=== PATIENT | male | born 1985 | race Caucasian/White ===

== ENCOUNTER 2022-01-10 10:37 | Emergency (ER) | payer OTHER, SELFPAY ==
--- NOTE | ~2022-01-10 | XR_ITS ---
EXAMINATION: XR CHEST CLINICAL INFORMATION: Chest pain. COMPARISON: Portable chest dated 04/16/2011. TECHNIQUE: 2 views of the chest were obtained. FINDINGS: No significant abnormality is noted involving the heart, lungs, mediastinum, bony thorax or soft tissues. XR/XR chest 2V IMPRESSION: No acute cardiopulmonary process.
--- NOTE | 2022-01-10 10:39 | ECG_ITS ---
Test Reason : CP Blood Pressure : / mmHG Vent. Rate : 089 BPM Atrial Rate : 089 BPM P-R Int : 158 ms QRS Dur : 090 ms QT Int : 342 ms P-R-T Axes : 031 031 019 degrees QTc Int : 416 ms Normal sinus rhythm Minimal voltage criteria for LVH, may be normal variant ( [place] product ) Borderline ECG When compared with ECG of 16-APR-2011 18:57, No significant change was found Referred By: Generic ED Physician Electronically Signed By:LUIGI ATKINS MD
[2022-01-10 10:40] VITALS: BP 197/115; PULSE 95; RESP 18; TEMP 36.6; O2SAT 99; BMI 32.4
[2022-01-10 10:53] LABS: MANUAL DIFF FLAG NO
[2022-01-10 10:54] LABS: Basophils Absolute Auto 0.1 X10*3/uL (0.0-0.2); Basophils Percent Auto 0.7 % (0-2); Eosinophils Absolute Auto 0.2 X10*3/uL (0.0-0.4); Eosinophils Percent Auto 1.8 % (0-4); Hematocrit 43.4 % (42.0-52.0); Imm Gran Abs Auto 0.02 X10*3/uL (0.00-0.03); Imm Gran Pct Auto 0.2 % (0.0-0.4); Lymphocytes Absolute Auto 2.5 X10*3/uL (1.2-4.9); Lymphocytes Percent Auto 25.1 % (20-40); Mean Corpuscular HGB Conc 32.3 g/dl (31.0-36.0); Mean Corpuscular Hemoglobin 26.4 pg (27.0-33.0); Mean Corpuscular Volume 81.7 fL (80.0-98.0); Mean Platelet Volume 9.5 fL (9.4-12.4); Monocytes Percent Auto 9.9 % (2-11); Neutrophils Absolute Auto 6.1 x10*3/uL (2.0-8.3); Neutrophils Percent Auto 62.3 % (45-73); Platelet Count 379 X10*3/uL (160-400); Red Blood Count 5.31 X10*6/uL (4.60-5.80); Red Cell Distribution Width 15.5 % (11.0-16.0); White Blood Count 9.8 X10*3/uL (4.8-10.8)
[2022-01-10 11:09] LABS: Anion Gap 15 (12-20); Blood Urea Nitrogen 6 mg/dL (9-16); Carbon Dioxide 25 mmol/L (22-29); Chloride 104 mmol/L (96-108); Creatinine Clr Calc Pharmacy 102.2; Estimated Glomerular Filt Rate > 60; Glucose Random 92 mg/dL (60-115); Potassium 4.5 mmol/L (3.3-5.1); Sodium 139 mmol/L (135-145)
[2022-01-10 11:14] LABS: Troponin-I High Sensitivity 10.3 ng/L (<3.5-35.0)
[2022-01-10 13:45] VITALS: BP 180/107; PULSE 82; RESP 18; TEMP 36.6; O2SAT 99
[2022-01-10 14:17] LABS: Troponin-I High Sensitivity 12.8 ng/L (<3.5-35.0)
[2022-01-10] MEDS: amLODIPine Besylate 2.5 MG TABLET 7.5 MG PO (15:16)
--- NOTE | 2022-01-10 15:23 | ED.CHESTPAIN ---
HPI - Chest Pain General Chief Complaint: Chest Pain Stated Complaint: CP Time Seen by Provider: 01/10/22 14:57 Source: patient Mode of arrival: ambulatory History of Present Illness HPI narrative: 36-year-old male with known history hypertension presents with mild chest discomfort and has been off of his medications for 1 month due to lapse in medical coverage. Otherwise, he denies any dizziness, headache, shortness of breath. Related Data Previous Rx's Medication Instructions Recorded amlodipine 10 mg tablet (Norvasc) 10 mg PO DAILY #30 tabs 01/10/22 hydrochlorothiazide 25 mg tablet 25 mg PO DAILY #30 tabs 01/10/22 Allergies Allergy/AdvReac Type Severity Reaction Status Date / Time barium sulfate Allergy Unknown Verified 05/28/14 00:00 No Known Allergies Allergy Unverified 11/27/19 16:23 calomine Allergy Unknown Uncoded 05/28/14 00:00 Review of Systems Review of Systems: Pertinent positives and negatives as stated in HPI 10 point review of systems is otherwise negative. [facility] Past Medical History Source: nursing notes reviewed Social History Social History Advance Directives: No Advance Directives Information Provided: No Physical Exam Vital Signs: Vital Signs: Last Vital Signs Temp 98 F 01/10/22 13:45 Pulse 76 01/10/22 18:00 Resp 18 01/10/22 18:00 BP 197/116 H 01/10/22 18:00 Pulse Ox 98 01/10/22 18:00 O2 Del Method 01/10/22 18:00 BMI result Body Mass Index 32.4 VITAL SIGNS: Reviewed. GENERAL: Well developed, well nourished, in no acute distress. HEAD: Normocephalic/atraumatic EYES: PERRLA, EOMI EARS: Ext canals without abnormality OROPHARYNX: no oral lesions noted, posterior pharynx clear LUNGS: Normal breath sounds. No adventitious sounds or accessory muscle use. SpO2<99> CARDIOVASCULAR: Regular rate and rhythm without noted murmurs ABDOMEN: Soft, non-tender, non-distended with bowel sounds. MUSCULOSKELETAL: No tenderness, deformities, or effusions noted on gross inspection. EXTREMITIES: No cyanosis, clubbing or edema. SKIN: Inspection of the skin reveals no rashes NEUROLOGIC: Alert and oriented x 4. Strength and sensation to light touch were grossly intact x 4. Course Course Course Narrative: 36-year-old male with history and clinical presentation secondary to uncontrolled hypertension and chest pain and on review all investigations troponins although detectable are not elevated. Will give patient blood pressure medication, obtain 3rd troponin, and then discharged on a 30 day supply blood pressure medication. Patient is received a total of 7.5 mg of Norvasc and 10 mg of hydralazine. MDM - Chest Pain Lab Data Result diagrams: 01/10/22 10:49 01/10/22 10:49 Labs: Lab Results 01/10/22 01/10/22 01/10/22 Range/Units 10:49 10:49 10:49 WBC 9.8 (4.8-10.8) X10*3/uL RBC 5.31 (4.60-5.80) X10*6/uL Hgb 14.0 (14.0-18.0) g/dl Hct 43.4 (42.0-52.0) % MCV 81.7 (80.0-98.0) fL MCH 26.4 L (27.0-33.0) pg MCHC 32.3 (31.0-36.0) g/dl RDW 15.5 (11.0-16.0) % Plt Count 379 (160-400) X10*3/uL MPV 9.5 (9.4-12.4) fL Immature Gran % (Auto) 0.2 (0.0-0.4) % Neut % (Auto) 62.3 (45-73) % Lymph % (Auto) 25.1 (20-40) % [place] % (Auto) 9.9 (2-11) % Eos % (Auto) 1.8 (0-4) % Baso % (Auto) 0.7 (0-2) % Lymph # (Auto) 2.5 (1.2-4.9) X10*3/uL [place] # (Auto) 1.0 (0.1-1.2) X10*3/uL Eos # (Auto) 0.2 (0.0-0.4) X10*3/uL Baso # (Auto) 0.1 (0.0-0.2) X10*3/uL Abs Immat Gran (auto) 0.02 (0.00-0.03) X10*3/uL Absolute Neuts (auto) 6.1 (2.0-8.3) x10*3/uL Absolute Nucleated RBC 0.000 (0.0-0.012) X10*3/uL Nucleated RBC % (auto) 0.0 (0.0-0.2) /100WBC Sodium 139 (135-145) mmol/L Potassium 4.5 (3.3-5.1) mmol/L Chloride 104 (96-108) mmol/L Carbon Dioxide 25 (22-29) mmol/L Anion Gap 15 (12-20) BUN 6 L (9-16) mg/dL Creatinine 1.08 (0.5-1.4) mg/dL Estim Creat Clear Calc 102.2 Estimated GFR > 60 Random Glucose 92 (60-115) mg/dL Calcium 10.0 (8.4-10.2) mg/dL Troponin I High Sens 10.3 (<3.5-35.0) ng/L 01/10/22 01/10/22 Range/Units 13:45 15:45 WBC (4.8-10.8) X10*3/uL RBC (4.60-5.80) X10*6/uL Hgb (14.0-18.0) g/dl Hct (42.0-52.0) % MCV (80.0-98.0) fL MCH (27.0-33.0) pg MCHC (31.0-36.0) g/dl RDW (11.0-16.0) % Plt Count (160-400) X10*3/uL MPV (9.4-12.4) fL Immature Gran % (Auto) (0.0-0.4) % Neut % (Auto) (45-73) % Lymph % (Auto) (20-40) % [place] % (Auto) (2-11) % Eos % (Auto) (0-4) % Baso % (Auto) (0-2) % Lymph # (Auto) (1.2-4.9) X10*3/uL [place] # (Auto) (0.1-1.2) X10*3/uL Eos # (Auto) (0.0-0.4) X10*3/uL Baso # (Auto) (0.0-0.2) X10*3/uL Abs Immat Gran (auto) (0.00-0.03) X10*3/uL Absolute Neuts (auto) (2.0-8.3) x10*3/uL Absolute Nucleated RBC (0.0-0.012) X10*3/uL Nucleated RBC % (auto) (0.0-0.2) /100WBC Sodium (135-145) mmol/L Potassium (3.3-5.1) mmol/L Chloride (96-108) mmol/L Carbon Dioxide (22-29) mmol/L Anion Gap (12-20) BUN (9-16) mg/dL Creatinine (0.5-1.4) mg/dL Estim Creat Clear Calc Estimated GFR Random Glucose (60-115) mg/dL Calcium (8.4-10.2) mg/dL Troponin I High Sens 12.8 13.9 (<3.5-35.0) ng/L Discharge Plan Discharge Clinical Impression: Chest pain, Hypertensive urgency Patient Disposition: Home, Self-Care Instructions: Hypertensive Crisis (ED) Additional Instructions: You have been provided with 30 days of blood pressure medication and should use this time to set up care with a primary care provider in the area, you have been provided with a list of possibilities. Return to the ER for worsening symptoms. Prescriptions: New amlodipine [Norvasc] 10 mg tablet 10 mg PO DAILY Qty: 30 0RF hydrochlorothiazide 25 mg tablet 25 mg PO DAILY Qty: 30 0RF
[2022-01-10 16:26] LABS: Troponin-I High Sensitivity 13.9 ng/L (<3.5-35.0)
[2022-01-10] MEDS: hydrALAZINE HCl 10 MG TABLET PO (16:48)
[2022-01-10 17:10] VITALS: BP 184/118
[2022-01-10 17:11] VITALS: BP 117/104
[2022-01-10 18:00] VITALS: BP 197/116; PULSE 76; RESP 18; O2SAT 98
== END 2022-01-10 18:22 | disposition home or self-care (01) ==
PROVIDERS: Emergency Medicine; Emergency Provider Student in an Organized Health Care Education/Training Program
DX: R07.9 Chest pain, unspecified (principal); I16.0 Hypertensive urgency
CPT/HCPCS: 36415; 71046; 80048; 84484; 85025; 93005; 99283; 99284

== ENCOUNTER 2022-06-24 12:12 | Emergency (ER) | payer MEDICAID, SELFPAY ==
--- NOTE | ~2022-06-24 | XR_ITS ---
EXAMINATION: XR CHEST CLINICAL INFORMATION: Chest pain COMPARISON: 01/10/2022 TECHNIQUE: Frontal view of the chest was obtained. FINDINGS: No acute finding. The lung stevenson are grossly clear. No failure or infiltrate. There is no effusion. The cardiac silhouette is within normal limits The hilar regions do not appear pathologically enlarged. Mild scoliosis in the spine. XR/XR chest 1V IMPRESSION: No acute finding.
[2022-06-24 12:14] VITALS: BP 217/122; RESP 18; TEMP 36.8; O2SAT 98; BMI 32.8
--- NOTE | 2022-06-24 12:14 | ECG_ITS ---
Test Reason : cp Blood Pressure : / mmHG Vent. Rate : 092 BPM Atrial Rate : 092 BPM P-R Int : 154 ms QRS Dur : 086 ms QT Int : 360 ms P-R-T Axes : 034 034 009 degrees QTc Int : 445 ms Sinus rhythm with frequent Premature ventricular complexes Minimal voltage criteria for LVH, may be normal variant ( [place] product ) Borderline ECG When compared with ECG of 10-JAN-2022 10:38, Premature ventricular complexes are now Present Referred By: Gabe Valles Electronically Signed By:BRAYDEN ADDISON MD
--- NOTE | 2022-06-24 12:15 | ED_ITS ---
HPI - General Adult General Chief complaint: General Medical <FELISHA Iverson - Last Filed: 06/24/22 12:21> Stated complaint: chest pains/kidney pain <FELISHA Iverson - Last Filed: 06/24/22 12:21> Time Seen by Provider: 06/24/22 12:48 <FELISHA Iverson - Last Filed: 06/24/22 12:21> Related Data Home medications: Previous Rx's Medication Instructions Recorded amlodipine 10 mg tablet (Norvasc) 10 mg PO DAILY #30 tabs 01/10/22 hydrochlorothiazide 25 mg tablet 25 mg PO DAILY #30 tabs 01/10/22 amlodipine 10 mg tablet (Norvasc) 10 mg PO DAILY #30 tabs 06/24/22 hydrochlorothiazide 25 mg tablet 25 mg PO DAILY #30 tabs 06/24/22 <FELISHA Iverson - Last Filed: 06/24/22 12:21> Allergies/adverse reactions: Allergies Allergy/AdvReac Type Severity Reaction Status Date / Time barium sulfate Allergy Unknown Verified 05/28/14 00:00 No Known Allergies Allergy Unverified 11/27/19 16:23 calomine Allergy Unknown Uncoded 05/28/14 00:00 <FELISHA Iverson - Last Filed: 06/24/22 12:21> [facility] Social History Social History: Social History Advance Directives: No Advance Directives Information Provided: Yes <FELISHA Iverson - Last Filed: 06/24/22 12:21> Physical Exam ED Vital Signs: Vital Signs - 24 hr 06/24/22 12:14 06/24/22 14:23 06/24/22 15:46 Temperature 98.2 F Pulse Rate 74 Respiratory Rate 18 16 Blood Pressure 217/122 H 212/126 H 194/124 H Pulse Oximetry 98 96 Oxygen Delivery Method Room Air Room Air 06/24/22 16:26 Temperature Pulse Rate 77 Respiratory Rate 18 Blood Pressure 174/122 H Pulse Oximetry 96 Oxygen Delivery Method Room Air BMI result Body Mass Index 32.8 <FELISHA Iverson Last Filed: 06/24/22 12:21> Vital Signs - 24 hr 06/24/22 12:14 06/24/22 14:23 06/24/22 15:46 Temperature 98.2 F Pulse Rate 74 Respiratory Rate 18 16 Blood Pressure 217/122 H 212/126 H 194/124 H Pulse Oximetry 98 96 Oxygen Delivery Method Room Air Room Air 06/24/22 16:26 Temperature Pulse Rate 77 Respiratory Rate 18 Blood Pressure 174/122 H Pulse Oximetry 96 Oxygen Delivery Method Room Air BMI result Body Mass Index 32.8 <Ruben Spears MD - Last Filed: 06/24/22 16:49> Course Course Course Narrative: This is an RME: Additional HPI, ROS, PE not included below will be deferred to primary provider. 37-year-old male presents with palpitations,chest pain, right arm numbness described as cleaning saw from the IV going through his arm, stent pain to his right flank all started this morning. Tells me has a history of SC in the past. No urinary sx Physical exam benign. HTN 223/128 noted patient reports he was taking amlodipine back in December and hydrochlorothiazide however hasn't taken since December because no pcp will take me Perc negative Will obtain cardiac workup. Ordered amlodipine and hydrochlorothiazide. <FELISHA Iverson - Last Filed: 06/24/22 12:21> Reevaluation(s) Reevaluation #1: pt gladis AM undewrstand risks including <Ruben Spears MD - Last Filed: 06/24/22 16:49> Time: 16:49 <Ruben Spears MD - Last Filed: 06/24/22 16:49> Medications Administered Discontinued Medications Generic Name Dose Route Start Last Admin Trade Name Freq PRN Reason Stop Dose Admin Amlodipine Besylate 10 mg 06/24/22 12:18 06/24/22 13:51 Amlodipine Besylate 10 Mg Tablet PO 06/24/22 12:19 10 mg ONCE ONE Administration Protocol Clonidine HCl 0.2 mg 06/24/22 14:41 06/24/22 14:55 Clonidine Hcl 0.2 Mg Tablet PO 06/24/22 14:42 0.2 mg ONCE ONE Administration Protocol Hydrochlorothiazide 25 mg 06/24/22 12:18 06/24/22 13:51 Hydrochlorothiazide 25 Mg Tablet PO 06/24/22 12:19 25 mg ONCE ONE Administration Protocol Labetalol HCl 20 mg 06/24/22 15:49 06/24/22 16:05 Labetalol Hcl 100 Mg/20 Ml Vial IVPUSH 06/24/22 15:50 20 mg ONCE ONE Administration <FELISHA Iverson - Last Filed: 06/24/22 12:21> Medications Administered Discontinued Medications Generic Name Dose Route Start Last Admin Trade Name [place] PRN Reason Stop Dose Admin Amlodipine Besylate 10 mg 06/24/22 12:18 06/24/22 13:51 Amlodipine Besylate 10 Mg Tablet PO 06/24/22 12:19 10 mg ONCE ONE Administration Protocol Clonidine HCl 0.2 mg 06/24/22 14:41 06/24/22 14:55 Clonidine Hcl 0.2 Mg Tablet PO 06/24/22 14:42 0.2 mg ONCE ONE Administration Protocol Hydrochlorothiazide 25 mg 06/24/22 12:18 06/24/22 13:51 Hydrochlorothiazide 25 Mg Tablet PO 06/24/22 12:19 25 mg ONCE ONE Administration Protocol Labetalol HCl 20 mg 06/24/22 15:49 06/24/22 16:05 Labetalol Hcl 100 Mg/20 Ml Vial IVPUSH 06/24/22 15:50 20 mg ONCE ONE Administration <Ruben Spears MD - Last Filed: 06/24/22 16:49> Medical Decision Making Lab Data Result Diagrams: 06/24/22 12:28 06/24/22 12:28 <FELISHA Iverson - Last Filed: 06/24/22 12:21> Labs: Lab Results 06/24/22 06/24/22 06/24/22 Range/Units 12:28 12:28 12:28 WBC 7.4 (4.8-10.8) X10*3/uL RBC 5.03 (4.60-5.80) X10*6/uL Hgb 13.1 L (14.0-18.0) g/dl Hct 39.5 L (42.0-52.0) % MCV 78.5 L (80.0-98.0) fL MCH 26.0 L (27.0-33.0) pg MCHC 33.2 (31.0-36.0) g/dl RDW 14.9 (11.0-16.0) % Plt Count 327 (160-400) X10*3/uL MPV 9.8 (9.4-12.4) fL Immature Gran % (Auto) 0.3 (0.0-0.4) % Neut % (Auto) 51.6 (45-73) % Lymph % (Auto) 35.9 (20-40) % [place] % (Auto) 9.6 (2-11) % Eos % (Auto) 1.9 (0-4) % Baso % (Auto) 0.7 (0-2) % Lymph # (Auto) 2.7 (1.2-4.9) X10*3/uL [place] # (Auto) 0.7 (0.1-1.2) X10*3/uL Eos # (Auto) 0.1 (0.0-0.4) X10*3/uL Baso # (Auto) 0.1 (0.0-0.2) X10*3/uL Abs Immat Gran (auto) 0.02 (0.00-0.03) X10*3/uL Absolute Neuts (auto) 3.8 (2.0-8.3) x10*3/uL Absolute Nucleated RBC 0.000 (0.0-0.012) X10*3/uL Nucleated RBC % (auto) 0.0 (0.0-0.2) /100WBC Sodium 138 (135-145) mmol/L Potassium 4.2 (3.3-5.1) mmol/L Chloride 107 (96-108) mmol/L Carbon Dioxide 22 (22-29) mmol/L Anion Gap 13 (12-20) BUN 10 (9-16) mg/dL Creatinine 1.02 (0.5-1.4) mg/dL Estim Creat Clear Calc 108.0 Estimated GFR > 60 Random Glucose 111 (60-115) mg/dL Calcium 9.2 D (8.4-10.2) mg/dL Magnesium 2.2 (1.6-2.6) mg/dL Total Bilirubin 0.6 (0.0-1.0) mg/dL AST 17 (5-37) U/L ALT 26 (0-40) U/L Alkaline Phosphatase 88 (39-117) U/L Troponin I High Sens 10.6 (<3.5-35.0) ng/L Total Protein 7.0 (6.5-8.0) g/dL Albumin 4.3 (3.5-5.0) g/dL Lipase 81 H (8-78) U/L COVID-19 (BRANDYN) (Negative) COVID-19 Clin Com 06/24/22 06/24/22 Range/Units 12:28 14:28 WBC (4.8-10.8) X10*3/uL RBC (4.60-5.80) X10*6/uL Hgb (14.0-18.0) g/dl Hct (42.0-52.0) % MCV (80.0-98.0) fL MCH (27.0-33.0) pg MCHC (31.0-36.0) g/dl RDW (11.0-16.0) % Plt Count (160-400) X10*3/uL MPV (9.4-12.4) fL Immature Gran % (Auto) (0.0-0.4) % Neut % (Auto) (45-73) % Lymph % (Auto) (20-40) % [place] % (Auto) (2-11) % Eos % (Auto) (0-4) % Baso % (Auto) (0-2) % Lymph # (Auto) (1.2-4.9) X10*3/uL [place] # (Auto) (0.1-1.2) X10*3/uL Eos # (Auto) (0.0-0.4) X10*3/uL Baso # (Auto) (0.0-0.2) X10*3/uL Abs Immat Gran (auto) (0.00-0.03) X10*3/uL Absolute Neuts (auto) (2.0-8.3) x10*3/uL Absolute Nucleated RBC (0.0-0.012) X10*3/uL Nucleated RBC % (auto) (0.0-0.2) /100WBC Sodium (135-145) mmol/L Potassium (3.3-5.1) mmol/L Chloride (96-108) mmol/L Carbon Dioxide (22-29) mmol/L Anion Gap (12-20) BUN (9-16) mg/dL Creatinine (0.5-1.4) mg/dL Estim Creat Clear Calc Estimated GFR Random Glucose (60-115) mg/dL Calcium (8.4-10.2) mg/dL Magnesium (1.6-2.6) mg/dL Total Bilirubin (0.0-1.0) mg/dL AST (5-37) U/L ALT (0-40) U/L Alkaline Phosphatase (39-117) U/L Troponin I High Sens 13.3 (<3.5-35.0) ng/L Total Protein (6.5-8.0) g/dL Albumin (3.5-5.0) g/dL Lipase (8-78) U/L COVID-19 (BRANDYN) Negative (Negative) COVID-19 Clin Com See Note <FELISHA Iverson - Last Filed: 06/24/22 12:21> Lab Results 06/24/22 06/24/22 06/24/22 Range/Units 12:28 12:28 12:28 WBC 7.4 (4.8-10.8) X10*3/uL RBC 5.03 (4.60-5.80) X10*6/uL Hgb 13.1 L (14.0-18.0) g/dl Hct 39.5 L (42.0-52.0) % MCV 78.5 L (80.0-98.0) fL MCH 26.0 L (27.0-33.0) pg MCHC 33.2 (31.0-36.0) g/dl RDW 14.9 (11.0-16.0) % Plt Count 327 (160-400) X10*3/uL MPV 9.8 (9.4-12.4) fL Immature Gran % (Auto) 0.3 (0.0-0.4) % Neut % (Auto) 51.6 (45-73) % Lymph % (Auto) 35.9 (20-40) % [place] % (Auto) 9.6 (2-11) % Eos % (Auto) 1.9 (0-4) % Baso % (Auto) 0.7 (0-2) % Lymph # (Auto) 2.7 (1.2-4.9) X10*3/uL [place] # (Auto) 0.7 (0.1-1.2) X10*3/uL Eos # (Auto) 0.1 (0.0-0.4) X10*3/uL Baso # (Auto) 0.1 (0.0-0.2) X10*3/uL Abs Immat Gran (auto) 0.02 (0.00-0.03) X10*3/uL Absolute Neuts (auto) 3.8 (2.0-8.3) x10*3/uL Absolute Nucleated RBC 0.000 (0.0-0.012) X10*3/uL Nucleated RBC % (auto) 0.0 (0.0-0.2) /100WBC Sodium 138 (135-145) mmol/L Potassium 4.2 (3.3-5.1) mmol/L Chloride 107 (96-108) mmol/L Carbon Dioxide 22 (22-29) mmol/L Anion Gap 13 (12-20) BUN 10 (9-16) mg/dL Creatinine 1.02 (0.5-1.4) mg/dL Estim Creat Clear Calc 108.0 Estimated GFR > 60 Random Glucose 111 (60-115) mg/dL Calcium 9.2 D (8.4-10.2) mg/dL Magnesium 2.2 (1.6-2.6) mg/dL Total Bilirubin 0.6 (0.0-1.0) mg/dL AST 17 (5-37) U/L ALT 26 (0-40) U/L Alkaline Phosphatase 88 (39-117) U/L Troponin I High Sens 10.6 (<3.5-35.0) ng/L Total Protein 7.0 (6.5-8.0) g/dL Albumin 4.3 (3.5-5.0) g/dL Lipase 81 H (8-78) U/L COVID-19 (BRANDYN) (Negative) COVID-19 Clin Com 06/24/22 06/24/22 Range/Units 12:28 14:28 WBC (4.8-10.8) X10*3/uL RBC (4.60-5.80) X10*6/uL Hgb (14.0-18.0) g/dl Hct (42.0-52.0) % MCV (80.0-98.0) fL MCH (27.0-33.0) pg MCHC (31.0-36.0) g/dl RDW (11.0-16.0) % Plt Count (160-400) X10*3/uL MPV (9.4-12.4) fL Immature Gran % (Auto) (0.0-0.4) % Neut % (Auto) (45-73) % Lymph % (Auto) (20-40) % [place] % (Auto) (2-11) % Eos % (Auto) (0-4) % Baso % (Auto) (0-2) % Lymph # (Auto) (1.2-4.9) X10*3/uL [place] # (Auto) (0.1-1.2) X10*3/uL Eos # (Auto) (0.0-0.4) X10*3/uL Baso # (Auto) (0.0-0.2) X10*3/uL Abs Immat Gran (auto) (0.00-0.03) X10*3/uL Absolute Neuts (auto) (2.0-8.3) x10*3/uL Absolute Nucleated RBC (0.0-0.012) X10*3/uL Nucleated RBC % (auto) (0.0-0.2) /100WBC Sodium (135-145) mmol/L Potassium (3.3-5.1) mmol/L Chloride (96-108) mmol/L Carbon Dioxide (22-29) mmol/L Anion Gap (12-20) BUN (9-16) mg/dL Creatinine (0.5-1.4) mg/dL Estim Creat Clear Calc Estimated GFR Random Glucose (60-115) mg/dL Calcium (8.4-10.2) mg/dL Magnesium (1.6-2.6) mg/dL Total Bilirubin (0.0-1.0) mg/dL AST (5-37) U/L ALT (0-40) U/L Alkaline Phosphatase (39-117) U/L Troponin I High Sens 13.3 (<3.5-35.0) ng/L Total Protein (6.5-8.0) g/dL Albumin (3.5-5.0) g/dL Lipase (8-78) U/L COVID-19 (BRANDYN) Negative (Negative) COVID-19 Clin Com See Note <Ruben Spears MD - Last Filed: 06/24/22 16:49> Discharge Plan Discharge Clinical Impression: Hypertensive urgency <FELISHA Iverson - Last Filed: 06/24/22 12:21> Patient Disposition: Left Against Medical Advice <FELISHA Iverson - Last Filed: 06/24/22 12:21> Instructions: Hypertensive Crisis (ED) <FELISHA Iverson - Last Filed: 06/24/22 12:21> Additional Instructions: You signed against medical advice, you are welcome to come back any time will call for you prescription medication for blood pressure anywhere <FELISHA Iverson - Last Filed: 06/24/22 12:21> Prescriptions: New amlodipine [Norvasc] 10 mg tablet 10 mg PO DAILY Qty: 30 0RF hydrochlorothiazide 25 mg tablet 25 mg PO DAILY Qty: 30 0RF No Action amlodipine [Norvasc] 10 mg tablet 10 mg PO DAILY Qty: 30 0RF hydrochlorothiazide 25 mg tablet 25 mg PO DAILY Qty: 30 0RF <FELISHA Iverson - Last Filed: 06/24/22 12:21>
[2022-06-24 12:32] LABS: MANUAL DIFF FLAG NO
[2022-06-24 12:33] LABS: Basophils Absolute Auto 0.1 X10*3/uL (0.0-0.2); Basophils Percent Auto 0.7 % (0-2); Eosinophils Absolute Auto 0.1 X10*3/uL (0.0-0.4); Eosinophils Percent Auto 1.9 % (0-4); Hematocrit 39.5 % (42.0-52.0); Hemoglobin 13.1 g/dl (14.0-18.0); Imm Gran Abs Auto 0.02 X10*3/uL (0.00-0.03); Imm Gran Pct Auto 0.3 % (0.0-0.4); Lymphocytes Absolute Auto 2.7 X10*3/uL (1.2-4.9); Lymphocytes Percent Auto 35.9 % (20-40); Mean Corpuscular HGB Conc 33.2 g/dl (31.0-36.0); Mean Corpuscular Volume 78.5 fL (80.0-98.0); Mean Platelet Volume 9.8 fL (9.4-12.4); Monocytes Absolute Auto 0.7 X10*3/uL (0.1-1.2); Monocytes Percent Auto 9.6 % (2-11); Neutrophils Absolute Auto 3.8 x10*3/uL (2.0-8.3); Neutrophils Percent Auto 51.6 % (45-73); Platelet Count 327 X10*3/uL (160-400); Red Blood Count 5.03 X10*6/uL (4.60-5.80); Red Cell Distribution Width 14.9 % (11.0-16.0); White Blood Count 7.4 X10*3/uL (4.8-10.8)
[2022-06-24 12:45] LABS: COVID-19 Test Negative (Negative); IDNOW Serial# BCCEAD1C
[2022-06-24 12:53] LABS: Alanine Aminotransferase 26 U/L (0-40); Albumin Level 4.3 g/dL (3.5-5.0); Alkaline Phosphatase 88 U/L (39-117); Anion Gap 13 (12-20); Aspartate Amino Transferase 17 U/L (5-37); Bilirubin Total 0.6 mg/dL (0.0-1.0); Blood Urea Nitrogen 10 mg/dL (9-16); Calcium 9.2 mg/dL (8.4-10.2); Carbon Dioxide 22 mmol/L (22-29); Chloride 107 mmol/L (96-108); Estimated Glomerular Filt Rate > 60; Glucose Random 111 mg/dL (60-115); Lipase 81 U/L (8-78); Magnesium 2.2 mg/dL (1.6-2.6); Potassium 4.2 mmol/L (3.3-5.1); Sodium 138 mmol/L (135-145)
[2022-06-24 13:01] LABS: Troponin-I High Sensitivity 10.6 ng/L (<3.5-35.0)
--- NOTE | 2022-06-24 13:11 | ED.GENADULT ---
HPI - General Adult General Chief complaint: General Medical Stated complaint: chest pains/kidney pain Time Seen by Provider: 06/24/22 12:48 Source: patient Mode of arrival: ambulatory Limitations: no limitations History of Present Illness HPI narrative: This is 37 years old patient with history of since CAD was not taking any medicine right now presented to the emergency department with chief complaint of tingling in the legs right arm pain. He states that he has been off his blood pressure medication, blood pressure was noted to be elevated in triage Onset (ago): hour(s) (5) Radiation: non-radiation Severity: mild Quality: burning Related Data Previous Rx's Medication Instructions Recorded amlodipine 10 mg tablet (Norvasc) 10 mg PO DAILY #30 tabs 01/10/22 hydrochlorothiazide 25 mg tablet 25 mg PO DAILY #30 tabs 01/10/22 Allergies Allergy/AdvReac Type Severity Reaction Status Date / Time barium sulfate Allergy Unknown Verified 05/28/14 00:00 No Known Allergies Allergy Unverified 11/27/19 16:23 calomine Allergy Unknown Uncoded 05/28/14 00:00 Review of Systems Constitutional: Constitutional: Reports no additional constitutional complaints ENT: Reports system reviewed and no additional complaints, except as documented Cardiovascular: Cardiovascular: Reports no additional cardiovascular complaints Psychiatric: Psychiatric: Reports no additional psychiatric complaints PMFSH Social History Social History Advance Directives: No Advance Directives Information Provided: Yes Physical Exam ED Vital Signs: Vital Signs - 24 hr 06/24/22 12:14 06/24/22 14:23 06/24/22 15:46 Temperature 98.2 F Pulse Rate 74 Respiratory Rate 18 16 Blood Pressure 217/122 H 212/126 H 194/124 H Pulse Oximetry 98 96 Oxygen Delivery Method Room Air Room Air 06/24/22 16:26 Temperature Pulse Rate 77 Respiratory Rate 18 Blood Pressure 174/122 H Pulse Oximetry 96 Oxygen Delivery Method Room Air BMI result Body Mass Index 32.8 Const General: cooperative and healthy appearing Nutritional Appearance: average body habitus Orientation/consciousness: patient oriented x3 HENMT Head: Yes normal to inspection General nose exam: Normal external nose present Face and sinus: Yes normal facial exam Mouth: Normal oral and palatal mucosa present Neck Neck: Yes normal visual inspection Chest Chest palpation & inspection: normal inspection of the chest Resp Effort & Inspection: normal respiratory effort and able to speak in complete sentences Auscultation: clear to auscultation bilaterally Cardio Jugular venous distension: no JVD Rate: regular rate Rhythm: regular rhythm GI Palpation (GI): Soft to palpation, not firm and nontender Auscultation: normal bowel sounds Skin General skin exam: no rashes or lesions noted and elasticity normal Trauma: no lacerations or abrasions Neuro General: patient oriented x3 and gait normal Course Reevaluation(s) Reevaluation #1: Patient remained in very hypertensive despite the p.o. Norvasc/hydrochlorothiazide/clonidine 0.2 will give him IV labetalol. Will admit him to telemetry I discussed the case with the hospitalist Dr. Jo Time: 16:34 Medications Administered Discontinued Medications Generic Name Dose Route Start Last Admin Trade Name Freq PRN Reason Stop Dose Admin Amlodipine Besylate 10 mg 06/24/22 12:18 06/24/22 13:51 Amlodipine Besylate 10 Mg Tablet PO 06/24/22 12:19 10 mg ONCE ONE Administration Protocol Clonidine HCl 0.2 mg 06/24/22 14:41 06/24/22 14:55 Clonidine Hcl 0.2 Mg Tablet PO 06/24/22 14:42 0.2 mg ONCE ONE Administration Protocol Hydrochlorothiazide 25 mg 06/24/22 12:18 06/24/22 13:51 Hydrochlorothiazide 25 Mg Tablet PO 06/24/22 12:19 25 mg ONCE ONE Administration Protocol Labetalol HCl 20 mg 06/24/22 15:49 06/24/22 16:05 Labetalol Hcl 100 Mg/20 Ml Vial IVPUSH 06/24/22 15:50 20 mg ONCE ONE Administration Medical Decision Making Medical Decision Making MDM Narrative: Patient presented with the elevated high blood pressure, delta trop is flat, the patient will be admitted to telemetry. Differential Diagnosis Differential Diagnoses: The differential diagnosis associated with the presentation includes Hypertensive urgency/ACS Admission/Observation Consideration of admission/observation: Escalation of care including admission/observation considered Consult Healthcare Provider Management of the patient was discussed with: Hospitalist Lab Data MDM Lab Attestation statement: I reviewed the patient's lab results. 06/24/22 12:28 06/24/22 12:28 Labs: Lab Results 06/24/22 06/24/22 06/24/22 Range/Units 12:28 12:28 12:28 WBC 7.4 (4.8-10.8) X10*3/uL RBC 5.03 (4.60-5.80) X10*6/uL Hgb 13.1 L (14.0-18.0) g/dl Hct 39.5 L (42.0-52.0) % MCV 78.5 L (80.0-98.0) fL MCH 26.0 L (27.0-33.0) pg MCHC 33.2 (31.0-36.0) g/dl RDW 14.9 (11.0-16.0) % Plt Count 327 (160-400) X10*3/uL MPV 9.8 (9.4-12.4) fL Immature Gran % (Auto) 0.3 (0.0-0.4) % Neut % (Auto) 51.6 (45-73) % Lymph % (Auto) 35.9 (20-40) % Rawlins % (Auto) 9.6 (2-11) % Eos % (Auto) 1.9 (0-4) % Baso % (Auto) 0.7 (0-2) % Lymph # (Auto) 2.7 (1.2-4.9) X10*3/uL Rawlins # (Auto) 0.7 (0.1-1.2) X10*3/uL Eos # (Auto) 0.1 (0.0-0.4) X10*3/uL Baso # (Auto) 0.1 (0.0-0.2) X10*3/uL Abs Immat Gran (auto) 0.02 (0.00-0.03) X10*3/uL Absolute Neuts (auto) 3.8 (2.0-8.3) x10*3/uL Absolute Nucleated RBC 0.000 (0.0-0.012) X10*3/uL Nucleated RBC % (auto) 0.0 (0.0-0.2) /100WBC Sodium 138 (135-145) mmol/L Potassium 4.2 (3.3-5.1) mmol/L Chloride 107 (96-108) mmol/L Carbon Dioxide 22 (22-29) mmol/L Anion Gap 13 (12-20) BUN 10 (9-16) mg/dL Creatinine 1.02 (0.5-1.4) mg/dL Estim Creat Clear Calc 108.0 Estimated GFR > 60 Random Glucose 111 (60-115) mg/dL Calcium 9.2 D (8.4-10.2) mg/dL Magnesium 2.2 (1.6-2.6) mg/dL Total Bilirubin 0.6 (0.0-1.0) mg/dL AST 17 (5-37) U/L ALT 26 (0-40) U/L Alkaline Phosphatase 88 (39-117) U/L Troponin I High Sens 10.6 (<3.5-35.0) ng/L Total Protein 7.0 (6.5-8.0) g/dL Albumin 4.3 (3.5-5.0) g/dL Lipase 81 H (8-78) U/L COVID-19 ([facility]YN) (Negative) COVID-19 Clin Com 06/24/22 06/24/22 Range/Units 12:28 14:28 WBC (4.8-10.8) X10*3/uL RBC (4.60-5.80) X10*6/uL Hgb (14.0-18.0) g/dl Hct (42.0-52.0) % MCV (80.0-98.0) fL MCH (27.0-33.0) pg MCHC (31.0-36.0) g/dl RDW (11.0-16.0) % Plt Count (160-400) X10*3/uL MPV (9.4-12.4) fL Immature Gran % (Auto) (0.0-0.4) % Neut % (Auto) (45-73) % Lymph % (Auto) (20-40) % Rawlins % (Auto) (2-11) % Eos % (Auto) (0-4) % Baso % (Auto) (0-2) % Lymph # (Auto) (1.2-4.9) X10*3/uL Rawlins # (Auto) (0.1-1.2) X10*3/uL Eos # (Auto) (0.0-0.4) X10*3/uL Baso # (Auto) (0.0-0.2) X10*3/uL Abs Immat Gran (auto) (0.00-0.03) X10*3/uL Absolute Neuts (auto) (2.0-8.3) x10*3/uL Absolute Nucleated RBC (0.0-0.012) X10*3/uL Nucleated RBC % (auto) (0.0-0.2) /100WBC Sodium (135-145) mmol/L Potassium (3.3-5.1) mmol/L Chloride (96-108) mmol/L Carbon Dioxide (22-29) mmol/L Anion Gap (12-20) BUN (9-16) mg/dL Creatinine (0.5-1.4) mg/dL Estim Creat Clear Calc Estimated GFR Random Glucose (60-115) mg/dL Calcium (8.4-10.2) mg/dL Magnesium (1.6-2.6) mg/dL Total Bilirubin (0.0-1.0) mg/dL AST (5-37) U/L ALT (0-40) U/L Alkaline Phosphatase (39-117) U/L Troponin I High Sens 13.3 (<3.5-35.0) ng/L Total Protein (6.5-8.0) g/dL Albumin (3.5-5.0) g/dL Lipase (8-78) U/L COVID-19 (BRANDYN) Negative (Negative) COVID-19 Clin Com See Note Independent Interpretation I performed an independent interpretation of an: EKG Interpretation: Normal sinus rhythm rate 92 ,3 PVC, st-t segment isoelectric Radiology Impression Discussion of test interpretation with radiology: I have reviewed the radiologist's reading. Radiologist Impression: COMPARISON: 01/10/2022 TECHNIQUE: Frontal view of the chest was obtained. FINDINGS: No acute finding. The lung stevenson are grossly clear. No failure or infiltrate. There is no effusion. The cardiac silhouette is within normal limits The hilar regions do not appear pathologically enlarged. Mild scoliosis in the spine. XR/XR chest 1V IMPRESSION: No acute finding. ? Dictated By: Devon Nogueira MD Signed By: <Electronically signed by Dylan Strong Critical Care Time Critical Care Time Critical Care Time: Yes Total Critical Care Time: 45 Attestation: IV labetalol hypertensive urgency Discharge Plan Discharge Clinical Impression: Hypertensive urgency Patient Disposition: Admitted As Inpatient
[2022-06-24] MEDS: hydroCHLOROthiazide 25 MG TABLET PO (13:51)
[2022-06-24] MEDS: amLODIPine Besylate 10 MG TABLET PO (13:51)
[2022-06-24 14:23] VITALS: BP 212/126
[2022-06-24] MEDS: cloNIDine HCL 0.2 MG TABLET PO (14:55)
[2022-06-24 14:59] LABS: Troponin-I High Sensitivity 13.3 ng/L (<3.5-35.0)
[2022-06-24 15:46] VITALS: BP 194/124; PULSE 74; RESP 16; O2SAT 96
--- NOTE | 2022-06-24 15:48 | PC.NURSE ---
Pt's blood pressure remains high, asymptomatic at this time
[2022-06-24] MEDS: Labetalol HCL 100 MG/20 ML VIAL 20 MG IVPUSH (16:05)
[2022-06-24 16:26] VITALS: BP 174/122; PULSE 77; RESP 18; O2SAT 96
--- NOTE | 2022-06-24 16:57 | PHA.MEDREC ---
Addendum entered by Alexia Deal RPh 06/24/22 17:05: reviewed by [facility] Original Note: Pharmacy Consult ? Medication Reconciliation Pharmacy has completed the medication reconciliation. spoke with patient. per note: patient reports he was taking amlodipine back in December and hydrochlorothiazide however hasn't taken since December because no pcp will take me . Claim history shows his last fill from [facility] was in January. Other than that he only takes OTC pain relief medications for headache and migraines.
[2022-06-24 18:11] LABS: Folate 10.2 ng/mL (> or = 4.0); TSH reflex Free T4 0.93 uIU/mL (0.32-4.0); Vitamin B12 318 pg/mL (200-900)
== END 2022-06-24 17:02 | disposition left against medical advice (07) ==
PROVIDERS: Physician Assistant; Emergency Provider Emergency Medicine
DX: I16.0 Hypertensive urgency (principal); Z20.822 Contact with and (suspected) exposure to COVID-19; Z79.899 Other long term (current) drug therapy
CPT/HCPCS: 36415; 71045; 80053; 82607; 82746; 83690; 83735; 84443; 84484; 85025; 87635; 93005; 96374; 99284

== ENCOUNTER 2022-06-25 14:31 | Emergency (ER) | payer MEDICAID, SELFPAY ==
--- NOTE | ~2022-06-25 | XR_ITS ---
EXAMINATION: XR CHEST CLINICAL INFORMATION: Chest pain COMPARISON: None available. TECHNIQUE: 2 views of the chest were obtained. FINDINGS: No significant abnormality is noted involving the heart, lungs, mediastinum, bony thorax or soft tissues. XR/XR chest 2V IMPRESSION: Unremarkable chest examination.
--- NOTE | 2022-06-25 14:45 | ECG_ITS ---
Test Reason : Chest pain Blood Pressure : / mmHG Vent. Rate : 089 BPM Atrial Rate : 089 BPM P-R Int : 160 ms QRS Dur : 092 ms QT Int : 364 ms P-R-T Axes : 025 042 -01 degrees QTc Int : 442 ms Sinus rhythm with occasional Premature ventricular complexes Minimal voltage criteria for LVH, may be normal variant ( Timoteo product ) Nonspecific T wave abnormality Abnormal ECG When compared with ECG of 24-JUN-2022 12:21, No significant change was found Referred By: Wandy Parker Electronically Signed By:ZENOBIA GUO
[2022-06-25 14:56] VITALS: BP 146/96; PULSE 90; RESP 16; TEMP 37.3; O2SAT 97; BMI 32.8
--- NOTE | 2022-06-25 14:56 | ED.CHESTPAIN ---
HPI - Chest Pain General Chief Complaint: Chest Pain <FELISHA White - Last Filed: 06/25/22 15:01> Stated Complaint: chest pain/shoulder pain <FELISHA White - Last Filed: 06/25/22 15:01> Time Seen by Provider: 06/25/22 19:43 <FELISHA White - Last Filed: 06/25/22 15:01> Source: patient <Wyatt Gray MD - Last Filed: 06/26/22 01:06> Mode of arrival: ambulatory <Wyatt Gray MD - Last Filed: 06/26/22 01:06> Limitations: no limitations <Wyatt Gray MD - Last Filed: 06/26/22 01:06> History of Present Illness HPI narrative: Patient 37-year-old with history of coronary disease status post stent placement left circumflex artery 11/30, history of hypertension was seen here yesterday for accelerated hypertension started on his medications comes here for mid chest pain started early today nausea no vomiting blood pressure on arrival was 150/77 patient used to be on valsartan amlodipine and hydrochlorothiazide about a year ago and has not taken them until yesterday when ED physician started on medication patient describes the pain is in mid chest increases on swallowing no fever no chills or significant shortness of breath saturating 98% room air no radiation of the pain no diaphoresis no nausea vomiting no abdominal pain <Wyatt Gray MD - Last Filed: 06/26/22 01:06> Related Data Home Medications: Home Medications Medication Instructions Recorded Confirmed acetaminophen-caffeine 500 mg-65 2 tab PO DAILY PRN Headache 06/24/22 06/24/22 mg tablet (Excedrin Tension Headache) ibuprofen 200 mg tablet 800 mg PO DAILY PRN Migraine 06/24/22 06/24/22 Headache Previous Rx's Medication Instructions Recorded amlodipine 10 mg tablet (Norvasc) 10 mg PO DAILY #30 tabs 06/24/22 hydrochlorothiazide 25 mg tablet 25 mg PO DAILY #30 tabs 06/24/22 valsartan 160 mg tablet (Diovan) 160 mg PO DAILY #30 tabs 06/25/22 <FELISHA White Last Filed: 06/25/22 15:01> Allergies/Adverse Reactions: Allergies Allergy/AdvReac Type Severity Reaction Status Date / Time barium sulfate Allergy Unknown Unknown Verified 06/25/22 15:00 aspirin Allergy Swelling Verified 06/25/22 15:00 calomine Allergy Unknown Unknown Uncoded 06/25/22 15:00 <FELISHA White - Last Filed: 06/25/22 15:01> Review of Systems Review of Systems: Yes all other systems are reviewed and are negative <Wyatt Gray MD - Last Filed: 06/26/22 01:06> [facility] Social History Social History: Social History Advance Directives: No Advance Directives Information Provided: No <FELISHA White - Last Filed: 06/25/22 15:01> Physical Exam Vital Signs: Vital Signs: Last Vital Signs Temp 98.7 F 06/25/22 19:34 Pulse 71 06/25/22 21:43 Resp 16 06/25/22 19:34 BP 151/97 H 06/25/22 21:43 Pulse Ox 98 06/25/22 19:34 O2 Del Method Room Air 06/25/22 19:34 BMI result Body Mass Index 32.8 <FELISHA White - Last Filed: 06/25/22 15:01> Vital Signs: Last Vital Signs Temp 98.7 F 06/25/22 19:34 Pulse 71 06/25/22 21:43 Resp 16 06/25/22 19:34 BP 151/97 H 06/25/22 21:43 Pulse Ox 98 06/25/22 19:34 O2 Del Method Room Air 06/25/22 19:34 BMI result Body Mass Index 32.8 <Wyatt Gray MD - Last Filed: 06/26/22 01:06> Appearance: Alert. Oriented X3. No acute distress. Eyes: No pallor or icterus ENT: Pharynx normal. Oral Mucosa moist Neck: Normal inspection. Neck supple. CVS: Normal heart rate and rhythm. Pulses normal. Respiratory: No respiratory distress. Equal air entry bilateral, no wheezing/rales/rhonchi Abdomen: Soft and nontender. Bowel sounds are present, no mass palpable, no CVA tenderness Skin: Skin warm and dry. Normal skin color. Normal skin turgor. Extremities: No lower extremity edema. No calf tenderness Neuro: Oriented X 3. No motor deficit. <Wyatt Gray MD - Last Filed: 06/26/22 01:06> Course Course Course Narrative: RME- 15PM - 37yoM with a PMHx of an CAD with an AZ with stent placement in the circumflex at [facility] Jan 2021 he believes presenting to the ED with c/o mid sternal chest pain that has been constant since yesterday that is worse with eating, drinking or bending forward along with left shoulder pain and left foot numbness. He reports yesterday it was pressure not pain. Reports shortness of breath only when he bends forward. He reports it feels similar when he had the AZ in January 2021. Was seen here yesterday and was planned to be admitted although patient had to leave against medical advice due to he had to care for his children he was sent home with amlodipine and hydrochlorothiazide although decided to come here for further evaluation treatment. Denies any drug or alcohol usage. Denies any other symptoms related to this. Plan: Labs, EKG, chest x-ray ordered at this time patient will be seen in the ED for further evaluation and treatment. <FELISHA White - Last Filed: 06/25/22 15:01> Medications Administered Discontinued Medications Generic Name Dose Route Start Last Admin Trade Name Freq PRN Reason Stop Dose Admin Al Hydroxide/Mg Hydroxide 30 ml 06/25/22 20:06 06/25/22 20:10 Magnesium Hydrox/Alum Hydrox 30 Ml Oral.Susp PO 06/25/22 20:07 30 ml ONCE ONE Administration Valsartan 160 mg 06/25/22 20:08 06/25/22 21:23 Valsartan 160 Mg Tablet PO 06/25/22 20:09 160 mg ONCE ONE Administration Protocol <FELISHA White - Last Filed: 06/25/22 15:01> Medications Administered Discontinued Medications Generic Name Dose Route Start Last Admin Trade Name Freq PRN Reason Stop Dose Admin Al Hydroxide/Mg Hydroxide 30 ml 06/25/22 20:06 06/25/22 20:10 Magnesium Hydrox/Alum Hydrox 30 Ml Oral.Susp PO 06/25/22 20:07 30 ml ONCE ONE Administration Valsartan 160 mg 06/25/22 20:08 06/25/22 21:23 Valsartan 160 Mg Tablet PO 06/25/22 20:09 160 mg ONCE ONE Administration Protocol <Wyatt Gray MD - Last Filed: 06/26/22 01:06> Medical Decision Making Medical Decision Making [facility] Narrative: Patient history of hypertension with mid chest pain which improved after taking Maalox 2 sets of cardiac enzymes negative will discharge patient home advised to follow-up with PCP will start patient on valsartan 160 mg daily <Wyatt Gray MD - Last Filed: 06/26/22 01:06> Lab Data [facility] Lab Attestation statement: I reviewed the patient's lab results. <Wyatt Gray MD - Last Filed: 06/26/22 01:06> Result Diagrams: 06/25/22 15:23 06/25/22 15:23 <FELISHA White - Last Filed: 06/25/22 15:01> Labs: Lab Results 06/25/22 06/25/22 06/25/22 Range/Units 15:23 15:23 15:23 WBC 11.4 H (4.8-10.8) X10*3/uL RBC 5.25 (4.60-5.80) X10*6/uL Hgb 13.9 L (14.0-18.0) g/dl Hct 41.6 L (42.0-52.0) % MCV 79.2 L (80.0-98.0) fL MCH 26.5 L (27.0-33.0) pg MCHC 33.4 (31.0-36.0) g/dl RDW 15.1 (11.0-16.0) % Plt Count 368 (160-400) X10*3/uL MPV 10.2 (9.4-12.4) fL Immature Gran % (Auto) 0.3 (0.0-0.4) % Neut % (Auto) 68.2 (45-73) % Lymph % (Auto) 21.2 (20-40) % Pierce % (Auto) 7.7 (2-11) % Eos % (Auto) 1.9 (0-4) % Baso % (Auto) 0.7 (0-2) % Lymph # (Auto) 2.4 (1.2-4.9) X10*3/uL Pierce # (Auto) 0.9 (0.1-1.2) X10*3/uL Eos # (Auto) 0.2 (0.0-0.4) X10*3/uL Baso # (Auto) 0.1 (0.0-0.2) X10*3/uL Abs Immat Gran (auto) 0.04 H (0.00-0.03) X10*3/uL Absolute Neuts (auto) 7.8 (2.0-8.3) x10*3/uL Absolute Nucleated RBC 0.000 (0.0-0.012) X10*3/uL Nucleated RBC % (auto) 0.0 (0.0-0.2) /100WBC PT 11.4 (10.0-13.1) SEC INR 1.0 (0.9-1.1) Sodium 138 (135-145) mmol/L Potassium 3.5 (3.3-5.1) mmol/L Chloride 105 (96-108) mmol/L Carbon Dioxide 24 (22-29) mmol/L Anion Gap 13 (12-20) BUN 9 (9-16) mg/dL Creatinine 1.09 (0.5-1.4) mg/dL Estim Creat Clear Calc 101.0 Estimated GFR > 60 Random Glucose 106 (60-115) mg/dL Calcium 9.6 (8.4-10.2) mg/dL Magnesium 2.1 (1.6-2.6) mg/dL Total Bilirubin 0.7 (0.0-1.0) mg/dL AST 15 (5-37) U/L ALT 23 (0-40) U/L Alkaline Phosphatase 94 (39-117) U/L Total Creatine Kinase 175 H (38-174) U/L Troponin I High Sens (<3.5-35.0) ng/L B-Natriuretic Peptide (<100) pg/mL Total Protein 7.5 (6.5-8.0) g/dL Albumin 4.6 (3.5-5.0) g/dL 06/25/22 06/25/22 06/25/22 Range/Units 15:23 15:23 19:38 WBC (4.8-10.8) X10*3/uL RBC (4.60-5.80) X10*6/uL Hgb (14.0-18.0) g/dl Hct (42.0-52.0) % MCV (80.0-98.0) fL MCH (27.0-33.0) pg MCHC (31.0-36.0) g/dl RDW (11.0-16.0) % Plt Count (160-400) X10*3/uL MPV (9.4-12.4) fL Immature Gran % (Auto) (0.0-0.4) % Neut % (Auto) (45-73) % Lymph % (Auto) (20-40) % Pierce % (Auto) (2-11) % Eos % (Auto) (0-4) % Baso % (Auto) (0-2) % Lymph # (Auto) (1.2-4.9) X10*3/uL Pierce # (Auto) (0.1-1.2) X10*3/uL Eos # (Auto) (0.0-0.4) X10*3/uL Baso # (Auto) (0.0-0.2) X10*3/uL Abs Immat Gran (auto) (0.00-0.03) X10*3/uL Absolute Neuts (auto) (2.0-8.3) x10*3/uL Absolute Nucleated RBC (0.0-0.012) X10*3/uL Nucleated RBC % (auto) (0.0-0.2) /100WBC PT (10.0-13.1) SEC INR (0.9-1.1) Sodium (135-145) mmol/L Potassium (3.3-5.1) mmol/L Chloride (96-108) mmol/L Carbon Dioxide (22-29) mmol/L Anion Gap (12-20) BUN (9-16) mg/dL Creatinine (0.5-1.4) mg/dL Estim Creat Clear Calc Estimated GFR Random Glucose (60-115) mg/dL Calcium (8.4-10.2) mg/dL Magnesium (1.6-2.6) mg/dL Total Bilirubin (0.0-1.0) mg/dL AST (5-37) U/L ALT (0-40) U/L Alkaline Phosphatase (39-117) U/L Total Creatine Kinase (38-174) U/L Troponin I High Sens 10.9 9.0 (<3.5-35.0) ng/L B-Natriuretic Peptide < 10 (<100) pg/mL Total Protein (6.5-8.0) g/dL Albumin (3.5-5.0) g/dL <FELISHA White - Last Filed: 06/25/22 15:01> Lab Results 06/25/22 06/25/22 06/25/22 Range/Units 15:23 15: 15:23 WBC 11.4 H (4.8-10.8) X10*3/uL RBC 5.25 (4.60-5.80) X10*6/uL Hgb 13.9 L (14.0-18.0) g/dl Hct 41.6 L (42.0-52.0) % MCV 79.2 L (80.0-98.0) fL MCH 26.5 L (27.0-33.0) pg MCHC 33.4 (31.0-36.0) g/dl RDW 15.1 (11.0-16.0) % Plt Count 368 (160-400) X10*3/uL MPV 10.2 (9.4-12.4) fL Immature Gran % (Auto) 0.3 (0.0-0.4) % Neut % (Auto) 68.2 (45-73) % Lymph % (Auto) 21.2 (20-40) % Pierce % (Auto) 7.7 (2-11) % Eos % (Auto) 1.9 (0-4) % Baso % (Auto) 0.7 (0-2) % Lymph # (Auto) 2.4 (1.2-4.9) X10*3/uL Pierce # (Auto) 0.9 (0.1-1.2) X10*3/uL Eos # (Auto) 0.2 (0.0-0.4) X10*3/uL Baso # (Auto) 0.1 (0.0-0.2) X10*3/uL Abs Immat Gran (auto) 0.04 H (0.00-0.03) X10*3/uL Absolute Neuts (auto) 7.8 (2.0-8.3) x10*3/uL Absolute Nucleated RBC 0.000 (0.0-0.012) X10*3/uL Nucleated RBC % (auto) 0.0 (0.0-0.2) /100WBC PT 11.4 (10.0-13.1) SEC INR 1.0 (0.9-1.1) Sodium 138 (135-145) mmol/L Potassium 3.5 (3.3-5.1) mmol/L Chloride 105 (96-108) mmol/L Carbon Dioxide 24 (22-29) mmol/L Anion Gap 13 (12-20) BUN 9 (9-16) mg/dL Creatinine 1.09 (0.5-1.4) mg/dL Estim Creat Clear Calc 101.0 Estimated GFR > 60 Random Glucose 106 (60-115) mg/dL Calcium 9.6 (8.4-10.2) mg/dL Magnesium 2.1 (1.6-2.6) mg/dL Total Bilirubin 0.7 (0.0-1.0) mg/dL AST 15 (5-37) U/L ALT 23 (0-40) U/L Alkaline Phosphatase 94 (39-117) U/L Total Creatine Kinase 175 H (38-174) U/L Troponin I High Sens (<3.5-35.0) ng/L B-Natriuretic Peptide (<100) pg/mL Total Protein 7.5 (6.5-8.0) g/dL Albumin 4.6 (3.5-5.0) g/dL 06/25/22 06/25/22 06/25/22 Range/Units 15:23 15:23 19:38 WBC (4.8-10.8) X10*3/uL RBC (4.60-5.80) X10*6/uL Hgb (14.0-18.0) g/dl Hct (42.0-52.0) % MCV (80.0-98.0) fL MCH (27.0-33.0) pg MCHC (31.0-36.0) g/dl RDW (11.0-16.0) % Plt Count (160-400) X10*3/uL MPV (9.4-12.4) fL Immature Gran % (Auto) (0.0-0.4) % Neut % (Auto) (45-73) % Lymph % (Auto) (20-40) % Pierce % (Auto) (2-11) % Eos % (Auto) (0-4) % Baso % (Auto) (0-2) % Lymph # (Auto) (1.2-4.9) X10*3/uL Pierce # (Auto) (0.1-1.2) X10*3/uL Eos # (Auto) (0.0-0.4) X10*3/uL Baso # (Auto) (0.0-0.2) X10*3/uL Abs Immat Gran (auto) (0.00-0.03) X10*3/uL Absolute Neuts (auto) (2.0-8.3) x10*3/uL Absolute Nucleated RBC (0.0-0.012) X10*3/uL Nucleated RBC % (auto) (0.0-0.2) /100WBC PT (10.0-13.1) SEC INR (0.9-1.1) Sodium (135-145) mmol/L Potassium (3.3-5.1) mmol/L Chloride (96-108) mmol/L Carbon Dioxide (22-29) mmol/L Anion Gap (12-20) BUN (9-16) mg/dL Creatinine (0.5-1.4) mg/dL Estim Creat Clear Calc Estimated GFR Random Glucose (60-115) mg/dL Calcium (8.4-10.2) mg/dL Magnesium (1.6-2.6) mg/dL Total Bilirubin (0.0-1.0) mg/dL AST (5-37) U/L ALT (0-40) U/L Alkaline Phosphatase (39-117) U/L Total Creatine Kinase (38-174) U/L Troponin I High Sens 10.9 9.0 (<3.5-35.0) ng/L B-Natriuretic Peptide < 10 (<100) pg/mL Total Protein (6.5-8.0) g/dL Albumin (3.5-5.0) g/dL <Wyatt Gray MD - Last Filed: 06/26/22 01:06> Independent Interpretation I performed an independent interpretation of an: EKG <Wyatt Gray MD - Last Filed: 06/26/22 01:06> Interpretation: Of sinus rhythm heart rate 89 beats , LVH occasional unifocal PVC nonspecific ST T wave change no acute ischemic <Wyatt Gray MD - Last Filed: 06/26/22 01:06> Discharge Plan Discharge Clinical Impression: Chest pain, Hypertension <FELISHA White - Last Filed: 06/25/22 15:01> Patient Disposition: Home, Self-Care <FELISHA White - Last Filed: 06/25/22 15:01> Instructions: Chest Pain (ED), Chronic Hypertension (ED) <FELISHA White - Last Filed: 06/25/22 15:01> Additional Instructions: Decrease salt intake in taking medication on time Will add Diovan 160 mg p.o. daily for better blood pressure control Follow-up with bonus clerk/PCP <FELISHA White - Last Filed: 06/25/22 15:01> Prescriptions: New valsartan [Diovan] 160 mg tablet 160 mg PO DAILY Qty: 30 1RF No Action amlodipine [Norvasc] 10 mg tablet 10 mg PO DAILY Qty: 30 0RF hydrochlorothiazide 25 mg tablet 25 mg PO DAILY Qty: 30 0RF Excedrin Tension Headache 500-65 mg Tablet 2 tab PO DAILY PRN (Reason: Headache) ibuprofen 200 mg Tablet 800 mg PO DAILY PRN (Reason: Migraine Headache) <FELISHA White - Last Filed: 06/25/22 15:01> Stand Alone Forms: Work/School Release <FELISHA White - Last Filed: 06/25/22 15:01> Interventions: ED Discharge Assessment Last Done: 06/25/22 21:44 <FELISHA White - Last Filed: 06/25/22 15:01> Discharge Date/Time: 06/25/22 21:45 <FELISHA White - Last Filed: 06/25/22 15:01>
[2022-06-25 15:27] LABS: MANUAL DIFF FLAG NO
[2022-06-25 15:29] LABS: Basophils Absolute Auto 0.1 X10*3/uL (0.0-0.2); Basophils Percent Auto 0.7 % (0-2); Eosinophils Absolute Auto 0.2 X10*3/uL (0.0-0.4); Eosinophils Percent Auto 1.9 % (0-4); Hematocrit 41.6 % (42.0-52.0); Hemoglobin 13.9 g/dl (14.0-18.0); Imm Gran Abs Auto 0.04 X10*3/uL (0.00-0.03); Imm Gran Pct Auto 0.3 % (0.0-0.4); Lymphocytes Absolute Auto 2.4 X10*3/uL (1.2-4.9); Lymphocytes Percent Auto 21.2 % (20-40); Mean Corpuscular HGB Conc 33.4 g/dl (31.0-36.0); Mean Corpuscular Hemoglobin 26.5 pg (27.0-33.0); Mean Corpuscular Volume 79.2 fL (80.0-98.0); Mean Platelet Volume 10.2 fL (9.4-12.4); Monocytes Absolute Auto 0.9 X10*3/uL (0.1-1.2); Monocytes Percent Auto 7.7 % (2-11); Neutrophils Absolute Auto 7.8 x10*3/uL (2.0-8.3); Neutrophils Percent Auto 68.2 % (45-73); Platelet Count 368 X10*3/uL (160-400); Red Blood Count 5.25 X10*6/uL (4.60-5.80); Red Cell Distribution Width 15.1 % (11.0-16.0); White Blood Count 11.4 X10*3/uL (4.8-10.8)
[2022-06-25 15:47] LABS: Prothrombin Time 11.4 SEC (10.0-13.1)
[2022-06-25 16:00] LABS: Alanine Aminotransferase 23 U/L (0-40); Albumin Level 4.6 g/dL (3.5-5.0); Alkaline Phosphatase 94 U/L (39-117); Anion Gap 13 (12-20); Aspartate Amino Transferase 15 U/L (5-37); Bilirubin Total 0.7 mg/dL (0.0-1.0); Blood Urea Nitrogen 9 mg/dL (9-16); Calcium 9.6 mg/dL (8.4-10.2); Carbon Dioxide 24 mmol/L (22-29); Chloride 105 mmol/L (96-108); Estimated Glomerular Filt Rate > 60; Glucose Random 106 mg/dL (60-115); Magnesium 2.1 mg/dL (1.6-2.6); Potassium 3.5 mmol/L (3.3-5.1); Sodium 138 mmol/L (135-145); Total Protein 7.5 g/dL (6.5-8.0)
[2022-06-25 16:06] LABS: B Type Natriuretic Peptide < 10 pg/mL (<100)
[2022-06-25 16:07] LABS: Troponin-I High Sensitivity 10.9 ng/L (<3.5-35.0)
[2022-06-25 19:34] VITALS: BP 140/102; PULSE 75; RESP 16; TEMP 37.1; O2SAT 98
--- NOTE | 2022-06-25 19:39 | MHC.EDTECH ---
PT REPEATED TROP DRAWN AND SENT TO LAB ,VITALS SIGN TAKEN .
[2022-06-25] MEDS: Magnesium Hydrox/Alum Hydrox 30 ML ORAL.SUSP PO (20:10)
--- NOTE | 2022-06-25 20:57 | MHC.EDTECH ---
pt urine sample collected and sent to lab .
[2022-06-25] MEDS: Valsartan 160 MG TABLET PO (21:23)
[2022-06-25 21:43] VITALS: BP 151/97; PULSE 71
--- NOTE | 2022-06-25 21:44 | PC.NURSE ---
Discharge instructions reviewed with pt. Pt verbalizes understanding. Ambulatory with steady gait at discharge.
== END 2022-06-25 21:45 | disposition home or self-care (01) ==
PROVIDERS: Physician Assistant Medical; Emergency Provider Internal Medicine
DX: R07.89 Other chest pain (principal); I10 Essential (primary) hypertension; I25.10 Atherosclerotic heart disease of native coronary artery without angina pectoris; Z79.899 Other long term (current) drug therapy
CPT/HCPCS: 36415; 71046; 80053; 82550; 83735; 83880; 84484; 85025; 85610; 93005; 99284

== ENCOUNTER 2022-09-30 14:01 | Emergency (ER) | payer BC, OTHER, SELFPAY ==
[2022-09-30] VITALS (7 sets, daily range): BP systolic 157–206; BP diastolic 85–128; PULSE 71–90; RESP 17–20; TEMP 36.5–37.1; O2SAT 96–98; BMI 33.7
--- NOTE | ~2022-09-30 | XR_ITS ---
EXAMINATION: XR CHEST CLINICAL INFORMATION: Chest pain COMPARISON: None available. TECHNIQUE: 2 views of the chest were obtained. FINDINGS: No significant abnormality is noted involving the heart, lungs, mediastinum, bony thorax or soft tissues. XR/XR chest 2V IMPRESSION: Unremarkable chest examination.
--- NOTE | ~2022-09-30 | US_ITS ---
EXAMINATION: US VENOUS ULTRASOUND WITH DOPPLER LOWER EXTREMITY, RIGHT CLINICAL INFORMATION: Calf pain COMPARISON: None available. TECHNIQUE: Ultrasound of the deep veins is performed from the hip to the calf with compression sonography and color and pulse Doppler assessment. Spectral analysis with color-flow imaging is performed. FINDINGS: There is normal venous compression and respiratory variation and augmented flow. The visualized common femoral vein, superficial femoral vein, profunda femoral vein, popliteal vein, and the trifurcation region shows no evidence of deep venous thrombosis. There is no significant popliteal fossa cyst. If the patient's symptoms persist, followup ultrasound in 5 days 7 days might be of value to exclude proximal propagation from a non-visualized calf vein. US/US venous duplex LE RT IMPRESSION: No DVT demonstrated in the right lower extremity.
--- NOTE | 2022-09-30 14:06 | ECG_ITS ---
Test Reason : CP Blood Pressure : / mmHG Vent. Rate : 091 BPM Atrial Rate : 091 BPM P-R Int : 162 ms QRS Dur : 094 ms QT Int : 362 ms P-R-T Axes : 032 034 028 degrees QTc Int : 445 ms Normal sinus rhythm Minimal voltage criteria for LVH, may be normal variant ( [place] product ) Borderline ECG When compared with ECG of 25-JUN-2022 15:11, Premature ventricular complexes are no longer Present Referred By: Generic ED Physician Electronically Signed By:Hans Mckeon
--- NOTE | 2022-09-30 14:35 | ED_ITS ---
HPI - General Adult General Chief complaint: General Medical Stated complaint: Chest pain Time Seen by Provider: 09/30/22 14:44 Related Data Home Medications Medication Instructions Recorded Confirmed acetaminophen-caffeine 500 mg-65 2 tab PO DAILY PRN Headache 06/24/22 06/24/22 mg tablet (Excedrin Tension Headache) ibuprofen 200 mg tablet 800 mg PO DAILY PRN Migraine 06/24/22 06/24/22 Headache Previous Rx's Medication Instructions Recorded amlodipine 10 mg tablet (Norvasc) 10 mg PO DAILY #30 tabs 06/24/22 hydrochlorothiazide 25 mg tablet 25 mg PO DAILY #30 tabs 06/24/22 valsartan 160 mg tablet (Diovan) 160 mg PO DAILY #30 tabs 06/25/22 amlodipine 10 mg tablet 10 mg PO DAILY #30 tabs 09/30/22 hydrochlorothiazide 25 mg tablet 25 mg PO DAILY #30 tabs 09/30/22 valsartan 160 mg tablet 160 mg PO DAILY #30 tabs 09/30/22 Allergies Allergy/AdvReac Type Severity Reaction Status Date / Time barium sulfate Allergy Unknown Unknown Verified 06/25/22 15:00 aspirin Allergy Swelling Verified 06/25/22 15:00 calomine Allergy Unknown Unknown Uncoded 06/25/22 15:00 [facility] Social History Social History Alcohol intake: current Alcohol intake frequency: a few times a month Smoked in Last 30 Days: Yes Use of substances other than those prescribed or required for medical reasons: No Advance Directives: No Advance Directives Information Provided: Yes Physical Exam ED Vital Signs: Vital Signs - 24 hr 09/30/22 14:30 09/30/22 14:52 09/30/22 15:15 Temperature 97.7 F 98.8 F Pulse Rate 90 82 85 Respiratory Rate 20 20 18 Blood Pressure 183/127 H 193/120 H 206/128 H Pulse Oximetry 98 98 96 Oxygen Delivery Method Room Air Room Air Room Air 09/30/22 16:02 09/30/22 17:02 09/30/22 18:05 Temperature Pulse Rate 87 82 79 Respiratory Rate 18 19 17 Blood Pressure 179/114 H 157/85 H 180/113 H Pulse Oximetry 97 98 97 Oxygen Delivery Method Room Air Room Air Room Air 09/30/22 18:30 Temperature Pulse Rate 71 Respiratory Rate 17 Blood Pressure 166/100 H Pulse Oximetry 98 Oxygen Delivery Method Room Air BMI result Body Mass Index 33.7 Course Course Course Narrative: This is an RME: Additional HPI, ROS, PE not included below will be deferred to primary provider. Patient is a 37-year-old male presents emergency department for multiple complaints. Reporting chest pain, tingling to bilateral feet, right calf pain and subjective swelling since this morning. Also noted to have hypertension, ran out of his medication 1 week ago, pending appointment with new primary care provider in November 2022. Plan: Labs, EKG, venous duplex US Medications Administered Discontinued Medications Generic Name Dose Route Start Last Admin Trade Name Freq PRN Reason Stop Dose Admin Amlodipine Besylate 10 mg 09/30/22 14:51 09/30/22 15:00 Amlodipine Besylate 10 Mg Tablet PO 09/30/22 14:52 10 mg ONCE ONE Administration Protocol Hydrochlorothiazide 25 mg 09/30/22 14:52 09/30/22 15:00 Hydrochlorothiazide 25 Mg Tablet PO 09/30/22 14:53 25 mg ONCE ONE Administration Protocol Labetalol HCl 100 mg 09/30/22 16:04 09/30/22 16:07 Labetalol Hcl 100 Mg Tablet PO 09/30/22 16:05 100 mg ONCE ONE Administration Protocol Labetalol HCl 200 mg 09/30/22 18:08 09/30/22 18:26 Labetalol Hcl 200 Mg Tablet PO 09/30/22 18:09 200 mg ONCE ONE Administration Protocol Valsartan 160 mg 09/30/22 14:52 09/30/22 15:15 Valsartan 160 Mg Tablet PO 09/30/22 14:53 160 mg ONCE ONE Administration Protocol Medical Decision Making Lab Data 09/30/22 14:50 09/30/22 14:50 Labs: Lab Results 09/30/22 09/30/22 09/30/22 Range/Units 14:50 14:50 14:50 WBC 7.7 (4.8-10.8) X10*3/uL RBC 4.74 (4.60-5.80) X10*6/uL Hgb 12.6 L (14.0-18.0) g/dl Hct 38.8 L (42.0-52.0) % MCV 81.9 (80.0-98.0) fL MCH 26.6 L (27.0-33.0) pg MCHC 32.5 (31.0-36.0) g/dl RDW 15.1 (11.0-16.0) % Plt Count 377 (160-400) X10*3/uL MPV 9.4 (9.4-12.4) fL Immature Gran % (Auto) 0.3 (0.0-0.4) % Neut % (Auto) 55.5 (45-73) % Lymph % (Auto) 32.0 (20-40) % [place] % (Auto) 9.5 (2-11) % Eos % (Auto) 1.8 (0-4) % Baso % (Auto) 0.9 (0-2) % Lymph # (Auto) 2.5 (1.2-4.9) X10*3/uL [place] # (Auto) 0.7 (0.1-1.2) X10*3/uL Eos # (Auto) 0.1 (0.0-0.4) X10*3/uL Baso # (Auto) 0.1 (0.0-0.2) X10*3/uL Abs Immat Gran (auto) 0.02 (0.00-0.03) X10*3/uL Absolute Neuts (auto) 4.3 (2.0-8.3) x10*3/uL Absolute Nucleated RBC 0.000 (0.0-0.012) X10*3/uL Nucleated RBC % (auto) 0.0 (0.0-0.2) /100WBC Sodium 140 (135-145) mmol/L Potassium 3.9 (3.3-5.1) mmol/L Chloride 108 (96-108) mmol/L Carbon Dioxide 25 (22-29) mmol/L Anion Gap 11 L (12-20) BUN 6 L (9-16) mg/dL Creatinine 0.85 (0.5-1.4) mg/dL Estim Creat Clear Calc 131.2 Estimated GFR > 60 Random Glucose 82 (60-115) mg/dL Calcium 9.0 D (8.4-10.2) mg/dL Magnesium 2.2 (1.6-2.6) mg/dL Total Bilirubin 0.3 (0.0-1.0) mg/dL AST 15 (5-37) U/L ALT 19 (0-40) U/L Alkaline Phosphatase 87 (39-117) U/L Troponin I High Sens 9.3 (<3.5-35.0) ng/L Total Protein 7.4 (6.5-8.0) g/dL Albumin 4.3 (3.5-5.0) g/dL 09/30/22 Range/Units 17:33 WBC (4.8-10.8) X10*3/uL RBC (4.60-5.80) X10*6/uL Hgb (14.0-18.0) g/dl Hct (42.0-52.0) % MCV (80.0-98.0) fL MCH (27.0-33.0) pg MCHC (31.0-36.0) g/dl RDW (11.0-16.0) % Plt Count (160-400) X10*3/uL MPV (9.4-12.4) fL Immature Gran % (Auto) (0.0-0.4) % Neut % (Auto) (45-73) % Lymph % (Auto) (20-40) % [place] % (Auto) (2-11) % Eos % (Auto) (0-4) % Baso % (Auto) (0-2) % Lymph # (Auto) (1.2-4.9) X10*3/uL [place] # (Auto) (0.1-1.2) X10*3/uL Eos # (Auto) (0.0-0.4) X10*3/uL Baso # (Auto) (0.0-0.2) X10*3/uL Abs Immat Gran (auto) (0.00-0.03) X10*3/uL Absolute Neuts (auto) (2.0-8.3) x10*3/uL Absolute Nucleated RBC (0.0-0.012) X10*3/uL Nucleated RBC % (auto) (0.0-0.2) /100WBC Sodium (135-145) mmol/L Potassium (3.3-5.1) mmol/L Chloride (96-108) mmol/L Carbon Dioxide (22-29) mmol/L Anion Gap (12-20) BUN (9-16) mg/dL Creatinine (0.5-1.4) mg/dL Estim Creat Clear Calc Estimated GFR Random Glucose (60-115) mg/dL Calcium (8.4-10.2) mg/dL Magnesium (1.6-2.6) mg/dL Total Bilirubin (0.0-1.0) mg/dL AST (5-37) U/L ALT (0-40) U/L Alkaline Phosphatase (39-117) U/L Troponin I High Sens 8.3 (<3.5-35.0) ng/L Total Protein (6.5-8.0) g/dL Albumin (3.5-5.0) g/dL Discharge Plan Discharge Clinical Impression: Chest pain, Hypertension Patient Disposition: Home, Self-Care Instructions: Hypertension (ED) Additional Instructions: Please follow-up with your primary care physician tomorrow. If you have any worsening or new symptoms, please return to the emergency room or call 911 Prescriptions: New amlodipine 10 mg tablet 10 mg PO DAILY Qty: 30 3RF valsartan 160 mg tablet 160 mg PO DAILY Qty: 30 3RF hydrochlorothiazide 25 mg tablet 25 mg PO DAILY Qty: 30 3RF No Action amlodipine [Norvasc] 10 mg tablet 10 mg PO DAILY Qty: 30 0RF hydrochlorothiazide 25 mg tablet 25 mg PO DAILY Qty: 30 0RF Excedrin Tension Headache 500-65 mg Tablet 2 tab PO DAILY PRN (Reason: Headache) ibuprofen 200 mg Tablet 800 mg PO DAILY PRN (Reason: Migraine Headache) valsartan [Diovan] 160 mg tablet 160 mg PO DAILY Qty: 30 1RF
[2022-09-30 14:57] LABS: MANUAL DIFF FLAG NO
[2022-09-30 14:59] LABS: Basophils Absolute Auto 0.1 X10*3/uL (0.0-0.2); Basophils Percent Auto 0.9 % (0-2); Eosinophils Absolute Auto 0.1 X10*3/uL (0.0-0.4); Eosinophils Percent Auto 1.8 % (0-4); Hematocrit 38.8 % (42.0-52.0); Hemoglobin 12.6 g/dl (14.0-18.0); Imm Gran Abs Auto 0.02 X10*3/uL (0.00-0.03); Imm Gran Pct Auto 0.3 % (0.0-0.4); Lymphocytes Absolute Auto 2.5 X10*3/uL (1.2-4.9); Mean Corpuscular HGB Conc 32.5 g/dl (31.0-36.0); Mean Corpuscular Hemoglobin 26.6 pg (27.0-33.0); Mean Corpuscular Volume 81.9 fL (80.0-98.0); Mean Platelet Volume 9.4 fL (9.4-12.4); Monocytes Absolute Auto 0.7 X10*3/uL (0.1-1.2); Monocytes Percent Auto 9.5 % (2-11); Neutrophils Absolute Auto 4.3 x10*3/uL (2.0-8.3); Neutrophils Percent Auto 55.5 % (45-73); Platelet Count 377 X10*3/uL (160-400); Red Blood Count 4.74 X10*6/uL (4.60-5.80); Red Cell Distribution Width 15.1 % (11.0-16.0); White Blood Count 7.7 X10*3/uL (4.8-10.8)
[2022-09-30] MEDS: amLODIPine Besylate 10 MG TABLET PO (15:00)
[2022-09-30] MEDS: hydroCHLOROthiazide 25 MG TABLET PO (15:00)
--- NOTE | 2022-09-30 15:00 | ED_ITS ---
HPI - Chest Pain General Chief Complaint: General Medical Stated Complaint: Chest pain Time Seen by Provider: 09/30/22 14:44 Source: patient Mode of arrival: ambulatory Limitations: no limitations History of Present Illness HPI narrative: This is 37 years old male presented to the emergency department complaining of chest pain since this morning 08:00 o'clock. The pain is different from his prior [place]. he denies exertional symptoms he denies the pain is described dull without radiation . Patient ran out of his hypertensive medication. MD complaint: chest pain Pertinent past history: coronary artery disease Prior episodes: Yes Onset: during exertion Pain location: substernal Pain radiation: none Quality: aching Relieving factors: nothing Exacerbating factors: nothing Context: recent illness Risk Factors Thoracic aortic dissection risk factors: none Related Data Home Medications Medication Instructions Recorded Confirmed acetaminophen-caffeine 500 mg-65 2 tab PO DAILY PRN Headache 06/24/22 06/24/22 mg tablet (Excedrin Tension Headache) ibuprofen 200 mg tablet 800 mg PO DAILY PRN Migraine 06/24/22 06/24/22 Headache Previous Rx's Medication Instructions Recorded amlodipine 10 mg tablet (Norvasc) 10 mg PO DAILY #30 tabs 06/24/22 hydrochlorothiazide 25 mg tablet 25 mg PO DAILY #30 tabs 06/24/22 valsartan 160 mg tablet (Diovan) 160 mg PO DAILY #30 tabs 06/25/22 Allergies Allergy/AdvReac Type Severity Reaction Status Date / Time barium sulfate Allergy Unknown Unknown Verified 06/25/22 15:00 aspirin Allergy Swelling Verified 06/25/22 15:00 calomine Allergy Unknown Unknown Uncoded 06/25/22 15:00 Review of Systems Constitutional: Constitutional: Reports no additional constitutional complaints ENT: Reports system reviewed and no additional complaints, except as documented Cardiovascular: Cardiovascular: Reports chest pain [facility] Past Medical History Attestation statement: The following information was validated with the patient. [facility] Narrative: Coronary artery disease, hypertension, smoker Social History Social History Alcohol intake: current Alcohol intake frequency: a few times a month Smoked in Last 30 Days: Yes Use of substances other than those prescribed or required for medical reasons: No Advance Directives: No Advance Directives Information Provided: Yes Physical Exam Vital Signs: Vital Signs: Last Vital Signs Temp 98.8 F 09/30/22 14:52 Pulse 85 09/30/22 15:15 Resp 18 09/30/22 15:15 BP 206/128 H 09/30/22 15:15 Pulse Ox 96 09/30/22 15:15 O2 Del Method Room Air 09/30/22 15:15 BMI result Body Mass Index 33.7 Const: General: cooperative Nutritional Appearance: well nourished Orientation/consciousness: patient oriented x3 Limitations: no limitations HEENT: Head: Yes normal to inspection Ears: hearing grossly normal bila terally General nose exam: Normal external nose present Face and sinus: Yes normal facial exam Mouth: Normal oral and palatal mucosa present Teeth and gingiva: dentition normal Neck: Neck: Yes normal visual inspection Chest: Chest palpation & inspection: normal inspection of the chest Resp: Effort & Inspection: normal respiratory effort Auscultation: clear to auscultation bilaterally Cardio: Jugular venous distension: no JVD Rate: regular rate Rhythm: regular rhythm GI: Inspection: Yes normal to inspection Palpation (GI): Soft to palpation, not firm, nontender and no guarding Auscultation: normal bowel sounds Skin: General skin exam: no rashes or lesions noted and elasticity normal Lesions: no lesions Rashes: no rashes Neuro: General: patient oriented x3 Course Reevaluation(s) Reevaluation #1: First high sensitive troponin negative, my plan is to repeat another high sensitive troponin monitor is blood pressure. I will sign out the case to Dr. Us Time: 15:30 Medications Administered Discontinued Medications Generic Name Dose Route Start Last Admin Trade Name Freq PRN Reason Stop Dose Admin Amlodipine Besylate 10 mg 09/30/22 14:51 09/30/22 15:00 Amlodipine Besylate 10 Mg Tablet PO 09/30/22 14:52 10 mg ONCE ONE Administration Protocol Hydrochlorothiazide 25 mg 09/30/22 14:52 09/30/22 15:00 Hydrochlorothiazide 25 Mg Tablet PO 09/30/22 14:53 25 mg ONCE ONE Administration Protocol Valsartan 160 mg 09/30/22 14:52 09/30/22 15:15 Valsartan 160 Mg Tablet PO 09/30/22 14:53 160 mg ONCE ONE Administration Protocol Medical Decision Making Medical Decision Making [facility] Narrative: Patient presented with chest pain he does have history of CAD is reasonable to do high sensitive troponin EKG is within normal limit. Will administer also his blood pressure medication Differential Diagnosis Differential Diagnoses: The differential diagnosis associated with the presentation includes ACS/chest wall pain/pericarditis Admission/Observation Consideration of admission/observation: Escalation of care including admission/observation considered Lab Data MDM Lab Attestation statement: I reviewed the patient's lab results. 09/30/22 14:50 09/30/22 14:50 Labs: Lab Results 09/30/22 09/30/22 09/30/22 Range/Units 14:50 14:50 14:50 WBC 7.7 (4.8-10.8) X10*3/uL RBC 4.74 (4.60-5.80) X10*6/uL Hgb 12.6 L (14.0-18.0) g/dl Hct 38.8 L (42.0-52.0) % MCV 81.9 (80.0-98.0) fL MCH 26.6 L (27.0-33.0) pg MCHC 32.5 (31.0-36.0) g/dl RDW 15.1 (11.0-16.0) % Plt Count 377 (160-400) X10*3/uL MPV 9.4 (9.4-12.4) fL Immature Gran % (Auto) 0.3 (0.0-0.4) % Neut % (Auto) 55.5 (45-73) % Lymph % (Auto) 32.0 (20-40) % [place] % (Auto) 9.5 (2-11) % Eos % (Auto) 1.8 (0-4) % Baso % (Auto) 0.9 (0-2) % Lymph # (Auto) 2.5 (1.2-4.9) X10*3/uL [place] # (Auto) 0.7 (0.1-1.2) X10*3/uL Eos # (Auto) 0.1 (0.0-0.4) X10*3/uL Baso # (Auto) 0.1 (0.0-0.2) X10*3/uL Abs Immat Gran (auto) 0.02 (0.00-0.03) X10*3/uL Absolute Neuts (auto) 4.3 (2.0-8.3) x10*3/uL Absolute Nucleated RBC 0.000 (0.0-0.012) X10*3/uL Nucleated RBC % (auto) 0.0 (0.0-0.2) /100WBC Sodium 140 (135-145) mmol/L Potassium 3.9 (3.3-5.1) mmol/L Chloride 108 (96-108) mmol/L Carbon Dioxide 25 (22-29) mmol/L Anion Gap 11 L (12-20) BUN 6 L (9-16) mg/dL Creatinine 0.85 (0.5-1.4) mg/dL Estim Creat Clear Calc 131.2 Estimated GFR > 60 Random Glucose 82 (60-115) mg/dL Calcium 9.0 D (8.4-10.2) mg/dL Magnesium 2.2 (1.6-2.6) mg/dL Total Bilirubin 0.3 (0.0-1.0) mg/dL AST 15 (5-37) U/L ALT 19 (0-40) U/L Alkaline Phosphatase 87 (39-117) U/L Troponin I High Sens 9.3 (<3.5-35.0) ng/L Total Protein 7.4 (6.5-8.0) g/dL Albumin 4.3 (3.5-5.0) g/dL Independent Interpretation I performed an independent interpretation of an: EKG and Plain X-Ray Interpretation: Normal sinus rhythm a no ST-T changes Radiology Impression Discussion of test interpretation with radiology: I have reviewed the radiologist's reading. Discharge Plan Discharge Clinical Impression: Chest pain, Hypertension Patient Disposition: Still a Patient Prescriptions: No Action amlodipine [Norvasc] 10 mg tablet 10 mg PO DAILY Qty: 30 0RF hydrochlorothiazide 25 mg tablet 25 mg PO DAILY Qty: 30 0RF Excedrin Tension Headache 500-65 mg Tablet 2 tab PO DAILY PRN (Reason: Headache) ibuprofen 200 mg Tablet 800 mg PO DAILY PRN (Reason: Migraine Headache) valsartan [Diovan] 160 mg tablet 160 mg PO DAILY Qty: 30 1RF
--- NOTE | 2022-09-30 15:03 | PC.NURSE ---
called pharmacy for Valsartan not available in pyxis
[2022-09-30 15:12] LABS: Alanine Aminotransferase 19 U/L (0-40); Albumin Level 4.3 g/dL (3.5-5.0); Alkaline Phosphatase 87 U/L (39-117); Anion Gap 11 (12-20); Aspartate Amino Transferase 15 U/L (5-37); Bilirubin Total 0.3 mg/dL (0.0-1.0); Blood Urea Nitrogen 6 mg/dL (9-16); Carbon Dioxide 25 mmol/L (22-29); Chloride 108 mmol/L (96-108); Creatinine Clr Calc Pharmacy 131.2; Estimated Glomerular Filt Rate > 60; Glucose Random 82 mg/dL (60-115); Magnesium 2.2 mg/dL (1.6-2.6); Potassium 3.9 mmol/L (3.3-5.1); Sodium 140 mmol/L (135-145); Total Protein 7.4 g/dL (6.5-8.0)
[2022-09-30] MEDS: Valsartan 160 MG TABLET PO (15:15)
[2022-09-30 15:17] LABS: Troponin-I High Sensitivity 9.3 ng/L (<3.5-35.0)
[2022-09-30] MEDS: Labetalol HCL 100 MG TABLET PO (16:07)
[2022-09-30 17:56] LABS: Troponin-I High Sensitivity 8.3 ng/L (<3.5-35.0)
[2022-09-30] MEDS: Labetalol HCL 200 MG TABLET PO (18:26)
== END 2022-09-30 19:15 | disposition home or self-care (01) ==
PROVIDERS: Nurse Practitioner Family; Emergency Provider Emergency Medicine
DX: R07.9 Chest pain, unspecified (principal); I10 Essential (primary) hypertension; M79.661 Pain in right lower leg; R20.2 Paresthesia of skin
CPT/HCPCS: 36415; 71046; 80053; 83735; 84484; 85025; 93005; 93971; 99284

== ENCOUNTER → 2022-09-30 14:06 | Outpatient (BNV) | payer BC, OTHER, SELFPAY | PROVIDERS: Emergency Provider Emergency Medicine; Visit Provider Internal Medicine Cardiovascular Disease | DX: R07.9 Chest pain, unspecified (principal) | CPT/HCPCS: 93010 ==

== ENCOUNTER 2022-10-02 11:09 | Emergency (ER) | payer BC, OTHER, SELFPAY ==
--- NOTE | ~2022-10-02 | XR_ITS ---
EXAMINATION: XR CHEST CLINICAL INFORMATION: Bradycardia COMPARISON: Chest radiograph from 09/30/2022 TECHNIQUE: Frontal view of the chest was obtained. FINDINGS: No focal consolidation. No pneumothorax. Trachea is midline. Cardiac mediastinal silhouette is not enlarged. No large pleural effusion. Osseous structures are intact. Soft tissues are unremarkable. XR/XR chest 1V IMPRESSION: No acute cardiopulmonary process.
--- NOTE | 2022-10-02 11:15 | ECG_ITS ---
Test Reason : cp Blood Pressure : / mmHG Vent. Rate : 096 BPM Atrial Rate : 096 BPM P-R Int : 156 ms QRS Dur : 092 ms QT Int : 342 ms P-R-T Axes : 024 043 030 degrees QTc Int : 432 ms Sinus rhythm with frequent Premature ventricular complexes Minimal voltage criteria for LVH, may be normal variant ( [place] product ) Borderline ECG When compared with ECG of 30-SEP-2022 14:08, Premature ventricular complexes are now Present Referred By: Nikolas Richard Electronically Signed By:BRAYDEN ADDISON MD
[2022-10-02 11:41] VITALS: BP 137/93; PULSE 92; RESP 18; TEMP 36.9; O2SAT 95; BMI 33.3
[2022-10-02 11:42] LABS: MANUAL DIFF FLAG NO
[2022-10-02 11:46] LABS: Basophils Absolute Auto 0.1 X10*3/uL (0.0-0.2); Basophils Percent Auto 0.5 % (0-2); Eosinophils Absolute Auto 0.2 X10*3/uL (0.0-0.4); Eosinophils Percent Auto 2.3 % (0-4); Hematocrit 43.1 % (42.0-52.0); Hemoglobin 14.2 g/dl (14.0-18.0); Imm Gran Abs Auto 0.03 X10*3/uL (0.00-0.03); Imm Gran Pct Auto 0.3 % (0.0-0.4); Lymphocytes Absolute Auto 2.7 X10*3/uL (1.2-4.9); Lymphocytes Percent Auto 25.9 % (20-40); Mean Corpuscular HGB Conc 32.9 g/dl (31.0-36.0); Mean Corpuscular Hemoglobin 26.6 pg (27.0-33.0); Mean Corpuscular Volume 80.7 fL (80.0-98.0); Mean Platelet Volume 9.6 fL (9.4-12.4); Monocytes Absolute Auto 0.8 X10*3/uL (0.1-1.2); Monocytes Percent Auto 7.5 % (2-11); Neutrophils Absolute Auto 6.7 x10*3/uL (2.0-8.3); Neutrophils Percent Auto 63.5 % (45-73); Platelet Count 379 X10*3/uL (160-400); Red Blood Count 5.34 X10*6/uL (4.60-5.80); Red Cell Distribution Width 15.2 % (11.0-16.0); White Blood Count 10.5 X10*3/uL (4.8-10.8)
[2022-10-02 11:54] LABS: INTERNATIONAL NORM RATIO 0.9 (0.9-1.1); Prothrombin Time 10.8 SEC (10.0-13.1)
[2022-10-02 11:55] LABS: Anion Gap 13 (12-20); Blood Urea Nitrogen 10 mg/dL (9-16); Carbon Dioxide 26 mmol/L (22-29); Chloride 103 mmol/L (96-108); Creatinine Clr Calc Pharmacy 121.8; Estimated Glomerular Filt Rate > 60; Glucose Random 101 mg/dL (60-115); Potassium 3.5 mmol/L (3.3-5.1); Sodium 138 mmol/L (135-145)
[2022-10-02 12:04] LABS: Troponin-I High Sensitivity 10.9 ng/L (<3.5-35.0)
[2022-10-02 12:22] LABS: B Type Natriuretic Peptide < 10 pg/mL (<100)
--- NOTE | 2022-10-02 12:56 | ED_ITS ---
HPI - Chest Pain General Chief Complaint: Chest Pain Stated Complaint: Chest pain/Dizziness Time Seen by Provider: 10/02/22 11:49 Source: patient Mode of arrival: ambulatory Limitations: no limitations History of Present Illness HPI narrative: 37-year-old male presents with chest pain and lightheadedness. Symptoms of lightheaded started or early this morning. Lives associated with a sensation of movement. Was worse with certain positions and better with rest. At the time that it started, there is no chest pain. However, prior to arrival patient developed a sharp brief intermittent chest pain in the upper chest. Pain would come on randomly and lasts approximately 3 seconds and then go away. The pain a lso seem to be worse with arm movement. He denied any shortness of breath, palpitations, nausea, vomiting. Lightheadedness also appears to be positional. Does note that is worse with movement. He notes it is worse when leaning forward. Denies any nausea vomiting. The symptoms started earlier in the day. Patient denies history of PE or DVT. Does have a cardiac history in which he had cardiac event in his early age. He does not know the underlying etiology. 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 Related Data Home Medications Medication Instructions Recorded Confirmed acetaminophen-caffeine 500 mg-65 2 tab PO DAILY PRN Headache 06/24/22 06/24/22 mg tablet (Excedrin Tension Headache) ibuprofen 200 mg tablet 800 mg PO DAILY PRN Migraine 06/24/22 06/24/22 Headache Previous Rx's Medication Instructions Recorded amlodipine 10 mg tablet (Norvasc) 10 mg PO DAILY #30 tabs 06/24/22 hydrochlorothiazide 25 mg tablet 25 mg PO DAILY #30 tabs 06/24/22 valsartan 160 mg tablet (Diovan) 160 mg PO DAILY #30 tabs 06/25/22 amlodipine 10 mg tablet 10 mg PO DAILY #30 tabs 09/30/22 hydrochlorothiazide 25 mg tablet 25 mg PO DAILY #30 tabs 09/30/22 valsartan 160 mg tablet 160 mg PO DAILY #30 tabs 09/30/22 meclizine 25 mg tablet 25 mg PO BID PRN dizziness #10 tabs 10/02/22 ondansetron 4 mg disintegrating 4 mg PO Q8H PRN nausea and 10/02/22 tablet vomiting #10 tabs Allergies Allergy/AdvReac Type Severity Reaction Status Date / Time barium sulfate Allergy Unknown Unknown Verified 06/25/22 15:00 aspirin Allergy Swelling Verified 06/25/22 15:00 calomine Allergy Unknown Unknown Uncoded 06/25/22 15:00 Review of Systems Review of Systems: CONSTITUTIONAL: Denies weight loss, fever and chills. HEENT: Denies changes in vision and hearing. RESPIRATORY: Denies SOB and cough. CV: Denies palpitations + CP. GI: Denies abdominal pain, nausea, vomiting and diarrhea. : Denies dysuria and urinary frequency. MSK: Denies myalgia and joint pain. SKIN: Denies rash and pruritus. NEUROLOGICAL: Denies headache and syncope. PSYCHIATRIC: Denies recent changes in mood. Denies anxiety and depression. All other ROS are negative unless in HPI [facility] Social History Social History Alcohol intake: current Alcohol intake frequency: a few times a month Advance Directives: No Advance Directives Information Provided: Yes Physical Exam Vital Signs: Vital Signs: Last Vital Signs Temp 98.5 F 10/02/22 11:41 Pulse 84 10/02/22 14:12 Resp 15 10/02/22 14:12 BP 140/84 H 10/02/22 14:12 Pulse Ox 97 10/02/22 14:12 O2 Del Method Room Air 10/02/22 14:12 BMI result Body Mass Index 33.3 GEN: Well developed, no acute distress, alert, oriented HEENT: Normocephalic, atraumatic, normal external ears, nose appears normal, no oropharyngeal edema or exudates Eyes: Normal to appearance Neck: Supple, no lymphadenopathy Respiratory: Talks in complete sentences, no respiratory distress, clear to auscultation bilaterally Cardiovascular: Regular rate and rhythm, no murmurs rubs or gallops Abdomen: Soft, nontender, nondistended, no guarding, no rebound Back: No CVA tenderness Extremities: No clubbing cyanosis or edema Neurologic: No focal neurologic deficits, cranial nerves 2-12 intact, strength is 5/5 bilaterally Skin: No rash Course Course Course Narrative: 37-year-old male with history of heart problems presents with atypical chest pain that is sharp and intermittent and brief not associated with exertion. He was here week ago with chest pain as well but this was different in nature. His predominant complaint today is dizziness such that the room is spinning. Examination is benign no focal deficits. He did have a short atypical pain which is reproducible on examination. EKG remained stable. Cardiac enzymes are negative. I doubt his chest pain is cardiac in etiology at this time however, he does have a heart history I am recommending close follow-up with a sap administrator. I have referred him to a sap administrator although he reports having difficulty getting in since he does not have a primary care provider. For the patient's dizziness, I did treat the patient with meclizine. He feels slightly better but not completely resolved. I will make sure the patient has a couple days of rest from work and return for any worsening concerning symptoms. I discussed all results with the patient. All questions were addressed and answered. Medications Administered Discontinued Medications Generic Name Dose Route Start Last Admin Trade Name Freq PRN Reason Stop Dose Admin Meclizine HCl 25 mg 10/02/22 13:41 10/02/22 14:11 Meclizine Hcl 25 Mg Tablet PO 10/02/22 13:42 25 mg ONCE ONE Administration Medical Decision Making Medical Decision Making MDM Narrative: 37-year-old male presents with 2 complaints. First complaint is dizziness/lightheadedness/vertigo. Examination is benign. There is no nystagmus. No focal neurologic deficits. Appears to be worse when leaning forward and then standing up which suggest more of an orthostatic versus a vertigo diagnosis. Differential diagnosis includes vertigo, BPPV, labyrinthitis, vestibular neuritis, lightheadedness, orthostatic hypotension. Will check for anemia as well, electrolyte abnormality as possible contributors. EKG demonstrates no cardiac dysrhythmia or acute ischemia as a possible diagnosis. Will treat patient with IV fluids. In addition, patient complains of an atypical 2nd long-lasting sharp left upper chest pain that does not radiate. Not associated with exertion. Reproducible on physical exam. EKG again is nonischemic. Will says monocytic cardiac enzymes. Patient was here recently with chest pressure and his troponins were negative at that time. Given the noncardiac type of history as an etiology of his current pain, examination with reproducible chest wall tenderness, suspect this is most likely musculoskeletal instead of cardiac in nature. Differential Diagnosis Differential Diagnoses: The differential diagnosis associated with the presentation includes (See above) Admission/Observation Consideration of admission/observation: Escalation of care including admission/observation considered Lab Data MDM Lab Attestation statement: I reviewed the patient's lab results. 10/02/22 11:37 10/02/22 11:37 Labs: Lab Results 10/02/22 10/02/22 10/02/22 Range/Units 11:37 11:37 11:37 WBC 10.5 (4.8-10.8) X10*3/uL RBC 5.34 (4.60-5.80) X10*6/uL Hgb 14.2 (14.0-18.0) g/dl Hct 43.1 (42.0-52.0) % MCV 80.7 (80.0-98.0) fL MCH 26.6 L (27.0-33.0) pg MCHC 32.9 (31.0-36.0) g/dl RDW 15.2 (11.0-16.0) % Plt Count 379 (160-400) X10*3/uL MPV 9.6 (9.4-12.4) fL Immature Gran % (Auto) 0.3 (0.0-0.4) % Neut % (Auto) 63.5 (45-73) % Lymph % (Auto) 25.9 (20-40) % Cameron % (Auto) 7.5 (2-11) % Eos % (Auto) 2.3 (0-4) % Baso % (Auto) 0.5 (0-2) % Lymph # (Auto) 2.7 (1.2-4.9) X10*3/uL Cameron # (Auto) 0.8 (0.1-1.2) X10*3/uL Eos # (Auto) 0.2 (0.0-0.4) X10*3/uL Baso # (Auto) 0.1 (0.0-0.2) X10*3/uL Abs Immat Gran (auto) 0.03 (0.00-0.03) X10*3/uL Absolute Neuts (auto) 6.7 (2.0-8.3) x10*3/uL Absolute Nucleated RBC 0.000 (0.0-0.012) X10*3/uL Nucleated RBC % (auto) 0.0 (0.0-0.2) /100WBC PT 10.8 (10.0-13.1) SEC INR 0.9 (0.9-1.1) Sodium 138 (135-145) mmol/L Potassium 3.5 (3.3-5.1) mmol/L Chloride 103 (96-108) mmol/L Carbon Dioxide 26 (22-29) mmol/L Anion Gap 13 (12-20) BUN 10 (9-16) mg/dL Creatinine 0.91 (0.5-1.4) mg/dL Estim Creat Clear Calc 121.8 Estimated GFR > 60 Random Glucose 101 (60-115) mg/dL Calcium 10.0 D (8.4-10.2) mg/dL Troponin I High Sens (<3.5-35.0) ng/L B-Natriuretic Peptide (<100) pg/mL 10/02/22 10/02/22 Range/Units 11:37 11:37 WBC (4.8-10.8) X10*3/uL RBC (4.60-5.80) X10*6/uL Hgb (14.0-18.0) g/dl Hct (42.0-52.0) % MCV (80.0-98.0) fL MCH (27.0-33.0) pg MCHC (31.0-36.0) g/dl RDW (11.0-16.0) % Plt Count (160-400) X10*3/uL MPV (9.4-12.4) fL Immature Gran % (Auto) (0.0-0.4) % Neut % (Auto) (45-73) % Lymph % (Auto) (20-40) % Cameron % (Auto) (2-11) % Eos % (Auto) (0-4) % Baso % (Auto) (0-2) % Lymph # (Auto) (1.2-4.9) X10*3/uL Cameron # (Auto) (0.1-1.2) X10*3/uL Eos # (Auto) (0.0-0.4) X10*3/uL Baso # (Auto) (0.0-0.2) X10*3/uL Abs Immat Gran (auto) (0.00-0.03) X10*3/uL Absolute Neuts (auto) (2.0-8.3) x10*3/uL Absolute Nucleated RBC (0.0-0.012) X10*3/uL Nucleated RBC % (auto) (0.0-0.2) /100WBC PT (10.0-13.1) SEC INR (0.9-1.1) Sodium (135-145) mmol/L Potassium (3.3-5.1) mmol/L Chloride (96-108) mmol/L Carbon Dioxide (22-29) mmol/L Anion Gap (12-20) BUN (9-16) mg/dL Creatinine (0.5-1.4) mg/dL Estim Creat Clear Calc Estimated GFR Random Glucose (60-115) mg/dL Calcium (8.4-10.2) mg/dL Troponin I High Sens 10.9 (<3.5-35.0) ng/L B-Natriuretic Peptide < 10 (<100) pg/mL Independent Interpretation I performed an independent interpretation of an: EKG (Normal sinus rhythm heart rate 96, PVCs, no acute ST elevations depressions, likely LVH. Unchanged compared to 09/30/2022) and Plain X-Ray (Chest: No acute cardiopulmonary disease) Tests considered The following testing was considered but not selected: Cardiac monitoring, CT angiogram of chest although PERC score is 0, no history of physical consistent with acute pulmonary embolus Prescription Management I considered prescription management with: Pain Medication Chronic Conditions Patient?s care impacted by: Hypertension Discharge Plan Discharge Clinical Impression: Chest pain, Acute chest wall pain, Dizziness Patient Disposition: Home, Self-Care Instructions: Chest Pain (DC), Lightheadedness (ED), Dizziness (ED), Chest Wall Pain (ED) Prescriptions: New meclizine 25 mg tablet 25 mg PO BID PRN (Reason: dizziness) Qty: 10 0RF ondansetron 4 mg tablet,disintegrating 4 mg PO Q8H PRN (Reason: nausea and vomiting) Qty: 10 0RF No Action amlodipine [Norvasc] 10 mg tablet 10 mg PO DAILY Qty: 30 0RF hydrochlorothiazide 25 mg tablet 25 mg PO DAILY Qty: 30 0RF Excedrin Tension Headache 500-65 mg Tablet 2 tab PO DAILY PRN (Reason: Headache) ibuprofen 200 mg Tablet 800 mg PO DAILY PRN (Reason: Migraine Headache) amlodipine 10 mg tablet 10 mg PO DAILY Qty: 30 3RF valsartan 160 mg tablet 160 mg PO DAILY Qty: 30 3RF hydrochlorothiazide 25 mg tablet 25 mg PO DAILY Qty: 30 3RF valsartan [Diovan] 160 mg tablet 160 mg PO DAILY Qty: 30 1RF Referrals: Arash Givens MD [Physician] - 1 week
[2022-10-02] MEDS: Meclizine HCl 25 MG TABLET PO (14:11)
[2022-10-02 14:12] VITALS: BP 140/84; PULSE 84; RESP 15; O2SAT 97
== END 2022-10-02 15:07 | disposition home or self-care (01) ==
PROVIDERS: Emergency Provider Emergency Medicine
DX: R07.89 Other chest pain (principal); R42 Dizziness and giddiness
CPT/HCPCS: 36415; 71045; 80048; 83880; 84484; 85025; 85610; 93005; 99283; 99284

== ENCOUNTER → 2022-10-02 11:15 | Outpatient (BNV) | payer BC, OTHER, SELFPAY | PROVIDERS: Emergency Provider Emergency Medicine; Visit Provider Internal Medicine Cardiovascular Disease | DX: I49.3 Ventricular premature depolarization (principal) | CPT/HCPCS: 93010 ==

== ENCOUNTER 2022-10-04 18:24 | Emergency (ER) | payer BC, OTHER, SELFPAY ==
--- NOTE | 2022-10-04 | ECG_ITS ---
Test Reason : CHEST PAIN Blood Pressure : / mmHG Vent. Rate : 081 BPM Atrial Rate : 081 BPM P-R Int : 166 ms QRS Dur : 090 ms QT Int : 360 ms P-R-T Axes : 028 046 008 degrees QTc Int : 418 ms Normal sinus rhythm Normal ECG When compared with ECG of 02-OCT-2022 11:21, Premature ventricular complexes are no longer Present Referred By: Generic ED Physician Electronically Signed By:BRAYDEN ADDISON MD
--- NOTE | ~2022-10-04 | XR_ITS ---
EXAMINATION: XR SHOULDER, LEFT CLINICAL INFORMATION: Pain, limited range of motion. COMPARISON: None available. TECHNIQUE: Four views of the left shoulder. FINDINGS: There is mild acromioclavicular osteoarthritis. Glenohumeral joint is well preserved. No fracture. Alignment is anatomic. Soft tissues are normal with no abnormal calcifications. XR/XR shoulder LT min 2V IMPRESSION: No acute fractures or malalignment. Mild acromioclavicular osteoarthritis.
[2022-10-04 18:57] VITALS: BP 143/95; PULSE 95; RESP 16; TEMP 36.6; O2SAT 99; BMI 33.4
--- NOTE | 2022-10-04 18:57 | ED_ITS ---
HPI - Neck Pain/Injury General Chief Complaint: Neck Pain/Injury Stated Complaint: stiffness in shoulder, neck and chest Time Seen by Provider: 10/04/22 23:19 Source: patient Mode of arrival: ambulatory Limitations: no limitations History of Present Illness HPI Narrative: Patient comes to the emergency room complaining of left-sided neck pain, left suprascapular pain and left rib pain laterally. Patient states it has been going on for couple of days, patient states that everything hurts more when he turns his head towards the left. Patient denies any fever, no headache. Denies chest pain Related Data Home Medications Medication Instructions Recorded Confirmed acetaminophen-caffeine 500 mg-65 2 tab PO DAILY PRN Headache 06/24/22 06/24/22 mg tablet (Excedrin Tension Headache) ibuprofen 200 mg tablet 800 mg PO DAILY PRN Migraine 06/24/22 06/24/22 Headache Previous Rx's Medication Instructions Recorded amlodipine 10 mg tablet (Norvasc) 10 mg PO DAILY #30 tabs 06/24/22 hydrochlorothiazide 25 mg tablet 25 mg PO DAILY #30 tabs 06/24/22 valsartan 160 mg tablet (Diovan) 160 mg PO DAILY #30 tabs 06/25/22 amlodipine 10 mg tablet 10 mg PO DAILY #30 tabs 09/30/22 hydrochlorothiazide 25 mg tablet 25 mg PO DAILY #30 tabs 09/30/22 valsartan 160 mg tablet 160 mg PO DAILY #30 tabs 09/30/22 meclizine 25 mg tablet 25 mg PO BID PRN dizziness #10 tabs 10/02/22 ondansetron 4 mg disintegrating 4 mg PO Q8H PRN nausea and 10/02/22 tablet vomiting #10 tabs cyclobenzaprine 5 mg tablet 5 mg PO TID PRN muscle spasm #7 10/05/22 tabs diazepam 5 mg tablet 5 mg PO BEDTIME PRN muscle spasm 10/05/22 #1 tab ketorolac 10 mg tablet 10 mg PO BID PRN pain #10 tabs 10/05/22 Allergies Allergy/AdvReac Type Severity Reaction Status Date / Time barium sulfate Allergy Unknown Unknown Verified 10/04/22 18:57 aspirin Allergy Swelling Verified 10/04/22 18:57 calomine Allergy Unknown Unknown Uncoded 10/04/22 18:57 Review of Systems Review of Systems: Constitutional : No Weight loss, No Fever, No Chills, No Night Sweats, No Fatigue, No Malaise ENT/Mouth : No Hearing loss, No Ear Pain, No Nasal Congestion, No Sinus Pain, No Hoarseness, No sore throat, No Rhinorrhea, No Swallowing Difficulty Eyes: No Eye Pain, No Swelling, No Redness, No Foreign Body, No Discharge, No Vision Changes Cardiovascular : No Chest Pain, No SOB, No Dyspnea on Exertion, No Orthopnea, No Edema, No Palpitations Respiratory : No Cough, No Sputum, No Wheezing, No Smoke Exposure, No Dyspnea Gastrointestinal : No Nausea, No Vomiting, No Diarrhea, No Constipation, No abdominal Pain, No Hematochezia, No Melena Genitourinary : no irregular bleeding, No Dysuria, No Urinary Frequency, No Hematuria, No Urinary Incontinence, No Urgency, No Flank Pain, No Urinary Flow Changes, No Hesitancy Musculoskeletal complaining of left-sided neck pain, suprascapular pain on the left, supra arm clavicular pain all on the left Skin : No Skin Lesions, No rash Neuro : No Weakness, No Numbness, No Paresthesias, No Loss of Consciousness, No Dizziness, No Headache Psych : No Anxiety/Panic, No Depression, No SI/HI/AH/VH, No Social Issues, Heme/Lymph: No Bruising, No Bleeding,No Lymphadenopathy Endocrine : No Polyuria, No Polydipsia, No Temperature Intolerance [facility] Social History Social History Alcohol intake: current Alcohol intake frequency: holidays/special occasions only Smoked in Last 30 Days: Yes Use of substances other than those prescribed or required for medical reasons: No Advance Directives: No Advance Directives Information Provided: No Physical Exam Vital Signs: Vital Signs: Last Vital Signs Temp 98.3 F 10/05/22 00:00 Pulse 80 10/05/22 00:00 Resp 18 10/05/22 00:00 BP 134/96 H 10/05/22 00:00 Pulse Ox 100 10/05/22 00:00 O2 Del Method Room Air 10/05/22 00:00 BMI result Body Mass Index 33.4 Const: Other: Appearance: Alert. Oriented X3. No acute distress. Eyes: Pupils equal, round and reactive to light. ENT: Pharynx normal. Neck: Normal inspection. Neck supple. No lymph nodes noted. No crepitus, pain triggered by head movement towards the left shoulder CVS: Normal heart rate and rhythm. Pulses normal. Normal S1 and S2 Respiratory: No respiratory distress. Breath sounds normal. No Wheezing. No rales Abdomen: Soft and nontender. No rigidity. No distention. Back: Pain to palpation over the suprascapular and supraclavicular areas Skin: Skin warm and dry. Normal skin color. Normal skin turgor. Extremities: No lower extremity edema. No Lacerations. No Rash Neuro: Oriented X 3. No motor deficit. No sensory deficit. Moving all extremities. No slurred speech. CN 2 through 12 grossly intact Psych: calm, cooperative, normal affect Course Course Course Narrative: RME - 37 yo male presents to the ER for evaluation of left sided neck pain, left shoulder pain, left chest pain and left arm pain that started yesterday morning when he woke up. Seen here 3 times this week for chest pain. Also having palpitations and dizziness when he bends forward. Plan: XR left shoulder, treat pain Medical Decision Making Medical Decision Making [facility] Narrative: -I discussed with the patient his physical exam, likely musculoskeletal. Patient is able to flex and extend the head without pain or rigidity, meningitis not suspected. -patient was given IM Toradol. Patient is driving. The rest of his medication was sent to his 24 hour pharmacy -my interpretation of EKG: Normal sinus rhythm, heart rate 81, no ST segment depression or elevation, no T-wave inversion, QTC 418 -patient was seen here 2 days ago with similar symptoms. Two days ago EKG was normal as well, troponin negative. Today patient has no chest pain My interpretation of x-ray of the left shoulder: Normal alignment, no dislocation or fracture Differential Diagnosis Differential Diagnoses: The differential diagnosis associated with the prese ntation includes (torticollis, musculoskeletal pain, muscular strain) Independent Interpretation I performed an independent interpretation of an: Plain X-Ray Radiology Impression Discussion of test interpretation with radiology: I have reviewed the radiologist's reading. Radiologist Impression: There is mild acromioclavicular osteoarthritis. Glenohumeral joint is well preserved. No fracture. Alignment is anatomic. Soft tissues are normal with no abnormal calcifications.? XR/XR shoulder LT min 2V IMPRESSION: No acute fractures or malalignment. Mild acromioclavicular osteoarthritis Discharge Plan Discharge Clinical Impression: Torticollis Patient Disposition: Home, Self-Care Instructions: Musculoskeletal Pain (ED) Additional Instructions: Please take diazepam 1 tablet today in case of muscle spasms/pain. Do not take cyclobenzaprine tonight. Please follow-up with your primary care physician tomorrow. If you have any worsening or new symptoms, please return to the emergency room or call 911 Prescriptions: New ketorolac 10 mg tablet 10 mg PO BID PRN (Reason: pain) Qty: 10 0RF Rx Instructions: Do not use this information with ibuprofen, NSAIDs diazepam 5 mg tablet 5 mg PO BEDTIME PRN (Reason: muscle spasm) Qty: 1 0RF cyclobenzaprine 5 mg tablet 5 mg PO TID PRN (Reason: muscle spasm) Qty: 7 0RF No Action amlodipine [Norvasc] 10 mg tablet 10 mg PO DAILY Qty: 30 0RF hydrochlorothiazide 25 mg tablet 25 mg PO DAILY Qty: 30 0RF Excedrin Tension Headache 500-65 mg Tablet 2 tab PO DAILY PRN (Reason: Headache) ibuprofen 200 mg Tablet 800 mg PO DAILY PRN (Reason: Migraine Headache) amlodipine 10 mg tablet 10 mg PO DAILY Qty: 30 3RF valsartan 160 mg tablet 160 mg PO DAILY Qty: 30 3RF hydrochlorothiazide 25 mg tablet 25 mg PO DAILY Qty: 30 3RF valsartan [Diovan] 160 mg tablet 160 mg PO DAILY Qty: 30 1RF meclizine 25 mg tablet 25 mg PO BID PRN (Reason: dizziness) Qty: 10 0RF ondansetron 4 mg tablet,disintegrating 4 mg PO Q8H PRN (Reason: nausea and vomiting) Qty: 10 0RF
[2022-10-04 21:11] VITALS: BP 145/97; PULSE 88; RESP 17; O2SAT 99
--- OUTSIDE RECORDS SUMMARY | 2022-10-04 21:18 | XMS_ITS | Continuity of Care Document ---
Author Name Unknown Organization [facility] Address [address] [place] [id number]- Care Team Providers Care Special Effects Artist Name Role Phone Gail Littlejohn NP Primary Care Physician [phone] Encounter [facility] Date(s): 06/26/22 - 07/26/22 [facility] Adult [address] [place] [id number] Allergies, Adverse Reactions, Alerts Substance Reaction Severity Status penicillin Unknown reaction Unknown Active Immunizations Given and Recorded Vaccine Date Status Refusal Reason influenza virus vaccine, inactivated 01/07/22 Darryl rded influenza virus vaccine, inactivated 02/01/21 Darryl rded [id number] bivalent booster vax 01/07/22 Recorded SARS-CoV-2 (COVID-19) mRNA-1273 vaccine 02/01/21 R ecorded Social History Social History Type Response Smoking Status Never (less than 100 in lifetime) entered on: 06/27/22 Sex Male Patient Care team information Care Team Personnel Name: Gail Littlejohn NP Position: S PCO Associate Professional Member Role: PCP Address: Address: [address] [place] [address] Adult [place], [place] [address]
--- OUTSIDE RECORDS SUMMARY | 2022-10-04 21:18 | XMS_ITS | Continuity of Care Document ---
Author Name Unknown Organization [facility] Address [address] [place] [id number]- Care Team Providers Care Rejoiner Name Role Phone Gail Littlejohn NP Primary Care Physician Encounter [facility] Date(s): 06/28/22 - 07/28/22 [facility] Adult [address] [place] [id number] Allergies, Adverse Reactions, Alerts Substance Reaction Severity Status penicillin Unknown reaction Unknown Active Immunizations Given and Recorded Vaccine Date Status Refusal Reason influenza virus vaccine, inactivated 01/07/22 Darryl rded influenza virus vaccine, inactivated 02/01/21 Darryl rded [id number] bivalent booster vax 01/07/22 Recorded SARS-CoV-2 (COVID-19) mRNA-1273 vaccine 02/01/21 R ecorded Social History Social History Type Response Smoking Status Never (less than 100 in lifetime) entered on: 06/27/22 Sex Male Patient Care team information Care Team Personnel Name: Gail Littlejohn NP Position: S PCO Associate Professional Member Role: PCP Address: Address: [address] [place] [address] Adult Medicine [place], [place] [id number]
--- OUTSIDE RECORDS SUMMARY | 2022-10-04 21:18 | XMS_ITS | Continuity of Care Document ---
Author Name Unknown Organization [facility] Address [address] [place] [id number] Care Team Providers Care Fire Production Operator Name Role Phone Gail Littlejohn NP Primary Care Physician [phone] Encounter [facility] [place] Date(s): 06/27/22 - 07/27/22 [facility] Adult [address] [place] [id number] Attending Physician: Admtr, Ar8 Admitting Physician: Admtr, Ar8 Referring Physician: Admtr, Ar8 Allergies, Adverse Reactions, Alerts Substance Reaction Severity Status penicillin Unknown reaction Unknown Active Immunizations Given and Recorded Vaccine Date Status Refusal Reason influenza virus vaccine, inactivated 01/07/22 Darryl rded influenza virus vaccine, inactivated 02/01/21 Darryl rded [id number] bivalent booster vax 01/07/22 Recorded SARS-CoV-2 (COVID-19) mRNA-1273 vaccine 02/01/21 R ecorded Social History Social History Type Response Smoking Status Never (less than 100 in lifetime) entered on: 06/27/22 Sex Male Patient Care team information Care Team Personnel Name: Gail Littlejohn NP Position: [facility] PCO Associate Professional Member Role: PCP Address: Address: [address] [place] [address] [place] [address]
[2022-10-05] VITALS: BP 134/96; PULSE 80; RESP 18; TEMP 36.8; O2SAT 100
[2022-10-05] MEDS: Ketorolac Tromethamine 60 MG/2 ML VIAL IM (00:08)
== END 2022-10-05 00:17 | disposition home or self-care (01) ==
PROVIDERS: Emergency Provider Emergency Medicine
DX: M43.6 Torticollis (principal); M19.012 Primary osteoarthritis, left shoulder; Z79.899 Other long term (current) drug therapy
CPT/HCPCS: 73030; 93005; 96372; 99284; 99285; J1885

== ENCOUNTER → 2022-10-04 21:16 | Outpatient (BNV) | payer BC, OTHER, SELFPAY | PROVIDERS: Emergency Provider Emergency Medicine; Visit Provider Internal Medicine Cardiovascular Disease | DX: R07.9 Chest pain, unspecified (principal) | CPT/HCPCS: 93010 ==

== ENCOUNTER 2022-11-02 08:18 | Outpatient (AMB) | payer BC, OTHER, SELFPAY ==
--- NOTE | 2022-11-02 08:24 | MHC.OFFVIS ---
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: No Allergies barium sulfate Allergy (Unknown, Verified 11/02/22 08:30) Unknown aspirin Allergy (Verified 11/02/22 08:30) Swelling calomine Allergy (Unknown, Uncoded 10/04/22 18:57) Unknown Medication List - Last Reconciled 11/02/22 by HÉCTOR Orozco acetaminophen-caffeine 500-65 mg (Excedrin Tension Headache) 2 tabs PO DAILY PRN amlodipine 10 mg PO DAILY diazepam 5 mg PO BEDTIME PRN hydrochlorothiazide 25 mg PO DAILY valsartan 160 mg PO DAILY HPI [facility] follow up Chest Pain HPI Details Florencio is a 37 year old male with past medical history of hypertension, uncontrolled, obesity, reported history of pericarditis in 2001. 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 He also did not have a PCP and was not on his antihypertensives. He was seen in the emergency room on 4 occasions in the last 9 months. He typically presented with chest discomfort, lightheadedness and has been found to have hypertensive urgency with blood pressure as high as 223/128. He was restarted on antihypertensives and is currently on amlodipine, hydrochlorothiazide and valsartan. He ruled out for ACS on each occasion. Following his last ER visit 10/02/2022 he was referred to Cardiology for further management. Today he reports that he has been experience lightheadedness which he describes as a continual sensation, worse with bending, raising his arms. He has a mild headache at times, no significant vision changes, no weakness of arms or legs. He had the same symptoms with very elevated blood pressures and now with his blood pressure in a lower range. No presyncope, syncope, falls. Chest discomfort occurring with activity and certain positions such as laying on his right side. His pain is localized to the left of the sternal border. When he climbs stairs he feels that pain radiate up to his left shoulder. He has been doing only light physical activity recently due to the symptoms. 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 He describes his breathing as normal, no PND, orthopnea. He says his legs swell at times. History of smoking, long-term, currently about 10 cigarettes per day. Rare alcohol use, no illicit drug use. No known family history of heart disease. He does not carry a diagnosis of diabetes or hyperlipidemia. FOR[facility]LY [facility], [facility] Medical History (Updated 11/02/22 @ 09:26 by HÉCTOR Orozco) Coronary atherosclerosis Hypertension Renal artery aneurysm Surgical History (Updated 11/02/22 @ 09:26 by HÉCTOR Orozco) Stented coronary artery Family History (Updated 11/02/22 @ 09:27 by HÉCTOR Orozco) Mother No family history of coronary artery disease Father No family history of coronary artery disease Social History (Updated 11/02/22 @ 09:28 by HÉCTOR Orozco) Alcohol intake: current Alcohol intake frequency: holidays/special occasions only Patient Tobacco Use Status: Current everyday Tobacco user Tobacco use type: Cigarette Cigarette Packs Per Day: 0.5 Cigarettes Per Day: 10 Review of Systems Const All systems reviewed & are unremarkable except as noted in HPI and below ENT Reports dizziness Card Reports chest pain, Reports chest pain at rest, Reports chest pain with activity, Reports rapid heart rate, Denies pedal edema, Denies edema, Denies leg edema, Denies lightheadedness, Denies palpitations, Denies dyspnea, Denies dyspnea on exertion and Denies orthopnea Resp Denies cough, Denies dyspnea and Denies dyspnea on exertion GI Denies hematochezia and Denies change in stool character Musc Denies abnormal gait, Denies limited range of motion, Denies muscle cramps, Denies muscle weakness, Denies numbness, Denies radiating pain into limb, Denies stiffness and Denies tingling Neuro Denies abnormal gait, Reports dizziness, Denies numbness and Denies tingling Endo Denies palpitations Physical Exam Vital Signs: Last Vital Signs Pulse 98 11/02/22 08:25 BP 114/80 11/02/22 08:25 BMI result Body Mass Index 33.8 Const General: cooperative, healthy appearing, comfortable and no acute distress Orientation/consciousness: patient oriented x3 Neck Neck: Yes normal visual inspection Resp Effort & Inspection: normal respiratory effort Auscultation: clear to auscultation bilaterally, no crackles, no rales, no rhonchi and no wheezes Cardio Jugular venous distension: no JVD Rate: regular rate Rhythm: regular rhythm Heart sounds: S1 normal heart sound present, S2 normal heart sound present, no gallops, no murmurs and no rubs GI Inspection: Yes normal to inspection Skin General skin exam: no rashes or lesions noted Neuro General: patient oriented x3 Extrem General: Yes normal to inspection and No no pedal edema Psych Appearance: grossly normal Mental Status: mental status grossly normal Speech and movement: Normal speech and movement present Assessment & Plan Assessment & Plan (1) Precordial chest pain: Code(s): R07.2 - Precordial pain Plan: Reports of localized left-sided chest discomfort with raising his arms and laying on his right side, same discomfort however radiates to left shoulder when he climbs stairs and does physical activity. Has some typical and atypical features. ER evaluation for times in the last 9 months for chest discomfort and lightheadedness. Has had hypertensive urgency with blood pressures as high as 223/128. He had not been on his antihypertensive agents which were then restarted. He ruled out for ACS. EKGs reviewed showing normal sinus rhythm with no acute ST or T-wave abnormalities. Last EKG done on 10/04/2022 shows sinus rhythm, heart rate 81. He reports a history of what sounds like NSTEMI, cardiac catheterization and coronary stent placement 11/2020 at [facility] in [place]. Will work on obtaining his discharge summary and cardiac catheterization report. He has not followed with Cardiology since that time. He is now living in this area. Will obtain an exercise nuclear stress test to evaluate for any ischemia. Will check an echocardiogram to assess for structural heart disease. Record indicates aspirin allergy. He is not on statin for unclear reason. Will check a fasting lipid profile. Cardiology follow-up when test results are available, 4-6 weeks. ER in care if needed for concerning symptoms. (2) Hypertension: Code(s): I10 - Essential (primary) hypertension Plan: Reported history of hypertension for the last 10 years. He tells me he has not been good with taking his medications consistently. ER visits as reported above with blood pressure is uncontrolled. For the last month he has been compliant with his amlodipine, hydrochlorothiazide and valsartan. His blood pressure in the office today is normal range. He tells me his home blood pressure checks have shown systolic to be in the 120s. He does report lightheadedness which is the same now as when his blood pressure was elevated. Unclear if this is vertigo or related to blood pressure variations. He did try meclizine without any improvement. Will be checking a Holter monitor to evaluate for any arrhythmia. At present will continue on his current med management. The importance of good blood pressure control, low-salt diet reviewed with him. Checking echocardiogram. (3) Lightheadedness: Code(s): R42 - Dizziness and giddiness Plan: Feelings of lightheadedness continual and worse with position changes. Currently out of work due to his symptoms. Cardiac evaluation as above. He has an upcoming visit with his new PCP Ryan Louis, recommend also noncardiac evaluation for his symptom of lightheadedness. (4) Palpitation: Code(s): R00.2 - Palpitations Plan: He reports pounding heart at times along with lightheadedness. No presyncope, syncope, falls. Checking Holter monitor. (5) Coronary atherosclerosis: Code(s): I25.10 - Atherosclerotic heart disease of ambler coronary artery without angina pectoris (6) Stented coronary artery: Code(s): Z95.5 - Presence of coronary angioplasty implant and graft Plan: Will obtain cardiac catheterization report to determine which artery stent is placed and status of other coronary arteries. (7) Renal artery aneurysm: Comment: reported hx with stent in place, right Code(s): I72.2 - Aneurysm of renal artery Plan: He reports a history of having a renal artery aneurysm that dissected and a stent was placed. He was not clear on the year this occurred and tells me he was having periodic ultrasounds but none in the last few years. He has had issues with uncontrolled blood pressures, most likely related to him being off his medications however will check a renal artery ultrasound to check the status of both right and left renal arteries Orders: Orders US renal doppler Today I72.2 - Aneurysm of renal artery CA stress test Today I25.10 - Atherosclerotic heart disease of ambler coronary artery without angina pectoris, R07.2 - Precordial pain, Z95.5 - Presence of coronary angioplasty implant and graft CA echo transthoracic complete Today I10 - Essential (primary) hypertension, I25.10 - Atherosclerotic heart disease of ambler coronary artery without angina pectoris, Z95.5 - Presence of coronary angioplasty implant and graft NM cardiolite stress test Today I25.10 - Atherosclerotic heart disease of ambler coronary artery without angina pectoris, R07.2 - Precordial pain, Z95.5 - Presence of coronary angioplasty implant and graft ECG 3 day holter monitor Today R00.2 - Palpitations, R42 - Dizziness and giddiness Lipid Panel Today I25.10 - Atherosclerotic heart disease of ambler coronary artery without angina pectoris Coding Level of Care Code New Pt Level 4 (00507) Diagnoses Precordial chest pain R07.2 Hypertension I10 Lightheadedness R42 Palpitation R00.2 Coronary atherosclerosis I25.10 Stented coronary artery Z95.5 Renal artery aneurysm I72.2 Time Spent (min) 36 Comment Chart review, documentation, interview, assessment
[2022-11-02 08:25] VITALS: BP 114/80; PULSE 98; BMI 33.8
== END 2022-11-02 09:07 | disposition home or self-care (01) ==
PROVIDERS: Visit Provider Nurse Practitioner Family
DX: R07.2 Precordial pain (principal); I10 Essential (primary) hypertension; R42 Dizziness and giddiness; R00.2 Palpitations; I25.10 Atherosclerotic heart disease of native coronary artery without angina pectoris; Z95.5 Presence of coronary angioplasty implant and graft; I72.2 Aneurysm of renal artery
CPT/HCPCS: 99204

== ENCOUNTER → 2022-11-02 08:18 | Outpatient (BNVA) | payer BC, OTHER, SELFPAY | PROVIDERS: Visit Provider Nurse Practitioner Family | DX: R07.2 Precordial pain (principal); R42 Dizziness and giddiness; I10 Essential (primary) hypertension; R00.2 Palpitations; I25.10 Atherosclerotic heart disease of native coronary artery without angina pectoris; I72.2 Aneurysm of renal artery; Z95.5 Presence of coronary angioplasty implant and graft | CPT/HCPCS: 99202 ==

== ENCOUNTER 2022-11-08 13:24 | Outpatient (REF) | payer BC, OTHER, SELFPAY ==
--- NOTE | ~2022-11-08 | US_ITS ---
EXAMINATION: US RETROPERITONEAL LIMITED (RENAL ONLY) CLINICAL INFORMATION: Renal artery aneurysm status post stenting. COMPARISON: None available. TECHNIQUE: Grayscale and color and duplex Doppler interrogation of both kidneys FINDINGS: RIGHT KIDNEY: 11.7 x 6 x 6 cm (SAG x AP x TRV). Tiny renal cortical cyst upper pole exophytic measuring 12 mm. Bosniak 1. No follow-up indicated. Minor cortical scarring noted mid pole. Limited visualization of right-sided renal stent. Correlate with procedural report. The kidney is otherwise normal in size, contour, and echogenicity. Renal cortical thickness is normal. No calculi or focal parenchymal lesions. No hydronephrosis. Elevated peak systolic velocities within the renal artery measuring up to 215 cm/s with a RAR 2.42. Resistive indices within normal limits at approximately 0.58-0.61. Normal waveforms noted. Normal early systolic peaks. LEFT KIDNEY: 13 x 5.7 x 5.5 cm (SAG x AP x TRV). The kidney is normal in size, contour, and echogenicity. Renal cortical thickness is normal. No calculi or focal parenchymal lesions. No hydronephrosis. Elevated peak systolic velocities measuring up to 231 cm/s mid left renal artery. RAR normal at 2.61. Resistive indices normal at 0.5-0.66. Normal waveforms noted. Normal low systolic peaks. US/US renal BI IMPRESSION: 1. Right-sided pain renal stent noted seen in a limited manner. Correlate with procedural report. Normal waveforms with elevated peak systolic velocities as above. 2. Normal resistive indices.
--- NOTE | ~2022-11-08 | US_ITS ---
EXAMINATION: US RETROPERITONEAL LIMITED (RENAL ONLY) CLINICAL INFORMATION: Renal artery aneurysm status post stenting. COMPARISON: None available. TECHNIQUE: Grayscale and color and duplex Doppler interrogation of both kidneys FINDINGS: RIGHT KIDNEY: 11.7 x 6 x 6 cm (SAG x AP x TRV). Tiny renal cortical cyst upper pole exophytic measuring 12 mm. Bosniak 1. No follow-up indicated. Minor cortical scarring noted mid pole. Limited visualization of right-sided renal stent. Correlate with procedural report. The kidney is otherwise normal in size, contour, and echogenicity. Renal cortical thickness is normal. No calculi or focal parenchymal lesions. No hydronephrosis. Elevated peak systolic velocities within the renal artery measuring up to 215 cm/s with a RAR 2.42. Resistive indices within normal limits at approximately 0.58-0.61. Normal waveforms noted. Normal early systolic peaks. LEFT KIDNEY: 13 x 5.7 x 5.5 cm (SAG x AP x TRV). The kidney is normal in size, contour, and echogenicity. Renal cortical thickness is normal. No calculi or focal parenchymal lesions. No hydronephrosis. Elevated peak systolic velocities measuring up to 231 cm/s mid left renal artery. RAR normal at 2.61. Resistive indices normal at 0.5-0.66. Normal waveforms noted. Normal low systolic peaks. US/US renal doppler IMPRESSION: 1. Right-sided pain renal stent noted seen in a limited manner. Correlate with procedural report. Normal waveforms with elevated peak systolic velocities as above. 2. Normal resistive indices.
== END 2022-11-08 13:25 | disposition home or self-care (01) ==
LOC: HO.HMGCX 13:24
PROVIDERS: PCP Nurse Practitioner Family; Visit Provider Nurse Practitioner Family
DX: I72.2 Aneurysm of renal artery (principal)
CPT/HCPCS: 76775; 93975

== ENCOUNTER → 2022-11-28 13:09 | Outpatient (BNV) | payer BC, OTHER, SELFPAY | PROVIDERS: PCP Nurse Practitioner Family; Visit Provider Internal Medicine | DX: R00.0 Tachycardia, unspecified (principal) | CPT/HCPCS: 93227; 93306 ==

== ENCOUNTER → 2022-11-28 13:10 | Outpatient (REF) | payer OTHER, SELFPAY | LOC: HO.CARD 13:10 | PROVIDERS: PCP Nurse Practitioner Family; Visit Provider Nurse Practitioner Family | DX: Z13.89 Encounter for screening for other disorder (principal) ==

== ENCOUNTER → 2022-11-28 | Outpatient (REF) | payer BC, OTHER, SELFPAY ==
--- NOTE | 2022-11-28 13:09 | CA_ITS ---
Transthoracic Echocardiogram Patient (Last, First, Middle): Florencio Ravi J Gender: Male Date of : 1985 Age: 37 Procedure Date: 11/28/2022 Procedure Type: Transthoracic Echocardiogram Location: OP Height: 170.18 cm Weight: 95.26 kg BSA: 2.06 m2 Heart Rate: bpm BP: 138 / 82 mmHg Diving Fisher: VH Referring MD: Eduarda Saucedo BALLASTER-C Symptoms: I10 - Essential (primary) hypertension I25.10 CAD Study Quality: Good ECG Rhythm: Sinus Conclusions: - The left ventricular systolic function is normal. The calculated ejection fraction is 57% by biplane method. - Moderate to severe concentric left ventricular hypertrophy. - No obvious valvular pathology seen on this study. Findings Left Ventricle Normal left ventricular cavity size. The left ventricular systolic function is normal. The calculated ejection fraction is 57% by biplane method. There is no evidence of regional wall motion abnormalities. Evidence suggests grade I (mild) diastolic dysfunction. Moderate to severe concentric left ventricular hypertrophy. Right Ventricle Normal right ventricular cavity size. There is low normal right ventricular systolic function. Atria Both atria are normal in size. Aortic Valve There is a normal trileaflet aortic valve. There is no aortic valve stenosis. There is no aortic valve regurgitation. Mitral Valve The mitral valve appears normal. There is no mitral valve regurgitation. There is no mitral valve stenosis. Pulmonic Valve The pulmonic valve is likely normal. Tricuspid Valve Normal tricuspid valve structure. There is trace tricuspid valve regurgitation. There is no evidence of pulmonary hypertension. Great Vessels The asc aorta is normal in size. Venous The inferior vena cava is normal in size and collapses greater than 50% with inspiration. Pericardium/Pleural There is no evidence of pericardial effusion. Prior Study Comparison Changes noted compared to prior study dated: 11/03/2013. previously described to have normal LV wall thickness. Recommendations, Care & Conclusions No obvious valvular pathology seen on this study. Measurements 2D Linear Measurements IVSd: 1.50 0.6-0.9/0.6-1.0 cm LVIDd: 4.60 3.9-5.3/4.2-5.9 cm LVIDd Index: 2.23 2.4-3.2/2.2-3.1 cm/m2 LVIDs: 2.87 2.0-3.6 cm LVPWd: 1.47 0.7-1.1 cm Ao Root: 3.60 2.1-3.5 cm LA Diam: 3.50 2.7-3.8/3.0-4.0 cm LAIDs Index: 1.70 1.5-2.3 cm/m2 LV Mass: 349.92 67-162/88-224 g LV Mass Index: 169.86 43-95/49-115 g/m2 LVOT Diam: 2.20 3.0+(-)1.3 cm 2D Systolic Function EF 4C: 51.90 >55% EF 2C: 60.70 >55% EF BiP: 56.50 >55% Mitral Valve MV Pk E: 0.48 MV PK A: 0.72 MV Decel Time: 136.00 E/A: 0.70 E'Lateral: 5.98 E'Medial: 5.98 E/E' Med: 8.00 E/E' Lat: 8.00 PHT: 40.00 MVA PHT: 5.50 Decel Mckean: 3.50 Aortic Valve AoV Pk Johnie: 1.25 AoV Mn Johnie: 0.84 AoV VTI: 0.22 AoV Pk Grad: 6.00 Aov Mn Grad: 3.00 RAYMOND Cont.VTI: 2.30 LVOT LVOT Pk Johnie: 0.87 LVOT Mn Johnie: 0.56 LVOT VTI: 0.13 LVOT Pk Grad: 3.00 LVOT Mn Grad: 2.00 LVOT Diam: 2.20 LVOT Area: 3.80 Diastolic Function MV Pk E: 0.48 MV Pk A: 0.72 E/A: 0.70 E'Medial: 5.98 E/E' Med: 8.00 E' Laterial: 5.98 E/E' Lat: 8.00 Right Ventricle TAPSE (mm): 17.00 TVS' Johnie: 11.00 Tricuspid Valve TR Pk Johnie: 1.77 TR Pk Grad: 13.00 RA Press: 3.00 RVSP: 16.00 Great Vessels Aorta Ao Root-2D: 3.60 2.0-3.7 cm Ao Asc: 3.40 2.1-3.4 cm Pulmonary Valve PV Pk Johnie: 0.96 Peak PV Grad: 4.00 Updated in Other Vendor System with Status of Final Brian Lizarraga MD electronically signed on 11/29/2022 10:24:46 AM with status of Final
--- NOTE | 2022-11-28 13:09 | HM_ITS ---
Conclusion: 1. Patient was monitored for total period of 1 day 2. Baseline was normal sinus rhythm with average heart of 94 beats per minute with frequent sinus tachycardia, 46% of time heart rate above 100 beats per minute 3. No significant pauses noted 4. Rare PACs noted 5. Patient reported 7 events with symptoms of dizziness or palpitations correlating with sinus rhythm MTDD
== END ==
LOC: HO.CARD
PROVIDERS: PCP Nurse Practitioner Family; Visit Provider Nurse Practitioner Family
DX: I25.10 Atherosclerotic heart disease of native coronary artery without angina pectoris (principal); I10 Essential (primary) hypertension; R00.2 Palpitations; R42 Dizziness and giddiness; Z95.5 Presence of coronary angioplasty implant and graft
CPT/HCPCS: 93225; 93306

== ENCOUNTER 2022-11-30 15:56 | Outpatient (AMB) | payer BC, OTHER, SELFPAY ==
--- NOTE | 2022-11-30 16:18 | A.OFFPC_ITS ---
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 Physical Allergies varenicline [From Chantix] Allergy (Intermediate, Verified 11/30/22 16:21) Rash barium sulfate Allergy (Unknown, Verified 11/02/22 08:30) Unknown aspirin Allergy (Verified 11/02/22 08:30) Swelling calomine Allergy (Unknown, Uncoded 10/04/22 18:57) Unknown Medication List - Last Reconciled 11/30/22 by YUNG Fang acetaminophen-caffeine 500-65 mg (Excedrin Tension Headache) 2 tabs PO DAILY PRN amlodipine 10 mg PO DAILY hydrochlorothiazide 25 mg PO DAILY valsartan 160 mg PO DAILY Tobacco use date assessed: 11/30/22 Dental Screening Dental Screen Date: 11/30/22 Did you have a dental visit in the last 12 months?: Yes Did you have a dental problem in the last 6 months where you did not have access to dental care?: No Was dental information given to patient?: Patient 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 Will order labs. Pt c/o intermittent vertigo. Pt has tried medication for this which did not help. He has been seen in the ER several times as well. Pt reports that the vertigo happens at random, but he can produce it with bending over or changing positions (sitting, standing, or turning head). Will refer to PT for possible vestibular rehab. Will also order head CT. He also reports intermittent chest pain. He is seeing cardiology for these issues. Pt had a holter monitor that was turned in yesterday, will await results. He also had a recent echo which showed: . The calculated ejection fraction is 57% by biplane method. Moderate to severe concentric left ventricular hypertrophy. No obvious valvular pathology seen on this study. Pt has a stress test scheduled for next week. He has a hx of NSTEMI 2 years ago. Pt continues to smoke. [facility] Medical History (Updated 11/30/22 @ 17:05 by YUNG Fang) Coronary atherosclerosis Renal artery aneurysm Hypertension Surgical History Stented coronary artery Family History Mother No family history of coronary artery disease Father No family history of coronary artery disease Social History (Updated 11/02/22 @ 09:28 by Eduarda Saucedo NP-C) Housing: House Alcohol intake: current Alcohol intake frequency: holidays/special occasions only Patient Tobacco Use Status: Current everyday Tobacco user Tobacco use type: Cigarette Cigarette Packs Per Day: 0.5 Cigarettes Per Day: 5 e-Cigarette/Vaping Use: Never Used Second Hand Smoke Exposure: No service: No Current occupational status: employed Current occupation: [employer] Current occupational exposures/hazards: Yes Cognitive needs: No Hearing needs: No Vision needs: No Questionnaire Thrive Questionnaire I am a: Patient What is your living situation today?: I have a place to live, but I am worried about losing it in the future Within the past 12 months, did the food you bought not last and you didn't have the money to get more?: Sometimes True Within the past 12 months, did you worry whether your food would run out before you got money to buy more?: Sometimes True Please select the resources that you would like help with: Housing/[facility] Currently or been in a relationship where the following occur: no concerns reported AUDIT C Alcohol Use Questionnaire (AUDIT-C) 1. How often do you have a drink containing alcohol?: 2-4 times a month 2. How many drinks containing alcohol do you have on a typical day when you are drinking?: 3 or 4 3. How often do you have six or more drinks on one occasion?: Less than monthly Total Score: 4 Score Reviewed/Action Taken: Yes LOLA-7 AMB Questionnaire LOLA-7 Feeling nervous, anxious, or on edge: 3 = Nearly every day Not being able to stop or control worryin = Nearly every day Worrying too much about different things: 3 = Nearly every day Trouble relaxin = Nearly every day Being so restless that it is hard to sit still: 1 = Several days Becoming easily annoyed or irritable: 0 = Not at all Feeling afraid as if something awful might happen: 3 = Nearly every day Total LOLA-7 score (0-4 normal; 5-9 mild; 10-14 moderate; 15-21 severe): 16 Source: Developed by Drs. Florencio Tsang, Loli Rendon, Kwaku Vo and colleagues, with an educational maria from [employer]. LOLA-7 Assessment Billing LOLA-7 Assessment Tool: LOLA-7 Assessment 55345 Review of Systems Const Denies chills and Denies fever(s) Eyes Denies blurry vision ENT Reports vertigo, Reports dizziness and Denies sore throat Card Reports chest pain at rest, Reports chest pain with activity, Denies diaphoresis, Denies dyspnea and Denies dyspnea on exertion Resp Denies cough, Denies dyspnea, Denies dyspnea on exertion and Denies wheezing GI Denies abdominal pain, Denies melena, Denies hematochezia, Denies constipation, Denies diarrhea and Denies loose stools Denies hematuria Musc Denies numbness and Denies tingling Skin/Breast Denies lesions Neuro Reports vertigo, Reports dizziness, Denies numbness and Denies tingling Psych Denies anxiety, Denies depression, Denies homicidal ideation, Denies suicidal ideation and Denies other (substance abuse) Aller/Immun Denies wheezing Physical exam (Primary Care) Vital Signs: Last Vital Signs Pulse 100 11/30/22 16:19 BP 122/78 11/30/22 16:19 Pulse Ox 96 11/30/22 16:19 Oxygen Delivery Method Room Air 11/30/22 16:19 BMI result Body Mass Index 34.0 Tobacco/Smoking Status: Tobacco use Status Tobacco use date assessed 11/30/22 11/30/22 16:25 Patient Tobacco Use Status Current everyday Tobacco 11/30/22 16:25 Tobacco use type Cigarette 11/30/22 16:25 e-Cigarette/Vaping Use Never Used 11/30/22 16:25 Currently or been in a relationship where the following occur: no concerns rep orted Const General: cooperative Nutritional Appearance: obese Orientation/consciousness: patient oriented x3 HENMT Head: Yes normal to inspection, Yes normocephalic and Yes atraumatic Ears: TM's normal bilaterally Eyes General: appearance normal, both eyes and all related structures Alignment and Position: alignment normal and position normal Neck Neck: Yes normal visual inspection and Yes no lymphadenopathy Thyroid: Thyroid normal Resp Effort & Inspection: normal respiratory effort Auscultation: clear to auscultation bilaterally Cardio Rate: regular rate Rhythm: regular rhythm Heart sounds: S1 normal heart sound present, S2 normal heart sound present and no murmurs GI Palpation (GI): Soft to palpation and nontender Auscultation: normal bowel sounds Skin Rashes: no rashes Neuro Other: slight nystagmus with wilberto hallpike, no nystagmus with 6 cardinal gazes, able to tandem walk, finger to thumb intact General: patient oriented x3, moves all extremities, no focal motor deficits, CN's II-XI intact bilaterally and deep tendon reflexes 2+ bilaterally Coordination: dptw-wp-opav test normal Romberg Test: Negative Psych Appearance: grossly normal Mental Status: mental status grossly normal Speech and movement: Normal speech and movement present Affect: normal affect Attitude: cooperative Thought process: Normal thought process present Thought content: Normal thought content present Insight: Good insight present (Psych) Judgement: Good judgement present (Psych) Assessment and Plan Assessment & Plan (1) Vertigo: Code(s): R42 - Dizziness and giddiness Plan: CT scan and vestibular rehab (2) Physical exam: Code(s): Z00.00 - Encounter for general adult medical examination without abnormal findings Orders: Orders Complete Blood Count Auto Diff Today Z00.00 - Encounter for general adult medical examination without abnormal findings Comprehensive [place]. Panel Fast Today Z00.00 - Encounter for general adult medical examination without abnormal findings UA CC w/rflx Micro + Cult Today Z00.00 - Encounter for general adult medical examination without abnormal findings Lipid Panel Today Z00.00 - Encounter for general adult medical examination without abnormal findings PT Evaluation and Treatment Today R42 - Dizziness and giddiness CT head/brain wo IV con Today R42 - Dizziness and giddiness TSH reflex Free T4 Today Z00.00 - Encounter for general adult medical examination without abnormal findings Coding Level of Care Code Est Pt Prev Care 18-39y(00034) Diagnoses Vertigo R42 Physical exam Z00.00 Additional Codes LOLA-7 Assessment Billing - LOLA-7 Assessment Tool: LOLA-7 Assessment 10484 ([id number])
[2022-11-30 16:19] VITALS: BP 122/78; PULSE 100; O2SAT 96; BMI 34.0
== END 2022-11-30 17:14 | disposition home or self-care (01) ==
PROVIDERS: Visit Provider Nurse Practitioner Family
DX: R42 Dizziness and giddiness (principal); Z00.00 Encounter for general adult medical examination without abnormal findings
CPT/HCPCS: 99395

== ENCOUNTER → 2022-12-04 08:52 | Outpatient (REF) | payer BC, OTHER, SELFPAY ==
--- NOTE | ~2022-12-04 | NM_ITS ---
EXERCISE MYOCARDIAL PERFUSION STUDY INDICATION: Chest pain, assess for coronary disease and ischemia TECHNIQUE: The patient was brought in for an exercise perfusion study on 12/04/2022. Patient performed exercise as per Sb protocol and was injected 35 mCi of sestamibi once target heart rate was achieved. Images were obtained using the SPECT gamma camera interlaced with the gating device. Images were obtained in supine position. Resting perfusion study was performed on 12/05/2022. Patient was administered 35 mCi of sestamibi intravenously at rest. Images were then obtained in supine position. Images were processed with the software and compared side to side in short axis, horizontal long axis and vertical long axis views. Total DLP 114mGy-cm. FINDINGS: Raw images were reviewed. The stress perfusion study showed mildly diminished tracer uptake in the basal part of inferior wall. With CT attenuation correction, there is improvement suggestive of diaphragmatic attenuation artifact. The gated study shows normal LV systolic function with calculated LVEF of 57%. LV cavity is normal in size. The gated study shows normal wall thickening and contraction of segments. Resting study shows no significant perfusion abnormality. Gating at rest reveals normal wall motion with ejection fraction at 55%. The findings are consistent with no clear reversible or fixed perfusion of normality. NM/NM cardiolite stress test IMPRESSION: 1. Myocardial perfusion imaging study shows probably normal myocardial perfusion. No definitive evidence of any ischemia or infarction. 2. Gated LVEF is 57% during stress and 55% during rest. 3. Transient ischemic dilatation not present. EKG component of the test reported separately.
--- NOTE | 2022-12-04 08:53 | CA_ITS ---
Acquisition Time: 2022-12-04 08:59:40 Total Exercise Time: 00:08:46 Test Indications: CP Medications: AMLODIPINE HCTZ VALSARTAN DIAZAPAM Protocol: LIVIA Max HR: 157 BPM 86% of Pred: 182 BPM Max BP: 144/088 mmHG Max Work Load: 10.4 METS Exercise stress test exercise 8 min 46 sec of Lviia protocol achieving 86% MPHR, with 3/10 chest pain at baseline. 6/10 at peak exercise. Left sternal border, mild SOB, without arrhythmias, with normotensive response to exercise, with scooping in leads 2,3, aVF. Nuclear images pending. Chest pain returned to baseline with rest..Test reviewed with Dr. Givens Referred By: Eduarda Saucedo Overread By: Elise Oro
== END ==
LOC: HO.CARD 08:52
PROVIDERS: PCP Nurse Practitioner Family; Visit Provider Nurse Practitioner Family
DX: R07.2 Precordial pain (principal); I25.10 Atherosclerotic heart disease of native coronary artery without angina pectoris; Z95.5 Presence of coronary angioplasty implant and graft
CPT/HCPCS: 78452; 93017; A9500

== ENCOUNTER → 2022-12-04 08:53 | Outpatient (BNV) | payer BC, OTHER, SELFPAY | PROVIDERS: PCP Nurse Practitioner Family; Visit Provider Nurse Practitioner | DX: R07.2 Precordial pain (principal) | CPT/HCPCS: 78452; 93016; 93018 ==

== ENCOUNTER 2022-12-06 13:21 | Outpatient (REF) | payer BC, OTHER, SELFPAY ==
--- NOTE | ~2022-12-06 | CT_ITS ---
EXAMINATION: CT HEAD WITHOUT CONTRAST CLINICAL INFORMATION: Dizziness. COMPARISON: Head CT from 11/03/2013. TECHNIQUE: Contiguous axial imaging was performed from the skullbase to vertex without intravenous administration of contrast. This CT examination was performed using dose optimization techniques as appropriate, variously including the following: *Automated exposure control *Adjustment of mA and/or kV according to patient size (this includes techniques or standardized protocols for targeted exams where dose is matched to indication/reason for exam; i.e. extremities or head) *Use of iterative reconstruction technique DLP: 880 mGy-cm. FINDINGS: There is no evidence of acute intracranial hemorrhage or territorial infarction. No abnormal mass effect or midline shift is seen. Lopez to white matter differentiation is well preserved. No extra-axial fluid collections are identified. The ventricles are normal in size. There is no abnormal attenuation within the brain parenchyma. The osseous structures and soft tissues are normal. The mastoid air cells are well aerated. Mild ethmoid sinus mucosal thickening noted. CT/CT head/brain wo IV con IMPRESSION: No acute intracranial pathology.
== END 2022-12-06 13:22 | disposition home or self-care (01) ==
LOC: HO.CT 13:21
PROVIDERS: PCP Nurse Practitioner Family; Visit Provider Nurse Practitioner Family
DX: R42 Dizziness and giddiness (principal)
CPT/HCPCS: 70450

== ENCOUNTER 2022-12-08 09:46 | Outpatient (RCR) | payer BC, OTHER, SELFPAY ==
[2022-12-08 09:47] VITALS: BP 140/80; PULSE 94; O2SAT 97
--- NOTE | 2022-12-08 10:55 | MHC.PT.EP ---
[facility] [place] Office [place] Office [place] Office [address] Shawn Hernandez [address] [phone] F: [phone] F: [phone] F: [phone] F: [phone] Physical Therapy Plan of Care Date of Evaluation: 12/08/22 Date of Surgery: Diagnosis: This is a 37 yo male presenting to skilled PT with a script for dizziness. Assessment: This is a 37 yo male presenting to skilled PT with a script for dizziness. Today at PT patient reports dizziness and chest pain starting in June, it got worse in September. He feels like his symptoms are little spinny , double vision , lightheaded, like I am drinking . Bending forward, into out of car/chair, reading sideways cause his symptoms however this also causes chest pain and arm pain. He is seeing cardiology now. Pt had a holter monitor that was turned in yesterday, awaiting results. He also had a recent echo which showed: The calculated ejection fraction is 57% by biplane method. Moderate to severe concentric left ventricular hypertrophy. No obvious valvular pathology seen on this study. Pt had a stress test and blood work ordered. CT also ordered: CT/CT head/brain wo IV con IMPRESSION: No acute intracranial pathology. He did try meclizine without any improvement. He reports he is unsure if he took his BP medication today. Examination shows - oculomotor tests with saccades, (-) VBI B however was symptomatic throughout the entire eval (nothing we did changed his symptoms however), and WFL cervical AROM. He was (-) for BPPV with wilberto-hallpike B and roll test. Balance was normal statically with EO and EC, change of surface however with dyncmic movements he tended to catch his feet (stated this is from having flat feet) and he continued to state he had lightheadedness during DGI. S/S are not consistent with BPPV at this time and he was educated to continue with his appointments for cardiology as this may be causing his symptoms. Educated him that his chart will remain open for for 30 days in case symptoms change in order to address impairments, implement HEP and optimize functional mobility. Frequency and Duration: The patient will be seen 0 Short Term Goals: Refer back to PCP Custodial Goals: refer back to PCP Treatment Plan: Modalities to reduce pain, spasms and effusion. Manual therapy to restore motion and function. Therapeutic exercise to improve strength and flexibility. Neuromuscular re-education for posture and balance. Therapeutic activities to return to functional activities of daily living. Electronically signed by: Dary Avitia PT Please sign and return to therapist. Thank you for your referral.
--- NOTE | 2023-01-05 12:51 | MHC.PT.DC ---
[employer] [place] Office [place] Office [place] Office [address] Shawn Hernandez [address] [phone] F: [phone] F: [phone] F: [phone] F: [phone] Physical Therapy Discharge Report Diagnosis: This is a 37 yo male presenting to skilled PT with a script for dizziness. Date of Surgery: Date of Evaluation: 12/08/22 Date of Discharge: 01/05/23 Treatments to Date: 1 Cancellations to Date: 0 No Shows to Date: 0 Discharge Status: Recommend MD Follow-up Discharge Summary: This is a 37 yo male presenting to skilled PT with a script for dizziness. Today at PT patient reports dizziness and chest pain starting in June, it got worse in September. He feels like his symptoms are little spinny , double vision , lightheaded, like I am drinking . Bending forward, into out of car/chair, reading sideways cause his symptoms however this also causes chest pain and arm pain. He is seeing cardiology now. Pt had a holter monitor that was turned in yesterday, awaiting results. He also had a recent echo which showed: The calculated ejection fraction is 57% by biplane method. Moderate to severe concentric left ventricular hypertrophy. No obvious valvular pathology seen on this study. Pt had a stress test and blood work ordered. CT also ordered: CT/CT head/brain wo IV con IMPRESSION: No acute intracranial pathology. He did try meclizine without any improvement. He reports he is unsure if he took his BP medication today. Examination shows - oculomotor tests with saccades, (-) VBI B however was symptomatic throughout the entire eval (nothing we did changed his symptoms however), and WFL cervical AROM. He was (-) for BPPV with wilberto-hallpike B and roll test. Balance was normal statically with EO and EC, change of surface however with dyncmic movements he tended to catch his feet (stated this is from having flat feet) and he continued to state he had lightheadedness during DGI. S/S are not consistent with BPPV at this time and he was educated to continue with his appointments for cardiology as this may be causing his symptoms. Educated him that his chart will remain open for for 30 days in case symptoms change in order to address impairments, implement HEP and optimize functional mobility. Electronically signed by: Dary Avitia PT Please sign and return to therapist. Thank you for your referral.
== END 2023-01-05 12:51 | disposition home or self-care (01) ==
LOC: HO.PTCHIC 09:46
PROVIDERS: PCP Nurse Practitioner Family; Visit Provider Nurse Practitioner Family
DX: R42 Dizziness and giddiness (principal)
CPT/HCPCS: 97110; 97162

== ENCOUNTER 2022-12-14 08:47 | Outpatient (AMB) | payer BC, OTHER, SELFPAY ==
--- NOTE | 2022-12-14 10:59 | MHC.OFFWIV ---
Intake Vital Signs 12/14/22 11:04 Weight 213 lb BP 130/90 H Blood Pressure Location Lt brachial Position Sitting Pulse 80 Pulse Source Pulse Oximeter Pulse Oximetry (%) 97 Oxygen Delivery Method Room Air Intake Visit Reasons: EST/right upper breast numbness Intake Note: Patient here for right sided chest pain that has been present since sunday he says it is constant but when eats or swallows it causes more pain. Patient Tobacco Use Status: Current everyday Tobacco user Allergies varenicline [From Chantix] Allergy (Intermediate, Verified 12/14/22 11:07) Rash barium sulfate Allergy (Unknown, Verified 12/14/22 11:07) Unknown aspirin Allergy (Verified 12/14/22 11:07) Swelling calomine Allergy (Unknown, Uncoded 12/14/22 11:07) Unknown Do you need a note to return to daycare/school/sports/work: No HPI EST/right upper breast numbness HPI Details 37-year-old male patient presents today with a 2 day history of intermittent right-sided chest pain. He reports this increases with eating and drinking. Denies any known inciting event to this pain. He denies any palpitations, mid or left sternal chest pain, shortness of breath, or radiation of pain down extremity. Of note, he quit smoking about 1 week ago. History of coronary artery disease, and renal artery aneurysm with stent placement. Denies any nausea or vomiting. Reports regular voiding and BMs. No injury or recent lifting/trauma. [facility] Medical History Coronary atherosclerosis Renal artery aneurysm Hypertension Surgical History Stented coronary artery Family History Mother No family history of coronary artery disease Father No family history of coronary artery disease Social History Housing: House Alcohol intake: current Alcohol intake frequency: holidays/special occasions only Patient Tobacco Use Status: Current everyday Tobacco user Tobacco use type: Cigarette Cigarette Packs Per Day: 0.5 Cigarettes Per Day: 5 e-Cigarette/Vaping Use: Never Used Second Hand Smoke Exposure: No service: No Current occupational status: employed Current occupation: [employer] Current occupational exposures/hazards: Yes Cognitive needs: No Hearing needs: No Vision needs: No Review of Systems Const All systems reviewed & are unremarkable except as noted in HPI and below Physical Exam Vital Signs: Last Vital Signs Pulse 80 12/14/22 11:04 BP 130/90 H 12/14/22 11:04 Pulse Ox 97 12/14/22 11:04 Oxygen Delivery Method Room Air 12/14/22 11:04 Const General: cooperative and no acute distress HEENT Head: Yes normal to inspection Neck Neck: Yes no lymphadenopathy Chest Chest palpation & inspection: normal inspection of the chest and normal palpation of entire chest wall Resp Effort & Inspection: normal respiratory effort and able to speak in complete sentences Auscultation: clear to auscultation bilaterally Cardio Jugular venous distension: no JVD Palpation: normal PMI Rate: regular rate Rhythm: regular rhythm GI Other: No tenderness to palpation of abdomen, no rebound tenderness, no guarding. Inspection: Yes normal to inspection Palpation (GI): Soft to palpation and No hepatosplenomegaly present Auscultation: normal bowel sounds Skin General skin exam: no rashes or lesions noted Extrem General: Yes capillary refill normal and Yes no clubbing, cyanosis or edema Psych Appearance: grossly normal Mental Status: mental status grossly normal Speech and movement: Normal speech and movement present Assessment & Plan Assessment & Plan (1) Intermittent right-sided chest pain: Code(s): R07.89 - Other chest pain Plan: Patient has a 2 day history of intermittent right-sided chest pain, nonradiating, nonreproducible. Pain increase is associated with eating and drinking, so this could potentially represent gallbladder dysfunction. Abdominal assessment is normal. EKG and chest x-ray were done today in the office: EKG shows normal sinus rhythm, 66 B p.m. No abnormalities noted. Chest x-ray reviewed by this keno writer/runner, and appears normal. Will await official radiology review and notify patient of these results once available. I discussed at length with patient that given his symptoms, I cannot officially rule out any cardiac or abdominal process, and he certainly has the option of going to the emergency department for further evaluation/workup. At this time, he does not wish to go to the emergency room, and will wait to see how he feels later today and tomorrow, and go to ED or contact PCP as needed. I strongly encouraged him to go to the emergency department if his pain is unrelieved, or if any new symptoms develop. Patient verbalizes understanding and agrees to plan. Orders: Orders XR chest 2V Today R07.89 - Other chest pain AMB EKG-In Office Today R07.89 - Other chest pain Coding Level of Care Code Est Pt Level 3 (42030) Diagnoses Intermittent right-sided chest pain R07.89
[2022-12-14 11:04] VITALS: BP 130/90; PULSE 80; O2SAT 97
== END 2022-12-14 11:51 | disposition home or self-care (01) ==
PROVIDERS: PCP Nurse Practitioner Family; Visit Provider Nurse Practitioner Family
DX: R07.89 Other chest pain (principal)
CPT/HCPCS: 93000; 99213

== ENCOUNTER 2022-12-14 11:20 | Outpatient (REF) | payer BC, OTHER, SELFPAY | END 2022-12-14 11:21 | disposition home or self-care (01) | LOC: HO.HMGCX 11:20 | PROVIDERS: PCP Nurse Practitioner Family; Visit Provider Nurse Practitioner Family | DX: R07.89 Other chest pain (principal) | CPT/HCPCS: 71046 ==

== ENCOUNTER 2022-12-20 08:22 | Outpatient (REF) | payer BC, OTHER, SELFPAY ==
[2022-12-20 11:35] LABS: MANUAL DIFF FLAG NO
[2022-12-20 11:46] LABS: Basophils Absolute Auto 0.1 X10*3/uL (0.0-0.2); Basophils Percent Auto 0.6 % (0-2); Eosinophils Absolute Auto 0.2 X10*3/uL (0.0-0.4); Eosinophils Percent Auto 2.3 % (0-4); Hematocrit 41.9 % (42.0-52.0); Hemoglobin 13.5 g/dl (14.0-18.0); Imm Gran Abs Auto 0.02 X10*3/uL (0.00-0.03); Imm Gran Pct Auto 0.2 % (0.0-0.4); Lymphocytes Absolute Auto 2.2 X10*3/uL (1.2-4.9); Mean Corpuscular HGB Conc 32.2 g/dl (31.0-36.0); Mean Corpuscular Hemoglobin 27.2 pg (27.0-33.0); Mean Corpuscular Volume 84.5 fL (80.0-98.0); Mean Platelet Volume 10.2 fL (9.4-12.4); Monocytes Absolute Auto 0.8 X10*3/uL (0.1-1.2); Monocytes Percent Auto 8.9 % (2-11); Neutrophils Absolute Auto 5.5 x10*3/uL (2.0-8.3); Platelet Count 386 X10*3/uL (160-400); Red Blood Count 4.96 X10*6/uL (4.60-5.80); Red Cell Distribution Width 17.3 % (11.0-16.0); White Blood Count 8.8 X10*3/uL (4.8-10.8)
[2022-12-20 12:23] LABS: Alanine Aminotransferase 18 U/L (0-40); Albumin Level 4.1 g/dL (3.5-5.0); Alkaline Phosphatase 62 U/L (39-117); Anion Gap 12 (12-20); Aspartate Amino Transferase 14 U/L (5-37); Bilirubin Total 0.3 mg/dL (0.0-1.0); Blood Urea Nitrogen 9 mg/dL (9-16); Calcium 9.8 mg/dL (8.4-10.2); Carbon Dioxide 23 mmol/L (22-29); Chloride 109 mmol/L (96-108); Cholesterol 176 mg/dL (<200); Estimated Glomerular Filt Rate > 60; Glucose Fasting 100 mg/dL (60-99); HDL Cholesterol 28 mg/dL (>40); LDL Cholesterol Calculated 131 mg/dL (<100); Potassium 4.2 mmol/L (3.3-5.1); Sodium 140 mmol/L (135-145); Triglycerides 85 mg/dL (<150)
[2022-12-20 12:29] LABS: TSH reflex Free T4 0.88 uIU/mL (0.32-4.0)
== END 2022-12-20 08:23 | disposition home or self-care (01) ==
LOC: HO.HMGCLDS 08:22
PROVIDERS: PCP Nurse Practitioner Family; Visit Provider Nurse Practitioner Family
DX: Z00.00 Encounter for general adult medical examination without abnormal findings (principal)
CPT/HCPCS: 36415; 80053; 80061; 81001; 84443; 85025

== ENCOUNTER 2022-12-21 08:32 | Outpatient (AMB) | payer BC, OTHER, SELFPAY ==
--- NOTE | 2022-12-21 08:34 | A.OFFVIS_ITS ---
Intake Vital Signs 12/21/22 08:35 Height 5 ft 7 in Weight 214 lb 4.629 oz BMI 33.6 BP 130/62 Blood Pressure Location Lt brachial Position Sitting Pulse 97 Pulse Source Pulse Oximeter Intake Visit Reasons: 4-6 WEEK FUP AFTER RENAL U S,ECHO,HOLTER,+STRESS Allergies varenicline [From Chantix] Allergy (Intermediate, Verified 12/21/22 08:41) Rash barium sulfate Allergy (Unknown, Verified 12/21/22 08:41) Unknown aspirin Allergy (Verified 12/21/22 08:41) Swelling calomine Allergy (Unknown, Uncoded 12/14/22 11:07) Unknown Medication List - Last Reconciled 12/21/22 by HÉCTOR Orozco acetaminophen-caffeine 500-65 mg (Excedrin Tension Headache) 2 tabs PO DAILY PRN amlodipine 10 mg PO DAILY hydrochlorothiazide 25 mg PO DAILY valsartan 160 mg PO DAILY HPI 4-6 WEEK FUP AFTER RENAL U S,ECHO,HOLTER,+STRESS HPI Details Florencio is a 37 year old male with past medical history of hypertension, uncontrolled, obesity, reported history of pericarditis in 2001. 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 He also did not have a PCP and was not on his antihypertensives. He was seen in the emergency room on 4 occasions in the last 9 months. He typically presented with chest discomfort, lightheadedness and has been found to have hypertensive urgency with blood pressure as high as 223/128. He was restarted on antihypertensives and is currently on amlodipine, hydrochlorothiazide and valsartan. He ruled out for ACS on each occasion. Following his last ER visit 10/02/2022 he was referred to Cardiology for further management. On his consultation appointment here he was ordered to have a Holter monitor, echocardiogram, stress test and renal artery ultrasound. He now presents for follow-up. Today he reports that he continues to have issues with lightheadedness, especially when bending over. 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 He does get a mild headache at times. No vision changes, weakness of arms or legs. His blood pressures at home are mildly elevated. Periodic chest discomfort, especially when laying on his right side. No shortness of breath, PND, orthopnea or edema. Still working on smoking cessation. Taking all meds as directed. Following with his PCP for his symptom of lightheadedness. He tells me that he had an evaluation in physical therapy and was told his symptom was not vertigo. [facility] Medical History Coronary atherosclerosis Renal artery aneurysm Hypertension Surgical History Stented coronary artery Family History (Reviewed 12/21/22 @ 12: by HÉCTOR Orozco) Mother No family history of coronary artery disease Father No family history of coronary artery disease Social History Housing: House Alcohol intake: current Alcohol intake frequency: holidays/special occasions only Patient Tobacco Use Status: Current everyday Tobacco user Tobacco use type: Cigarette Cigarette Packs Per Day: 0.5 Cigarettes Per Day: 5 e-Cigarette/Vaping Use: Never Used Second Hand Smoke Exposure: No service: No Current occupational status: employed Current occupation: [employer] Current occupational exposures/hazards: Yes Cognitive needs: No Hearing needs: No Vision needs: No Review of Systems Const All systems reviewed & are unremarkable except as noted in HPI and below ENT Reports dizziness Card Reports chest pain, Denies chest pain at rest, Denies chest pain with activity, Denies rapid heart rate, Denies pedal edema, Denies edema, Denies leg edema, Denies lightheadedness, Denies palpitations, Denies dyspnea, Denies dyspnea on exertion and Denies orthopnea Resp Denies cough, Denies dyspnea and Denies dyspnea on exertion GI Denies hematochezia and Denies change in stool character Musc Denies abnormal gait, Denies muscle cramps, Denies muscle weakness, Denies numbness, Denies radiating pain into limb, Denies stiffness and Denies tingling Neuro Denies abnormal gait, Reports dizziness, Denies numbness and Denies tingling Endo Denies palpitations Physical Exam Vital Signs: Last Vital Signs Pulse 97 12/21/22 08:35 BP 130/62 12/21/22 08:35 BMI result Body Mass Index 33.6 Const General: cooperative, healthy appearing, comfortable and no acute distress Orientation/consciousness: patient oriented x3 Neck Neck: Yes normal visual inspection Resp Effort & Inspection: normal respiratory effort Auscultation: clear to auscultation bilaterally, no crackles, no rales, no rhonchi and no wheezes Cardio Jugular venous distension: no JVD Rate: regular rate Rhythm: regular rhythm Heart sounds: S1 normal heart sound present, S2 normal heart sound present, no gallops, no murmurs and no rubs GI Inspection: Yes normal to inspection Skin General skin exam: no rashes or lesions noted Neuro General: patient oriented x3 Extrem General: Yes normal to inspection and No no pedal edema Psych Appearance: grossly normal Mental Status: mental status grossly normal Speech and movement: Normal speech and movement present Assessment & Plan Assessment & Plan (1) Precordial chest pain: Code(s): R07.2 - Precordial pain Plan: Reports of localized left-sided chest discomfort with raising his arms and laying on his right side, same discomfort however radiates to left shoulder when he climbs stairs and does physical activity. Has some typical and atypical features. ER evaluation for times in the last 9 months for chest discomfort and lightheadedness. Has had hypertensive urgency with blood pressures as high as 223/128. He had not been on his antihypertensive agents which were then restarted. He ruled out for ACS. EKGs reviewed showing normal sinus rhythm with no acute ST or T-wave abnormalities. Last EKG done on 10/04/2022 shows sinus rhythm, heart rate 81. He reports a history of what sounds like NSTEMI, cardiac catheterization and coronary stent placement 11/2020 at [facility] in [place]. Still waiting on his discharge summary and cardiac catheterization report. On last visit cardiac testing was ordered including echocardiogram done 11/28/2022 showing EF 57%, moderate to severe concentric LVH, grade 1 diastolic dysfunction. A nuclear stress test was done 12/05/2022 showing normal myocardial perfusion imaging. Reviewed results with him. At present his primary complaint is lightheadedness. He is having less chest discomfort. Offered reassurance that it was likely noncardiac in nature. Record indicates aspirin allergy. He is not on statin for unclear reason. Labs done 12/20/2022 showed LDL 131. With reported history of CAD will shoot for LDL goal less than 70. Will start on atorvastatin 40 mg daily. Plan for fasting lipid profile in 2-3 months. Signs and symptoms of angina reviewed. Cardiology follow-up in 6 months, sooner if needed. (2) Hypertension: Code(s): I10 - Essential (primary) hypertension Plan: Reported history of hypertension for the last 10 years. He tells me he has not been good with taking his medications consistently. ER visits as reported above with blood pressure is uncontrolled. For the last month he has been compliant with his amlodipine, hydrochlorothiazide and valsartan. His blood pressure in the office last visit and today are normal range. Recheck done by me today 122/82. He has no documented hypotension. Holter monitor done 11/28/2022 for 1 day showed sinus rhythm with first-degree AV block, 1 PVC, rare PAC, no Remigio or pauses, average heart rate 70. Echocardiogram showed normal EF which is reassuring. Renal ultrasound shows no findings consistent with renal artery stenosis. He does have a visible stent on the right, which is consistent with his reported history. He does report lightheadedness as his primary concerning symptom. He did try meclizine without improvement. He underwent a PT ev aluation and they said it was not vertigo. He has had lightheadedness when he presented with hypertension in the past. At present time I have no clear cardiac reason for his symptom. Recommend continue good hydration. Take meds as directed. Exercise as tolerated. The importance of good blood pressure control, low-salt diet reviewed with him. Checking echocardiogram. (3) Lightheadedness: Code(s): R42 - Dizziness and giddiness Plan: Feelings of lightheadedness continual and worse with position changes. Currently out of work due to his symptoms. Cardiac evaluation as above. He has an upcoming visit with his new PCP Ryan Louis, recommend also noncardiac evaluation for his symptom of lightheadedness. (4) Palpitation: Code(s): R00.2 - Palpitations Plan: He reports pounding heart at times along with lightheadedness. No presyncope, syncope, falls. Holter monitor showed no significant abnormalities. (5) Coronary atherosclerosis: Code(s): I25.10 - Atherosclerotic heart disease of [place] coronary artery without angina pectoris Plan: Reported history. Awaiting records still (6) Stented coronary artery: Code(s): Z95.5 - Presence of coronary angioplasty implant and graft Plan: Will obtain cardiac catheterization report to determine which artery stent is placed and status of other coronary arteries. (7) Renal artery aneurysm: Comment: reported hx with stent in place, right Code(s): I72.2 - Aneurysm of renal artery Plan: He reports a history of having a renal artery aneurysm that dissected and a stent was placed. He was not clear on the year this occurred and tells me he was having periodic ultrasounds but none in the last few years. He has had issues with uncontrolled blood pressures, most likely related to him being off his medications. Renal ultrasound as above. Waveforms normal, no clear evidence of renal artery stenosis. Coding Level of Care Code Est Pt Level 4 (75876) Diagnoses Precordial chest pain R07.2 Hypertension I10 Lightheadedness R42 Palpitation R00.2 Coronary atherosclerosis I25.10 Stented coronary artery Z95.5 Renal artery aneurysm I72.2 Time Spent (min) 30
[2022-12-21 08:35] VITALS: BP 130/62; PULSE 97; BMI 33.6
== END 2022-12-21 08:59 | disposition home or self-care (01) ==
PROVIDERS: PCP Nurse Practitioner Family; Visit Provider Nurse Practitioner Family
DX: R07.2 Precordial pain (principal); I10 Essential (primary) hypertension; R42 Dizziness and giddiness; R00.2 Palpitations; I25.10 Atherosclerotic heart disease of native coronary artery without angina pectoris; Z95.5 Presence of coronary angioplasty implant and graft; I72.2 Aneurysm of renal artery
CPT/HCPCS: 99214

== ENCOUNTER → 2022-12-21 08:32 | Outpatient (BNVA) | payer BC, OTHER, SELFPAY | PROVIDERS: PCP Nurse Practitioner Family; Visit Provider Nurse Practitioner Family | DX: R07.2 Precordial pain (principal); I10 Essential (primary) hypertension; R42 Dizziness and giddiness; R00.2 Palpitations; I25.10 Atherosclerotic heart disease of native coronary artery without angina pectoris; I72.2 Aneurysm of renal artery; Z95.5 Presence of coronary angioplasty implant and graft | CPT/HCPCS: 99212 ==

== ENCOUNTER 2023-01-18 08:42 | Emergency (ER) | payer BC, OTHER, SELFPAY ==
--- NOTE | ~2023-01-18 | XR_ITS ---
EXAMINATION: XR SHOULDER, LEFT CLINICAL INFORMATION: Pain multiple falls COMPARISON: Left shoulder radiograph from 10/05/2019 TECHNIQUE: Four views of the left shoulder. FINDINGS: No acute visible fracture or dislocation. A few ossific densities are noted along the greater tuberosity of the proximal humerus possibly representing calcific tendinosis of the rotator cuff. Mild degenerative changes of the glenohumeral and acromioclavicular joint. Joint spaces and alignment are otherwise maintained. Soft tissues are unremarkable. Visualized portions of the left chest are unremarkable XR/XR shoulder LT min 2V IMPRESSION: 1. No acute visible fracture or dislocation. 2. A few ossific densities are noted along the greater tuberosity of the proximal humerus possibly representing calcific tendinosis of the rotator cuff.
[2023-01-18 08:49] VITALS: BP 155/100; PULSE 86; RESP 18; O2SAT 100; BMI 32.9
--- NOTE | 2023-01-18 09:01 | ED_ITS ---
HPI - General Adult General Chief complaint: Upper Respiratory Symptoms Stated complaint: Left shoulder pain Time Seen by Provider: 01/18/23 08:52 Source: patient Mode of arrival: ambulatory Limitations: no limitations History of Present Illness HPI narrative: Patient is a left-hand dominant 37-year-old male with history of vertigo presenting to the emergency department with complaint of left shoulder pain for several weeks. 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 Reports several falls due to his vertigo. Denies any head strikes or loss of consciousness. Denies any decreased range of motion to left shoulder. States pain increases with movement and range of motion. Reports occasional episodes of numbness/tingling to left arm. Denies any chest pain, shortness of breath, palpitations. Has been using ibuprofen at home for symptoms. Has an appointment with PCP but not until February. complaint: Shoulder pain Onset (ago): week(s) Location: left and upper extremity Radiation: extremity Severity: moderate Quality: aching Pain Consistency: constant Relieving factors: rest Exacerbating factors: movement Associated symptoms: denies other symptoms Treatments prior to arrival: NSAID Related Data Home Medications Medication Instructions Recorded Confirmed acetaminophen-caffeine 500 mg-65 2 tab PO DAILY PRN Headache 06/24/22 12/21/22 mg tablet (Excedrin Tension Headache) Previous Rx's Medication Instructions Recorded amlodipine 10 mg tablet 10 mg PO DAILY #30 tabs 09/30/22 hydrochlorothiazide 25 mg tablet 25 mg PO DAILY #30 tabs 09/30/22 valsartan 160 mg tablet 160 mg PO DAILY #30 tabs 09/30/22 atorvastatin 40 mg tablet 40 mg PO BEDTIME #30 tabs 12/21/22 lidocaine 5 % topical patch 1 patch topical DAILY #15 ea 01/18/23 prednisone 20 mg tablet 40 mg (2 x 20 mg) PO DAILY #10 tabs 01/18/23 Allergies Allergy/AdvReac Type Severity Reaction Status Date / Time varenicline [From Chantix] Allergy Intermediate Rash Verified 01/18/23 08:49 barium sulfate Allergy Unknown Unknown Verified 01/18/23 08:49 aspirin Allergy Swelling Verified 01/18/23 08:49 calomine Allergy Unknown Unknown Uncoded 12/14/22 11:07 Review of Systems Review of Systems: As per HPI. Yes all other systems are reviewed and are negative Constitutional: Constitutional: Reports as per HPI [facility] Past Medical History Medical History Coronary atherosclerosis Renal artery aneurysm Hypertension Surgical History Stented coronary artery Family History Family History (Reviewed 12/21/22 @ 12: by HÉCTOR Orozco) Mother No family history of coronary artery disease Father No family history of coronary artery disease Social History Social History Housing: House Alcohol intake: current Alcohol intake frequency: holidays/special occasions only Patient Tobacco Use Status: Current everyday Tobacco user Tobacco use type: Cigarette Cigarette Packs Per Day: 0.5 Cigarettes Per Day: 5 e-Cigarette/Vaping Use: Never Used Second Hand Smoke Exposure: No Advance Directives: No Advance Directives Information Provided: Yes service: No Current occupational status: employed Current occupation: [employer] Current occupational exposures/hazards: Yes Cognitive needs: No Hearing needs: No Vision needs: No Physical Exam ED Vital Signs: Vital Signs - 24 hr 01/18/23 08:49 Pulse Rate 86 Respiratory Rate 18 Blood Pressure 155/100 H Pulse Oximetry 100 Oxygen Delivery Method Room Air BMI result Body Mass Index 32.9 Vital signs have been reviewed and appear to be correct. Blood pressure elevated. Heart rate normal. Respiratory rate normal. Temperature normal. Oxygen saturation normal. Const General: cooperative, healthy appearing and no acute distress Orientation/consciousness: oriented to person, oriented to place, oriented to time and patient oriented x3 Limitations: no limitations [facility] Head: Yes normocephalic and Yes atraumatic Ears: external ears normal General nose exam: Normal external nose present Face and sinus: Yes face symmetric Mouth: oropharynx normal and moist mucous membranes Throat: Yes uvula midline Eyes Pupils: Equal, round and reactive pupils present Neck Neck: Yes normal visual inspection and Yes supple Resp Effort & Inspection: normal respiratory effort and able to speak in complete sentences Auscultation: clear to auscultation bilaterally Cardio Rate: regular rate Rhythm: regular rhythm Heart sounds: S1 normal heart sound present and S2 normal heart sound present GI Palpation (GI): Soft to palpation and nontender Auscultation: normoactive bowel sounds General: Yes no CVA tenderness Back/Spine/Pelvis Back: no CVA tenderness Skin General skin exam: elasticity normal and turgor normal Neuro General: oriented to person, oriented to place, oriented to time, patient oriented x3, gait normal, tone normal, moves all extremities, Normal light touch and pain sensation, no focal motor deficits, CN's II-XI intact bilaterally and deep tendon reflexes 2+ bilaterally Cranial nerves: Yes Equal, round and reactive pupils present Cognition (Neuro): normal cognition Motor exam (neuro): 5/5 motor strength present throughout, Normal motor muscle tone present throughout and Motor abnormalities not present Extrem General: Yes full ROM, Yes no pedal edema and Yes no calf tenderness Left upper extremity: shoulder/upper arm Details: inspection abnormal, tenderness Location: of the A-C joint and of the scapula and normal ROM and hand Details: vascular exam Details: radial pulse present and normal ROM of fingers Psych Mental Status: mental status grossly normal Affect: normal affect Thought process: Normal thought process present Medical Decision Making Medical Decision Making [facility] Narrative: Patient is a left-hand dominant 37-year-old male with history of vertigo presenting to the emergency department with complaint of left shoulder pain for several weeks. On exam patient is awake, A+Ox3, BP elevated, VS otherwise WNL, afebrile, normal neurological exam without focal deficits, physical exam findings as above. Given reported symptoms and physical exam findings, initial differential includes muscle strain, fracture, osteoarthritis. X-ray notable for no evidence of fracture, degenerative changes and ossific densities. My interpretation is in agreement with the radiologist's interpretation. Feel symptoms are likely related to calcific tendinitis. Will treat patient with short course of prednisone as well as lidocaine patches. Instructed patient follow-up with primary care providers he will likely require physical therapy. Return precautions discussed at bedside. Patient verbalized understanding of and agreement with plan. Differential Diagnosis Differential Diagnoses: The differential diagnosis associated with the presentation includes As per MDM Independent Interpretation I performed an independent interpretation of an: Plain X-Ray Interpretation: No evidence of fracture, degenerative changes and ossific densities Radiology Impression Discussion of test interpretation with radiology: I have reviewed the radiologist's reading. Radiologist Impression: XR/XR shoulder LT min 2V IMPRESSION: 1. No acute visible fracture or dislocation. 2. A few ossific densities are noted along the greater tuberosity of the proximal humerus possibly representing calcific tendinosis of the rotator cuff. External Record Review External record reviewed: Inpatient record, Office record and Outpatient record Prescription Management I considered prescription management with: Pain Medication and Other Discharge Plan Discharge Clinical Impression: Left shoulder pain Qualifiers: Chronicity: acute Qualified Code(s): M25.512 - Pain in left shoulder Patient Disposition: Home, Self-Care Instructions: Shoulder Pain (ED) Additional Instructions: You have been evaluated in the emergency department today for shoulder pain. Your evaluation did not find evidence of medical conditions requiring emergent intervention at this time. Please take medications as prescribed and resume normal activities as tolerated. You are being prescribed a short course of a steroid called prednisone. Taking this medication with NSAIDs can cause stomach irritation, if this occurs discontinue use of NSAIDs while taking the prednisone. You are being prescribed topical lidocaine patches which she can wear for up to 12 hours in a 24 hour period, did not apply heat directly over the patches. We recommend you take 600mg ibuprofen every 6 hours or 650mg Tylenol every 6 hours as needed for pain. If needed you can alternate these medications as they take 1 medication every 3 hours. For instance at noon take ibuprofen, then at 3:00 p.m. take Tylenol, then at 6:00 p.m. take ibuprofen. Please schedule an appointment for follow-up with your primary care provider this week. Return to the emergency department if you experience worsening pain, numbness, tingling, change of color in your arm, or any other concerning symptoms. Prescriptions: New lidocaine 5 % adhesive patch,medicated 1 patch topical DAILY Qty: 15 0RF Rx Instructions: leave on most painful area for up to 12 hrs prednisone 20 mg tablet 40 mg PO DAILY Qty: 10 0RF No Action Excedrin Tension Headache 500-65 mg Tablet 2 tab PO DAILY PRN (Reason: Headache) amlodipine 10 mg tablet 10 mg PO DAILY Qty: 30 3RF valsartan 160 mg tablet 160 mg PO DAILY Qty: 30 3RF hydrochlorothiazide 25 mg tablet 25 mg PO DAILY Qty: 30 3RF atorvastatin 40 mg tablet 40 mg PO BEDTIME Qty: 30 5RF
--- NOTE | 2023-01-18 09:34 | PC.NURSE ---
patient a&ox3, c/o pain, provider at bedside, pt to have xray, will continue to monitor
== END 2023-01-18 10:14 | disposition home or self-care (01) ==
PROVIDERS: Emergency Provider Student in an Organized Health Care Education/Training Program; PCP Nurse Practitioner Family
DX: M25.512 Pain in left shoulder (principal); R42 Dizziness and giddiness; I10 Essential (primary) hypertension; F17.210 Nicotine dependence, cigarettes, uncomplicated
CPT/HCPCS: 73030; 99282; 99283

== ENCOUNTER 2023-03-06 08:26 | Outpatient (AMB) | payer OTHER, SELFPAY ==
--- NOTE | 2023-03-06 09:08 | A.OFFPC_ITS ---
Vital Signs 03/06/23 09:10 Height 5 ft 7 in Weight 228 lb BMI 35.7 BP 140/100 H Blood Pressure Location Rt brachial Position Sitting Pulse 94 Pulse Source Pulse Oximeter Pulse Oximetry (%) 96 Oxygen Delivery Method Room Air Intake Visit Reasons: 3m vertigo follow up+NEEDS PHQ9/THRIVE Intake Note: Patient here to follow up on dizziness and has been experiencing left arm dis comfort. Allergies varenicline [From Chantix] Allergy (Intermediate, Verified 03/06/23 09:12) Rash barium sulfate Allergy (Unknown, Verified 03/06/23 09:12) Unknown aspirin Allergy (Verified 03/06/23 09:12) Swelling calomine Allergy (Unknown, Uncoded 03/06/23 09:12) Unknown Medication List - Last Reconciled 03/06/23 by Ryan Louis, [facility] acetaminophen-caffeine 500-65 mg (Excedrin Tension Headache) 2 tabs PO DAILY PRN amlodipine 10 mg PO DAILY atorvastatin 40 mg PO BEDTIME hydrochlorothiazide 25 mg PO DAILY lidocaine 5% 1 patch topical DAILY valsartan 160 mg PO DAILY Tobacco use date assessed: 11/30/22 Dental Screening Dental Screen Date: 03/06/23 Did you have a dental visit in the last 12 months?: No Did you have a dental problem in the last 6 months where you did not have access to dental care?: No Was dental information given to patient?: Patient declined HPI 3m vertigo follow up+NEEDS PHQ9/THRIVE HPI Details vertigo: worked up by cardio, referred to PT for vestibular rehab, and meclizine tried, none of these came up with answers why he is getting intermittent vertigo. He does report it is getting better, however, reporting he thinks it has to do with his appetite? Pt also c/o left shoulder pain. He had an XR which showed no acute visible fracture or dislocation. A few ossific densities are noted along the greater tuberosity of the proximal humerus possibly representing calcific tendinosis of the rotator cuff. Will refer to ortho and PT. Pt has tried ibuprofen and tylenol without relief. Will send short duration of tramadol. Educated pt on risk of addiction, this is not a long-term med. Pt understands that they can not drive while taking this med, share this med, and to only take as prescribed. Pt has a hx of micro hem. He has reportedly been worked up for this in the past. Will refer to urology. HTN: Blood pressure is elevated, managed with amlodipine 10mg, hydrochlorothiazide 25mg, and valsartan 160mg. Pt reports that his blood pressure at home is in the 130s-150s/90s-100s. Will increase valsartan from 160mg to 235mg. Denies chest pa in, shortness of breath, headache, dizziness, and blurred vision. [facility] Medical History (Updated 03/06/23 @ 09:58 by Ryan Louis, [facility]) Hypertension Coronary atherosclerosis Renal artery aneurysm Surgical History Stented coronary artery Family History Mother No family history of coronary artery disease Father No family history of coronary artery disease Social History Housing: House Alcohol intake: current Alcohol intake frequency: holidays/special occasions only Patient Tobacco Use Status: Current everyday Tobacco user Tobacco use type: Cigarette Cigarette Packs Per Day: 0.5 Cigarettes Per Day: 5 e-Cigarette/Vaping Use: Never Used Second Hand Smoke Exposure: No service: No Current occupational status: employed Current occupation: [employer] Current occupational exposures/hazards: Yes Cognitive needs: No Hearing needs: No Vision needs: No Physical exam (Primary Care) Vital Signs: Last Vital Signs Pulse 94 03/06/23 09:10 BP 140/100 H 03/06/23 09:10 Pulse Ox 96 03/06/23 09:10 Oxygen Delivery Method Room Air 03/06/23 09:10 BMI result Body Mass Index 35.7 Tobacco/Smoking Status: Tobacco use Status Tobacco use date assessed 11/30/22 03/06/23 09:09 Patient Tobacco Use Status Current everyday Tobacco 03/06/23 09:09 Tobacco use type Cigarette 03/06/23 09:09 e-Cigarette/Vaping Use Never Used 03/06/23 09:09 Const General: cooperative Nutritional Appearance: obese Orientation/consciousness: patient oriented x3 Resp Effort & Inspection: normal respiratory effort Auscultation: rhonchi Cardio Rate: regular rate Rhythm: regular rhythm Heart sounds: S1 normal heart sound present and S2 normal heart sound present Neuro General: patient oriented x3 Extrem Other: limited ROM to LUE Psych Appearance: grossly normal Mental Status: mental status grossly normal Speech and movement: Normal speech and movement present Affect: normal affect Attitude: cooperative Thought process: Normal thought process present Thought content: Normal thought content present Insight: Good insight present (Psych) Judgement: Good judgement present (Psych) Assessment and Plan Assessment & Plan (1) Left shoulder pain: Code(s): M25.512 - Pain in left shoulder Qualifiers: Chronicity: acute Qualified Code(s): M25.512 - Pain in left shoulder Plan: Referred to ortho and PT (2) Microhematuria: Code(s): R31.29 - Other microscopic hematuria Plan: Referred to urology (3) Hypertension: Code(s): I10 - Essential (primary) hypertension Plan The patient agreed to the use of a medical affairs manager for this encounter. Scribed for ISSAC Elizabeth by maria luz Miller scribe, on 03/06/2023 at 09:30 EST. Orders: Orders PT Evaluation and Treatment Today M25.512 - Pain in left shoulder Referrals Orthopedics Referral M25.512 - Pain in left shoulder Urology Referral R31.29 - Other microscopic hematuria Medications: New tramadol 50 mg PO BID PRN 20 tabs 0RF pain 10 days Changed From valsartan 160 mg PO DAILY 30 tabs 3RF To valsartan 1.5tabs once a day 235 mg (1.4688 x 160 mg) PO DAILY 133 tabs 3RF 90 days Coding Level of Care Code Est Pt Level 4 (74053) Diagnoses Left shoulder pain M25.512 Chronicity: acute Microhematuria R31.29 Hypertension I10
[2023-03-06 09:10] VITALS: BP 140/100; PULSE 94; O2SAT 96; BMI 35.7
== END 2023-03-06 09:56 | disposition home or self-care (01) ==
PROVIDERS: PCP Nurse Practitioner Family; Visit Provider Nurse Practitioner Family
DX: M25.512 Pain in left shoulder (principal); R31.29 Other microscopic hematuria; I10 Essential (primary) hypertension
CPT/HCPCS: 99214

== ENCOUNTER 2023-03-07 08:02 | Outpatient (AMB) | payer OTHER, SELFPAY ==
--- NOTE | 2023-03-07 08:14 | MHC.OFFVIS ---
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 Patient was seen in the ED on 01/18/23 for his left shoulder pain. Hx of vertigo/falling several times. He states that pain moves down to his elbow and to his upper back. Allergies varenicline [From Chantix] Allergy (Intermediate, Verified 03/07/23 08:20) Rash barium sulfate Allergy (Unknown, Verified 03/07/23 08:20) Unknown aspirin Allergy (Verified 03/07/23 08:20) Swelling calomine Allergy (Unknown, Uncoded 03/06/23 09:12) Unknown Medication List - Last Reconciled 03/07/23 by Anthony Sutton MD acetaminophen-caffeine 500-65 mg (Excedrin Tension Headache) 2 tabs PO DAILY PRN amlodipine 10 mg PO DAILY atorvastatin 40 mg PO BEDTIME hydrochlorothiazide 25 mg PO DAILY lidocaine 5% 1 patch topical DAILY tramadol 50 mg PO BID PRN 10 days valsartan 235 mg (1.4688 x 160 mg) PO DAILY 90 days [facility] Medical History (Updated 03/07/23 @ 08:43 by Anthony Sutton MD) Hypertension Coronary atherosclerosis Renal artery aneurysm Surgical History Stented coronary artery Family History Mother No family history of coronary artery disease Father No family history of coronary artery disease Social History (Updated 03/07/23 @ 08:21 by Danelle Cabrera) Housing: House Alcohol intake: current Alcohol intake frequency: holidays/special occasions only Patient Tobacco Use Status: Current everyday Tobacco user Tobacco use type: Cigarette Cigarette Packs Per Day: 0.5 Cigarettes Per Day: 5 e-Cigarette/Vaping Use: Never Used Second Hand Smoke Exposure: No service: No Current occupational status: unemployed Current occupation: [employer] Current occupational exposures/hazards: Yes Cognitive needs: No Hearing needs: No Vision needs: No Physical Exam Vital Signs: BMI result Body Mass Index 35.7 Office Procedures Joint Injection/Drain Joint Injection/Drain Primary Site: left shoulder Prep: site was prepped using aseptic technique Injected: 40 mg of, DepoMedrol and 1% plain lidocaine Procedure: The patient tolerated the procedure well Coding - Large joint Procedure code (CPT) selection complete Assessment & Plan Assessment & Plan (1) Neck pain: Code(s): M54.2 - Cervicalgia (2) Impingement syndrome of left shoulder: Code(s): M75.42 - Impingement syndrome of left shoulder Plan Mr. Ravi presents with left shoulder pain due to impingement syndrome as well as rotator cuff tendinosis and acromioclavicular joint arthritis. I had a lengthy discussion with the patient regarding the treatment options. The risks and benefits of a left shoulder cortisone injection were discussed at length with the patient. The patient wished to proceed. He tolerated the injection well. He will continue with his home stretching program to prevent stiffness. The patient also has progressively worsening neck pain. I will make a referral to our next specialist here at [facility]. The patient will follow-up as instructed. He will contact me prior to his follow-up appointment in 3 months should any questions or concerns arise. Feel free to call me at any time should questions regarding his orthopedic. Thank you very much for asking me to see this very friendly gentleman. I spent 22 minutes in reviewing the patient's records and imaging studies, seeing the patient and documenting in the medical record. Orders: Orders AMB Joint Injection/Aspiration Today M75.42 - Impingement syndrome of left shoulder Referrals Pain Management Referral M54.2 - Cervicalgia Coding Level of Care Code New Pt Level 2 (35235) Diagnoses Neck pain M54.2 Impingement syndrome of left shoulder M75.42 CPT Codes Coding - Large joint: 72180 - Large joint ([id number])
[2023-03-07 08:20] VITALS: BMI 35.7
== END 2023-03-07 08:41 | disposition home or self-care (01) ==
PROVIDERS: PCP Nurse Practitioner Family; Visit Provider Orthopaedic Surgery
DX: M54.2 Cervicalgia (principal); M75.42 Impingement syndrome of left shoulder
CPT/HCPCS: 20610; 99203

== ENCOUNTER → 2023-03-07 08:02 | Outpatient (BNVA) | payer OTHER, SELFPAY | PROVIDERS: PCP Nurse Practitioner Family; Visit Provider Orthopaedic Surgery | DX: M75.42 Impingement syndrome of left shoulder (principal); M54.2 Cervicalgia | CPT/HCPCS: 20610; 99202; J1020 ==

== ENCOUNTER 2023-03-26 08:38 | Outpatient (AMB) | payer OTHER, SELFPAY ==
--- NOTE | 2023-03-26 08:42 | MHC.OFFVIS ---
Intake Vital Signs 03/26/23 08:43 Height 5 ft 7 in Weight 229 lb BMI 35.9 BP 149/92 H Blood Pressure Location Lt brachial Position Sitting Respiration 12 Pulse 113 H Pulse Source Pulse Oximeter Intake Visit Reasons: Cervicalgia/confirmed Allergies varenicline [From Chantix] Allergy (Intermediate, Verified 03/26/23 08:45) Rash barium sulfate Allergy (Unknown, Verified 03/26/23 08:45) Unknown aspirin Allergy (Verified 03/26/23 08:45) Swelling calomine Allergy (Unknown, Uncoded 03/26/23 08:45) Unknown Medication List - Last Reconciled 03/26/23 by Sheri Chavez LPN acetaminophen-caffeine 500-65 mg (Excedrin Tension Headache) 2 tabs PO DAILY PRN amlodipine 10 mg PO DAILY atorvastatin 40 mg PO BEDTIME hydrochlorothiazide 25 mg PO DAILY valsartan 235 mg (1.4688 x 160 mg) PO DAILY 90 days HPI Cervicalgia/confirmed HPI Details 38-year-old male who presents today to the office for an evaluation of cervicalgia. He is left-handed dominant. The patient has a five-month history of upper back and neck pain and a two-month history of left shoulder pain. The pain started without any known inciting event. It is rated at 10/10 intensity in his neck and anywhere between 4 and 10/10 in his upper back and shoulder region. He is unable to sleep normally or do his daily activities. He is unemployed, with his last day of work being November 19, 2022. Heat and cold applications tend to make the pain better sometimes. Weather changes and movements make it worse. The pain is worse in the afternoon and late at night; however, early in the morning tends to be better. The patient had a visit with Dr. Sutton for left shoulder pain due to impingement syndrome as well as rotator cuff tendinosis and acromioclavicular joint arthritis. He received left-shoulder cortisone injections and tolerated them well. He continues with his home stretching program to prevent stiffness. He was on Plavix for 2?3 months in the past following a cardiac stent. He has discontinued taking Plavix after running out of the prescription due to concern for potential adverse effect of dizziness. Continues to be on antihypertensives. His blood pressure reading was 150/100 today. [facility] Medical History (Updated 03/26/23 @ 09:24 by Darius Tran MD) Hypertension Coronary atherosclerosis Renal artery aneurysm Surgical History Stented coronary artery Family History Mother No family history of coronary artery disease Father No family history of coronary artery disease Social History (Updated 03/07/23 @ 08:21 by Danelle Cabrera) Housing: House Alcohol intake: current Alcohol intake frequency: holidays/special occasions only Patient Tobacco Use Status: Current everyday Tobacco user Tobacco use type: Cigarette Cigarette Packs Per Day: 0.5 Cigarettes Per Day: 5 e-Cigarette/Vaping Use: Never Used Second Hand Smoke Exposure: No service: No Current occupational status: unemployed Current occupation: [employer] Current occupational exposures/hazards: Yes Cognitive needs: No Hearing needs: No Vision needs: No Review of Systems Const All systems reviewed & are unremarkable except as noted in HPI and below Physical Exam Vital Signs: Last Vital Signs Pulse 113 H 03/26/23 08:43 Resp 12 03/26/23 08:43 BP 149/92 H 03/26/23 08:43 BMI result Body Mass Index 35.9 General: Appears afebrile. Alert and oriented. Mood and affect appropriate. Follows and participates in conversation appropriately. Respiratory effort is unlabored. Able to transition from sit to stand unassisted. Ambulates with bilaterally normal heel strike and toe off. Tenderness on palpation overlying the axial neck and the upper back in the mid-line region. There is also tenderness on palpation medial to bilateral scapular borders. Cervical extension and facet loading both reproduce pain in the upper back. Cervical flexion also reproduces pain in bilateral paraspinal regions of the neck. Results Reviewed Results Reviewed: 01/18/23: XR SHOULDER, LEFT FINDINGS: No acute visible fracture or dislocation. A few ossific densities are noted along the greater tuberosity of the proximal humerus possibly representing calcific tendinosis of the rotator cuff. Mild degenerative changes of the glenohumeral and acromioclavicular joint. Joint spaces and alignment are otherwise maintained. Soft tissues are unremarkable. Visualized portions of the left chest are unremarkable IMPRESSION: 1. No acute visible fracture or dislocation. 2. A few ossific densities are noted along the greater tuberosity of the proximal humerus possibly representing calcific tendinosis of the rotator cuff. 12/14/22: XR CHEST FINDINGS: No significant abnormality is noted involving the heart, lungs, mediastinum, bony thorax or soft tissues. IMPRESSION: Unremarkable examination. Review of the plain films for his chest and shoulders, which were unremarkable. Assessment & Plan Assessment & Plan (1) Cervical spondylosis: Code(s): M47.812 - Spondylosis without myelopathy or radiculopathy, cervical region (2) Impingement syndrome of left shoulder: Code(s): M75.42 - Impingement syndrome of left shoulder Plan A referral was provided to physical therapy for neck and upper back pain. The patient will receive a call to schedule an appointment. If the pain continues to persist after 6-8 weeks of therapy, we will order an MRI scan of the neck for further evaluation. I discussed lifestyle modifications, including posture modifications, sleep modifications, and home exercises for his upper back and shoulder pain. I also encouraged him to continue the home exercise program after the formal physical therapy is over. Review of the plain films for his chest and shoulders was unremarkable. Scribed for Dr. Tran by Lenin Bai, medical bill processor, on 03/26/2023. I, Dr. Tran, have personally reviewed and agree with the information entered by the scribe. Orders: Orders PT Evaluation and Treatment 03/26/23 M47.812 - Spondylosis without myelopathy or radiculopathy, cervical region, M75.42 - Impingement syndrome of left shoulder Coding Level of Care Code New Pt Level 4 (06639) Diagnoses Cervical spondylosis M47.812 Impingement syndrome of left shoulder M75.42
[2023-03-26 08:43] VITALS: BP 149/92; PULSE 113; RESP 12; BMI 35.9
== END 2023-03-26 09:34 | disposition home or self-care (01) ==
PROVIDERS: PCP Nurse Practitioner Family; Visit Provider Internal Medicine
DX: M47.812 Spondylosis without myelopathy or radiculopathy, cervical region (principal); M75.42 Impingement syndrome of left shoulder
CPT/HCPCS: 99203

== ENCOUNTER → 2023-03-26 08:38 | Outpatient (BNVA) | payer OTHER, SELFPAY | PROVIDERS: PCP Nurse Practitioner Family; Visit Provider Internal Medicine | DX: M47.812 Spondylosis without myelopathy or radiculopathy, cervical region (principal); M75.42 Impingement syndrome of left shoulder | CPT/HCPCS: 99202 ==

== ENCOUNTER 2023-04-26 08:53 | Outpatient (AMB) | payer OTHER, SELFPAY ==
--- NOTE | 2023-04-26 09:06 | A.OFFVIS_ITS ---
Intake Intake Visit Reasons: Other microscopic hematuria Intake Note: Patient presents today for a follow-up Meds- None Allergies to Antibiotic- No Known Allergies Blood Thinner- None Patient Symptoms: Patient stated he does not have any symptoms when he urinates. 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 He denies dysuria. Past medical history significant for history of coronary artery disease, renal artery aneurysm, hypertension. Nicotine dependence I have discussed reasons for blood in the urine may include but are not limited to kidney stones, cancer in the urinary tract, kidney stone disease or inflammatory conditions of the urinary tract] [BPH]. I have discussed workup to include evaluation of the upper tracts and consideration for cystoscopy evaluation. Plan: CT urogram, consider cystoscopy on follow-up [facility] Medical History Migraines Hypertension Coronary atherosclerosis Renal artery aneurysm Surgical History Stented coronary artery Family History Mother No family history of coronary artery disease Father No family history of coronary artery disease Social History Housing: House Alcohol intake: current Alcohol intake frequency: holidays/special occasions only Patient Tobacco Use Status: Current everyday Tobacco user Tobacco use type: Cigarette Cigarette Packs Per Day: 0.5 Cigarettes Per Day: 5 e-Cigarette/Vaping Use: Never Used Second Hand Smoke Exposure: No service: No Current occupational status: unemployed Current occupation: [employer] , Left hand dominate Current occupational exposures/hazards: Yes Cognitive needs: No Hearing needs: No Vision needs: No Review of Systems Const All systems reviewed & are unremarkable except as noted in HPI and below Reports no additional complaints Eyes Reports no additional complaints ENT Reports no additional complaints Card Reports no additional complaints Resp Reports no additional complaints GI Reports no additional complaints Reports as per HPI Musc Reports no additional complaints Skin/Breast Reports system reviewed and no additional complaints, except as documented Neuro Reports no additional complaints Psych Reports no additional complaints Endo Reports no additional complaints Femi/Lymph Reports no additional complaints Aller/Immun Reports no additional complaints Physical Exam Const General: healthy appearing, no acute distress and well developed Orientation/consciousness: patient oriented x3 HEENT Head: Yes normocephalic and Yes atraumatic Eyes Conjunctivae: conjunctivae normal Neck Neck: Yes normal visual inspection Chest Chest palpation & inspection: normal inspection of the chest Resp Effort & Inspection: normal respiratory effort Cardio Rate: regular rate GI Inspection: Yes normal to inspection Skin General skin exam: no rashes or lesions noted Neuro General: patient oriented x3 Extrem General: No pedal edema Psych Appearance: grossly normal Affect: normal affect Results AMB Urinalysis, Automated UA Leukoctes 0 Angus/uL Last Edit by Pamella Raydakotah Ray [facility] on 04/26/23 09 :14 UA Nitrite Negative Last Edit by [facility] on 04/26/23 09: 14 UA Urobilinogen 0.2 mg/dL Last Edit by Pamella Raydakotah Ray [facility] on 4 09:14 UA Protein 0 mg/dL Last Edit by Pamella Raydakotah Ray [facility] on 04/26/23 09:14 UA pH 6.0 Last Edit by Pamella Raydakotah Ray [facility] on 04/26/23 09:14 UA Blood 25 Jonathan/uL Last Edit by Pamella Raydakotah Ray [facility] on 04/26/23 09:14 UA Specific [place] 1.015 Last Edit by Pamella Raydakotah Ray [facility] on 09:14 UA Ketone Negative Last Edit by Pamella Raydakotah Ray [facility] on 04/26/23 09:1 4 UA Bilirubin 0 mg/dL Last Edit by Pamella Raydakotah Ray [facility] on 04/26/23 09: 14 UA Glucose 0 mg/dL Last Edit by [facility] on 04/26/23 09:14 Results Reviewed Results Reviewed: Laboratory Last Values Urine pH (Auto) 6.0 04/26/23 09:08 Specific [place] (Auto) 1.015 04/26/23 09:08 Urine Protein (Auto) 0 mg/dL 04/26/23 09:08 Glucose (UA)(Auto) 0 mg/dL 04/26/23 09:08 Urine Ketones (Auto) Negative 04/26/23 09:08 Urine Blood (Auto) 25 Jonathan/uL 04/26/23 09:08 Urine Nitrite (Auto) Negative 04/26/23 09:08 Urine Bilirubin (Auto) 0 mg/dL 04/26/23 09:08 Urine Urobilinogen (Auto) 0.2 mg/dL 04/26/23 09:08 Leukocyte Esterase (Auto) 0 Angus/uL 04/26/23 09:08 Assessment & Plan Assessment & Plan (1) Microhematuria: Code(s): R31.29 - Other microscopic hematuria (2) Nicotine dependence: Code(s): F17.200 - Nicotine dependence, unspecified, uncomplicated Plan CT urogram, consider cystoscopy on follow-up Orders: Orders AMB Urinalysis Automated 04/26/23 R33.9 - Retention of urine, unspecified CT urogram 05/01/23 R31.29 - Other microscopic hematuria Patient Instructions: The patient had an opportunity to ask questions regarding treatment plan. All questions were answered. No major barriers to understanding were identified. The patient expressed understanding and agreement with the above treatment plan. The patient is aware they should contact our office by phone for worsening of their current condition or the appearance of new symptoms. Compliance is encouraged with any medications and followup testing that is ordered. It is a privilege to be allowed the opportunity to participate in the urologic care of your patient. If you have any questions or concerns regarding treatment for the above conditions please do not hesitate to contact me. The office telephone contact is [phone]. This note is constructed in part using voice recognition software. While every e ffort has been made to ensure accuracy senior information systems architect errors may have been included. Yours sincerely, Carlos Bojorquez MD Coding Level of Care Code New Pt Level 3 (96880) Diagnoses Microhematuria R31.29 Nicotine dependence F17.200
== END 2023-04-26 10:02 | disposition home or self-care (01) ==
PROVIDERS: PCP Nurse Practitioner Family; Visit Provider Urology
DX: R31.29 Other microscopic hematuria (principal); F17.200 Nicotine dependence, unspecified, uncomplicated
CPT/HCPCS: 99203

== ENCOUNTER → 2023-04-26 08:53 | Outpatient (BNVA) | payer OTHER, SELFPAY | PROVIDERS: PCP Nurse Practitioner Family; Visit Provider Urology | DX: R31.29 Other microscopic hematuria (principal); F17.210 Nicotine dependence, cigarettes, uncomplicated | CPT/HCPCS: 81003; 99202 ==

== ENCOUNTER 2023-06-05 09:00 | Outpatient (RCR) | payer OTHER, SELFPAY ==
--- NOTE | 2023-04-02 10:51 | MHC.PT.EP ---
[facility] [place] Office [place] Office [place] Office [address] Shawn Hernandez [address] [phone] F: [phone] F: [phone] F: [phone] F: [phone] Physical Therapy Plan of Care Date of Evaluation: 04/02/23 Date of Surgery: Diagnosis: This is a 38 yo male presenting to skilled PT with a script for impingement syndrome of L shoulder. Assessment: This is a 38 yo male presenting to skilled PT with a script for impingement syndrome of L shoulder. Patient reporting that his pain started insidiously last year. Pain is located B upper traps and into the L shoulder (LHD). His pain is sharp in nature, comes and goes, worse with activity. With increased use he reports that his arm locks up. He has been to [facility] [place] who trialed a cortisone injection (this did not change his symptoms, returns in May). He reports that he has tingling and numbness in B hands from CTS and heart attack (so these symptoms do not seem related), however does report a new onset of cervical symptoms. He uses tramadol and ice/heat for pain management. He does not have too much ozzie that PT will be helpful. Assessment reveals pain that ranges from up to a 6-10/10 at the worst. Patient demos decreased L shoulder and cervical ROM, strength of L shoulder and poor scapular recruitment, TTP at UT, thoracic spine and L ACJ and impaired posture with forward head and rounded shoulders as well as anterior translation of L GH. Based on functional limitations, impaired QOL and pain tolerance patient is a good candidate for skilled PT 2x/wk for 4wks. Frequency and Duration: The patient will be seen 2x/wk for 4wks Short Term Goals: (In 2 weeks) Demo I with HEP Improve shoulder AROM by at least 10 degs Demo proper scapular recruitment with appropriate shoulder strengthening exercises [facility] Goals: (in 4 wks) Improve shoulder nonpainful AROM to almost near equal B Demo at least 1 grade improvement in MMT for shoulder Improve SPADI by at least 10 points Improve overall functional QOL by at least 50% Treatment Plan: Modalities to reduce pain, spasms and effusion. Manual therapy to restore motion and function. Therapeutic exercise to improve strength and flexibility. Neuromuscular re-education for posture and balance. Therapeutic activities to return to functional activities of daily living. Electronically signed by: Dary Avitia PT Please sign and return to therapist. Thank you for your referral.
--- NOTE | 2023-07-05 11:20 | MHC.PT.DC ---
[facility] [place] Office [place] Office [place] Office [address] Shawn Hernandez [address] [phone] F: [phone] F: [phone] F: [phone] F: [phone] Physical Therapy Discharge Report Diagnosis: This is a 38 yo male presenting to skilled PT with a script for impingement syndrome of L shoulder. Date of Surgery: Date of Evaluation: 04/02/23 Date of Discharge: 07/05/23 Treatments to Date: 11 Cancellations to Date: 0 No Shows to Date: 0 Discharge Status: Patient Elected to Stop Recommend MD Follow-up Discharge Summary: Minimal improves with PT after 11 visits which included shoulder rehab, cervical rehab for both ROM, strengthening, postural ed, craniosacral and manual for dizziness and pain. No improvements noted with PT and he wanted to DC PT. His chart was closed after 30 days in case patient did want to return. Referred back to PCP for further management moving forward. DC to HEP. Electronically signed by: Dary Avitia PT Please sign and return to therapist. Thank you for your referral.
== END 2023-07-05 11:20 | disposition home or self-care (01) ==
LOC: HO.PTCHIC 09:00
PROVIDERS: PCP Nurse Practitioner Family; Visit Provider Internal Medicine
DX: M47.812 Spondylosis without myelopathy or radiculopathy, cervical region (principal); M75.42 Impingement syndrome of left shoulder
CPT/HCPCS: 97014; 97110; 97140; 97162; 97164

== ENCOUNTER 2023-06-06 08:17 | Outpatient (AMB) | payer OTHER, SELFPAY ==
--- NOTE | 2023-06-06 08:19 | A.OFFVIS_ITS ---
Intake Vital Signs 06/06/23 08:20 Height 5 ft 7 in Weight 229 lb BMI 35.9 Intake Visit Reasons: OV-Left shoulder pain-follow up, neck pain Intake Note: Florencio is a 38 year old Left hand dominate male who presents with complaints of progressively worsening neck pain which radiates down to his left hand as well as left shoulder pain. The patient states that his neck pain is more severe than is his shoulder pain at this time. The patient states that his neck pain is ?constant?. Has been going to formal physical therapy which gives him minim al relief. He has taken Tylenol and anti-inflammatory medicines which gave him only mild relief. The patient also reports intermittent weakness in his left arm. He did have a cortisone injection given into his left shoulder at his previous appointment which gave him no relief. Allergies varenicline [From Chantix] Allergy (Intermediate, Verified 06/06/23 08:25) Rash barium sulfate Allergy (Unknown, Verified 06/06/23 08:25) Unknown aspirin Allergy (Verified 06/06/23 08:25) Swelling calomine Allergy (Unknown, Uncoded 04/26/23 09:07) Unknown Medication List - Last Reconciled 06/06/23 by Anthony Sutton MD acetaminophen-caffeine 500-65 mg (Excedrin Tension Headache) 2 tabs PO DAILY PRN amlodipine 10 mg PO DAILY atorvastatin 40 mg PO BEDTIME hydrochlorothiazide 25 mg PO DAILY valsartan 320 mg PO DAILY 90 days [facility] Medical History Migraines Hypertension Coronary atherosclerosis Renal artery aneurysm Surgical History Stented coronary artery Family History Mother No family history of coronary artery disease Father No family history of coronary artery disease Social History Housing: House Alcohol intake: current Alcohol intake frequency: holidays/special occasions only Patient Tobacco Use Status: Current everyday Tobacco user Tobacco use type: Cigarette Cigarette Packs Per Day: 0.5 Cigarettes Per Day: 5 e-Cigarette/Vaping Use: Never Used Second Hand Smoke Exposure: No service: No Current occupational status: unemployed Current occupation: [employer] , Left hand dominate Current occupational exposures/hazards: Yes Cognitive needs: No Hearing needs: No Vision needs: No Physical Exam Vital Signs: BMI result Body Mass Index 35.9 Const Other: Well-nourished well-developed very friendly male awake alert and oriented x3 in no acute distress Neck Other: Cervical spine examination shows left-sided paraspinal muscle tenderness, pain with range of motion, 4/5 strength with testing of his biceps and wrist extensors when compared to 5/5 strength on his right side Extrem Other: Bilateral upper extremity examination shows good capillary refill, no skin lesions noted, normal sensation light touch Left shoulder examination shows slightly decreased range of motion when compared to his right shoulder, 4+ out of 5 strength with supraspinatus testing, positive impingement signs Assessment & Plan Assessment & Plan (1) Neck pain on left side: Code(s): M54.2 - Cervicalgia Plan Mr. Ravi presents with progressively worsening neck pain which radiates down to his left hand as well as associated left arm weakness most likely due to cervical stenosis or a disc herniation. Thus, I will send the patient for an MRI of his cervical spine for further evaluation. I will see him back once the MRI is completed to discuss the findings and treatment options. Feel free to call me at any time should questions regarding his orthopedic management arise. I spent 22 minutes in reviewing the patient's records and imaging studies, seeing the patient and documenting in the medical record. Orders: Orders MR cervical spine wo con Today M54.2 - Cervicalgia Coding Level of Care Code Est Pt Level 2 (18006) Diagnoses Neck pain on left side M54.2
[2023-06-06 08:20] VITALS: BMI 35.9
== END 2023-06-06 08:44 | disposition home or self-care (01) ==
PROVIDERS: PCP Nurse Practitioner Family; Visit Provider Orthopaedic Surgery
DX: M54.2 Cervicalgia (principal)
CPT/HCPCS: 99213

== ENCOUNTER → 2023-06-06 08:17 | Outpatient (BNVA) | payer OTHER, SELFPAY | PROVIDERS: PCP Nurse Practitioner Family; Visit Provider Orthopaedic Surgery | DX: M54.2 Cervicalgia (principal) | CPT/HCPCS: 99212 ==

== ENCOUNTER 2023-06-07 09:31 | Outpatient (AMB) | payer OTHER, SELFPAY ==
[2023-06-07 09:36] VITALS: BP 148/100; PULSE 84; O2SAT 96; BMI 36.2
--- NOTE | 2023-06-07 09:36 | A.OFFPC_ITS ---
Vital Signs 06/07/23 09:36 06/07/23 09:46 Height 5 ft 7 in Weight 231 lb BMI 36.2 BP 148/100 H 142/100 H Blood Pressure Location Lt brachial Lt brachial Position Sitting Sitting Pulse 84 Pulse Source Pulse Oximeter Pulse Oximetry (%) 96 Oxygen Delivery Method Room Air Intake Visit Reasons: 3 month follow up Intake Note: pt is here for 3 month follow up, patient states he was off his BP meds for awhile and this is his 4th day back on them. 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 Accompanied by: Self / Same As Patient Allergies varenicline [From Chantix] Allergy (Intermediate, Verified 06/07/23 11:51) Rash barium sulfate Allergy (Unknown, Verified 06/07/23 11:51) Unknown aspirin Allergy (Verified 06/07/23 11:51) Swelling calomine Allergy (Unknown, Uncoded 06/07/23 11:51) Unknown Medication List - Last Reconciled 06/07/23 by YUNG Fang acetaminophen-caffeine 500-65 mg (Excedrin Tension Headache) 2 tabs PO DAILY PRN amlodipine 10 mg PO DAILY atorvastatin 40 mg PO BEDTIME hydrochlorothiazide 25 mg PO DAILY valsartan 320 mg PO DAILY 90 days Tobacco use date assessed: 06/07/23 Dental Screening Dental Screen Date: 06/07/23 Did you have a dental visit in the last 12 months?: Yes Did you have a dental problem in the last 6 months where you did not have access to dental care?: No Was dental information given to patient?: Patient has dentist HPI 3 month follow up HPI Details HTN: Blood pressure is elevated today. Pt reports being off his meds for 3-4 days. Pt reports that his blood pressure at home is in the 120s-130s/80s when he is on his meds. Pt will let me know if his blood pressure remains el evated after resuming meds. Denies chest pain, shortness of breath, headache, and blurred vision. Pt has a hx of vertigo/dizziness. He saw ENT who believed this was related to migraines. Pt has an upcoming appointment with neuro. [facility] Medical History Migraines Hypertension Coronary atherosclerosis Renal artery aneurysm Surgical History Stented coronary artery Family History Mother No family history of coronary artery disease Father No family history of coronary artery disease Social History Housing: House Alcohol intake: current Alcohol intake frequency: holidays/special occasions only Patient Tobacco Use Status: Current everyday Tobacco user Tobacco use type: Cigarette Cigarette Packs Per Day: 0.5 Cigarettes Per Day: 5 e-Cigarette/Vaping Use: Never Used Second Hand Smoke Exposure: No service: No Current occupational status: unemployed Current occupation: [employer] , Left hand [employer] Current occupational exposures/hazards: Yes Cognitive needs: No Hearing needs: No Vision needs: No Questionnaire PHQ-9 Over the last 2 weeks, how often have you been bothered by any of the following problems? 1. Little interest or pleasure in doing things: several days 2. Feeling down, depressed, or hopeless: several days 3. Trouble falling or staying asleep, or sleeping too much: nearly every day 4. Feeling tired or having little energy: nearly every day 5. Poor appetite or overeating: more than half the days 6. Feeling bad about yourself - or that you are a failure or have let yourself or your family down: several days 7. Trouble concentrating on things, such as reading the newspaper or watching television: several days 8. Moving or speaking so slowly that other people could have noticed. Or the opposite - being so fidgety or restless that you have been moving around a lot more than usual: not at all 9. Thoughts that you would be better off or of hurting yourself in some way: not at all Total score: 12 Depression Screening Interpretation: Positive Depression Screening Done: Yes 84813 - PHQ-9 Billing: Yes Source: Developed by Drs. Florencio Tsang, Loli Rendon, Kwaku Vo and colleagues, with an educational maria from [employer] Thrive Questionnaire Date Thrive assessed: 06/07/23 I am a: Patient What is your living situation today?: I do not have a steady places to live Within the past 12 months, did the food you bought not last and you didn't have the money to get more?: I choose not to answer this question Within the past 12 months, did you worry whether your food would run out before you got money to buy more?: I choose not to answer this question Do you have trouble paying for medicines?: No Do you have trouble getting transportation to medical appointments?: No Do you have trouble paying your heating and electricity bill?: No Do you have trouble taking care of your child, family member or friend?: No Do you have trouble with day-to-day activities such as bathing, preparing meals, shopping, managing finances, etc.?: No Are you currently unemployed and looking for a job?: No Are you interested in more education?: No Please select the resources that you would like help with: None Currently or been in a relationship where the following occur: no concerns reported THRIVE Score: 1 AUDIT C Alcohol Use Questionnaire (AUDIT-C) 1. How often do you have a drink containing alcohol?: 2-4 times a month 2. How many drinks containing alcohol do you have on a typical day when you are drinking?: 1 or 2 3. How often do you have six or more drinks on one occasion?: Never Total Score: 2 Score Reviewed/Action Taken: Yes LOLA-7 AMB Questionnaire LOLA-7 Date LOLA - 7 assessed: 06/07/23 Feeling nervous, anxious, or on edge: 3 = Nearly every day Not being able to stop or control worryin = Several days Worrying too much about different things: 1 = Several days Trouble relaxin = Nearly every day Being so restless that it is hard to sit still: 1 = Several days Becoming easily annoyed or irritable: 0 = Not at all Feeling afraid as if something awful might happen: 0 = Not at all Total LOLA-7 score (0-4 normal; 5-9 mild; 10-14 moderate; 15-21 severe): 9 Source: Developed by Drs. Florencio Tsang, Loli Rendon, Kwaku Vo and colleagues, with an educational maria from [employer] LOLA-7 Assessment Billing LOLA-7 Assessment Tool: LOLA-7 Assessment 29910 Review of Systems Const Reports as per HPI Physical exam (Primary Care) Vital Signs: Last Vital Signs Pulse 84 06/07/23 09:36 BP 142/100 H 06/07/23 09:46 Pulse Ox 96 06/07/23 09:36 Oxygen Delivery Method Room Air 06/07/23 09:36 BMI result Body Mass Index 36.2 Tobacco/Smoking Status: Tobacco use Status Tobacco use date assessed 06/07/23 06/07/23 09:37 Patient Tobacco Use Status Current everyday Tobacco 06/07/23 09:36 Tobacco use type Cigarette 06/07/23 09:36 e-Cigarette/Vaping Use Never Used 06/07/23 09:36 PHQ-9: PHQ-9 Score PHQ-9: Total score 12 06/07/23 10:06 Depression Screening Interpretation: Positive Thrive Assessment: Date of Thrive Assessment Date Thrive assessed 06/07/23 06/07/23 09:46 Currently or been in a relationship where the following occur: no concerns reported Const General: cooperative Nutritional Appearance: obese Orientation/consciousness: patient oriented x3 Resp Effort & Inspection: normal respiratory effort Auscultation: wheezes left upper Cardio Rate: regular rate Rhythm: regular rhythm Heart sounds: S1 normal heart sound present and S2 normal heart sound present Neuro General: patient oriented x3 Psych Appearance: grossly normal Mental Status: mental status grossly normal Speech and movement: Normal speech and movement present Affect: normal affect Attitude: cooperative Thought process: Normal thought process present Thought content: Normal thought content present Insight: Good insight present (Psych) Judgement: Good judgement present (Psych) Assessment and Plan Assessment & Plan (1) Hypertension: Code(s): I10 - Essential (primary) hypertension Plan: Continue current meds, labs ordered (2) Dizziness: Code(s): R42 - Dizziness and giddiness Plan: Following up with neurology Plan The patient agreed to the use of a medical care manager for this encounter. Scribed for YUNG Elizabeth by Eryn Herrera medical care manager, on 06/07/2023 at 09:55 EST. Orders: Orders Complete Blood Count Auto Diff Today I10 - Essential (primary) hypertension Comprehensive [place]. Panel Fast Today I10 - Essential (primary) hypertension TSH reflex Free T4 Today I10 - Essential (primary) hypertension UA CC w/rflx Micro + Cult Today I10 - Essential (primary) hypertension Lipid Panel Today I10 - Essential (primary) hypertension Coding Level of Care Code Est Pt Level 3 (15976) Diagnoses Hypertension I10 Dizziness R42 Additional Codes LOLA-7 Assessment Billing - LOLA-7 Assessment Tool: LOLA-7 Assessment [id number] ([id number])
[2023-06-07 09:46] VITALS: BP 142/100
== END 2023-06-07 11:03 | disposition home or self-care (01) ==
PROVIDERS: PCP Nurse Practitioner Family; Visit Provider Nurse Practitioner Family
DX: I10 Essential (primary) hypertension (principal); R42 Dizziness and giddiness
CPT/HCPCS: 99213

== ENCOUNTER 2023-06-14 09:01 | Outpatient (REF) | payer OTHER, SELFPAY ==
--- NOTE | ~2023-06-14 | CT_ITS ---
EXAMINATION: CT ABDOMEN AND PELVIS WITHOUT AND WITH CONTRAST CLINICAL INFORMATION: Microscopic hematuria COMPARISON: Previous renal ultrasound October 2022. Previous old abdominal and pelvic CT from 2013 is unavailable for comparison at this time. TECHNIQUE: Noncontrast CT of the abdomen and pelvis is performed followed by split bolus contrast-enhanced images using 85 mL Omnipaque 350 contrast.? Postcontrast imaging is performed during the combined nephrogram and excretion phase. Sagittal and coronal reformatted images were obtained on the technologist's workstation for both the precontrast and postcontrast phases. This CT examination was performed using dose optimization techniques as appropriate, variously including the following: *Automated exposure control *Adjustment of mA and/or kV according to patient size (this includes techniques or standardized protocols for targeted exams where dose is matched to indication/reason for exam; i.e. extremities or head) *Use of iterative reconstruction technique DLP: 1048 mGy-cm FINDINGS: LUNG BASES: The visualized lung bases are unremarkable. LIVER, GALLBLADDER, AND BILIARY TREE: The liver is normal in size, shape, and attenuation. No focal hepatic lesion or biliary ductal dilatation is present. The gallbladder is unremarkable with no evidence of radiopaque gallstones, gallbladder wall thickening, or obvious pericholecystic inflammatory changes. PANCREAS: Unremarkable. SPLEEN: Unremarkable. ADRENAL GLANDS: Unremarkable. 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 Kidneys are otherwise normal in contour. Left kidney measures 13.6 and the right 11 cm in length. There is high attenuation material seen in the anterior hilum of the upper pole of the right kidney, question representing embolization serial. No renal stone, mass or hydronephrosis seen. There is slight dilatation of calyces in the area of infarct or cortical thinning or scarring in the lateral lower pole of the right kidney. The collecting systems are otherwise normal. The ureters are normal. No cause for hematuria is seen. BLADDER: Unremarkable. GASTROINTESTINAL TRACT: Small bowel loops are seen lateral to the left colon raising question of internal hernia. There are no dilated loops of bowel to suggest obstruction. The small and large bowel are otherwise unremarkable. The appendix is unremarkable. ABDOMINAL WALL: No significant hernia is appreciated. LYMPH NODES: Normal. VASCULAR: Unremarkable. PELVIC VISCERA: Unremarkable. OSSEUS STRUCTURES: Unremarkable. CT/CT urogram IMPRESSION: Infarct or cortical thinning or scarring in the lateral lower pole of the right kidney. Question post embolization changes with very high attenuation radiopaque density in the anterior upper right renal hilum. No cause of hematuria is seen. Given likely prior embolization, follow-up CTA and CTV of the kidneys may be helpful. Small bowel lateral to the left colon questionable for internal hernia. No dilated loops of bowel to suggest obstruction. No significant abnormality.
[2023-06-14] MEDS: iohexoL 350 MG/ML 100 ML INFUS..BTL 85 ML IV (10:01)
== END 2023-06-14 09:02 | disposition home or self-care (01) ==
LOC: HO.CT 09:01
PROVIDERS: PCP Nurse Practitioner Family; Visit Provider Urology
DX: R31.29 Other microscopic hematuria (principal)
CPT/HCPCS: 74178; Q9967

== ENCOUNTER 2023-06-20 08:32 | Outpatient (REF) | payer OTHER, SELFPAY ==
[2023-06-20 10:31] LABS: MANUAL DIFF FLAG NO
[2023-06-20 10:34] LABS: Appearance Urine Clear; Color Urine Dark Yellow; Glucose Urine UA Negative (Negative); Leukocyte Esterase Urine Negative (Negative); Nitrite Urine Negative (Negative); PH 6.5 (5.0-9.0); UMIC TRIGGER UACC YES; Urine Blood Trace (Negative); Urine Ketones Negative (Negative); Urine Protein Negative (Neg-Trace)
[2023-06-20 10:41] LABS: Bacteria Urine None Seen (None Seen); Hyaline Casts Urine 0-2 /LPF (0-2); Squamous Epithelial Cell Urine 0-2 /HPF (0-2); WBC Urine 0-5 /HPF (0-5)
[2023-06-20 10:47] LABS: Basophils Absolute Auto 0.1 X10*3/uL (0.0-0.2); Basophils Percent Auto 0.4 % (0-2); Eosinophils Absolute Auto 0.2 X10*3/uL (0.0-0.4); Eosinophils Percent Auto 2.1 % (0-4); Hemoglobin 13.9 g/dl (14.0-18.0); Imm Gran Abs Auto 0.04 X10*3/uL (0.00-0.03); Imm Gran Pct Auto 0.4 % (0.0-0.4); Lymphocytes Absolute Auto 2.7 X10*3/uL (1.2-4.9); Lymphocytes Percent Auto 23.7 % (20-40); Mean Corpuscular HGB Conc 32.3 g/dl (31.0-36.0); Mean Corpuscular Hemoglobin 26.8 pg (27.0-33.0); Mean Corpuscular Volume 82.9 fL (80.0-98.0); Mean Platelet Volume 10.6 fL (9.4-12.4); Monocytes Percent Auto 8.6 % (2-11); Neutrophils Absolute Auto 7.3 x10*3/uL (2.0-8.3); Neutrophils Percent Auto 64.8 % (45-73); Platelet Count 353 X10*3/uL (160-400); Red Blood Count 5.19 X10*6/uL (4.60-5.80); Red Cell Distribution Width 15.1 % (11.0-16.0); White Blood Count 11.2 X10*3/uL (4.8-10.8)
[2023-06-20 11:11] LABS: Alanine Aminotransferase 34 U/L (0-40); Albumin Level 4.4 g/dL (3.5-5.0); Alkaline Phosphatase 97 U/L (39-117); Anion Gap 11 (12-20); Aspartate Amino Transferase 23 U/L (5-37); Bilirubin Total 0.5 mg/dL (0.0-1.0); Blood Urea Nitrogen 10 mg/dL (9-16); Calcium 9.7 mg/dL (8.4-10.2); Carbon Dioxide 27 mmol/L (22-29); Chloride 105 mmol/L (96-108); Cholesterol 149 mg/dL (<200); Estimated Glomerular Filt Rate > 60; Glucose Fasting 97 mg/dL (60-99); HDL Cholesterol 34 mg/dL (>40); LDL Cholesterol Calculated 59 mg/dL (<100); Potassium 4.4 mmol/L (3.3-5.1); Sodium 139 mmol/L (135-145); Total Protein 7.7 g/dL (6.5-8.0); Triglycerides 281 mg/dL (<150)
[2023-06-20 11:12] LABS: TSH reflex Free T4 0.94 uIU/mL (0.32-4.0)
== END 2023-06-20 08:33 | disposition home or self-care (01) ==
LOC: HO.HMGCLDS 08:32
PROVIDERS: PCP Nurse Practitioner Family; Visit Provider Nurse Practitioner Family
DX: I10 Essential (primary) hypertension (principal)
CPT/HCPCS: 36415; 80053; 80061; 81001; 84443; 85025

== ENCOUNTER 2023-06-23 08:15 | Emergency (ER) | payer OTHER, SELFPAY ==
[2023-06-23 08:19] VITALS: BP 118/86; PULSE 110; RESP 20; TEMP 38.3; O2SAT 96; BMI 35.2
--- NOTE | 2023-06-23 08:25 | ED_ITS ---
HPI - General Adult General Chief complaint: Upper Respiratory Symptoms Stated complaint: swollen glands fever Time Seen by Provider: 06/23/23 08:24 Source: patient Mode of arrival: ambulatory Limitations: no limitations History of Present Illness HPI narrative: 38-year-old male history of vertigo, migraines, impingement of left shoulder, hypertension, coronary arthrosclerosis presenting with fatigue, malaise, my algias, fevers, chills, diffuse headache (without trauma, dizziness, vision changes or weakness), sore throat all of which started suddenly yesterday. Patient also reports he feels lumps underneath his chin. He denies any sick contacts. Denies chest pain, shortness of breath, nausea, vomiting, abdominal pain, diarrhea, vision changes, dizziness and weakness Related Data Home Medications ?Medication ?Instructions ?Recorded ?Confirmed acetaminophen-caffeine 500 mg-65 2 tab PO DAILY PRN Headache 06/24/22 06/07/23 mg tablet (Excedrin Tension Headache) Previous Rx's ?Medication ?Instructions ?Recorded atorvastatin 40 mg tablet 40 mg PO BEDTIME #30 tabs 12/21/22 amlodipine 10 mg tablet 10 mg PO DAILY #30 tabs 06/03/23 hydrochlorothiazide 25 mg tablet 25 mg PO DAILY #30 tabs 06/03/23 valsartan 320 mg tablet 320 mg PO DAILY 90 days #90 tabs 06/03/23 amoxicillin 875 mg-potassium 1 tab PO BID 10 days #20 tabs 06/23/23 clavulanate 125 mg tablet Allergies Allergy/AdvReac Type Severity Reaction Status Date / Time varenicline [From Chantix] Allergy Intermediate Rash Verified 06/23/23 08:19 barium sulfate Allergy Unknown Unknown Verified 06/23/23 08:19 aspirin Allergy Swelling Verified 06/23/23 08:19 calomine Allergy Unknown Unknown Uncoded 06/07/23 11:51 Review of Systems Review of Systems: Yes all other systems are reviewed and are negative PMFSH Past Medical History Attestation statement: The following information was validated with the patient. Source: old records reviewed and nursing notes reviewed Medical History Migraines Hypertension Coronary atherosclerosis Renal artery aneurysm Surgical History Stented coronary artery Family History Family History Mother No family history of coronary artery disease Father No family history of coronary artery disease Social History Social History Housing: House Alcohol intake: current Alcohol intake frequency: holidays/special occasions only Patient Tobacco Use Status: Current everyday Tobacco user Tobacco use type: Cigarette Cigarette Packs Per Day: 0.5 Cigarettes Per Day: 5 Smoked in Last 30 Days: Yes e-Cigarette/Vaping Use: Never Used Second Hand Smoke Exposure: No Use of substances other than those prescribed or required for medical reasons: No Advance Directives: No Advance Directives Information Provided: No service: No Current occupational status: unemployed Current occupation: [employer] , Left hand dominate Current occupational exposures/hazards: Yes Cognitive needs: No Hearing needs: No Vision needs: No Physical Exam ED Vital Signs: Vital Signs - 24 hr 06/23/23 08:19 06/23/23 09:51 Temperature 100.9 F H 100.9 F H Pulse Rate 110 H 110 H Respiratory Rate 20 20 Blood Pressure 118/86 118/86 Pulse Oximetry 96 96 Oxygen Delivery Method Room Air Room Air BMI result Body Mass Index 35.2 vss Appearance: Alert.? Oriented X3.? No acute distress.? Head: Normocephalic, atraumatic, no step-offs or deformities Eyes: Pupils equal, round and reactive to light.? ENT: Pharynx w/ errythema no edema, abscess or exudates b/l midline uvula.??E xternal ears normal, Neck: Normal inspection.? Neck supple.?+ bilateral submandibular lymphadenopathy CVS: Rapid regular rhythm with a heart rate around 100-110 beats per minute..? Pulses normal.? Respiratory: No respiratory distress.? Breath sounds normal.? Abdomen: Soft and nontender.? Skin: Skin warm and dry.? Normal skin color.? Normal skin turgor.? Extremities: No lower extremity edema.? No calf ttp. 5/5 strength to bilateral upper and lower extremities Neuro: Oriented X 3.? No motor deficit.? No sensory deficit. CN 2-12 intact Course Reevaluation(s) Reevaluation #1: Flu, COVID, RSV negative. Strep positive, Augmentin sent to pharmacy. Decadron given here. Educated patient on diagnosis and treatment plan, answered all question, patient verbalizes understanding. At this time patient will be discharged home, advised to return with new or worsening symptoms. Educated on worrisome signs and symptoms and when to return. At this time I feel comfortable discharge home. Time: 10:02 Medications Administered Discontinued Medications Generic Name Dose Route Start Last Admin Trade Name Albino PRN Reason Stop Dose Admin Acetaminophen 975 mg 06/23/23 08:26 06/23/23 08:44 Acetaminophen 325 Mg Tablet PO 06/23/23 08:27 975 mg ONCE ONE Administration Dexamethasone Sodium Phosphate 10 mg 06/23/23 09:11 06/23/23 09:22 Dexamethasone Sod Phosphate 10 Mg/Ml Vial IVPUSH 06/23/23 09:12 10 mg ONCE ONE Administration Medical Decision Making Medical Decision Making [facility] Narrative: [id number] 38-year-old male presents with sore throat, fatigue, malaise, myalgias, fevers, chills, headache all of which started yesterday all of a sudden. Physical exam posterior pharynx with erythema. Rapid regular rhythm with a heart rate around 100-110 beats per minute. Bilateral submandibular lymphadenopathy Patient noted to be febrile and tachycardic. History and physical exam concerning for flu versus COVID versus RSV versus strep throat. Unlikely meningitis, encephalitis, epiglottitis, peritonsillar abscess, retropharyngeal abscess, acute threat to airway. Tachycardia likely secondary to fever. I do not suspect sepsis. Lymphadenopathy likely secondary to viral illness. Less likely malignancy Plan at this time will obtain viral test, strep test. Will give Tylenol for fever. Differential Diagnosis Differential Diagnoses: The differential diagnosis associated with the presentation includes History and physical exam concerning for flu versus COVID versus RSV versus strep throat. Unlikely meningitis, encephalitis, epiglottitis, peritonsillar abscess, retropharyngeal abscess, acute threat to airway. Tachycardia likely secondary to fever. I do not suspect sepsis. Lymphadenopathy likely secondary to viral illness. Less likely malignancy Admission/Observation Consideration of admission/observation: Escalation of care including admission/observation considered Unlikely Lab Data [facility] Lab Attestation statement: I reviewed the patient's lab results. Labs: Lab Results 06/23/23 Range/Units 08:49 Influenza Type A (PCR) NEGATIVE (Negative) Influenza Type B (PCR) NEGATIVE (Negative) RSV RNA Qual (PCR) NEGATIVE (Negative) SARS-CoV-2 RNA (RT-PCR) NEGATIVE (Negative) S. pyogenes GrpA ALEJANDRO Positive A (Negative) External Record Review External record reviewed: Inpatient record, Office record, Outpatient record, Prior outpatient labs, Prior outpatient radiology, Primary care record and Outside ED record Chronic Conditions Patient?s care impacted by: Hypertension and Other (Hyperlipidemia.) Critical Care Time Critical Care Time Critical Care Time: No Discharge Plan Discharge Clinical Impression: Strep pharyngitis Patient Disposition: Home, Self-Care Instructions: Pharyngitis (ED), Strep Throat (ED) Additional Instructions: Take your medications as prescribed. If you were prescribed antibiotics today, it is important that you take your medication to their entirety, do not skip any doses, do not finish them early. Follow-up with your primary care provider this week. Return to the emergency department with new or worsening symptoms. Such as fevers, chills, chest pain, shortness of breath, nausea, vomiting, dizziness, headache, vision changes, lethargy In case of emergency call 911 Tested + for strep throat Prescriptions: New amoxicillin-pot clavulanate 875-125 mg tablet 1 tab PO BID 10 Days Qty: 20 0RF No Action amlodipine 10 mg tablet 10 mg PO DAILY Qty: 30 3RF hydrochlorothiazide 25 mg tablet 25 mg PO DAILY Qty: 30 3RF valsartan 320 mg tablet 320 mg PO DAILY 90 Days Qty: 90 3RF Excedrin Tension Headache 500-65 mg Tablet 2 tab PO DAILY PRN (Reason: Headache) atorvastatin 40 mg tablet 40 mg PO BEDTIME Qty: 30 5RF Referrals: Ryan Louis, [facility] [Primary Care Provider] - 2 days Interventions: ED Discharge Assessment Last Done: 06/23/23 09:51 Discharge Date/Time: 06/23/23 09:52 Print Language: Nicaraguan
[2023-06-23] MEDS: Acetaminophen 325 MG TABLET 975 MG PO (08:44)
[2023-06-23 09:07] LABS: IDNOW Serial# 08D9AD1C; Strep A Nucleic Acid Positive (Negative)
[2023-06-23] MEDS: dexAMETHasone sod phosphate 10 MG/ML VIAL IVPUSH (09:22)
[2023-06-23 09:38] LABS: Influenza A PCR NEGATIVE (Negative); Influenza B PCR NEGATIVE (Negative); Resp Syncy Virus RNA Qual PCR NEGATIVE (Negative); SARS COV2 PCR INHOUSE NEGATIVE (Negative)
[2023-06-23 09:51] VITALS: BP 118/86; PULSE 110; RESP 20; TEMP 38.3; O2SAT 96
== END 2023-06-23 09:52 | disposition home or self-care (01) ==
PROVIDERS: Physician Assistant; Emergency Provider Emergency Medicine Emergency Medical Services; PCP Nurse Practitioner Family
DX: J02.0 Streptococcal pharyngitis (principal); Z11.52 Encounter for screening for COVID-19; Z20.822 Contact with and (suspected) exposure to COVID-19
CPT/HCPCS: 0241U; 87651; 99283; 99284; J1100

== ENCOUNTER 2023-06-28 08:09 | Outpatient (AMB) | payer OTHER, SELFPAY ==
--- NOTE | 2023-06-28 08:13 | A.OFFVIS_ITS ---
Intake Intake Visit Reasons: 7w/CT Intake Note: Patient presents today for a follow-up on CT scan Results: Meds- None Allergies to Antibiotic- No Known Allergies Blood Thinner- None Certified Nurses Aide Required: No Accompanied by: Self / Same As Patient Allergies varenicline [From Chantix] Allergy (Intermediate, Verified 06/28/23 08:13) Rash barium sulfate Allergy (Unknown, Verified 06/28/23 08:13) Unknown aspirin Allergy (Verified 06/28/23 08:13) Swelling calomine Allergy (Unknown, Uncoded 06/28/23 08:13) Unknown Medication List - Last Reconciled 06/28/23 by Carlos Bojorquez MD acetaminophen-caffeine 500-65 mg (Excedrin Tension Headache) 2 tabs PO DAILY PRN amlodipine 10 mg PO DAILY atorvastatin 40 mg PO BEDTIME hydrochlorothiazide 25 mg PO DAILY valsartan 320 mg PO DAILY 90 days HPI HPI Comments History of Present Illness Details 06/28/23--I have discussed CT scan result s. CT urogram-06/14/2023, kidneys no renal masses or kidney stones. 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 Plan--I have discussed follow-up office cystoscopy. The patient states that in the past there was difficulty in putting a Riley catheter in. Review of chart: 04/26/2023--Florencio is a 38-year-old male who is here for evaluation for microscopic hematuria. He denies dysuria. Past medical history significant for history of coronary artery disease, renal artery aneurysm, hypertension. Nicotine dependence I have discussed reasons for blood in the urine may include but are not limited to kidney stones, cancer in the urinary tract, kidney stone disease or inflammatory conditions of the urinary tract] [BPH]. I have discussed workup to include evaluation of the upper tracts and consideration for cystoscopy evaluation. Plan- CT urogram, consider cystoscopy on follow-up 06/28/2023--Plan--I have discussed follow -up office cystoscopy. The patient states that in the past there was difficulty in putting a Riley catheter in. [facility] Medical History Migraines Hypertension Coronary atherosclerosis Renal artery aneurysm Surgical History Stented coronary artery Family History Mother No family history of coronary artery disease Father No family history of coronary artery disease Social History Housing: House Alcohol intake: current Alcohol intake frequency: holidays/special occasions only Patient Tobacco Use Status: Current everyday Tobacco user Tobacco use type: Cigarette Cigarette Packs Per Day: 0.5 Cigarettes Per Day: 5 e-Cigarette/Vaping Use: Never Used Second Hand Smoke Exposure: No service: No Current occupational status: unemployed Current occupation: [employer] , Left hand dominate Current occupational exposures/hazards: Yes Cognitive needs: No Hearing needs: No Vision needs: No Review of Systems Const All systems reviewed & are unremarkable except as noted in HPI and below Reports no additional complaints Eyes Reports no additional complaints ENT Reports no additional complaints Card Reports no additional complaints Resp Reports no additional complaints GI Reports no additional complaints Reports as per HPI Musc Reports no additional complaints Skin/Breast Reports system reviewed and no additional complaints, except as documented Neuro Reports no additional complaints Psych Reports no additional complaints Endo Reports no additional complaints Femi/Lymph Reports no additional complaints Aller/Immun Reports no additional complaints Physical Exam Const General: healthy appearing, no acute distress and well developed Orientation/consciousness: patient oriented x3 HEENT Head: Yes normocephalic and Yes atraumatic Eyes Conjunctivae: conjunctivae normal Chest Chest palpation & inspection: normal inspection of the chest Resp Effort & Inspection: normal respiratory effort Neuro General: patient oriented x3 Psych Appearance: grossly normal Affect: normal affect Results Reviewed Results Reviewed: Date of Service: 06/14/23 EXAMINATION: CT ABDOMEN AND PELVIS WITHOUT AND WITH CONTRAST CLINICAL INFORMATION: Microscopic hematuria COMPARISON: Previous renal ultrasound October 2022. Previous old abdominal and pelvic CT from 2013 is unavailable for comparison at this time. TECHNIQUE: Noncontrast CT of the abdomen and pelvis is performed followed by split bolus contrast-enhanced images using 85 mL Omnipaque 350 contrast.? Postcontrast imaging is performed during the combined nephrogram and excretion phase. Sagittal and coronal reformatted images were obtained on the technologist's workstation for both the precontrast and postcontrast phases. This CT examination was performed using dose optimization techniques as appropriate, variously including the following: *Automated exposure control *Adjustment of mA and/or kV according to patient size (this includes techniques or standardized protocols for targeted exams where dose is matched to indication/reason for exam; i.e. extremities or head) *Use of iterative reconstruction technique DLP: 1048 mGy-cm FINDINGS: LUNG BASES: The visualized lung bases are unremarkable. LIVER, GALLBLADDER, AND BILIARY TREE: The liver is normal in size, shape, and attenuation. No focal hepatic lesion or biliary ductal dilatation is present. The gallbladder is unremarkable with no evidence of radiopaque gallstones, gallbladder wall thickening, or obvious pericholecystic inflammatory changes. PANCREAS: Unremarkable. SPLEEN: Unremarkable. ADRENAL GLANDS: Unremarkable. 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 Kidneys are otherwise normal in contour. Left kidney measures 13.6 and the right 11 cm in length. There is high attenuation material seen in the anterior hilum of the upper pole of the right kidney, question representing embolization serial. No renal stone, mass or hydronephrosis seen. There is slight dilatation of calyces in the area of infarct or cortical thinning or scarring in the lateral lower pole of the right kidney. The collecting systems are otherwise normal. The ureters are normal. No cause for hematuria is seen. BLADDER: Unremarkable. GASTROINTESTINAL TRACT: Small bowel loops are seen lateral to the left colon raising question of internal hernia. There are no dilated loops of bowel to suggest obstruction. The small and large bowel are otherwise unremarkable. The appendix is unremarkable. ABDOMINAL WALL: No significant hernia is appreciated. LYMPH NODES: Normal. VASCULAR: Unremarkable. PELVIC VISCERA: Unremarkable. OSSEUS STRUCTURES: Unremarkable. IMPRESSION: Infarct or cortical thinning or scarring in the lateral lower pole of the right kidney. Question post embolization changes with very high attenuation radiopaque density in the anterior upper right renal hilum. No cause of hematuria is seen. Given likely prior embolization, follow-up CTA and CTV of the kidneys may be helpful. Small bowel lateral to the left colon questionable for internal hernia. No dilated loops of bowel to suggest obstruction. No significant abnormality. Assessment & Plan Assessment & Plan (1) Microhematuria: Code(s): R31.29 - Other microscopic hematuria (2) Nicotine dependence: Code(s): F17.200 - Nicotine dependence, unspecified, uncomplicated Plan I have discussed follow-up office cystoscopy. The patient states that in the past there was difficulty in putting a Riley catheter in. Patient Instructions: The patient had an opportunity to ask questions regarding treatment plan. All questions were answered. Imaging, Laboratory studies and physical exam results were discussed and reviewed in detail. No major barriers to understanding were identified. The patient expressed understanding and agreement with the above treatment plan. The patient is aware they should contact our office by phone for worsening of their current condition or the appearance of new symptoms. Compliance is encouraged with any medications and followup testing that is ordered. It is a privilege to be allowed the opportunity to participate in the urologic care of your patient. If you have any questions or concerns regarding treatment for the above conditions please do not hesitate to contact me. The office telephone contact is [phone]. This note is constructed in part using voice recognition software. While every effort has been made to ensure accuracy solid waste analyst errors may have been included. Yours sincerely, Carlos Bojorquez MD Telehealth Telehealth Location of provider rendering services: practice address Location of patient: address on file Patient Identification confirmed using: Name, : Yes Telehealth method: video Patient verbally consented to treatment: Yes Patient verbally consented to billing insurance company: Yes Patient informed of any privacy concerns related to visit: Yes Coding Level of Care Code Tele Est Pt Level 4 (02557) Diagnoses Microhematuria R31.29 Nicotine dependence F17.200
== END 2023-06-28 09:38 | disposition home or self-care (01) ==
LOC: HO.HUSH 08:09
PROVIDERS: PCP Nurse Practitioner Family; Visit Provider Urology
DX: R31.29 Other microscopic hematuria (principal); F17.200 Nicotine dependence, unspecified, uncomplicated
CPT/HCPCS: 99214

== ENCOUNTER → 2023-06-28 08:09 | Outpatient (BNVA) | payer OTHER, SELFPAY | PROVIDERS: PCP Nurse Practitioner Family; Visit Provider Urology ==

== ENCOUNTER 2023-07-05 08:21 | Outpatient (AMB) | payer OTHER, SELFPAY ==
--- NOTE | 2023-07-05 08:25 | A.OFFVIS_ITS ---
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 Allergies varenicline [From Chantix] Allergy (Intermediate, Verified 07/05/23 08:27) Rash barium sulfate Allergy (Unknown, Verified 07/05/23 08:27) Unknown aspirin Allergy (Verified 07/05/23 08:27) Swelling calomine Allergy (Unknown, Uncoded 07/05/23 08:27) Unknown Medication List - Last Reconciled 07/05/23 by HÉCTOR Orozco acetaminophen-caffeine 500-65 mg (Excedrin Tension Headache) 2 tabs PO DAILY PRN amlodipine 10 mg PO DAILY atorvastatin 40 mg PO BEDTIME hydrochlorothiazide 25 mg PO DAILY valsartan 320 mg PO DAILY 90 days HPI HPI 6 month follow up: Details: Florencio is a 38 year old male with past medical history of hypertension, uncontrolled HTN, obesity, reported history of pericarditis in 2001, 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 He also did not have a PCP and was not on his antihypertensives. He was seen in the emergency room on 4 occasions betweem 01/2022 and 09/2022 for CP and uncontrolled HTN. He was restarted on antihypertensives and is currently on amlodipine, hydrochlorothiazide and valsartan. He ruled out for ACS on each occasion. Following his last ER visit 10/02/2022 he was referred to Cardiology for further management. Outpt cardiac testing was completed. He was found to have moderate to severe LVH. Right renal artery stent was patent. He now presents for follow up. Today he reports that he continues to have issues with lightheadedness, especially when bending over. He has had ortho evaluation and they believe his symptom may be cervical related. He is undergoing workup for that at this time. 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 He does get a mild headache at times. No vision changes, weakness of arms or legs. His blood pressures at home has been well controlled. He reports compliance med. No shortness of breath, PND, orthopnea or edema. No chest discomfort at rest or with activity. He has noticed heart palpitations where his heart is racing when he is at rest and this can go on for over an hour. He tells me that he had an evaluation for his lightheadedness in physical therapy and was told his symptom was not vertigo. [facility] Medical History Migraines Hypertension Coronary atherosclerosis Renal artery aneurysm Surgical History Stented coronary artery Family History Mother No family history of coronary artery disease Father No family history of coronary artery disease Social History Housing: House Alcohol intake: current Alcohol intake frequency: holidays/special occasions only Patient Tobacco Use Status: Current everyday Tobacco user Tobacco use type: Cigarette Cigarette Packs Per Day: 0.5 Cigarettes Per Day: 5 e-Cigarette/Vaping Use: Never Used Second Hand Smoke Exposure: No service: No Current occupational status: unemployed Current occupation: [employer] , Left hand dominate Current occupational exposures/hazards: Yes Cognitive needs: No Hearing needs: No Vision needs: No Review of Systems Const All systems reviewed & are unremarkable except as noted in HPI and below ENT Reports dizziness Card Denies chest pain, Denies chest pain at rest, Denies chest pain with activity, Denies rapid heart rate, Denies pedal edema, Denies edema, Denies leg edema, Denies lightheadedness, Denies palpitations, Denies dyspnea, Denies dyspnea on exertion and Denies orthopnea Resp Denies cough, Denies dyspnea and Denies dyspnea on exertion GI Denies hematochezia and Denies change in stool character Musc Denies abnormal gait, Denies limited range of motion, Denies muscle cramps, Denies muscle weakness, Denies numbness, Denies radiating pain into limb, Denies stiffness and Denies tingling Neuro Denies abnormal gait, Reports dizziness, Denies numbness and Denies tingling Endo Denies palpitations Physical Exam Vital Signs: Last Vital Signs Pulse 95 07/05/23 08:26 BP 114/86 04/25/24 08:26 BMI result Body Mass Index 36.5 Const General: cooperative, healthy appearing, comfortable and no acute distress Orientation/consciousness: patient oriented x3 Neck Neck: Yes normal visual inspection Resp Effort & Inspection: normal respiratory effort Auscultation: clear to auscultation bilaterally, no crackles, no rales, no rhonchi and no wheezes Cardio Jugular venous distension: no JVD Rate: regular rate Rhythm: regular rhythm Heart sounds: S1 normal heart sound present, S2 normal heart sound present, no gallops, no murmurs and no rubs GI Inspection: Yes normal to inspection Skin General skin exam: no rashes or lesions noted Neuro General: patient oriented x3 Extrem General: Yes normal to inspection and No no pedal edema Psych Appearance: grossly normal Mental Status: mental status grossly normal Speech and movement: Normal speech and movement present Assessment & Plan Assessment & Plan (1) Precordial chest pain: Code(s): R07.2 - Precordial pain Category: Medical Plan: Prior reports of localized left-sided chest discomfort with raising his arms and laying on his right side, same discomfort however radiates to left shoulder when he climbs stairs and does physical activity. His symptom had some typical and atypical features. Prior ER evaluations for chest symptoms and ruled out for ACS. Prior EKGs reviewed showing normal sinus rhythm with no acute ST or T-wave abnormalities. Last EKG done on 10/04/2022 shows sinus rhythm, heart rate 81. He reported a history of what sounds like NSTEMI, cardiac catheterization and coronary stent placement 11/2020 at [facility] [place] [place] in [place]. Notes from [facility] reviewed indicating cardiac catheterization 12/07/2020 showing plaque rupture of the left circumflex artery, SUZI placed, other vessels normal, RCA dominant. Echocardiogram done 11/28/2022 showing EF 57%, moderate to severe concentric LVH, grade 1 diastolic dysfunction. A nuclear stress test was done 12/05/2022 showing normal myocardial perfusion imaging. Today he reports that he has no chest discomfort at rest or with activity. His primary complaint is of lightheadedness, usually positional. He is being worked up for C-spine issues. Record indicates aspirin allergy, with symptom of swelling. He has n ot on antiplatelets presently. Will start Plavix 75 mg daily. He is on atorvastatin with LDL goal less than 70. Labs done 06/20/2023 showed LDL 59, normal LFT. He is on antihypertensive but no rate slowing medications. Signs and symptoms of angina reviewed. Cardiology follow-up in 6 months, sooner if needed. (2) Hypertension: Code(s): I10 - Essential (primary) hypertension Category: Medical Plan: Reported history of hypertension for the last 10 years. He tells me he had not been good with taking his medications consistently. ER last year with uncontrolled hypertension. He was restarted on his meds including amlodipine, hydrochlorothiazide and valsartan. Today he reports compliance with his meds. Blood pressure is in the normal range. He tells me home blood pressures are normal as well. Labs done 06/20/2023 showed potassium 4.4, creatinine 0.92. Renal artery ultrasound 10/29/2022 showed no findings consistent with renal artery stenosis, right renal artery stent patent. His echo shows normal EF and moderate to severe LVH. The strict importance of good blood pressure control reviewed with him. He does report a symptom of lightheadedness with bending over and position changes. Has not had any documented hypotension. He is being evaluated for C-spine issues. He was told this may be contributing to his symptom. Continue current meds without change. Recommend continue good hydration. Exercise as tolerated, low-salt diet reviewed. (3) Lightheadedness: Code(s): R42 - Dizziness and giddiness Category: Medical Plan: As above (4) Palpitation: Code(s): R00.2 - Palpitations Category: Medical Plan: Report of heart palpitations, heart going fast while at rest for over 1 hour at a time. He does have lightheadedness which does not coincide. Prior Holter showed no arrhythmia. Will recheck Holter to assess for possible SVT. (5) Coronary atherosclerosis: Code(s): I25.10 - Atherosclerotic heart disease of [place] coronary artery without angina pectoris Category: Medical Plan: As above (6) Stented coronary artery: Comment: Left circumflex 2020 Code(s): Z95.5 - Presence of coronary angioplasty implant and graft Category: Surgical Plan: As above (7) Renal artery aneurysm: Comment: reported hx with stent in place, right Code(s): I72.2 - Aneurysm of renal artery Category: Medical Plan: He reports a history of having a renal artery aneurysm that dissected and a stent was placed. He was not clear on the year this occurred and tells me he was having periodic ultrasounds but none in the last few years. He has had issues with uncontrolled blood pressures, most likely related to him being off his medications. Renal ultrasound as above. Waveforms normal, no clear evidence of renal artery stenosis. Plan Time spent on chart review, documentation, interview and assessment Orders: Orders ECG 3 day holter monitor Today R00.2 - Palpitations Medications: New clopidogrel (Plavix) 75 mg PO DAILY 30 tabs 5RF Coding Level of Care Code Est Pt Level 4 (58326) Diagnoses Precordial chest pain R07.2 Hypertension I10 Lightheadedness R42 Palpitation R00.2 Coronary atherosclerosis I25.10 Stented coronary artery Z95.5 Renal artery aneurysm I72.2
[2023-07-05 08:26] VITALS: BP 114/86; PULSE 95; BMI 36.5
== END 2023-07-05 08:59 | disposition home or self-care (01) ==
PROVIDERS: PCP Nurse Practitioner Family; Visit Provider Nurse Practitioner Family
DX: R07.2 Precordial pain (principal); I10 Essential (primary) hypertension; R42 Dizziness and giddiness; R00.2 Palpitations; I25.10 Atherosclerotic heart disease of native coronary artery without angina pectoris; Z95.5 Presence of coronary angioplasty implant and graft; I72.2 Aneurysm of renal artery
CPT/HCPCS: 99214

== ENCOUNTER → 2023-07-05 08:21 | Outpatient (BNVA) | payer OTHER, SELFPAY | PROVIDERS: PCP Nurse Practitioner Family; Visit Provider Nurse Practitioner Family | DX: R07.2 Precordial pain (principal); R42 Dizziness and giddiness; I10 Essential (primary) hypertension; R00.2 Palpitations; I25.10 Atherosclerotic heart disease of native coronary artery without angina pectoris; I72.2 Aneurysm of renal artery; Z95.5 Presence of coronary angioplasty implant and graft | CPT/HCPCS: 99212 ==

== ENCOUNTER → 2023-07-16 08:15 | Outpatient (REF) | payer OTHER, SELFPAY ==
--- NOTE | 2023-07-16 08:17 | HM_ITS ---
* Total monitoring time 3 days. * Underlying rhythm is sinus with an average rate of 89/Min. * About 23% of the time, rate > 100/Min. * Rare supraventricular ectopy. * One isolated ventricular ectopic beat. * No significant pauses or AV blocks. * Patient markers used 3 times, in association with sinus rhythm and sinus tachycardia. * Chest pain, shortness of breath in patient diary correlates with mild sinus tachycardia. MTDD
== END ==
LOC: HO.CARD 08:15
PROVIDERS: PCP Nurse Practitioner Family; Visit Provider Nurse Practitioner Family
DX: R00.2 Palpitations (principal)
CPT/HCPCS: 93242

== ENCOUNTER → 2023-07-16 08:17 | Outpatient (BNV) | payer OTHER, SELFPAY | PROVIDERS: PCP Nurse Practitioner Family; Visit Provider Internal Medicine | DX: R00.0 Tachycardia, unspecified (principal) | CPT/HCPCS: 93244 ==

== ENCOUNTER 2023-07-31 09:07 | Outpatient (AMB) | payer OTHER, SELFPAY ==
[2023-07-31 09:14] VITALS: BP 112/80; PULSE 94; TEMP 36.6; O2SAT 96; BMI 36.0
--- NOTE | 2023-07-31 09:14 | MHC.OFFWIV ---
Intake Vital Signs 07/31/23 09:14 Height 5 ft 7 in Weight 230 lb BMI 36.0 BP 112/80 Blood Pressure Location Lt brachial Position Sitting Pulse 94 Pulse Source Pulse Oximeter Temp 97.9 F Temp Source Temporal Artery Scan Pulse Oximetry (%) 96 Oxygen Delivery Method Room Air Intake Visit Reasons: EP legs burning/wetness feeling inside. Intake Note: pt is here today for leg burning and wetness feeling inside started Patient Tobacco Use Status: Current everyday Tobacco user Allergies varenicline [From Chantix] Allergy (Intermediate, Verified 07/31/23 09:41) Rash barium sulfate Allergy (Unknown, Verified 07/31/23 09:41) Unknown aspirin Allergy (Verified 07/31/23 09:41) Swelling calomine Allergy (Unknown, Uncoded 07/31/23 09:41) Unknown Medication List - Last Reconciled 07/31/23 by ARASH Cruz acetaminophen-caffeine 500-65 mg (Excedrin Tension Headache) 2 tabs PO DAILY PRN amlodipine 10 mg PO DAILY atorvastatin 40 mg PO BEDTIME clopidogrel (Plavix) 75 mg PO DAILY hydrochlorothiazide 25 mg PO DAILY valsartan 320 mg PO DAILY 90 days Do you need a note to return to daycare/school/sports/work: No HPI HPI Comments History of Present Illness Details Patient is a 38-year-old male in today for a sick visit. He states that for the past 2 days he has developed slight calf tenderness and a feeling of fluid in his right calf. Denies any trauma to the area. Denies any swelling. Denies any bruising or discoloration. Patient has no history of the same. Has not utilized any [id number] medications for pain relief. Patient is currently taking Plavix due to history of [place]. [facility] Medical History Migraines Hypertension Coronary atherosclerosis Renal artery aneurysm Surgical History Stented coronary artery Family History Mother No family history of coronary artery disease Father No family history of coronary artery disease Social History Housing: House Alcohol intake: current Alcohol intake frequency: holidays/special occasions only Patient Tobacco Use Status: Current everyday Tobacco user Tobacco use type: Cigarette Cigarette Packs Per Day: 0.5 Cigarettes Per Day: 5 e-Cigarette/Vaping Use: Never Used Second Hand Smoke Exposure: No service: No Current occupational status: unemployed Current occupation: [employer] , Left hand dominate Current occupational exposures/hazards: Yes Cognitive needs: No Hearing needs: No Vision needs: No Review of Systems Const All systems reviewed & are unremarkable except as noted in HPI and below Denies chills and Denies fever(s) Card Denies chest pain and Denies dyspnea Resp Denies dyspnea GI Denies diarrhea, Denies nausea and Denies vomiting Musc Denies tingling and Reports other (Right calf tenderness) Neuro Denies tingling and Denies paresthesias Physical Exam Vital Signs: Last Vital Signs Temp 97.9 F 07/31/23 09:14 Pulse 94 07/31/23 09:14 BP 112/80 07/31/23 09:14 Pulse Ox 96 07/31/23 09:14 Oxygen Delivery Method Room Air 07/31/23 09:14 BMI result Body Mass Index 36.0 Const Other: Appearance: Alert.? Oriented X3.? No acute distress.? Head: Normocephalic, CVS: Normal heart rate and rhythm.? Pulses normal.? Respiratory: No respiratory distress.? Breath sounds normal.? Abdomen: Soft and nontender.? Skin: Skin warm and dry.? Normal skin color.? Normal skin turgor.? Extremities: No lower extremity edema.? No calf ttp. 5/5 strength to bilateral upper and lower extremities. +slight calf tenderness right side. Neuro: Oriented X 3.? No motor deficit.? No sensory deficit. Assessment & Plan Assessment & Plan (1) Right leg pain: Comment: Likely muscle strain. Will order ultrasound to rule out DVT. Will also order CBC and CMP. Patient has been educated to rest the affected limb. Can utilize Tylenol Code(s): M79.604 - Pain in right leg Plan: Take your medications as prescribed. If you were prescribed antibiotics today, it is important that you take your medication to their entirety, do not skip any doses, do not finish them early. Follow-up with your primary care provider this week. Return to the emergency department with new or worsening symptoms. Such as fevers, chills, chest pain, shortness of breath, nausea, vomiting, dizziness, headache, vision changes, lethargy In case of emergency call 911 Plan Follow up with PCP. Orders: Orders US venous duplex LE RT Today M79.604 - Pain in right leg Comprehensive Met. Panel Today Z91.89 - Other specified personal risk factors, not elsewhere classified Complete Blood Count Auto Diff Today Z13.0 - Encounter for screening for diseases of the blood and blood-forming organs and certain disorders involving the immune mechanism Coding Level of Care Code Est Pt Level 3 (81564) Diagnoses Right leg pain M79.604 Time Spent (min) 25
== END 2023-07-31 09:52 | disposition home or self-care (01) ==
PROVIDERS: PCP Nurse Practitioner Family; Visit Provider Nurse Practitioner Primary Care
DX: M79.604 Pain in right leg (principal)
CPT/HCPCS: 99213

== ENCOUNTER 2023-07-31 10:48 | Outpatient (REF) | payer OTHER, SELFPAY ==
--- NOTE | ~2023-07-31 | US_ITS ---
EXAMINATION: US VENOUS ULTRASOUND WITH DOPPLER LOWER EXTREMITY, RIGHT CLINICAL INFORMATION: Right leg pain COMPARISON: None available. TECHNIQUE: Ultrasound of the deep veins is performed from the hip to the calf with compression sonography and color and pulse Doppler assessment. Spectral analysis with color-flow imaging is performed. FINDINGS: There is normal venous compression and respiratory variation and augmented flow. The visualized common femoral vein, superficial femoral vein, profunda femoral vein, popliteal vein, and the trifurcation region shows no evidence of deep venous thrombosis. There is no significant popliteal fossa cyst. Right posterior lateral calf, in region of pain, also evaluated. No sonographic abnormality. If the patient's symptoms persist, followup ultrasound in 5 days 7 days might be of value to exclude proximal propagation from a non-visualized calf vein. US/US venous duplex LE RT IMPRESSION: No DVT demonstrated in the right lower extremity.
[2023-07-31 13:07] LABS: MANUAL DIFF FLAG NO
[2023-07-31 13:31] LABS: Basophils Absolute Auto 0.1 X10*3/uL (0.0-0.2); Basophils Percent Auto 0.6 % (0-2); Eosinophils Absolute Auto 0.3 X10*3/uL (0.0-0.4); Eosinophils Percent Auto 2.8 % (0-4); Hematocrit 43.8 % (42.0-52.0); Hemoglobin 14.2 g/dl (14.0-18.0); Imm Gran Abs Auto 0.06 X10*3/uL (0.00-0.03); Imm Gran Pct Auto 0.5 % (0.0-0.4); Lymphocytes Absolute Auto 2.9 X10*3/uL (1.2-4.9); Lymphocytes Percent Auto 25.3 % (20-40); Mean Corpuscular HGB Conc 32.4 g/dl (31.0-36.0); Mean Corpuscular Hemoglobin 27.1 pg (27.0-33.0); Mean Corpuscular Volume 83.6 fL (80.0-98.0); Monocytes Percent Auto 8.5 % (2-11); Neutrophils Absolute Auto 7.2 x10*3/uL (2.0-8.3); Neutrophils Percent Auto 62.3 % (45-73); Platelet Count 384 X10*3/uL (160-400); Red Blood Count 5.24 X10*6/uL (4.60-5.80); Red Cell Distribution Width 16.6 % (11.0-16.0); White Blood Count 11.5 X10*3/uL (4.8-10.8)
[2023-07-31 13:57] LABS: Alanine Aminotransferase 51 U/L (0-40); Albumin Level 4.5 g/dL (3.5-5.0); Alkaline Phosphatase 101 U/L (39-117); Anion Gap 16 (12-20); Aspartate Amino Transferase 28 U/L (5-37); Bilirubin Total 0.6 mg/dL (0.0-1.0); Blood Urea Nitrogen 8 mg/dL (9-16); Calcium 9.9 mg/dL (8.4-10.2); Carbon Dioxide 24 mmol/L (22-29); Chloride 103 mmol/L (96-108); Estimated Glomerular Filt Rate > 60; Glucose Random 102 mg/dL (60-115); Potassium 4.1 mmol/L (3.3-5.1); Sodium 139 mmol/L (135-145); Total Protein 8.1 g/dL (6.5-8.0)
== END 2023-07-31 10:49 | disposition home or self-care (01) ==
LOC: HO.HMGCX 10:48
PROVIDERS: PCP Nurse Practitioner Family; Visit Provider Nurse Practitioner Primary Care
DX: M79.604 Pain in right leg (principal); Z91.89 Other specified personal risk factors, not elsewhere classified; Z13.0 Encounter for screening for diseases of the blood and blood-forming organs and certain disorders involving the immune mechanism
CPT/HCPCS: 36415; 80053; 85025; 93971

== ENCOUNTER 2023-08-09 08:36 | Outpatient (AMB) | payer OTHER, SELFPAY ==
[2023-08-09 08:38] VITALS: BMI 36.0
--- NOTE | 2023-08-09 08:38 | MHC.OFFVIS ---
Vital Signs 08/09/23 08:38 Height 5 ft 7 in Weight 230 lb BMI 36.0 Intake Visit Reasons: OV- follow up Left shoulder/ see last work load Intake Note: Florencio is a 38 year old Left hand dominate male who presents with complaints of progressively worsening neck pain which radiates down to his left hand as well as left shoulder pain. The patient states that his neck pain is more severe than is his shoulder pain at this time. The patient states that his neck pain is ?constant?. The patient has been going to formal physical therapy for his left shoulder and his neck at [facility] in [place]. The patient states that the therapy made his neck pain more severe and did not help his left shoulder pain. He has tried Tylenol and anti-inflammatory medicines which gave him minimal relief. Reports weakness in his left arm. The patient has failed the last 6 weeks of conservative treatment. Allergies varenicline [From Chantix] Allergy (Intermediate, Verified 08/09/23 08:41) Rash barium sulfate Allergy (Unknown, Verified 08/09/23 08:41) Unknown aspirin Allergy (Verified 08/09/23 08:41) Swelling calomine Allergy (Unknown, Uncoded 08/09/23 08:41) Unknown [facility] Medical History Migraines Hypertension Coronary atherosclerosis Renal artery aneurysm Surgical History Stented coronary artery Family History Mother No family history of coronary artery disease Father No family history of coronary artery disease Social History Housing: House Alcohol intake: current Alcohol intake frequency: holidays/special occasions only Patient Tobacco Use Status: Current everyday Tobacco user Tobacco use type: Cigarette Cigarette Packs Per Day: 0.5 Cigarettes Per Day: 5 e-Cigarette/Vaping Use: Never Used Second Hand Smoke Exposure: No service: No Current occupational status: unemployed Current occupation: [employer] , Left hand dominate Current occupational exposures/hazards: Yes Cognitive needs: No Hearing needs: No Vision needs: No Physical Exam Vital Signs: BMI result Body Mass Index 36.0 Const Other: Well-nourished well-developed very friendly male awake alert and oriented x3 in no acute distress Neck Other: Cervical spine examination shows left-sided paraspinal muscle tenderness, pain with range of motion, positive Spurling's test, 4/5 strength with testing of his left biceps and wrist extensors when compared to 5/5 strength on his right side Assessment & Plan Assessment & Plan (1) Neck pain on left side: Code(s): M54.2 - Cervicalgia Category: Medical Plan Mr. Ravi presents with progressively worsening neck pain which radiates into his left arm as well as associated left upper extremity weakness most likely due to cervical stenosis or a disc herniation. Thus, I will send the patient for an MRI of his cervical spine for further evaluation. I will contact him by phone once the MRI results are available. He will contact me prior to that time should his symptoms worsen in any way. Feel free to call me at any time should questions regarding his orthopedic management arise. I spent 21 minutes in reviewing the patient's records and imaging studies, seeing the patient and documenting in the medical record. Orders: Orders MR cervical spine wo con Today M54.2 - Cervicalgia Coding Level of Care Code Est Pt Level 3 (65662) Diagnoses Neck pain on left side M54.2
== END 2023-08-09 08:52 | disposition home or self-care (01) ==
PROVIDERS: PCP Nurse Practitioner Family; Visit Provider Orthopaedic Surgery
DX: M54.2 Cervicalgia (principal)
CPT/HCPCS: 99214

== ENCOUNTER → 2023-08-09 08:36 | Outpatient (BNVA) | payer OTHER, SELFPAY | PROVIDERS: PCP Nurse Practitioner Family; Visit Provider Orthopaedic Surgery | DX: M54.2 Cervicalgia (principal) | CPT/HCPCS: 99212 ==

== ENCOUNTER → 2023-08-31 13:04 | Outpatient (BNVA) | payer OTHER, SELFPAY | PROVIDERS: PCP Nurse Practitioner Family; Visit Provider Urology ==

== ENCOUNTER 2023-09-03 10:47 | Outpatient (AMB) | payer OTHER, SELFPAY ==
--- NOTE | 2023-09-03 11:20 | A.SPINEOV_ITS ---
Intake Visit Reasons: spinal stenosis, cervical region Intake Note: Mr. Ravi is here today c/o neck pain that radiates down the arms and dizziness. 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 He is a very nice 38-year-old gentleman who presents to the office today for evaluation of symptoms of neck pain radiating down into his left arm into his index finger and middle finger on the left side. The symptoms have been coming on now for a number of months. He went to physical therapy for his neck and his shoulder but that did not seem to help, if anything seemed to maybe make it slightly worse. He was seen in the pain management office at some point earlier this year and offered an injection but did not want to proceed with that. He has been taking Excedrin to help deal with the pain. He can not take anti-inflammatories because of the Plavix he is on for heart disease. He does not report any myelopathic symptoms. The primary symptom is the neck pain radiating down the left arm into the hand. There is a sense of weakness in the arm. Especially when he is doing activities with his left hand, he will notice that he has slight weakness to it. He is left handed. He also reports a component of dizziness that has been present for more than a year. PMH: Significant for coronary disease, 3 years ago he ended up with a stent in his circumflex. He has been on Plavix since that time because he had a severe allergy to aspirin. He is followed by Cardiology here at [facility] and tells me that he has routine follow-ups and has been stable. He also had a stent to his renal artery many years ago. He is history of carpal tunnel release, hypertension. Social hx: She smokes about half a pack a day, no marijuana or alcohol Medications: Hydrochlorothiazide, amlodipine, atorvastatin, Plavix, hydrochlorothiazide, valsartan Allergies: Chantix and aspirin Physical exam: Awake alert oriented no acute distress, he has mild weakness of his left hand, absent reflexes in the triceps on the left. Otherwise motor examination is normal. No hyperreflexia. Imaging review: Cervical MRI done at the [facility] shows a severely degenerative disc at C6-7 with central protrusion causing posterior displacement of the spinal cord and severe bilateral neuroforaminal stenosis. Impression: A 38-year-old male presents today for evaluation of neck pain and left upper extremity pain radiating down into his hand. He has a cervical radiculopathy secondary to a degenerative disc at C6-7, which is causing bilateral neuroforaminal narrowing and some moderate central canal stenosis. Thankfully he is not myelopathic. He has slight hand weakness on the left and he is a left-handed gentleman. He has completed a course of conservative treatment. The pain has been going on now for many months. I think there is limited yield to doing a cortisone injection. This is a situation where typically Dr. Duncan would offer him anterior cervical fusion. Because of his age, we could also consider artificial disc replacement. I will need to review the films with Dr. Duncan to see how he feels about which device would be the right choice. Once I have the chance to finalize everything I will get back to the patient with a final plan. I did tentatively give him a date for October 31. I did discuss the procedure at length with the patient, risks, benefits etc.. I quoted success rate for the arm pain at 90%. He did mention in his review of systems that he has been having some kind of feeling of fullness or something lodged in the back of his throat, almost like when he has phlegm like he wants to spit but nothing comes out. There is a fairly predictable postoperative dysphagia that comes with this surgery and if he has some kind of obstruction or swelling in the oropharynx, very likely surgeries only going to make that worse in that could prevent him from adequately swallowing after surgery. I will send a note to his PCP Ryan Louis just to see if he thinks this is anything that needs more of a workup or if it is maybe just tonsillar swelling or something like that. The patient understands he will need to come off his Plavix 10 days prior to surgery. He is taking Excedrin but it is just Tylenol and caffeine there is no aspirin in it. He can continue that if he needs for pain control. Very likely our anesthes iologist will want to review his cardiac notes as well. I will defer to them if they think he needs a formal cardiac clearance. Pt was given risk and benefits of surgery including but not limited to infection, hematoma , nerve injury,durotomy, weakness,bowel/bladder injury, persistent pain, dysphagia, vocal hoarseness as well as the option to continue with conservative treatment and patient wishes to proceed with surgery. All questions were answered to the best of our ability. If there is anything about this patients medical history that we have overlooked or concerns you have about us proceeding with surgery we would appreciate any input you can offer. Thank you for allowing us to care for your patient. The total time spent with this visit with this patient was 45 minutes reviewing history, physical exam, cervical imaging review, and implementation of treatment plan or further diagnostic testing Sukhwinder Duncan MD,PhD [facility] Coding Level of Care Code New Pt Level 4 (21428) Diagnoses Cervical spondylosis M47.812
== END 2023-09-03 12:20 | disposition home or self-care (01) ==
PROVIDERS: PCP Nurse Practitioner Family; Referring Provider Orthopaedic Surgery; Visit Provider Physician Assistant
DX: M47.812 Spondylosis without myelopathy or radiculopathy, cervical region (principal)
CPT/HCPCS: 99204

== ENCOUNTER → 2023-09-03 10:47 | Outpatient (BNVA) | payer OTHER, SELFPAY | PROVIDERS: PCP Nurse Practitioner Family; Visit Provider Physician Assistant | DX: M50.123 Cervical disc disorder at C6-C7 level with radiculopathy (principal); M48.02 Spinal stenosis, cervical region | CPT/HCPCS: 99202 ==

== ENCOUNTER 2023-09-25 08:57 | Outpatient (AMB) | payer OTHER, SELFPAY ==
--- NOTE | 2023-09-25 07:33 | MHC.PC.OV ---
Intake Visit Reasons: Follow up Allergies varenicline [From Chantix] Allergy (Intermediate, Verified 08/09/23 08:41) Rash barium sulfate Allergy (Unknown, Verified 08/09/23 08:41) Unknown aspirin Allergy (Verified 08/09/23 08:41) Swelling calomine Allergy (Unknown, Uncoded 08/09/23 08:41) Unknown Tobacco use date assessed: 06/07/23 Dental Screening Dental Screen Date: 06/07/23 HPI Follow up HPI Details Patient recently met with our spine team for his cervical neck pain with radicular symptoms. Patient is scheduled for a C6-C7 arthroplasty /disc replacement on October 31. He does report ongoing cervical neck pain with radicular symptoms down his left upper extremity. He knows to stop his Plavix 10 days prior to surgery. It is noted that the spinal team is well aware of his cardiac history. I will reach out to his chute puller to make them aware of this future surgical appointment date. [facility] Medical History Migraines Hypertension Coronary atherosclerosis Renal artery aneurysm Surgical History Stented coronary artery Family History Mother No family history of coronary artery disease Father No family history of coronary artery disease Social History Housing: House Alcohol intake: current Alcohol intake frequency: holidays/special occasions only Patient Tobacco Use Status: Current everyday Tobacco user Tobacco use type: Cigarette Cigarette Packs Per Day: 0.5 Cigarettes Per Day: 5 e-Cigarette/Vaping Use: Never Used Second Hand Smoke Exposure: No service: No Current occupational status: unemployed Current occupation: [employer] , Left hand dominate Current occupational exposures/hazards: Yes Cognitive needs: No Hearing needs: No Vision needs: No Questionnaire Thrive Questionnaire Date Thrive assessed: 06/07/23 LOLA-7 AMB Questionnaire LOLA-7 Date LOLA - 7 assessed: 06/07/23 Source: Developed by Drs. Florencio Tsang, Loli Rendon, Kwaku Vo and colleagues, with an educational maria from [employer]. Physical exam (Primary Care) Tobacco/Smoking Status: Tobacco use Status Tobacco use date assessed 06/07/23 06/07/23 09:37 Patient Tobacco Use Status Current everyday Tobacco 07/31/23 09:16 Tobacco use type Cigarette 06/07/23 09:36 e-Cigarette/Vaping Use Never Used 06/07/23 09:36 Thrive Assessment: Date of Thrive Assessment Date Thrive assessed 06/07/23 06/07/23 09:46 Psych Appearance: grossly normal Speech and movement: Normal speech and movement present Affect: normal affect Attitude: cooperative Thought process: Normal thought process present Thought content: Normal thought content present Judgement: Good judgement present (Psych) Telehealth Telehealth Telehealth Platform: [employer] Location of provider rendering services: practice address Location of patient: address on file Patient Identification confirmed using: Name, : Yes Telehealth method: video Patient verbally consented to treatment: Yes Patient verbally consented to billing insurance company: Yes Patient informed of any privacy concerns related to visit: Yes Minutes spent on Phone/Video with Pt.: 15 Assessment and Plan Assessment & Plan (1) Cervical stenosis of spinal canal: Code(s): M48.02 - Spinal stenosis, cervical region Plan: Surgery scheduled for October 31. (2) Coronary atherosclerosis: Code(s): I25.10 - Atherosclerotic heart disease of burns pai[place] coronary artery without angina pectoris Plan: I will reach out to patient's cardiology team to make them aware of the surgical appointment date. Patient continues to smoke approximately half a pack a day. He denies any recent chest pain, shortness of breath, fevers, chills. pt is on a statin and plavix Orders: Orders Complete Blood Count Auto Diff Today Z01.818 - Encounter for other preprocedural examination Comprehensive Met. Panel Today Z01.818 - Encounter for other preprocedural examination TSH reflex Free T4 Today Z01.818 - Encounter for other preprocedural examination Prothrombin Time INR Today Z01.818 - Encounter for other preprocedural examination Partial Thromboplastin Time Today Z01.818 - Encounter for other preprocedural examination UA CC w/rflx Micro + Cult Today Z01.818 - Encounter for other preprocedural examination Coding Level of Care Code Tele Est Pt Level 3 (75196) Diagnoses Cervical stenosis of spinal canal M48.02 Coronary atherosclerosis I25.10
== END 2023-09-25 10:44 | disposition home or self-care (01) ==
LOC: HO.HMGC 08:57
PROVIDERS: PCP Nurse Practitioner Family; Visit Provider Nurse Practitioner Family
DX: M48.02 Spinal stenosis, cervical region (principal); I25.10 Atherosclerotic heart disease of native coronary artery without angina pectoris
CPT/HCPCS: 99213

== ENCOUNTER 2023-10-15 07:51 | Outpatient (REF) | payer OTHER, SELFPAY ==
[2023-10-15 10:09] LABS: MANUAL DIFF FLAG NO
[2023-10-15 10:15] LABS: Basophils Absolute Auto 0.1 X10*3/uL (0.0-0.2); Basophils Percent Auto 0.5 % (0-2); Eosinophils Absolute Auto 0.2 X10*3/uL (0.0-0.4); Eosinophils Percent Auto 2.5 % (0-4); Hematocrit 41.7 % (42.0-52.0); Hemoglobin 13.9 g/dl (14.0-18.0); Imm Gran Abs Auto 0.03 X10*3/uL (0.00-0.03); Imm Gran Pct Auto 0.3 % (0.0-0.4); Lymphocytes Absolute Auto 3.3 X10*3/uL (1.2-4.9); Lymphocytes Percent Auto 33.6 % (20-40); Mean Corpuscular HGB Conc 33.3 g/dl (31.0-36.0); Mean Corpuscular Hemoglobin 28.4 pg (27.0-33.0); Mean Corpuscular Volume 85.1 fL (80.0-98.0); Mean Platelet Volume 10.6 fL (9.4-12.4); Monocytes Absolute Auto 0.9 X10*3/uL (0.1-1.2); Monocytes Percent Auto 9.2 % (2-11); Neutrophils Absolute Auto 5.3 x10*3/uL (2.0-8.3); Neutrophils Percent Auto 53.9 % (45-73); Platelet Count 340 X10*3/uL (160-400); Red Cell Distribution Width 14.7 % (11.0-16.0); White Blood Count 9.8 X10*3/uL (4.8-10.8)
[2023-10-15 10:16] LABS: INTERNATIONAL NORM RATIO 0.9 (0.9-1.1); Prothrombin Time 10.5 SEC (11.1-13.3)
[2023-10-15 10:19] LABS: Partial Thromboplastin Time 31.1 SEC (26.0-36.8)
[2023-10-15 10:49] LABS: Alanine Aminotransferase 37 U/L (0-40); Albumin Level 4.3 g/dL (3.5-5.0); Alkaline Phosphatase 82 U/L (39-117); Anion Gap 12 (12-20); Aspartate Amino Transferase 19 U/L (5-37); Bilirubin Total 0.4 mg/dL (0.0-1.0); Blood Urea Nitrogen 9 mg/dL (9-16); Calcium 9.2 mg/dL (8.4-10.2); Carbon Dioxide 25 mmol/L (22-29); Chloride 105 mmol/L (96-108); Estimated Glomerular Filt Rate > 60; Glucose Random 108 mg/dL (60-115); Potassium 3.6 mmol/L (3.3-5.1); Sodium 138 mmol/L (135-145); Total Protein 7.6 g/dL (6.5-8.0)
[2023-10-15 10:52] LABS: Appearance Urine Turbid; Color Urine Yellow; Glucose Urine UA Negative (Negative); Leukocyte Esterase Urine Negative (Negative); Nitrite Urine Negative (Negative); PH 5.5 (5.0-9.0); Specific Gravity - Urine 1.025 (1.005-1.025); UMIC TRIGGER UACC YES; Urine Blood Small (1+) (Negative); Urine Ketones Trace mg/dL (Negative); Urine Protein Negative (Neg-Trace)
[2023-10-15 11:07] LABS: TSH reflex Free T4 1.16 uIU/mL (0.32-4.0)
[2023-10-15 11:18] LABS: Bacteria Urine None Seen (None Seen); Hyaline Casts Urine 0-2 /LPF (0-2); RBC Urine 0-2 /HPF (0-2); Squamous Epithelial Cell Urine 0-2 /HPF (0-2); WBC Urine 0-5 /HPF (0-5)
== END 2023-10-15 07:52 | disposition home or self-care (01) ==
LOC: HO.HMGCLDS 07:51
PROVIDERS: PCP Nurse Practitioner Family; Visit Provider Nurse Practitioner Family
DX: Z01.818 Encounter for other preprocedural examination (principal)
CPT/HCPCS: 36415; 80053; 81001; 84443; 85025; 85610; 85730

== ENCOUNTER 2023-10-17 10:44 | Outpatient (AMB) | payer OTHER, SELFPAY ==
--- NOTE | 2023-10-17 10:54 | HO.SPINEOV ---
Intake Visit Reasons: Discuss surgery Intake Note: Mr. Ravi is here today to Discuss Surgery. 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 He suffering from bilateral cervical radiculopathy with the left side more affected than the right side. An MRI shows a C6-7 disc herniation with bilateral compression of the C7 nerve roots. He was offered a total disc arthroplasty C6-7 for the following reasons, he is young and the remainder of of his spine looks unremarkable. The insurance company denied the surgery for the following reasons: No anti-inflammatories or therapy documented, no cervical x-rays to rule out instability and the total disc arthroplasty procedure was denied. The patient has been taking Tylenol. He can not take anti-inflammatories due to Plavix. He did undergo therapy in March of this year and had to discontinue due to increase of his pain. An x-ray of the cervical spine with flexion-extension show no signs of instability. The insurance company has a point when they say there is no clear evidence in a 1 level cervical surgery between an artificial disc and cervical fusion. Therefore I told the patient that we might have to switch procedure to a 1 level anterior diskectomy and fusion. He agreed to this. We will have a peer to peer review with the insurance company and hopefully it will be approved. He also needs to stop his Plavix 10 days prior to surgery and not 5 days. Thank you for allowing me take care of this patient. Eilas Duncan MD, PhD Spine Fellowship Trained Neurosurgeon Director, [facility] Coding Level of Care Code Est Pt Level 2 (79425) Diagnoses Herniation of cervical intervertebral disc with radiculopathy M50.10
== END 2023-10-17 12:07 | disposition home or self-care (01) ==
PROVIDERS: PCP Nurse Practitioner Family; Visit Provider Neurological Surgery
DX: M50.10 Cervical disc disorder with radiculopathy, unspecified cervical region (principal)
CPT/HCPCS: 99212

== ENCOUNTER 2023-10-17 10:44 | Outpatient (REF) | payer OTHER, SELFPAY ==
--- NOTE | ~2023-10-17 | XR_ITS ---
EXAMINATION: XR CERVICAL SPINE CLINICAL INFORMATION: Cervical disc disease, with radiculopathy. COMPARISON: None available. TECHNIQUE: 4 frontal and lateral views of the cervical spine, inclusive of flexion and extension views, were obtained. FINDINGS: Vertebral body heights and alignment are normal. The cervical disc spaces are well-maintained. No acute fracture or spondylolisthesis is seen. There is anterior endplate arthropathy at C6-7. No instability is seen with flexion or extension. The posterior elements are intact. The dens is intact. No prevertebral soft tissue swelling is seen. XR/XR cervical spine 4V IMPRESSION: 1. No acute fracture or spondylolisthesis is seen. 2. The cervical disc spaces are well-maintained. 3. There is anterior endplate arthropathy at C6-7. 4. No instability is seen with flexion or extension. Electronically signed by: Ryan Davis MD 11/14/2023 08:50 PM EDT
== END 2023-10-17 10:45 | disposition home or self-care (01) ==
LOC: HO.HOSX 10:44
PROVIDERS: PCP Nurse Practitioner Family; Visit Provider Neurological Surgery
DX: M50.10 Cervical disc disorder with radiculopathy, unspecified cervical region (principal)
CPT/HCPCS: 72050; 99212

== ENCOUNTER → 2023-10-18 10:39 | Outpatient (BNV) | payer OTHER, SELFPAY | PROVIDERS: PCP Nurse Practitioner Family; Visit Provider Internal Medicine Cardiovascular Disease | DX: I10 Essential (primary) hypertension (principal); Z01.810 Encounter for preprocedural cardiovascular examination; M47.812 Spondylosis without myelopathy or radiculopathy, cervical region | CPT/HCPCS: 93010 ==

== ENCOUNTER 2023-11-01 05:33 | Day surgery (SDC) | payer OTHER, SELFPAY ==
[2023-10-18 10:00] VITALS: BP 129/72; PULSE 88; RESP 16; O2SAT 97; BMI 37.0
--- NOTE | 2023-10-18 10:39 | ECG_ITS ---
Test Reason : pre op Blood Pressure : / mmHG Vent. Rate : 075 BPM Atrial Rate : 075 BPM P-R Int : 166 ms QRS Dur : 104 ms QT Int : 370 ms P-R-T Axes : 021 044 056 degrees QTc Int : 413 ms Normal sinus rhythm Normal ECG When compared with ECG of 04-OCT-2022 21:16, No significant change was found Referred By: Ayla Brower Electronically Signed By:BRAYDEN ADDISON MD
[2023-11-01] VITALS (12 sets, daily range): BP systolic 107–143; BP diastolic 62–85; PULSE 86–109; RESP 10–16; TEMP 36.1–36.7; O2SAT 93–98; BMI 36.7
[2023-11-01] MEDS: Gabapentin 300 MG CAPSULE PO (06:35)
[2023-11-01] MEDS: methocarbamoL 750 MG TABLET PO (06:35)
[2023-11-01] MEDS: Lactated Ringers 1,000 ML 100 ML IVCONT (06:56)
--- NOTE | 2023-11-01 07:18 | HO.ANESPROP2 ---
HPI - Anesthesia Eval Consult details Narrative: 38 yo M presenting for C6-7 Cervical Disc Arthroplasty. [facility] Active Problems Active Problems: All Active Problems Herniation of cervical intervertebral disc with radiculopathy (Acute) Pre-op evaluation (Acute) Cervical stenosis of spinal canal (Acute) Right leg pain (Acute) Nicotine dependence (Acute) Neck pain on left side (Acute) Dizziness (Acute) Cervical spondylosis (Acute) Impingement syndrome of left shoulder (Acute) Neck pain (Acute) Microhematuria (Acute) Physical exam (Acute) Vertigo (Acute) Palpitation (Acute) Lightheadedness (Acute) Precordial chest pain (Acute) Migraines (Acute) Hypertension (Acute) Renal artery aneurysm (Acute) Stented coronary artery (Acute) Coronary atherosclerosis (Acute) Past Medical History Medical History (Updated 10/18/23 @ 10:33 by Ani Westfall RN) Low back pain Neck pain Snores Dizziness Hyperlipemia Murmur 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) History of stent insertion of renal artery (~2008) Migraines Coronary atherosclerosis Renal artery aneurysm Hypertension Family History Family History Mother No family history of coronary artery disease Father No family history of coronary artery disease Family history of problems with anesthesia: No Surgical History Surgical History (Updated 10/18/23 @ 10:25 by Ani Westfall RN) H/O heart artery stent (~2020) Stented coronary artery History of Problems with Anesthesia: No Social History Social History (Updated 10/18/23 @ 10:24 by Ani Westfall RN) Housing: House 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 you 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 If so, by whom?: No Are you DNR?: No Advance Directives: No Advance Directives Information Provided: Yes Advance Directives on File: No Recently lost weight without trying: No Nutrition Risks: No Nutritional Risk Poor oral hygiene: Yes (full upper denture) service: No Current occupational status: unemployed Current occupation: [employer] , Left hand dominate Current occupational exposures/hazards: Yes Cognitive needs: No Hearing needs: No Vision needs: No Meds Allergies Allergy/AdvReac Type Severity Reaction Status Date / Time aspirin Allergy Severe Facial Verified 11/01/23 06:28 Swelling varenicline [From Chantix] Allergy Severe full body Verified 11/01/23 06:28 rash barium sulfate Allergy Mild Vomiting Verified 11/01/23 06:28 calomine Allergy Intermediate Rash Uncoded 11/01/23 06:28 Active Medications: Current Medications Lactated Ringer's (Lr) 1,000 mls @ 100 mls/hr IVCONT .Q10H ZIA Last Admin: 11/01/23 06:56 Dose: 100 mls/hr Home Medications ?Medication ?Instructions ?Recorded ?Confirmed ?Last Taken ?Type acetaminophen-caffeine 500 mg-65 2 tab PO QID PRN Headache 06/24/22 10/18/23 Unknown History mg tablet (Excedrin Tension Headache) Exam Exam Date and Time: November 01, 2023 0710 Height,Weight and Vital Signs: Height 5 ft 7.5 in Weight 107.955 kg Last Vital Signs Temp 98.1 F 11/01/23 06:39 Pulse 86 11/01/23 06:39 Resp 16 11/01/23 06:39 BP 143/85 H 11/01/23 06:39 Pulse Ox 98 11/01/23 06:39 O2 Del Method Room Air 11/01/23 06:39 Airway Mallampati Class: III TM Dist: >3cm Neck ROM: Poor Denture: Upper Heart: S1S2 Lungs: CTAB Assessment and Plan Assessment Anesthesia Assessment: Anesthesia Plan Discussed and Chart Reviewed Final Anesthetic Review Family History of Problems with Anesthesia: No History of Problems with Anesthesia: No NPO: Yes ASA Class: III Final Preanesthetic Review: No Changes in Pt Med Stat, Meds/Allgs Chart Reviewed, Consent Obtained/Reviewed and Anes Risks/Benef Reviewed Patient Risk: Intermediate Procedure Risk: Intermediate Anesthetic Plan Anesthetic Plan: GA and Agree w/ Assess. and Plan Disposition: Standard PACU
--- NOTE | 2023-11-01 07:25 | MHC.SHP ---
Pre-Procedural Eval Section A - 24 Hr Update-Section A only Date of Service: 11/01/23 The patient is an INPATIENT: No Changes since office visit: No Cold of Flu in the past 2 weeks, No New Medical Problems, No Changes in Medication and No Patient answered all questions The patient has been examined within 24 hours of the surgical procedure. The History & Physical has been completed within 30 days and I have reviewed it.: No Section B - Complete if H&P > 30 days Chief Complaint: Spondylosis without myelopathy or radiculopathy, c Allergies: Allergies Allergy/AdvReac Type Severity Reaction Status Date / Time aspirin Allergy Severe Facial Verified 11/01/23 06:28 Swelling varenicline [From Chantix] Allergy Severe full body Verified 11/01/23 06:28 rash barium sulfate Allergy Mild Vomiting Verified 11/01/23 06:28 calomine Allergy Intermediate Rash Uncoded 11/01/23 06:28 Review of Systems Sugical H&P ROS: Negative: Constitution, Cardiovascular, Respiratory, Neurological, Psychiatric, Hem-Onc, Allergic/Immunologic, Gastrointestinal, Genitourinary, Musculoskeletal, Integumentary, Endocrine and Eyes/Ears/Nose/Throat Exam Surgical H&P Exam: Normal: HEENT, Normal: Heart, Normal: Lungs, Normal: Extremities, Normal: Abdomen, Normal: Skin and Normal: Neurological (Awake alert oriented x3) Plan Diagnosis/Plan: Unchanged C6-7 total disc arthroplasty Time Spent With Patient Time: Total time managing care of this patient today __7__ minutes.
--- NOTE | 2023-11-01 07:26 | PM.DS ---
DS: Providers Provider Date of Service: 11/01/23 Date of discharge: 11/01/23 Primary care physician: YUNG Moreno Admitting clinician: Elias Duncan DS: Diagnosis Discharge Diagnosis (1) Herniation of cervical intervertebral disc with radiculopathy: Status: Acute DS: Summary Time Attestation Discharge Coordination Time (in mins): 6 Quality: Safe Use of Opioids Does Pt have an Active Cancer Diagnosis on the Problem List?: No Quality: Stroke Does the patient have a stroke diagnosis?: No Physical Exam Vital Signs: Vital Signs: Last Vital Signs Temp 98.1 F 11/01/23 06:39 Pulse 86 11/01/23 06:39 Resp 16 11/01/23 06:39 BP 143/85 H 11/01/23 06:39 Pulse Ox 98 11/01/23 06:39 O2 Del Method Room Air 11/01/23 06:39 BMI result Body Mass Index 36.7 Discharge Plan Discharge Patient Disposition: Home, Self-Care Referrals: Ryan Louis FNP-BC [Primary Care Provider] - 1 Week Discharge Medications: New docusate sodium [Colace] 100 mg capsule 100 mg PO BID Qty: 20 0RF oxycodone 5 mg tablet 5 mg PO Q4H PRN (Reason: pain) Qty: 30 0RF Rx Instructions: Partial Fill upon patient request. Continued valsartan 320 mg tablet 320 mg PO DAILY 90 Days Qty: 90 3RF amlodipine 10 mg tablet 10 mg PO DAILY Qty: 90 1RF hydrochlorothiazide 25 mg tablet 25 mg PO DAILY Qty: 90 1RF Excedrin Tension Headache 500-65 mg Tablet 2 tab PO QID PRN (Reason: Headache) atorvastatin 40 mg tablet 40 mg PO BEDTIME Qty: 30 5RF Held clopidogrel [Plavix] 75 mg tablet 75 mg PO DAILY Qty: 30 5RF Hold Instructions: Resume on 11/06/23. You may resume Plavix 5 days after surgery Discharge Orders: Discharge Order (Routine); Ordered 11/01/23 Ordered By: Sukhwinder Mendez Diet: Advance to usual diet Activity on Discharge: As tolerated Activity Restrictions/Additional Instructions: After your spinal surgery we ask you to observe the following restrictions/guidelines: Activity: It is normal to feel some discomfort as you increase your activity, but that will improve with time. We ask you avoid heavy lifting or acitivities that cause pain. As a general rule, 8lbs is a safe limit for lifting right after surgery. Walk as much as you feel comfortable but not to exhaustion. You will feel extra tired the first few days after surgery. Stay well hydrated. It is OK to walk up and down stairs You may return to driving when you are off narcotics (such as vicodin, oxycodone, dilaudid, etc), and you are back to normal functional capacity. If you have any concerns please check with office before driving. Return to work is specific to each patient and each surgery, so please speak with your doctor/PA at first follow up. Please bring paperwork such as FMLA at that time if you need it filled out. Medications: You may resume Plavix 5 days after surgery For optimum pain control, it is best to start with a combination of 500 mg of Tylenol every 4 hours with 600 mg of Motrin every 8 hours, and use narcotics as needed in between for breakthrough pain. We will give you a short supply of narcotics after surgery (usually one weeks worth). If you need more please call the office but do not use more than prescribed. You will need to give our office 48 hours notice if you need narcotics refilled and we do not fill narcotics on weekends or evenings. If you are on a narcotic, it is a good idea to take a stool softener such as colace or senna to avoid constipation If you take blood thinner such as aspirin, Plavix, Coumadin, Effient, Eliquis etc for conditions such as Afib, DVT, Pulmonary embolus, coronary disease, stents etc please speak with your surgeon about specific details as to when you can resume these medications. You can resume NSAIDs on post op day 1 (eg: Motrin, Naproxen, etc). Follow up: Please call the office, , after surgery to arrange a 3 week follow up for wound check. Wound Care: You may remove your dressing on the first day after surgery. ?You may ?leave open to air. Please do not remove the steri strips underneath. they will fall off on their own in one week. IT IS NORMAL FOR THE WOUND TO OOZE OR BE BLOODY FOR A FEW DAYS AFTER SURGERY. ?IF THIS HAPPENS JUST PLACE NEW DRESSING OVER IT TO AVOID STAINING CLOTHES. You may shower on post op day # 1 We ask that you do not let the water soak the wound. If it does get wet, just towel dry lightly. Please do not scrub your incision or place any type of chemical/ointment on the wound. No tub baths, pools or jacuzzis for one month. If you have any leaking or redness from your wound, or fevers, please call office Print Language: Azeri
--- NOTE | 2023-11-01 08:51 | P.OP_ITS ---
Operative Note Operative Note Date of Service: 11/01/23 Narrative: Preoperative Diagnosis: Bilateral cervical radiculopathy Procedure : C6-7 total disc arthropathy Informed Consent was obtained for this operation. I have explained the nature, purpose and benefits of the operation. I have discussed the risks and benefit of the operation including possible complications or adverse events with patient/family. Alternative(s) were discussed with the patient with their relative benefits and risks as well as the consequences of not accepting the operation were included in obtaining consent. Surgeon: SLOAN ALBARADO MD, PHD Procedure Assisted By: marino Edmond Description of Procedure: This patient is suffering from bilateral cervical radiculopathy, left more than right. An MRI shows bilateral C7 foraminal stenosis and a relatively normal quality of the other discs. The patient is young and therefore he was offered a total disc arthropathy The procedure complications were explained. The patient was consented. The patient was brought to the operating room and endotracheally intubated. The patient was put in supine position with slight extension of the neck. Prep and drape was done followed by timeout. A mid cervical incision was made followed by opening of the platysma. The prevertebral fascia was reached following the natural planes while the physician printer floor covering assistant provided manual retraction. The prevertebral fascia was opened to expose the disc space. A spinal needle was placed in the disk space to confirm the correct level with xray. The longus colli muscles were released bilaterally and a self retaining retractor was inserted. Two [place] pins were placed in the C6-7 vertebral bodies parallel to the endplates and distraction was give over the interspace. The discectomy was completed toward the posterior annulus of the disc. The microscope was brought in. The remainder of the discectomy was completed. The posterior ligament was opened and resected to expose the underlying dura. Bilateral foraminotomies were done. A trial implant was inserted to determine the correct implant size is. Then an artificial disc of sentinel spine of 17 x 40 and 5 mm height was inserted under fluoroscopic guidance. Final x-rays in AP and lateral projection showed a satisfactory position of the implant. The physician printer floor covering assistant took over. The [place] pin was removed. Hemostasis was done. He closed the incision in 2 layers with a 3-0 Vicryl. Steri-Strips used to approximate incision. An OpSite with Tegaderm was used to cover the incision. All sponge and needle counts were correct. Patient was extubated and transported in stable is to recovery room. Anesthesia: General Estimated Blood Loss (ml): 10 Duration of Surgery: 45 minutes Postoperative Plan: Discharge home Complications: None
[2023-11-01] MEDS: fentaNYL citrate/PF 100 MCG/2 ML VIAL 50 MCG IVPUSH ×2 (09:39→09:44)
== END 2023-11-01 11:34 | disposition home or self-care (01) ==
PROVIDERS: PCP Nurse Practitioner Family; Visit Provider Neurological Surgery
PROC: (CPT 22856; principal; 2023-11-01 07:30)
DX: M47.812 Spondylosis without myelopathy or radiculopathy, cervical region (principal); M50.10 Cervical disc disorder with radiculopathy, unspecified cervical region; I25.10 Atherosclerotic heart disease of native coronary artery without angina pectoris; Z95.5 Presence of coronary angioplasty implant and graft; I10 Essential (primary) hypertension; E78.5 Hyperlipidemia, unspecified; Z88.8 Allergy status to other drugs, medicaments and biological substances; F17.210 Nicotine dependence, cigarettes, uncomplicated; Z56.0 Unemployment, unspecified
CPT/HCPCS: 22856; 93005; C1776; J0131; J0690; J1100; J2250; J2405; J2704; J3010

== ENCOUNTER → 2023-11-01 05:33 | Outpatient (BNV) | payer OTHER, SELFPAY | PROVIDERS: PCP Nurse Practitioner Family; Visit Provider Physician Assistant | DX: M50.123 Cervical disc disorder at C6-C7 level with radiculopathy (principal) | CPT/HCPCS: 22856; 99499 ==

== ENCOUNTER 2023-11-08 14:38 | Outpatient (AMB) | payer OTHER, SELFPAY ==
--- NOTE | 2023-11-08 14:54 | MHC.OFFVIS ---
Vital Signs 11/08/23 15:04 Height 5 ft 7 in Weight 235 lb BMI 36.8 BP 99/64 Blood Pressure Location Rt brachial Position Sitting Pulse 92 Pulse Source Pulse Oximeter Pulse Oximetry (%) 96 Oxygen Delivery Method Room Air Intake Visit Reasons: INP-Dizziness and giddiness Intake Note: Patient presents for dizziness and giddiness. dizziness through out day at random times for about a year now. Allergies aspirin Allergy (Severe, Verified 11/08/23 15:01) Facial Swelling varenicline [From Chantix] Allergy (Severe, Verified 11/08/23 15:01) full body rash barium sulfate Allergy (Mild, Verified 11/08/23 15:01) Vomiting calomine Allergy (Intermediate, Uncoded 11/08/23 15:01) Rash Medication List - Last Reconciled 11/08/23 by ARASH Berry acetaminophen-caffeine 500-65 mg (Excedrin Tension Headache) 2 tabs PO QID PRN amlodipine 10 mg PO DAILY atorvastatin 40 mg PO BEDTIME clopidogrel (Plavix) 75 mg PO DAILY docusate sodium (Colace) 100 mg PO BID hydrochlorothiazide 25 mg PO DAILY hydrocodone-acetaminophen 10-325 mg 0.5 tabs PO Q4-6H PRN valsartan 320 mg PO DAILY 90 days HPI Comments Details: Left handed 38-yr-old male presents for new pt evaluation of possible vestibular migraine. Pt reports he started having bouts of chest pain and dizziness last Spring. 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 This was affecting his ability to work, and by Nov 2022, he had to stop working and has not been able to return to work since. He was evaluated by ENT, who suggested pt may have vestibular migraine and suggested he be seen by neuro. He describes the dizziness episode as- starts as a left facial tingling sensation, then feels a bit disoriented, then can feel not right in space x's 15 minutes up to a full day or longer. A/w mild headache or full blown headache. The dizziness can be triggered by squatting for an extended time. Bending foreword is less triggering since the neck surgery. Elevators and stairs can also trigger motion sickness. He had been having motion sickness. Prior to the neck surgery- he had 23 attacks over 17 days w/ dizziness in the prior 22 days. During this same period he had, almost daily. He has a h/o motion sickness as a child. 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 He did undergo an anterior approached C6-7 total disc arthropathy last week. PMH : [address] Kidney aneurysm at age 23. PMH and ROS are notable for:? Musculoskeletal disorders or injury: s/p neck surgery. right wrist fx- as a child. Mood d/o: Anxiety, Depression, CV disease: HTN, HLD, CT at age 35 following stressful life event. 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 : states no h/o kidney disease GI d/o: GERD- improved on diet, Constipation- as he is on post-op analgesics. Family history of migraine or other headache disorder: migraines Pertinent denials include: Respiratory d/o, Clotting or hematology d/o, Endocrine d/o, metabolic d/o, History of seizure, syncope, or drop attacks Lifestyle considerations: Sleep routine: Usual bedtime: 8:30pm-3:3:30am and wake-up time: 6am. No usual naps. Sleep difficulties: Endorses: Snoring, Fatigue, Leg Cramps. Caffeine use: [] cups per day Substance use: Tobacco- > 3 x's per day, Alcohol- social. Exercise:?walking/stairs. Employment:?filing for disability Family planning: none Headache questionnaire:? Typical headache characteristics: Prodrome symptoms: unknown Aura: blurry vision, seeing stars usually during headache. Pain intensity: severe Location, quality, characteristics: Always left eye, quaker, and left postauricular to left occipital and left neck. Associated symptoms: photophobia, phonophobia, allodynia, not right in space dizziness, lightheadedness, fatigue, cognitive difficulties, activity intolerance. Postdrome: occasional lingering s/s Triggers: none Time of day: mornings or afternoons Duration and Frequency: all day to days, has lasted as long as 7 days. How does headache impact your life? not currently working, difficult to do activities. Current acute medication use/interventions: Excedrin tension. Current preventative medication use: None Non-pharmacological interventions: Rest and Ice caps. PFSH Medical History (Updated 11/08/23 @ 21:11 by ARASH Berry) Low back pain Neck pain Snores Dizziness Hyperlipemia Murmur 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) History of stent insertion of renal artery (~2008) Migraines Coronary atherosclerosis Renal artery aneurysm Hypertension Surgical History (Updated 11/08/23 @ 15:02 by YUSUF Magallanes) History of carpal tunnel release H/O heart artery stent (~2020) Stented coronary artery Family History Mother No family history of coronary artery disease Father No family history of coronary artery disease Social History Housing: House Are you a primary child care assistant to a significant other at home: Yes (2 daughters at sister's for the post-op period) Do you presently have visiting nurse or other home services: No 75 years or older and lives alone: No Alcohol intake: current Alcohol intake frequency: holidays/special occasions only Comment: chronic dizziness Patient Tobacco Use Status: Current everyday Tobacco user Tobacco use type: Cigarette e-Cigarette/Vaping Use: Never Used Second Hand Smoke Exposure: No service: No Current occupational status: unemployed Current occupation: [employer] , Left hand dominate Current occupational exposures/hazards: Yes Cognitive needs: No Hearing needs: No Vision needs: No Physical Exam Vital Signs: Last Vital Signs Pulse 92 11/08/23 15:04 BP 99/64 11/08/23 15:04 Pulse Ox 96 11/08/23 15:04 Oxygen Delivery Method Room Air 11/08/23 15:04 BMI result Body Mass Index 36.8 Const Orientation/consciousness: patient oriented x3 Resp Effort & Inspection: normal respiratory effort and able to speak in complete sentences Neuro Other: No palpable scalp tenderness. Limited cervical ROM w/ bilateral posterior cervical tightness and tenderness. General: patient oriented x3 Cranial nerves: Yes CN's II-XII intact bilaterally Cognition (Neuro): normal cognition Gait exam (Neuro): Normal gait present Motor exam (neuro): 5/5 motor strength present throughout Deep tendon reflexes (DTR's): Right triceps reflex intensity grade: 2+, Left triceps reflex intensity grade: 2+, Rt Biceps (C5, C6): 2+, Left biceps reflex intensity grade: 2+, Right brachioradialis reflex intensity grade: 2+, Left brachioradialis reflex intensity grade: 2+, Right patellar reflex intensity grade: 2+ and Left patellar reflex intensity grade: 2+ Coordination: [id number] test normal, tandem gait normal and Romberg test negative Pupils: Normal pupillary reactivity/response: bilateral Psych Appearance: grossly normal Mental Status: mental status grossly normal Speech and movement: Normal speech and movement present Affect: normal affect Attitude: cooperative Thought process: Normal thought process present Assessment & Plan Assessment & Plan (1) Dizziness: Code(s): R42 - Dizziness and giddiness Category: Medical (2) Worsening headaches: Code(s): R51.9 - Headache, unspecified Category: Medical Plan Pt advised to undergo: Brain MRI w/ Greg IAC w/wo to assess for secondary intracranial etiologies of dizziness and worsening headaches. Future considerations: HST For overall headache management: Optimize good self-care, including but not limited to maintaining a healthy diet, adequate fluid intake, adequate sleep, and engaging in regular physical activity. Track headaches, especially after any treatment regimen changes. Migraine Scality is one of many headache tracking apps. Information shared on non-pharmacological interventions which may help to alleviate headache attack burden. For light sensitivity: Patient may benefit from trying blue light filtering glasses, green glasses, green light therapy. For sound sensitivity: Patent may benefit from trying noise cancellation ear plugs. For acute headache treatment: Discussed importance of taking acute medications at the first sign of headache, however stressed importance of avoiding acute medication overuse (especially with combined headache medications). Trial Ubrogepant (Ubrelvy) 100mg tab, 1/2 - 1 tab (50-100mg) at onset of headache, may repeat in 2 hours. Max of 2 tabs (200mg) per 24 hours. May adjunct with OTC Tylenol 650-1000mg q 4-6 hours as needed. Do not take w/ Butalbital (Fioricet or Fiorinal). Potential adverse effects, include but are not limited to fatigue, nausea, dry mouth, constipation. Previous acute migraine medication trials: Excedrin tension- ineffective. Acute migraine medication contraindications: All triptans d/t h/o CT. NSAIDs d/t ASA allergy For headache prevention medication: Preventative medications should be taken routinely as prescribed for best effect, it may take several weeks for full effect to take effect. Start Riboflavin 400mg qam Start Magnesium 400mg qhs Start Amitriptyline 10mg daily at bedtime. Potential adverse effects of TCAs, include but are not limited to fatigue, cardiac arrhythmias, mood changes. Previous migraine prevention medication trials: Migraine prevention medication contraindications: None at this time Pt seen in collaboration w/ Dr Hilda Leone. Will follow-up upon review of above and patient to follow-up in clinic in 4-6 months or sooner prn. Orders: Orders MR head/brain wo/w con 11/08/23 R42 - Dizziness and giddiness, R51.9 - Headache, unspecified Medications: New riboflavin (vitamin B2) 400 mg PO DAILY 30 tabs 6RF 30 days amitriptyline 10 mg PO BEDTIME 30 tabs 1RF 30 days magnesium oxide may hold for loose stools 400 mg PO BEDTIME 30 tabs 6RF 30 days ubrogepant (Ubrelvy) take at onset of migraine, may repeat in 2hrs (may take w/ Ibuprofen) 50 - 100 mg (0.5 - 1 x 100 mg) PO ONCE PRN 16 tabs 3RF migraine headache 30 days G43.109 - Migraine with aura, not intractable, without status migrainosus ubrogepant (Ubrelvy) take at onset of migraine, may repeat in 2hrs (may take w/ Tylenol) 50 - 100 mg (0.5 - 1 x 100 mg) PO ONCE PRN 16 tabs 3RF migraine headache 30 days G43.109 - Migraine with aura, not intractable, without status migrainosus Coding Level of Care Code New Pt Level 4 (30836) Diagnoses Dizziness R42 Worsening headaches R51.9
[2023-11-08 15:04] VITALS: BP 99/64; PULSE 92; O2SAT 96; BMI 36.8
== END 2023-11-08 16:16 | disposition home or self-care (01) ==
PROVIDERS: PCP Nurse Practitioner Family; Visit Provider Nurse Practitioner Family
DX: R42 Dizziness and giddiness (principal); R51.9 Headache, unspecified
CPT/HCPCS: 99204

== ENCOUNTER → 2023-11-08 14:38 | Outpatient (BNVA) | payer OTHER, SELFPAY | PROVIDERS: PCP Nurse Practitioner Family; Visit Provider Nurse Practitioner Family | DX: R42 Dizziness and giddiness (principal); R51.9 Headache, unspecified | CPT/HCPCS: 99202 ==

== ENCOUNTER 2023-11-22 09:56 | Outpatient (AMB) | payer OTHER, SELFPAY ==
--- NOTE | 2023-11-22 10:01 | HO.SPINEOV ---
Intake Visit Reasons: 1st post op Intake Note: Mr. Ravi is here today for his 1st post-op. Toll Bridge Attendant Required: No Allergies aspirin Allergy (Severe, Verified 11/08/23 15:01) Facial Swelling varenicline [From Chantix] Allergy (Severe, Verified 11/08/23 15:01) full body rash barium sulfate Allergy (Mild, Verified 11/08/23 15:01) Vomiting calomine Allergy (Intermediate, Uncoded 11/08/23 15:01) Rash Assessment & Plan Assessment & Plan (1) Cervical stenosis of spinal canal: Code(s): M48.02 - Spinal stenosis, cervical region Category: Medical Plan Procedure: C6-7 total disc arthroplasty Sukhwinder comes in today for his 1st postoperative visit. He reports that his left upper extremity symptoms have significantly improved since surgery. Unfortunately he does still have some residual symptoms, and states that he has a feeling of intermittent numbness/tingling in his left hand and a shooting pain in his left shoulder/deltoid area. Thankfully he reports these were present preoperatively and have lessened since his surgery. We discussed how he was likely suffering from postoperative inflammation which should recede in the coming weeks and allow her symptom improvement. In addition to this we discussed postoperative healing course and expectations moving forward. I answered all of his questions to the best of my ability. He reports that he still is using some of his Vicodin daily for pain control. He requested a partial refill. No new neurological deficits. Patient is able to ambulate well, rises from a seated position without difficulty. Incision site is closed, well healing, with no signs of drainage. We will follow-up with the patient in 6 weeks for their 2nd postoperative visit. At that time we will get x-rays to review with the patient. I partially refilled his Vicodin prescription. Mason Duncan MD,PhD [facility] Medications: Changed From hydrocodone-acetaminophen 10-325 mg Partial Fill upon patient request. 0.5 tabs PO Q4-6H PRN 21 tabs 0RF severe pain (scale score 7-10) To hydrocodone-acetaminophen 10-325 mg Partial Fill upon patient request. 0.5 tabs PO BID PRN 14 tabs 0RF severe pain (scale score 7-10) From hydrocodone-acetaminophen 10-325 mg Partial Fill upon patient request. 0.5 tabs PO BID PRN 14 tabs 0RF severe pain (scale score 7-10) To hydrocodone-acetaminophen 10-325 mg Partial Fill upon patient request. 0.5 tabs PO Q8H PRN 14 tabs 0RF severe pain (scale score 7-10) Coding Level of Care Code Global (38398) Diagnoses Cervical stenosis of spinal canal M48.02
== END 2023-11-22 10:12 | disposition home or self-care (01) ==
PROVIDERS: PCP Nurse Practitioner Family; Visit Provider Physician Assistant
DX: M48.02 Spinal stenosis, cervical region (principal)
CPT/HCPCS: 99024

== ENCOUNTER → 2023-11-22 09:56 | Outpatient (BNVA) | payer OTHER, SELFPAY | PROVIDERS: PCP Nurse Practitioner Family; Visit Provider Physician Assistant | DX: M48.02 Spinal stenosis, cervical region (principal) | CPT/HCPCS: 99212 ==

== ENCOUNTER 2023-12-03 13:38 | Outpatient (REF) | payer OTHER, SELFPAY ==
--- NOTE | ~2023-12-03 | MR_ITS ---
EXAMINATION: MR BRAIN IAC PROTOCOL WITHOUT AND WITH CONTRAST CLINICAL INFORMATION: Dizziness. Headache. Ringing ear, right-sided. COMPARISON: None available. TECHNIQUE: Multiplanar, multisequence MRI of the brain was obtained before and after the intravenous administration of 10 mL of gadolinium without reported immediate complications. FINDINGS: Cochlear and vestibular components of the intracranial nerves demonstrated no signal abnormality or enhancing mass. No enhancing lesion within the cerebellopontine angle cisterns nor the porus [id number]. No enhancing mass in the brainstem or the posterior cranial fossa contents. Flow-void signal within the main cerebral vessels is normal. The anterior inferior cerebral arteries demonstrate normal anatomy. The Kim scabies, cisternal segment 7 into 3 zones of the trigeminal nerves demonstrate no signal abnormality or enhancing mass. No restricted diffusion. No acute intracranial hemorrhage, mass effect, midline shift, hydrocephalus or herniation. Lopez-white matter differentiation is normal. Sellar/suprasellar region is normal. No enhancing lesion within the intra-axial or extra-axial compartment of the cranium based upon the axial T1 sequence. Craniocervical junction is intact and normal. Polypoid mucosal thickening, paranasal sinuses. MR/MR head/brain wo/w con IMPRESSION: No vestibular schwannoma. No enhancing mass or acute brain abnormality. Polypoid paranasal sinus disease. Electronically signed by: Gerard Huitron MD 01/08/2024 03:29 PM EDT
[2023-12-03] MEDS: gadobutroL 10 ML VIAL IVPUSH (14:36)
== END 2023-12-03 13:39 | disposition home or self-care (01) ==
LOC: HO.MRI 13:38
PROVIDERS: PCP Nurse Practitioner Family; Visit Provider Nurse Practitioner Family
DX: R42 Dizziness and giddiness (principal); R51.9 Headache, unspecified
CPT/HCPCS: 70553; A9585

== ENCOUNTER → 2023-12-03 13:38 | Outpatient (BNV) | payer OTHER, SELFPAY | PROVIDERS: PCP Nurse Practitioner Family; Visit Provider Radiology Diagnostic Radiology | DX: R42 Dizziness and giddiness (principal); R51.9 Headache, unspecified | CPT/HCPCS: 70553 ==

== ENCOUNTER 2023-12-19 10:31 | Outpatient (AMB) | payer OTHER, SELFPAY ==
[2023-12-19 10:35] VITALS: BP 98/66; PULSE 82; O2SAT 97; BMI 36.5
--- NOTE | 2023-12-19 10:35 | A.OFFPC_ITS ---
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 Accompanied by: Self / Same As Patient Allergies aspirin Allergy (Severe, Verified 12/19/23 11:34) Facial Swelling varenicline [From Chantix] Allergy (Severe, Verified 12/19/23 11:34) full body rash barium sulfate Allergy (Mild, Verified 12/19/23 11:34) Vomiting calomine Allergy (Intermediate, Uncoded 12/19/23 11:34) Rash Medication List - Last Reconciled 12/19/23 by YUNG Fang acetaminophen-caffeine 500-65 mg (Excedrin Tension Headache) 2 tabs PO QID PRN amitriptyline 10 mg PO BEDTIME 30 days amlodipine 10 mg PO DAILY atorvastatin 40 mg PO BEDTIME clopidogrel (Plavix) 75 mg PO DAILY docusate sodium (Colace) 100 mg PO BID hydrochlorothiazide 25 mg PO DAILY hydrocodone-acetaminophen 10-325 mg 0.5 tabs PO Q8H PRN magnesium oxide 400 mg PO BEDTIME 30 days riboflavin (vitamin B2) 400 mg PO DAILY 30 days ubrogepant (Ubrelvy) 50 - 100 mg (0.5 - 1 x 100 mg) PO ONCE PRN 30 days valsartan 320 mg PO DAILY 90 days Tobacco use date assessed: 06/07/23 Dental Screening Dental Screen Date: 06/07/23 HPI Annual PE+PHQ9 W/ PROVIDER INTERPRETATION HPI Details Pt is here for a PE. Will order labs. Pt underwent a C6-7 total disc arthroplasty in October. Pt is still on vicodin which is likely causing his low blood pressure. Will continue to monitor. Pt follows up with neurosurgery, cardiology, urology, and neurology. Pt reports ongoing numbness of his left hand. Will order EMG/nerve conduction testing. 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 at 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: Yes (2 daughters at sister's for the post-op period) Do you presently have visiting nurse or other home services: No 75 years or older and lives alone: No Alcohol intake: current Alcohol intake frequency: holidays/special occasions only Comment: chronic dizziness Patient Tobacco Use Status: Current everyday Tobacco user Tobacco use type: Cigarette e-Cigarette/Vaping Use: Never Used Second Hand Smoke Exposure: No service: No Current occupational status: unemployed Current occupation: [employer] , Left hand dominate Current occupational exposures/hazards: Yes Cognitive needs: No Hearing needs: No Vision needs: No Questionnaire PHQ-9 Over the last 2 weeks, how often have you been bothered by any of the following problems? 1. Little interest or pleasure in doing things: more than half the days 2. Feeling down, depressed, or hopeless: more than half the days 3. Trouble falling or staying asleep, or sleeping too much: nearly every day 4. Feeling tired or having little energy: not at all 5. Poor appetite or overeating: several days 6. Feeling bad about yourself - or that you are a failure or have let yourself or your family down: not at all 7. Trouble concentrating on things, such as reading the newspaper or watching television: several days 8. Moving or speaking so slowly that other people could have noticed. Or the opposite - being so fidgety or restless that you have been moving around a lot more than usual: several days 9. Thoughts that you would be better off or of hurting yourself in some way: not at all Total score: 10 Depression Screening Interpretation: Positive Depression Screening Follow-up: Existing condition and Declines treatment Depression Screening Done: Yes 07453 - PHQ-9 Billing: Yes Source: Developed by Drs. Florencio Tsang, Loli Rendon, Kwaku Vo and colleagues, with an educational maria from [employer]. Thrive Questionnaire Date Thrive assessed: 12/19/23 I am a: Patient What is your living situation today?: I choose not to answer this question Within the past 12 months, did the food you bought not last and you didn't have the money to get more?: I choose not to answer this question Within the past 12 months, did you worry whether your food would run out before you got money to buy more?: I choose not to answer this question Do you have trouble paying for medicines?: No Do you have trouble getting transportation to medical appointments?: No Do you have trouble paying your heating and electricity bill?: No Do you have trouble taking care of your child, family member or friend?: No Do you have trouble with day-to-day activities such as bathing, preparing meals, shopping, managing finances, etc.?: I choose not to answer this question Are you interested in more education?: No Please select the resources that you would like help with: None Currently or been in a relationship where the following occur: I choose not to answer THRIVE Score: 0 AUDIT C Alcohol Use Questionnaire (AUDIT-C) 1. How often do you have a drink containing alcohol?: 2-4 times a month 2. How many drinks containing alcohol do you have on a typical day when you are drinking?: 1 or 2 3. How often do you have six or more drinks on one occasion?: Never Total Score: 2 Score Reviewed/Action Taken: Yes LOLA-7 AMB Questionnaire LOLA-7 Date LOLA - 7 assessed: 12/19/23 Feeling nervous, anxious, or on edge: 3 = Nearly every day Not being able to stop or control worryin = Several days Worrying too much about different things: 1 = Several days Trouble relaxin = Several days Being so restless that it is hard to sit still: 1 = Several days Becoming easily annoyed or irritable: 0 = Not at all Feeling afraid as if something awful might happen: 0 = Not at all Total LOLA-7 score (0-4 normal; 5-9 mild; 10-14 moderate; 15-21 severe): 7 Source: Developed by Drs. Florencio Tsang, Loli Rendon, Kwaku Vo and colleagues, with an educational maria from [employer]. LOLA-7 Assessment Billing LOLA-7 Assessment Tool: LOLA-7 Assessment 41665 Review of Systems Const Denies chills and Denies fever(s) Eyes Denies blurry vision ENT Denies vertigo, Reports dizziness and Denies sore throat Card Denies chest pain at rest, Denies chest pain with activity, Denies diaphoresis, Denies dyspnea and Denies dyspnea on exertion Resp Denies cough, Denies dyspnea, Denies dyspnea on exertion and Denies wheezing GI Denies abdominal pain, Denies melena, Denies hematochezia, Denies constipation, Denies diarrhea and Denies loose stools Denies hematuria Musc Reports numbness Skin/Breast Denies lesions Neuro Denies vertigo, Reports dizziness and Reports numbness Psych Denies anxiety, Denies depression, Denies homicidal ideation, Denies suicidal ideation and Denies other (substance abuse) Aller/Immun Denies wheezing Physical exam (Primary Care) Vital Signs: Last Vital Signs Pulse 82 12/19/23 10:35 BP 98/66 12/19/23 10:35 Pulse Ox 97 12/19/23 10:35 Oxygen Delivery Method Room Air 12/19/23 10:35 BMI result Body Mass Index 36.5 Tobacco/Smoking Status: Tobacco use Status Tobacco use date assessed 06/07/23 12/19/23 10:36 Patient Tobacco Use Status Current everyday Tobacco 12/19/23 10:36 Tobacco use type Cigarette 12/19/23 10:36 e-Cigarette/Vaping Use Never Used 12/19/23 10:36 PHQ-9: PHQ-9 Score PHQ-9: Total score 10 12/19/23 11:16 Depression Screening Interpretation: Positive Depression Screening Follow-up: Existing condition and Declines treatment Thrive Assessment: Date of Thrive Assessment Date Thrive assessed 12/19/23 12/19/23 10:36 Currently or been in a relationship where the following occur: I choose not to answer Const General: cooperative Nutritional Appearance: well nourished Orientation/consciousness: patient oriented x3 HENMT Head: Yes normal to inspection, Yes normocephalic and Yes atraumatic Ears: TM's normal bilaterally Eyes General: appearance normal, both eyes and all related structures Alignment and Position: alignment normal and position normal Neck Neck: Yes normal visual inspection, Yes no lymphadenopathy and Yes supple Resp Effort & Inspection: normal respiratory effort Auscultation: clear to auscultation bilaterally Cardio Rate: regular rate Rhythm: regular rhythm Heart sounds: S1 normal heart sound present, S2 normal heart sound present and no murmurs GI Palpation (GI): Soft to palpation and nontender Auscultation: normal bowel sounds Male General Exam: Yes normal external exam Penis: normal penis Scrotum: scrotum normal, testes descended bilaterally and no inguinal hernias Testes: no testicular mass Skin Other: right anterior neck scar Rashes: no rashes Neuro General: patient oriented x3, moves all extremities, no focal motor deficits and deep tendon reflexes 2+ bilaterally Romberg Test: Negative Extrem Other: + phalens to left Psych Appearance: grossly normal Mental Status: mental status grossly normal Speech and movement: Normal speech and movement present Affect: normal affect Attitude: cooperative Thought process: Normal thought process present Thought content: Normal thought content present Insight: Good insight present (Psych) Judgement: Good judgement present (Psych) Coding Level of Care Code Est Pt Prev Care 18-39y(89098) Diagnoses Numbness of left hand R20.0 Encounter for routine adult physical exam with abnormal findings Additional Codes LOLA-7 Assessment Billing - LOLA-7 Assessment Tool: LOLA-7 Assessment 45815 ([id number]) Assessment & Plan Assessment & Plan (1) Numbness of left hand: Code(s): R20.0 - Anesthesia of skin Category: Medical Plan: EMG/nerve conduction testing ordered (2) Encounter for routine adult physical exam with abnormal findings: Code(s): Z. - Encounter for general adult medical examination with abnormal findings Category: Medical Plan: labs ordered Plan The patient agreed to the use of a certified medical technician assistant for this encounter. Scribed for YUNG Elizabeth by Eryn Herrera certified medical technician assistant, on 12/19/2023 at 11:15 EST. Orders: Orders Comprehensive [place]. Panel Fast Today Z. - Encounter for general adult medical examination with abnormal findings TSH reflex Free T4 Today Z. - Encounter for general adult medical ex amination with abnormal findings Lipid Panel Today Z00.01 - Encounter for general adult medical examination with abnormal findings NE electromyogram (EMG) Today R20.0 - Anesthesia of skin NE nerve conduction velocity Today R20.0 - Anesthesia of skin Complete Blood Count Auto Diff Today Z00.01 - Encounter for general adult medical examination with abnormal findings UA CC w/rflx Micro + Cult Today Z00.01 - Encounter for general adult medical examination with abnormal findings
== END 2023-12-19 11:40 | disposition home or self-care (01) ==
PROVIDERS: PCP Nurse Practitioner Family; Visit Provider Nurse Practitioner Family
DX: R20.0 Anesthesia of skin (principal); Z00.01 Encounter for general adult medical examination with abnormal findings

== ENCOUNTER → 2023-12-19 10:31 | Outpatient (BNVA) | payer OTHER, SELFPAY | PROVIDERS: PCP Nurse Practitioner Family; Visit Provider Nurse Practitioner Family | DX: Z00.01 Encounter for general adult medical examination with abnormal findings (principal); R20.0 Anesthesia of skin | CPT/HCPCS: 96127; 99395 ==

== ENCOUNTER 2024-01-02 16:13 | Outpatient (REF) | payer OTHER, SELFPAY ==
--- NOTE | ~2024-01-02 | XR_ITS ---
EXAMINATION: XR CERVICAL SPINE 4 VIEWS CLINICAL INFORMATION: Spinal stenosis, cervical region M48.02. COMPARISON: XR Cervical spine 10/17/2023 TECHNIQUE: 4 views of the cervical spine, inclusive of flexion and extension views, were obtained. FINDINGS: There is straightening of the normal cervical lordosis. There is an intervertebral disc spacer at C6-C7. Mild degenerative disc disease and facet arthropathy. The prevertebral soft tissues are unremarkable. No appreciable listhesis on flexion and extension views. Lung apices are clear. XR/XR cervical spine 4V IMPRESSION: Unremarkable examination. Electronically signed by: Florencio Johns MD 02/20/2024 09:[address] [facility]
== END 2024-01-02 16:14 | disposition home or self-care (01) ==
LOC: HO.HOSX 16:13
PROVIDERS: Visit Provider Physician Assistant
DX: M48.02 Spinal stenosis, cervical region (principal)
CPT/HCPCS: 72050

== ENCOUNTER 2024-01-03 09:07 | Outpatient (AMB) | payer OTHER, SELFPAY ==
--- NOTE | 2024-01-03 09:10 | HO.SPINEOV ---
Intake Visit Reasons: 2nd post op with Xrays Intake Note: Mr. Ravi is here for his 2nd post-op appointment with x-rays. Trust Operations Assistant Required: No Allergies aspirin Allergy (Severe, Verified 12/19/23 11:34) Facial Swelling varenicline [From Chantix] Allergy (Severe, Verified 12/19/23 11:34) full body rash barium sulfate Allergy (Mild, Verified 12/19/23 11:34) Vomiting calomine Allergy (Intermediate, Uncoded 12/19/23 11:34) Rash Assessment & Plan Assessment & Plan (1) Cervical radiculopathy: Code(s): M54.12 - Radiculopathy, cervical region Category: Medical Plan Procedure: C6-7 total disc arthroplasty Florencio comes in today for his second postoperative visit after having a C6-7 total disc completed by our service. Overall he has done well since his surgery. He reports good resolution of his neck pain in his right shoulder pain since the surgery, however unfortunately he continues to have a left-sided radiculopathy accompanied by positional numbness in his left upper extremity. He reports that overhead activities and extensive use of his upper extremities exacerbates his left-sided radiculopathy. He reports that he recently had a follow up with his primary care physician who ordered an EMG of his upper extremities to rule out carpal tunnel/cubital tunnel syndrome. We reviewed his x-ray imaging in office today which shows stable placement of the artificial disc with no changes from fluoroscopy. Florencio is able to ambulate well and rises from a seated position without difficulty. His anterior incision site appears closed and well healed. Florencio and I discussed his upper extremity symptoms during this visit and he also disclosed some longstanding low back pain and numbness in his left anterior thigh. I advised him to call our office after his EMG to discuss the results. I also informed him that we could see him again to discuss his concerns regarding his low back and hypoesthesia over the left anterior thigh. I answered all of his questions to the best of my ability. He understands and agrees to this plan. Mason Duncan MD,PhD [facility] Orders: Orders XR cervical spine 4V Today M48.02 - Spinal stenosis, cervical region Coding Level of Care Code Global (51033) Diagnoses Cervical radiculopathy M54.12
== END 2024-01-03 10:40 | disposition home or self-care (01) ==
PROVIDERS: PCP Nurse Practitioner Family; Visit Provider Physician Assistant
DX: M54.12 Radiculopathy, cervical region (principal)
CPT/HCPCS: 99024

== ENCOUNTER → 2024-01-03 09:07 | Outpatient (BNVA) | payer OTHER, SELFPAY | PROVIDERS: PCP Nurse Practitioner Family; Visit Provider Physician Assistant | DX: M54.12 Radiculopathy, cervical region (principal) | CPT/HCPCS: 99212 ==

== ENCOUNTER 2024-01-08 10:19 | Outpatient (REF) | payer OTHER, SELFPAY ==
[2024-01-08 13:23] LABS: MANUAL DIFF FLAG NO
[2024-01-08 13:23] LABS: Appearance Urine Clear; Color Urine Yellow; Glucose Urine UA Negative (Negative); Leukocyte Esterase Urine Negative (Negative); Nitrite Urine Negative (Negative); PH 5.5 (5.0-9.0); Urine Blood Negative (Negative); Urine Ketones Negative (Negative); Urine Protein Negative (Neg-Trace)
[2024-01-08 13:46] LABS: Basophils Percent Auto 0.4 % (0-2); Eosinophils Absolute Auto 0.2 X10*3/uL (0.0-0.4); Eosinophils Percent Auto 1.6 % (0-4); Hematocrit 44.5 % (42.0-52.0); Hemoglobin 14.6 g/dl (14.0-18.0); Imm Gran Abs Auto 0.04 X10*3/uL (0.00-0.03); Imm Gran Pct Auto 0.4 % (0.0-0.4); Lymphocytes Absolute Auto 2.8 X10*3/uL (1.2-4.9); Lymphocytes Percent Auto 30.2 % (20-40); Mean Corpuscular HGB Conc 32.8 g/dl (31.0-36.0); Mean Corpuscular Hemoglobin 28.5 pg (27.0-33.0); Mean Corpuscular Volume 86.7 fL (80.0-98.0); Mean Platelet Volume 10.1 fL (9.4-12.4); Monocytes Absolute Auto 0.8 X10*3/uL (0.1-1.2); Monocytes Percent Auto 9.2 % (2-11); Neutrophils Absolute Auto 5.3 x10*3/uL (2.0-8.3); Neutrophils Percent Auto 58.2 % (45-73); Platelet Count 365 X10*3/uL (160-400); Red Blood Count 5.13 X10*6/uL (4.60-5.80); Red Cell Distribution Width 15.8 % (11.0-16.0); White Blood Count 9.1 X10*3/uL (4.8-10.8)
[2024-01-08 14:07] LABS: Albumin Level 4.4 g/dL (3.5-5.0); Alkaline Phosphatase 91 U/L (39-117); Anion Gap 12 (12-20); Aspartate Amino Transferase 60 U/L (5-37); Bilirubin Total 0.5 mg/dL (0.0-1.0); Blood Urea Nitrogen 10 mg/dL (9-16); Calcium 10.4 mg/dL (8.4-10.2); Carbon Dioxide 25 mmol/L (22-29); Chloride 104 mmol/L (96-108); Cholesterol 165 mg/dL (<200); Estimated Glomerular Filt Rate > 60; Glucose Fasting 109 mg/dL (60-99); HDL Cholesterol 37 mg/dL (>40); LDL Cholesterol Calculated 84 mg/dL (<100); Potassium 4.2 mmol/L (3.3-5.1); Sodium 137 mmol/L (135-145); Total Protein 7.8 g/dL (6.5-8.0); Triglycerides 221 mg/dL (<150)
[2024-01-08 14:26] LABS: Alanine Aminotransferase 101 U/L (0-40)
[2024-01-08 14:27] LABS: TSH reflex Free T4 0.98 uIU/mL (0.32-4.0)
== END 2024-01-08 10:20 | disposition home or self-care (01) ==
LOC: HO.HMGCLDS 10:19
PROVIDERS: PCP Nurse Practitioner Family; Visit Provider Nurse Practitioner Family
DX: Z00.01 Encounter for general adult medical examination with abnormal findings (principal)
CPT/HCPCS: 36415; 80053; 80061; 81003; 84443; 85025

== ENCOUNTER 2024-01-10 12:24 | Outpatient (REF) | payer OTHER, SELFPAY ==
--- NOTE | 2024-01-10 12:27 | EMG_ITS ---
Chief complaint: Left shoulder pain and left hand numbness with certain positions. No symptoms between shoulder and wrist. Status post C6-7 surgery 11/01/2023. Reason for referral: Evaluate for radiculopathy versus Carpal Tunnel Syndrome Referred by: Ryan Oakes NP Procedure done: Left upper extremity NCS/EMG Precautions and/or limitations: Recent cervical surgery- for this reason paraspinal EMG examination deferred, not reliable to show accurate diagnostic evidence evidence The limb temperature was monitored continuously and remained between 32-36 degrees C during the performance of the NCS. Nerve Conduction Studies Anti Sensory Summary Table ?Stim Site NR Onset (ms) Norm Onset (ms) Peak (ms) Norm Peak (ms) O-P Amp (?V) Norm O-P Amp Site1 Site2 Delta-0 (ms) Dist (cm) Johnie (m/s) Norm Johnie (m/s) Left Lat Ante Brach Cutan Anti Sensory (Lat Forearm) Lat Biceps ? 1.4 1.8 8.5 Lat Biceps Lat Forearm 1.4 0.0 Left Med Ante Brach Cutan Anti Sensory (Med Forearm) Elbow ? 1.0 1.6 12.4 Elbow Med Forearm 1.0 0.0 Left Median Anti Sensory (2nd Digit) Wrist ? 2.2 3.0 <3.6 49.9 >10 Wrist 2nd Digit 2.2 14.0 64 Left Ulnar Anti Sensory (5th Digit) Wrist ? 2.4 3.0 <3.7 27.3 >15.0 Wrist 5th Digit 2.4 14.0 58 Motor Summary Table ?Stim Site NR Onset (ms) Norm Onset (ms) O-P Amp (mV) Norm O-P Amp iAmp (mV) Amp (1st) (%) Site1 Site2 Delta-0 (ms) Dist (cm) Johnie (m/s) Norm Johnie (m/s) Left Median Motor (Abd Poll Brev) Wrist ? 3.0 <3.9 11.9 >4.5 13.5 100.0 Elbow Wrist 3.9 22.0 56 >45 Elbow ? 6.9 11.9 13.6 100.0 Left Ulnar Motor (Abd Dig Minimi) Wrist ? 2.4 <3.0 9.5 >5 11.5 100.0 B Elbow Wrist 3.5 19.5 56 >45 B Elbow ? 5.9 9.2 11.3 96.8 A Elbow B Elbow 1.6 10.0 63 >45 A Elbow ? 7.5 8.7 10.9 91.6 Comparison Summary Table ?Stim Site NR Peak (ms) Norm Peak (ms) P-T Amp (?V) Site1 Site2 Delta-P (ms) Norm Delta (ms) Left Median/Radial Dig I Comparison (Digit 1 - 10cm) Median ? 2.5 <2.9 61.6 Median Radial 0.1 Radial ? 2.6 <2.8 17.5 EMG ?Side Muscle Nerve Root Ins Act Fibs Psw Amp Dur Poly Recrt Int Pat Comment Left 1stDorInt Ulnar C8-T1 Nml Nml Nml Nml Nml 0 Nml Complete Left FlexCarRad Median C6-7 Nml Nml Nml Nml Nml 0 Nml Complete Left Biceps Musculocut C5-6 Nml Nml Nml Nml Nml 0 Nml Complete Left Triceps Radial C6-7-8 Nml Nml Nml Nml Nml 0 Nml Complete Left Deltoid Axillary C5-6 Nml Nml Nml Nml Nml 0 Nml Complete FINDINGS: All motor and sensory nerves tested showed normal latencies, amplitudes and conduction velocities. Concentric needle EMG was performed in selected muscles of the left upper extremity. Study did not reveal signs of electric abnormalities as shown in the table above. IMPRESSION: 1. This is a normal study. 2. There is no electrodiagnostic evidence for median neuropathy, ulnar neuropathy, brachial plexopathy, or cervical radiculopathy. Thank you for your kind referral. Shani Zuñiga MD, SANDRA Board Certified, [place] Board of [employer] and Rehabilitation (ABPMR) Board Certified, [place] Board of Electrodiagnostic Medicine (ABEM) [place] [id number] [facility]
== END 2024-01-10 12:25 | disposition home or self-care (01) ==
LOC: HO.NEURO 12:24
PROVIDERS: PCP Nurse Practitioner Family; Visit Provider Nurse Practitioner Family
DX: R20.0 Anesthesia of skin (principal)
CPT/HCPCS: 95886; 95910

== ENCOUNTER → 2024-01-10 12:27 | Outpatient (BNV) | payer OTHER, SELFPAY | PROVIDERS: PCP Nurse Practitioner Family; Visit Provider Physical Medicine & Rehabilitation | DX: M25.512 Pain in left shoulder (principal); R20.0 Anesthesia of skin; R20.2 Paresthesia of skin | CPT/HCPCS: 95886; 95910 ==

== ENCOUNTER 2024-01-21 08:50 | Outpatient (REF) | payer OTHER, SELFPAY | END 2024-01-21 08:51 | disposition home or self-care (01) | LOC: HO.HOSX 08:50 | PROVIDERS: PCP Nurse Practitioner Family; Visit Provider Physician Assistant | DX: M54.16 Radiculopathy, lumbar region (principal) | CPT/HCPCS: 72110; 99212 ==

== ENCOUNTER 2024-01-21 08:50 | Outpatient (AMB) | payer OTHER, SELFPAY ==
--- NOTE | 2024-01-21 08:59 | HO.SPINEOV ---
Intake Visit Reasons: left side numb and burning sensation Intake Note: Mr. Ravi is here today c/o Left sided back numbness and burning sensation. Microbiology Analyst Required: No Allergies aspirin Allergy (Severe, Verified 01/21/24 09:01) Facial Swelling varenicline [From Chantix] Allergy (Severe, Verified 12/19/23 11:34) full body rash barium sulfate Allergy (Mild, Verified 12/19/23 11:34) Vomiting calomine Allergy (Intermediate, Uncoded 12/19/23 11:34) Rash Assessment & Plan Assessment & Plan (1) Lumbar radiculopathy: Code(s): M54.16 - Radiculopathy, lumbar region Category: Medical Plan Florencio is a pleasant 38-year-old male who comes in today for a established patient new complaint visit. He states that he has low back pain and burning/numbness/pain in his left lower extremity. He reports that he has noticed it more predominantly since surgery. This is likely due to the fact that he is no longer focusing on his upper extremity pain, after Dr. Duncan completed a C6-7 total disc arthroplasty on 11/01/23. When describing the pain he states that it starts in his low back shoots over his left hip into his left anterior thigh terminating just before the knee. This pain worsens with sitting in upright position, and with standing straight upright for prolonged period of time. He has to either extend his legs out or get up and walk around in order for him to have relief from the pain. He has tried at-home stretching/exercise regimen without significant relief of his symptoms. He is currently taking Excedrin to help mitigate the pain and is on Plavix so NSAIDs are not an option as they would hypocoagluate him. On examination he has 4/5 strength with left-sided iliopsoas testing. His left-sided knee flexion also has 4/5. The rest of his strength is 5/5. He has no Wilkes's. He is able to ambulate well and does not have an overly antalgic gait. (+) left-sided straight leg raise. (-) right-sided. Florencio may be suffering from a lumbar spine nerve root impingement on the left side causing burning radicular symptoms down his left leg. He has already tried quite a bit of conservative measures in order to help mitigate this pain. 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 It is also keeping him out of work and causing him to miss days or call out. I would like to send Florencio for a set of lumbar flexion/extension x-rays to ensure there is no instability and get a baseline for his lumbar spine. This is unremarkable I will obtain a lumbar MRI to evaluate for nerve root impingement as stated above. Mason Duncan MD,PhD [facility] Orders: Orders XR lumbar spine 4V min Today M54.16 - Radiculopathy, lumbar region Coding Level of Care Code Est Pt Level 3 (96491) Diagnoses Lumbar radiculopathy M54.16
== END 2024-01-21 09:16 | disposition home or self-care (01) ==
PROVIDERS: PCP Nurse Practitioner Family; Visit Provider Physician Assistant
DX: M54.16 Radiculopathy, lumbar region (principal)
CPT/HCPCS: 99213

== ENCOUNTER 2024-02-12 08:50 | Outpatient (AMB) | payer OTHER, SELFPAY ==
--- NOTE | 2024-02-12 08:51 | A.OFFVIS_ITS ---
Intake Visit Reasons: Cystoscopy(Microhematuria) Intake Note: Patient is present for Cystoscopy Urology Medication:NONE Antibiotic Allergy:BARIUM SULFA Blood Thinner:NONE Lot:[id number] Exp:01/13/27 Corporation Secretary Required: No Allergies aspirin Allergy (Severe, Verified 02/12/24 08:53) Facial Swelling varenicline [From Chantix] Allergy (Severe, Verified 02/12/24 08:53) full body rash barium sulfate Allergy (Mild, Verified 02/12/24 08:53) Vomiting calomine Allergy (Intermediate, Uncoded 02/12/24 08:53) Rash HPI Comments Details: Florencio is a pleasant male. He is a patient of Dr. Oakes. He seen for the following urologic conditions - microscopic hematuria Here for cystoscopy Persistent microscopic hematuria Had issues with scheduling 06/28/23--I have discussed CT scan results. CT urogram-06/14/2023, kidneys no renal masses or kidney stones. 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 Plan--I have discussed follow-up office cystoscopy. The patient states that in the past there was difficulty in putting a Rilye catheter in. Review of chart: 04/26/2023--Florencio is a 38-year-old male who is here for evaluation for microscopic hematuria. He denies dysuria. Past medical history significant for history of coronary artery disease, renal artery aneurysm, hypertension. Nicotine dependence I have discussed reasons for blood in the urine may include but are not limited to kidney stones, cancer in the urinary tract, kidney stone disease or inflammatory conditions of the urinary tract] [BPH]. I have discussed workup to include evaluation of the upper tracts and consideration for cystoscopy evaluation. Plan- CT urogram, consider cystoscopy on follow-up [facility] Medical History Low back pain Neck pain Snores Dizziness Hyperlipemia Murmur 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) History of stent insertion of renal artery (~2008) Migraines Coronary atherosclerosis Renal artery aneurysm Hypertension Surgical History History of carpal tunnel release H/O heart artery stent (~2020) Stented coronary artery Family History Mother No family history of coronary artery disease Father No family history of coronary artery disease Social History Housing: House Are you a primary ambulatory care coordinator to a significant other at home: Yes (2 daughters at sister's for the post-op period) Do you presently have visiting nurse or other home services: No 75 years or older and lives alone: No Alcohol intake: current Alcohol intake frequency: holidays/special occasions only Comment: chronic dizziness Patient Tobacco Use Status: Current everyday Tobacco user Tobacco use type: Cigarette e-Cigarette/Vaping Use: Never Used Second Hand Smoke Exposure: No service: No Current occupational status: unemployed Current occupation: [employer] , Left hand dominate Current occupational exposures/hazards: Yes Cognitive needs: No Hearing needs: No Vision needs: No Review of Systems Const Denies chills and Denies fever(s) Card Reports no additional complaints and Denies syncope Resp Denies cough GI Denies abdominal pain and Denies heartburn Reports as per HPI and Denies change in libido Neuro Denies syncope Psych Denies change in libido Endo Denies change in libido Physical Exam Const General: cooperative, healthy appearing, comfortable and no acute distress Orientation/consciousness: patient oriented x3 HEENT Face and sinus: Yes normal facial exam Mouth: moist mucous membranes Neck Neck: Yes normal visual inspection, Yes full ROM and Yes trachea midline Chest Chest palpation & inspection: normal inspection of the chest Resp Effort & Inspection: normal respiratory effort, able to speak in complete sentences and no respiratory distress GI Inspection: Yes normal to inspection Back/Spine/Pelvis Cervical Spine: normal cervical lordosis Thoracic/Lumbar Spine: thoracic and lumbar spine normal to inspection Skin General skin exam: no rashes or lesions noted Neuro General: patient oriented x3, gait normal, tone normal and moves all extremities Extrem General: Yes normal to inspection and Yes capillary refill normal Office Procedures Cystoscopy Consent Discussed risk and benefit or proposed procedure with the patient. Information consent for procedure given to the patient. Discussed technical aspects, risks, benefits and alternatives in full. Addressed all of the patient's questions and concerns regarding the procedure. The patient demonstrated knowledge and understanding. They wish to proceed with this procedure. Preparation The patient was prepped in the usual manner. A branch library clerk was present and in the room. Genitalia was prepped with betadine solution in a sterile manner. Lidocaine Jelly 2% was placed into the urethra and 16Fr flexible Olympus cystoscope was inserted into the meatus after adequate lubrication. Procedure Cystoscopy performed using a disposable Urovue digital 16 Telugu cystoscope. Meatus circumcised Urethra anterior and posterior urethra normal Prostatic Urethra mild hematuria on mucosa Bladder examination with retroflexion of cystoscope Bladder Orifices normal shape and position Bladder Capacity normal Trabeculations - Cellule Formation - Diverticulum Formation - Mucosal Erythema - Bladder Tumor - [id number] Procedure code (CPT) selection complete Office Meds lidocaine HCl 2 % mucosal jelly in applicator Performing Provider: Deonte Westbrook MD Performing Location: [facility] [place] [facility] Administered by: Deonte Westbrook MD on 02/12/24 09:42 Dose Route Admin Location Dispensed Lot Number Expiration Date [facility] Re Recording Mixer 10 mL intra-urethral 10 mL Results AMB Urinalysis, Automated UA Leukoctes 0 Angus/uL Last Edit by ABDULAZIZ Cunha on 02/12/24 09:04 UA Nitrite Negative Last Edit by ABDULAZIZ Cunha on 02/12/24 09:04 UA Urobilinogen 0.2 mg/dL Last Edit by ABDULAZIZ Cunha on 02/12/24 09:0 4 UA Protein 15 mg/dL Last Edit by ABDULAZIZ Cunha on 02/12/24 09:04 UA pH 6.0 Last Edit by ABDULAZIZ Cunha on 02/12/24 09:04 UA Blood 80 Jonathan/uL Last Edit by ABDULAZIZ Cunha on 02/12/24 09:04 UA Specific [place] 1.025 Last Edit by ABDULAZIZ Cunha on 02/12/24 09: 04 UA Ketone Negative Last Edit by ABDULAZIZ Cunha on 02/12/24 09:04 UA Bilirubin 0 mg/dL Last Edit by ABDULAZIZ Cunha on 02/12/24 09:04 UA Glucose 0 mg/dL Last Edit by ABDULAZIZ Cunha on 02/12/24 09:04 Results Reviewed Results Reviewed: Laboratory Last Values Urine pH (Auto) 6.0 02/12/24 09:04 Specific [place] (Auto) 1.025 02/12/24 09:04 Urine Protein (Auto) 15 mg/dL 02/12/24 09:04 Glucose (UA)(Auto) 0 mg/dL 02/12/24 09:04 Urine Ketones (Auto) Negative 02/12/24 09:04 Urine Blood (Auto) 80 Jonathan/uL 02/12/24 09:04 Urine Nitrite (Auto) Negative 02/12/24 09:04 Urine Bilirubin (Auto) 0 mg/dL 02/12/24 09:04 Urine Urobilinogen (Auto) 0.2 mg/dL 02/12/24 09:04 Leukocyte Esterase (Auto) 0 Angus/uL 02/12/24 09:04 Assessment & Plan Assessment & Plan (1) Microhematuria: Code(s): R31.29 - Other microscopic hematuria Category: Medical Plan Six-month follow-up UA office Orders: Orders AMB Urinalysis Automated Today Z13.9 - Encounter for screening, unspecified AMB Cystoscopy Today R31.29 - Other microscopic hematuria Medications: New lidocaine HCl 2% 10 mL intra-urethral ONCE 10 mL 0RF R31.29 - Other microscopic hematuria Patient Instructions: Imaging studies, laboratory and physical exam results were discussed and reviewed in detail. No major barriers to patient understanding were identified. An opportunity to ask questions regarding the treatment plan was provided. All questions were answered. The patient expressed understanding and agreement with the above treatment plan. The patient is aware they should contact our office by phone for worsening of their current condition or the appearance of new urologic symptoms. Compliance is encouraged with any medications and followup testing that is ordered. It is a privilege to participate in the urologic care of your patient. If you have any questions or concerns regarding treatment for the above conditions, or other urologic issues, please do not hesitate to contact me. The office telephone contact is [phone]. This note is constructed using voice recognition software. While every effort has been made to ensure accuracy box strapper errors may have been included. Yours sincerely, Dr Deonte Westbrook MD, [facility] - Urology Providers of Expert, Compassionate Care for the Genitourinary System Coding Level of Care Code Est Pt Level 3 (20714) Diagnoses Microhematuria R31.29 CPT Codes Cystoscopy - CPT: 24628-[id number] ([id number])
== END 2024-02-12 09:47 | disposition home or self-care (01) ==
PROVIDERS: PCP Nurse Practitioner Family; Visit Provider Urology
DX: Z13.9 Encounter for screening, unspecified (principal); R31.29 Other microscopic hematuria
CPT/HCPCS: 52000

== ENCOUNTER → 2024-02-12 08:50 | Outpatient (BNVA) | payer OTHER, SELFPAY | PROVIDERS: PCP Nurse Practitioner Family; Visit Provider Urology | DX: R31.29 Other microscopic hematuria (principal) | CPT/HCPCS: 52000; 81003 ==

== ENCOUNTER 2024-02-21 08:19 | Outpatient (AMB) | payer OTHER, SELFPAY ==
--- NOTE | 2024-02-21 08:30 | MHC.OFFVIS ---
Intake Visit Reasons: Left shoulder pain and weakness Intake Note: Florencio is a 39 year old male who presents with complaints of progressively worsening left shoulder pain and weakness. The patient describes his pain as sharp in nature. Most of the pain is along the lateral aspect of his left shoulder. The patient did injure his left shoulder approximately 1 year ago while lifting heavy objects. He has failed the last 6 weeks of conservative treatment which has included physical therapy, Tylenol, topical creams and anti-inflammatory medicines. He reports weakness when lifting his left hand above shoulder height. He did undergo cervical spine surgery on 11/01/2023. He reports minimal discomfort in his neck. He denies any fevers or chills. Allergies aspirin Allergy (Severe, Verified 02/21/24 08:34) Facial Swelling varenicline [From Chantix] Allergy (Severe, Verified 02/21/24 08:34) full body rash barium sulfate Allergy (Mild, Verified 02/21/24 08:34) Vomiting calomine Allergy (Intermediate, Uncoded 02/21/24 08:34) Rash Medication List - Last Reconciled 02/21/24 by Anthony Sutton MD acetaminophen-caffeine 500-65 mg (Excedrin Tension Headache) 2 tabs PO QID PRN amitriptyline 10 mg PO BEDTIME 30 days amlodipine 10 mg PO DAILY atorvastatin 40 mg PO BEDTIME clopidogrel (Plavix) 75 mg PO DAILY docusate sodium (Colace) 100 mg PO BID hydrochlorothiazide 25 mg PO DAILY hydrocodone-acetaminophen 10-325 mg 0.5 tabs PO Q8H PRN magnesium oxide 400 mg PO BEDTIME 30 days ubrogepant (Ubrelvy) 50 - 100 mg (0.5 - 1 x 100 mg) PO ONCE PRN 30 days valsartan 320 mg PO DAILY 90 days [facility] Medical History Low back pain Neck pain Snores Dizziness Hyperlipemia Murmur 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) History of stent insertion of renal artery (~2008) Migraines Coronary atherosclerosis Renal artery aneurysm Hypertension Surgical History History of carpal tunnel release H/O heart artery stent (~2020) Stented coronary artery Family History Mother No family history of coronary artery disease Father No family history of coronary artery disease Social History Housing: House Are you a 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 home 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 music 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 to a significant other at home: Yes (2 daughters at sister's for the post-op period) Do you presently have visiting nurse or other home services: No 75 years or older and lives alone: No Alcohol intake: current Alcohol intake frequency: holidays/special occasions only Comment: chronic dizziness Patient Tobacco Use Status: Current everyday Tobacco user Tobacco use type: Cigarette e-Cigarette/Vaping Use: Never Used Second Hand Smoke Exposure: No service: No Current occupational status: unemployed Current occupation: [employer] , Left hand dominate Current occupational exposures/hazards: Yes Cognitive needs: No Hearing needs: No Vision needs: No Physical Exam Const Other: Well-nourished well-developed very friendly male awake alert and oriented x3 in no acute distress Extrem Other: Left shoulder examination shows decreased range of motion when compared to his right shoulder, 4+ out of 5 strength with supraspinatus testing, positive impingement signs, tenderness over his acromioclavicular joint, no instability Results Reviewed Results Reviewed: X-rays of the patient's left shoulder show severe acromioclavicular joint narrowing, a type 3 acromion, no acute bony abnormalities Assessment & Plan Assessment & Plan (1) Rotator cuff insufficiency of left shoulder: Code(s): M25.312 - Other instability, left shoulder Category: Medical Plan Mr. Ravi presents with progressively worsening left shoulder pain and weakness due to impingement syndrome and possible rotator cuff tearing. I will send the patient for an MRI of his left shoulder for further evaluation. I will see him back once the MRI is completed to discuss the findings and treatment options. Feel free to call me at any time should questions regarding his orthopedic management arise. I spent 22 minutes in reviewing the patient's records and imaging studies, seeing the patient and documenting in the medical record. Orders: Orders MR rodríguez LT wo con Today M25.312 - Other instability, left shoulder Coding Level of Care Code Est Pt Level 3 (01806) Complex EM visit Add On G2211 Diagnoses Rotator cuff insufficiency of left shoulder M25.312
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
== END 2024-02-21 08:39 | disposition home or self-care (01) ==
PROVIDERS: PCP Nurse Practitioner Family; Visit Provider Orthopaedic Surgery
DX: M25.312 Other instability, left shoulder (principal)
CPT/HCPCS: 99213; G2211

== ENCOUNTER → 2024-02-21 08:19 | Outpatient (BNVA) | payer OTHER, SELFPAY | PROVIDERS: PCP Nurse Practitioner Family; Visit Provider Orthopaedic Surgery | DX: M25.312 Other instability, left shoulder (principal); M25.512 Pain in left shoulder | CPT/HCPCS: 99212 ==

== ENCOUNTER 2024-02-22 11:04 | Outpatient (REF) | payer OTHER, SELFPAY ==
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
--- OUTSIDE RECORDS SUMMARY | 2024-02-22 11:07 | XMS_ITS | Continuity of Care Document ---
Author Organization [facility] Address [address] [place] [address] Phone Care Team Providers Care Service Learning Coordinator Name Role Phone No Information Unavailable Unavailable Advance Directives Directive Yes / No Effective Date File Name No Information Encounters Encounter Description Practice Location Reason(s) For Visit Diagnoses Date Provider Providers Copied on Encounter [facility], [address] [place], [place], [id number], [place] tel:[phone] No Information No Information Family History Family Member Type Diagnosis Age At Onset No Information Payers Payer name Insurance type Covered democrat ID Authoriza tion(s) No Information Social History [...]
== END 2024-02-22 11:05 | disposition home or self-care (01) ==
LOC: HO.MRI 11:04
PROVIDERS: PCP Nurse Practitioner Family; Visit Provider Physician Assistant
DX: M54.16 Radiculopathy, lumbar region (principal)
CPT/HCPCS: 72148

== ENCOUNTER 2024-03-10 15:10 | Outpatient (REF) | payer OTHER, SELFPAY | END 2024-03-10 15:11 | disposition home or self-care (01) | LOC: HO.MRI 15:10 | PROVIDERS: PCP Nurse Practitioner Family; Visit Provider Orthopaedic Surgery | DX: M25.312 Other instability, left shoulder (principal) | CPT/HCPCS: 73221 ==

== ENCOUNTER → 2024-03-10 15:17 | Outpatient (BNV) | payer OTHER, SELFPAY | PROVIDERS: PCP Nurse Practitioner Family; Visit Provider Radiology Diagnostic Radiology | DX: M25.312 Other instability, left shoulder (principal) | CPT/HCPCS: 73221 ==

== ENCOUNTER 2024-04-02 08:34 | Outpatient (AMB) | payer OTHER, SELFPAY ==
[2024-04-02 08:38] VITALS: BMI 36.5
--- NOTE | 2024-04-02 08:38 | A.OFFVIS_ITS ---
Vital Signs 04/02/24 08:38 Height 5 ft 7 in Weight 233 lb BMI 36.5 Intake Visit Reasons: OV- Left shoulder MRI review Intake Note: Florencio is a 39 year old male who presents with complaints of progressively worsening left shoulder pain. The patient describes his pain as sharp in nature. Most of the pain is along the lateral aspect of his left shoulder. The patient did injure his left shoulder approximately 1 year ago while lifting heavy objects. He has failed the last 6 weeks of conservative treatment which has included physical therapy, Tylenol, topical creams and anti-inflammatory medicines. He reports weakness when lifting his left hand above shoulder height. He did undergo cervical spine surgery on 11/01/2023. He reports minimal discomfort in his neck. He denies any fevers or chills. Allergies aspirin Allergy (Severe, Verified 04/02/24 08:38) Facial Swelling varenicline [From Chantix] Allergy (Severe, Verified 04/02/24 08:38) full body rash barium sulfate Allergy (Mild, Verified 04/02/24 08:38) Vomiting calomine Allergy (Intermediate, Uncoded 04/02/24 08:38) Rash Medication List - Last Reconciled 04/02/24 by Anthony Sutton MD acetaminophen-caffeine 500-65 mg (Excedrin Tension Headache) 2 tabs PO QID PRN amitriptyline 10 mg PO BEDTIME 30 days amlodipine 10 mg PO DAILY atorvastatin 40 mg PO BEDTIME clopidogrel (Plavix) 75 mg PO DAILY docusate sodium (Colace) 100 mg PO BID hydrochlorothiazide 25 mg PO DAILY hydrocodone-acetaminophen 10-325 mg 0.5 tabs PO Q8H PRN magnesium oxide 400 mg PO BEDTIME 30 days ubrogepant (Ubrelvy) 50 - 100 mg (0.5 - 1 x 100 mg) PO ONCE PRN 30 days valsartan 320 mg PO DAILY 90 days PFSH Medical History Low back pain Neck pain Snores Dizziness Hyperlipemia Murmur 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) History of stent insertion of renal artery (~2008) Migraines Coronary atherosclerosis Renal artery aneurysm Hypertension Surgical History History of carpal tunnel release H/O heart artery stent (~2020) Stented coronary artery Family History Mother No family history of coronary artery disease Father No family history of coronary artery disease Social History Housing: House Are you 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 financial 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 to a significant other at home: Yes (2 daughters at sister's for the post-op period) Do you presently have visiting nurse or other home services: No 75 years or older and lives alone: No Alcohol intake: current Alcohol intake frequency: holidays/special occasions only Comment: chronic dizziness Patient Tobacco Use Status: Current everyday Tobacco user Tobacco use type: Cigarette e-Cigarette/Vaping Use: Never Used Second Hand Smoke Exposure: No service: No Current occupational status: unemployed Current occupation: [employer] , Left hand dominate Current occupational exposures/hazards: Yes Cognitive needs: No Hearing needs: No Vision needs: No Physical Exam Vital Signs: BMI result Body Mass Index 36.5 Const Other: Well-nourished well-developed very friendly male awake alert and oriented x3 in no acute distress Extrem Other: Bilateral upper extremity examination shows good capillary refill, no skin lesions noted, normal sensation light touch Left shoulder examination shows decreased range of motion when compared to his right shoulder, 4+ out of 5 strength with supraspinatus testing, positive impingement signs, no instability Results Reviewed Results Reviewed: MRI of the patient's left shoulder show severe acromioclavicular joint narrowing, a type 2 acromion, signal change within the supraspinatus tendon most likely due to adhesive capsulitis Assessment & Plan Assessment & Plan (1) Impingement syndrome of left shoulder: Code(s): M75.42 - Impingement syndrome of left shoulder Category: Medical Plan Mr. Ravi presents with left shoulder pain and stiffness due to impingement syndrome, acromioclavicular joint arthritis and adhesive capsulitis. I had a lengthy discussion with the patient regarding the options. At this point he has failed continued non operative treatments. The risks and benefits of left shoulder surgery were discussed at length with the patient. The patient wishes to proceed with surgery. Surgery will most likely involve left shoulder diagnostic arthroscopy with distal clavicle excision, acromioplasty, capsular release and manipulation under anesthesia. The patient will be scheduled for next available date. Will follow-up as instructed. Feel free to call me at any time should questions regarding his orthopedic management arise. I spent 22 minutes in reviewing the patient's records and imaging studies, seeing the patient and documenting in the medical record. Coding Level of Care Code Est Pt Level 3 (43112) Complex EM visit Add On G2211 Diagnoses Impingement syndrome of left shoulder M75.42
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
== END 2024-04-02 09:00 | disposition home or self-care (01) ==
PROVIDERS: PCP Nurse Practitioner Family; Visit Provider Orthopaedic Surgery
DX: M75.42 Impingement syndrome of left shoulder (principal)
CPT/HCPCS: 99213; G2211

== ENCOUNTER → 2024-04-02 08:34 | Outpatient (BNVA) | payer OTHER, SELFPAY | PROVIDERS: PCP Nurse Practitioner Family; Visit Provider Orthopaedic Surgery | DX: M75.42 Impingement syndrome of left shoulder (principal) | CPT/HCPCS: 99212 ==

== ENCOUNTER → 2024-04-17 14:37 | Outpatient (BNVA) | payer OTHER, SELFPAY | PROVIDERS: PCP Nurse Practitioner Family; Visit Provider Nurse Practitioner Family | DX: Z01.810 Encounter for preprocedural cardiovascular examination (principal); I11.9 Hypertensive heart disease without heart failure; E66.9 Obesity, unspecified; I25.10 Atherosclerotic heart disease of native coronary artery without angina pectoris; I25.2 Old myocardial infarction; I72.2 Aneurysm of renal artery; Z68.37 Body mass index [BMI] 37.0-37.9, adult; Z95.5 Presence of coronary angioplasty implant and graft; Z98.890 Other specified postprocedural states | CPT/HCPCS: 93005; 99212 ==

== ENCOUNTER 2024-05-23 10:38 | Day surgery (SDC) | payer OTHER, SELFPAY ==
[2024-05-12 12:09] VITALS: BP 143/94; PULSE 92; RESP 16; O2SAT 97; BMI 37.3
--- NOTE | 2024-05-12 12:21 | P.CONAN_ITS ---
Documented by User: Twyla Freeman NP 05/21/24 12:29 HPI - Anesthesia Eval Consult details Narrative: 39yo M for Left Shoulder Arthroscopy, distal clavicle excision, acromioplasty, capsular release, manipulation, 05/23/[address] 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, coronary artery disease, NSTEMI, circumflex [place] [facility] [place]/p Cspine surgery 10/2023 with GA-ETT 7 No recent illness No CP/SOB with minimal activity PMFSH Active Problems Active Problems: All Active Problems Preop cardiovascular exam (Acute) Rotator cuff insufficiency of left shoulder (Acute) Lumbar radiculopathy (Acute) Paranasal sinus disease (Acute) Elevated LFTs (Acute) Cervical radiculopathy (Acute) Encounter for routine adult physical exam with abnormal findings (Acute) Numbness of left hand (Acute) Worsening headaches (Acute) Migraine with aura (Acute) Herniation of cervical intervertebral disc with radiculopathy (Acute) Pre-op evaluation (Acute) Cervical stenosis of spinal canal (Acute) Right leg pain (Acute) Nicotine dependence (Acute) Neck pain on left side (Acute) Dizziness (Acute) Cervical spondylosis (Acute) Impingement syndrome of left shoulder (Acute) Neck pain (Acute) Microhematuria (Acute) Physical exam (Acute) Vertigo (Acute) Palpitation (Acute) Lightheadedness (Acute) Precordial chest pain (Acute) History of stent insertion of renal artery (Acute ~2008) Migraines (Acute) Hypertension (Acute) Renal artery aneurysm (Acute) Stented coronary artery (Acute) Coronary atherosclerosis (Acute) Past Medical History Medical History Myocardial infarction Cervical spondylosis Low back pain Neck pain Snores Dizziness Hyperlipemia Murmur 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) History of stent insertion of renal artery (~2008) Migraines Coronary atherosclerosis Renal artery aneurysm Hypertension Family History Family History Mother No family history of coronary artery disease Father No family history of coronary artery disease Family history of problems with anesthesia: No Surgical History Surgical History Hx of neck surgery History of carpal tunnel release Stented coronary artery History of Problems with Anesthesia: No Social History Social History Household Members Other:: minor children/lives in alf Housing: House Are you a primary animal daycare provider to a significant other at home: Yes (has caregiver in place for children DOS) Do you presently have visiting nurse or other home services: No Alcohol intake: current Alcohol intake frequency: does not drink Comment: chronic dizziness Patient Tobacco Use Status: Current someday Tobacco user Tobacco use type: Cigarette Cigarettes Per Day: 2 Years Smoked: 22 e-Cigarette/Vaping Use: Never Used Second Hand Smoke Exposure: No Use of substances other than those prescribed or required for medical reasons: No Have you been hit, kicked, punched, or otherwise hurt by someone within the past year? If so, by whom?: No Spiritual Healthcare Practices: none Mu-Ism Healthcare Practices: none Cultural Healthcare Practices: none Are you DNR?: No Advance Directives: No (states father is primary contact) Advance Directives Information Provided: Yes (as above noted) Advance Directives on File: No Recently lost weight without trying: No Eating poorly because of decreased appetite: No Nutrition Risks: No Nutritional Risk Poor oral hygiene: No (edentulous) service: No Current occupational status: unemployed Current occupation: [employer] , Left hand dominate Current occupational exposures/hazards: Yes Cognitive needs: No Hearing needs: No Vision needs: No Meds Allergies Allergy/AdvReac Type Severity Reaction Status Date / Time aspirin Allergy Severe Facial Verified 04/17/24 14:46 Swelling oxycodone Allergy Severe severe Verified 05/12/24 12:05 pain/redness of testicles varenicline [From Chantix] Allergy Severe full body Verified 04/17/24 14:46 rash calamine Allergy Intermediate Rash Verified 05/09/24 12:41 barium sulfate Allergy Mild Vomiting Verified 04/17/24 14:46 Home Medications ?Medication ?Instructions ?Recorded ?Confirmed ?Last Taken ?Type acetaminophen-caffeine 500 mg-65 2 tab PO QID PRN Headache 06/24/22 05/12/24 05/20/24 History mg tablet (Excedrin Tension Headache) riboflavin (vitamin B2) 400 mg 400 mg PO QAM 05/09/24 05/12/24 Unknown History tablet amlodipine 10 mg tablet 10 mg PO QAM 05/12/24 05/12/24 05/23/24 History hydrochlorothiazide 25 mg tablet 25 mg PO QAM 05/12/24 05/12/24 Unknown History valsartan 320 mg tablet 320 mg PO QAM 05/12/24 05/12/24 Unknown History Exam Height,Weight and Vital Signs: Height 5 ft 7 in Weight 107.955 kg Last Vital Signs Pulse 92 05/12/24 12:09 Resp 16 05/12/24 12:09 BP 143/94 H 05/12/24 12:09 Pulse Ox 97 05/12/24 12:09 O2 Del Method Room Air 05/12/24 12:09 Pertinent Lab Results Pertinent Lab Results: Laboratory Tests 01/08/24 10:30 WBC 9.1 Hgb 14.6 Hct 44.5 Plt Count 365 Sodium 137 Potassium 4.2 Chloride 104 Carbon Dioxide 25 BUN 10 Creatinine 1.07 Narrative Narrative: EKG 04/2024 Details: normal sinus rhythm, LVH with repolarization abnormality, rate 85, QTC 428 millisecond ECHO 2022 Conclusions: - The left ventricular systolic function is normal. The calculated ejection fraction is 57% by biplane method. - Moderate to severe concentric left ventricular hypertrophy. - No obvious valvular pathology seen on this study. NM cardiolite stress test 2022 IMPRESSION: 1. Myocardial perfusion imaging study shows probably normal myocardial perfusion. No definitive evidence of any ischemia or infarction. 2. Gated LVEF is 57% during stress and 55% during rest. 3. Transient ischemic dilatation not present. EKG component of the test reported separately. Airway TM Dist: >3cm Neck ROM: Limited Loose/Missing/Broken Teeth: Yes (edentulous - awaiting denture) Heart: RRR Lungs: CTAB Assessment and Plan Assessment Anesthesia Assessment: Anesthesia Plan Discussed, Smoking Cess. Discussed and PAT Visit Final Anesthetic Review Family History of Problems with Anesthesia: No History of Problems with Anesthesia: No Documented by User: Ayla Brower MD 05/23/24 12:12 [facility] Past Medical History Medical History Myocardial infarction Cervical spondylosis Low back pain Neck pain Snores Dizziness Hyperlipemia Murmur 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) History of stent insertion of renal artery (~2008) Migraines Coronary atherosclerosis Renal artery aneurysm Hypertension Family History Family History Mother No family history of coronary artery disease Father No family history of coronary artery disease Surgical History Surgical History Hx of neck surgery History of carpal tunnel release Stented coronary artery Social History Social History Household Members Other:: minor children/lives in alf Housing: House Are you a primary animal daycare provider to a significant other at home: Yes (has caregiver in place for children DOS) Do you presently have visiting nurse or other home services: No Alcohol intake: current Alcohol intake frequency: does not drink Comment: chronic dizziness Patient Tobacco Use Status: Current someday Tobacco user Tobacco use type: Cigarette Cigarettes Per Day: 2 Years Smoked: 22 e-Cigarette/Vaping Use: Never Used Second Hand Smoke Exposure: No Use of substances other than those prescribed or required for medical reasons: No Have you been hit, kicked, punched, or otherwise hurt by someone within the past year? If so, by whom?: No Spiritual Healthcare Practices: none Mu-Ism Healthcare Practices: none Cultural Healthcare Practices: none Are you DNR?: No Advance Directives: No (states father is primary contact) Advance Directives Information Provided: Yes (as above noted) Advance Directives on File: No Recently lost weight without trying: No Eating poorly because of decreased appetite: No Nutrition Risks: No Nutritional Risk Poor oral hygiene: No (edentulous) service: No Current occupational status: unemployed Current occupation: [employer] , Left hand dominate Current occupational exposures/hazards: Yes Cognitive needs: No Hearing needs: No Vision needs: No Meds Allergies Allergy/AdvReac Type Severity Reaction Status Date / Time aspirin Allergy Severe Facial Verified 04/17/24 14:46 Swelling oxycodone Allergy Severe severe Verified 05/12/24 12:05 pain/redness of testicles varenicline [From Chantix] Allergy Severe full body Verified 04/17/24 14:46 rash calamine Allergy Intermediate Rash Verified 05/09/24 12:41 barium sulfate Allergy Mild Vomiting Verified 04/17/24 14:46 Home Medications ?Medication ?Instructions ?Recorded ?Confirmed ?Last Taken ?Type acetaminophen-caffeine 500 mg-65 2 tab PO QID PRN Headache 06/24/22 05/12/24 05/20/24 History mg tablet (Excedrin Tension Headache) riboflavin (vitamin B2) 400 mg 400 mg PO QAM 05/09/24 05/12/24 Unknown History tablet amlodipine 10 mg tablet 10 mg PO QAM 05/12/24 05/12/24 05/23/24 History hydrochlorothiazide 25 mg tablet 25 mg PO QAM 05/12/24 05/12/24 Unknown History valsartan 320 mg tablet 320 mg PO QAM 05/12/24 05/12/24 Unknown History Exam Airway Mallampati Class: III Assessment and Plan Final Anesthetic Review NPO: Yes ASA Class: III Final Preanesthetic Review: No Changes in Pt Med Stat, Meds/Allgs Chart Reviewed, Consent Obtained/Reviewed and Anes Risks/Benef Reviewed Patient Risk: Intermediate Procedure Risk: Intermediate Anesthetic Plan Anesthetic Plan: GA and Regional Block Disposition: Standard PACU
[2024-05-23] VITALS (8 sets, daily range): BP systolic 104–132; BP diastolic 65–85; PULSE 77–84; RESP 12–19; TEMP 36.1–36.9; O2SAT 97–98; BMI 37.3
[2024-05-23] MEDS: Lactated Ringers 1,000 ML 100 ML IVCONT (11:06)
[2024-05-23] MEDS: ceFAZolin Sodium/Dextrose,Iso 2 GM/50 ML PIGGYBACK IV (12:50)
[2024-05-23] MEDS: Acetaminophen 1,000 MG/100 ML PIGGYBACK 400 MG IV (12:50)
--- NOTE | 2024-05-23 14:33 | P.BOP_ITS ---
Brief Operative Note Date of Service: 05/23/24 Pre-op diagnosis: Left shoulder impingement syndrome, left shoulder acromioclavicular joint arthritis, left shoulder adhesive capsulitis Post-op diagnosis: same Procedure: Left shoulder diagnostic arthroscopy with left shoulder arthroscopic distal clavicle excision, left shoulder arthroscopic acromioplasty, left shoulder arthroscopic anterior capsular release, left shoulder manipulation under anesthesia Implants: None Surgeon: Anthony Sutton MD Anesthesia: GETA and regional Was an Water Plant Maintenance Mechanic used for this Procedure?: No Estimated blood loss (mL): 15 Pathology: none sent Condition: stable Disposition: PACU
--- NOTE | 2024-05-23 14:34 | P.OP_ITS ---
Operative Note Operative Note Date of Service: 05/23/24 Narrative: After the patient was identified as Florencio Ravi and his left shoulder was initialed by myself the patient was brought to the holding area where a left shoulder interscalene regional block was performed by the anesthesiologist in routine fashion. The patient was then brought to the operating room where general anesthesia was induced by the anesthesiologist in routine fashion. The patient was given 2 g of IV Ancef preoperatively for infection prophylaxis. Examination under anesthesia of the patient's left shoulder showed decreased range of motion when compared to the right shoulder. The patient's left shoulde r had forward flexion to 140 degrees compared to 170 degrees, external rotation to 30 degrees compared to 60 degrees, and internal rotation to 40 degrees compared to 50 degrees. The patient was gently positioned in the beach chair position with all bony prominences well padded. The patient's left shoulder region and upper extremity were prepped and draped in sterile fashion. A formal time-out was completed. A #11 scalpel blade was used to make a posterior portal 2 cm inferior and 1 cm medial to the posterolateral corner of the acromion. Blunt trocar technique was used to enter the glenohumeral joint in routine fashion. An anterior portal was made just lateral to the coracoid process after proper positioning was confirmed using a spinal needle. Diagnostic arthroscopy showed minimal degenerative changes of the glenoid and humeral head articular surfaces. There was no evidence of rotator cuff tearing. There was no evidence of injury to the biceps tendon or its insertion onto the glenoid. There was inflammation of the anterior joint capsule consistent with adhesive capsulitis. The ArthroCare Wand was then used to perform an anterior capsular release between the inferior border of the biceps tendon and the superior border of the subscapularis tendon. The arthroscope was then placed from the posterior portal into the subacromial space. A lateral portal was made 2 fingerbreadths lateral to the anterior lateral corner of the acromion. The ArthroCare Wand was used to ablate soft tissues along the undersurface of the acromion as well as to excise the coracoacromial ligament. There was a sharp spur along the undersurface of the acromion which was removed using the hooded bur. The arthroscope was then placed into the lateral portal and the acromioplasty was completed with the bur in the posterior portal using the posterior aspect of the acromion as a cutting block. The ArthroCare Wand was then brought in through the anterior portal and was used to ablate soft tissues along the acromioclavicular joint and distal clavicle. The posterior and superior ligamentous structures were left intact. A distal clavicle excision of 8 mm was performed using the hooded bur. Any remaining bursal tissue was removed using the arthroscopic shaver. The subacromial space was irrigated and then drained. All arthroscopic instruments were removed. A gentle manipulation under anesthesia was then performed. Full passive range of motion was easily attained. The 3 portals were closed with 3-0 nylon interrupted suture. The subacromial space was injected with Marcaine. D ry sterile dressing was placed over all incisions. The patient's left upper extremity was placed into a sling. The patient was awoken and extubated in the operating room. The patient was transferred to the recovery room in stable condition.
[2024-05-23] MEDS: cefTRIAXone sodium 1 GM VIAL IVPUSH (14:50)
== END 2024-05-23 16:00 | disposition home or self-care (01) ==
PROVIDERS: PCP Nurse Practitioner Family; Visit Provider Orthopaedic Surgery
PROC: (CPT 29805; principal; 2024-05-23 13:00)
DX: M75.42 Impingement syndrome of left shoulder (principal); M75.02 Adhesive capsulitis of left shoulder; M19.012 Primary osteoarthritis, left shoulder; I11.9 Hypertensive heart disease without heart failure; I25.10 Atherosclerotic heart disease of native coronary artery without angina pectoris; Z95.5 Presence of coronary angioplasty implant and graft; I25.2 Old myocardial infarction; M54.2 Cervicalgia; R42 Dizziness and giddiness; Z95.820 Peripheral vascular angioplasty status with implants and grafts; G43.909 Migraine, unspecified, not intractable, without status migrainosus; Z88.6 Allergy status to analgesic agent; Z88.8 Allergy status to other drugs, medicaments and biological substances; Z91.041 Radiographic dye allergy status; I72.2 Aneurysm of renal artery; Z98.890 Other specified postprocedural states; F17.210 Nicotine dependence, cigarettes, uncomplicated
CPT/HCPCS: 29824; 29825; 29826; J0131; J0665; J0690; J0696; J1100; J2003; J2250; J2405; J2704; J2795; J3010

== ENCOUNTER → 2024-05-23 10:38 | Outpatient (BNV) | payer OTHER, SELFPAY | PROVIDERS: PCP Nurse Practitioner Family; Visit Provider Orthopaedic Surgery | DX: M75.42 Impingement syndrome of left shoulder (principal); M19.012 Primary osteoarthritis, left shoulder; M75.02 Adhesive capsulitis of left shoulder | CPT/HCPCS: 29824; 29826 ==

== ENCOUNTER 2024-06-05 08:39 | Outpatient (AMB) | payer OTHER, SELFPAY ==
--- NOTE | 2024-06-05 08:48 | A.OFFVIS_ITS ---
Intake Visit Reasons: PO-Lt Shld 05/23/24 Intake Note: Florencio is a 39 year old male who presents today for a post operative left shoulder , DOS 05/23/24 Patient reports his pain fluctuates in intensity, depending on movement of his arm. His pain level varies from a 3-9 out of 10. His itchy bumps improved after his pain medication was changed. Allergies aspirin Allergy (Severe, Verified 04/17/24 14:46) Facial Swelling oxycodone Allergy (Severe, Verified 05/12/24 12:05) severe pain/redness of testicles varenicline [From Chantix] Allergy (Severe, Verified 04/17/24 14:46) full body rash calamine Allergy (Intermediate, Verified 05/09/24 12:41) Rash barium sulfate Allergy (Mild, Verified 04/17/24 14:46) Vomiting hydromorphone Adverse Reaction (Verified 06/05/24 08:52) itchy hives HPI HPI PO-Lt Shld 05/23/24 DR: Details: [age] old male returns to the office today 2 weeks status post left shoulder arthroscopy with Dr. Sutton on 05/23/2024 . He states he is doing well he has some discomfort. He has has continued the use of the sling. [facility] Medical History Myocardial infarction Cervical spondylosis Low back pain Neck pain Snores Dizziness Hyperlipemia Murmur 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) History of stent insertion of renal artery (~2008) Migraines Coronary atherosclerosis Renal artery aneurysm Hypertension Surgical History Hx of neck surgery History of carpal tunnel release Stented coronary artery Family History Mother No family history of coronary artery disease Father No family history of coronary artery disease Social History Household Members Other:: minor children/lives in retirement Housing: House Are you a primary home care attendant to a significant other at home: Yes (has caregiver in place for children DOS) Do you presently have visiting nurse or other home services: No 75 years or older and lives alone: No Alcohol intake: current Alcohol intake frequency: does not drink Comment: chronic dizziness Patient Tobacco Use Status: Current someday Tobacco user Tobacco use type: Cigarette Cigarettes Per Day: 2 Years Smoked: 22 e-Cigarette/Vaping Use: Never Used Second Hand Smoke Exposure: No service: No Current occupational status: unemployed Current occupation: [employer] , Left hand dominate Current occupational exposures/hazards: Yes Cognitive needs: No Hearing needs: No Vision needs: No Review of Systems Const All systems reviewed & are unremarkable except as noted in HPI and below Physical Exam Extrem Other: Left shoulder incision is clean dry and intact. No erythema no drainage. Deltoid sensation intact. Neurovascularly intact. Results Reviewed Results Reviewed: Brief Operative Note Date of Service: 05/23/24 Pre-op diagnosis: Left shoulder impingement syndrome, left shoulder acromioclavicular joint arthritis left shoulder adhesive capsulitis Post-op diagnosis: same Procedure: Left shoulder diagnostic arthroscopy with left shoulder arthroscopic distal clavicle excision, left shoulder arthroscopic acromioplasty, left shoulder arthroscopic anterior capsular release, left shoulder manipulation under anesthesia Implants: None Surgeon: Anthony Sutton MD Assessment & Plan Assessment & Plan (1) Rotator cuff insufficiency of left shoulder: Code(s): M25.312 - Other instability, left shoulder Category: Medical Plan: Sutures removed today Steri-Strips applied. I discussed the importance of working with physical therapy to regain motion and strength. Also to work on shoulder mechanics and posture. He will avoid overhead reaching lifting pushing or pulling repetitively for the next 4-6 weeks. He will see Dr. Sutton back in 4 weeks sooner if needed. Orders: Orders PT Evaluation and Treatment Today M25.312 - Other instability, left shoulder Coding Level of Care Code Global (11711) Diagnoses Rotator cuff insufficiency of left shoulder M25.312
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
--- OUTSIDE RECORDS SUMMARY | 2024-06-05 09:21 | XMS_ITS | Continuity of Care Document ---
Author Organization [place] - [facility], [facility] Address [address] [place] [address] Care Team Providers Care Veterinary Pharmacologist Name Role Phone ALMA GUO Primary Care Provider Assessment Encounter Date Assessment Date Assessment LastModified by Organization Details LastModified Time 05/28/2024 05/28/2024 Examination today was generally benign, [...] Details Last Modified Time Details Appointments None record ed. Lab None record ed. Referral None record ed. Procedures None record ed. Surgeries None record ed. Imaging None record ed. Medication Orders None record ed. Patient TargetsNo targets recorded. Patient InstructionsNo instructions recorded. Reason for Referral None Reported. Problems Name Problem SNOMED Code Status Onset Date Resolution Date Notes Provider Name and Address Organization Details Recorded Time Migraine 36262915 Active 2023 Other migraine, not intractab le, without status migrainos us; Note: Date Diagnosed : 06/05/2023 1:40 PM (G43.809) Not Available [facility] 02:12:49 Dizziness and giddiness 683758414 Active 2023 Dizziness and giddiness ; Note: Date Diagnosed : 06/05/2023 1:40 PM (R42) Not Available [facility] 4 02:14:02 Bilateral tinnitus 63179539659 02 Active 2023 Tinnitus, bilateral ; Note: Date Diagnosed : 06/05/2023 1:40 PM (H93.13) Not Available [facility] 4 02:14:15 Nasal congestio n 48509157 Active 2023 ANDER RUSSO PA-C [facility] [place], [facility] [place], [address] , [facility] - [facility] 4 12:10:15 Deviated nasal septum 686067049 Active 2023 ANDER RUSSO PA-C 100 [facility],[place] [address], [facility] [place], [address] , [facility] [place] 4 12:10:23 Chronic ethmoidal sinusitis 34892067 Active 2024 ANDER RUSSO PA-C 100 [facility],[place] [address], [facility] [place], [address] , [facility] [place] 5 10:58:53 Problem Notes None recorded. Procedures Surgical History Date Name Laterality Status Provider Name and Address Organization Details Recorded Time 03/18/2024 CT sinus - Xoran completed ANDER RUSSO PA-C [address] [place] [address],[place] [address], [place], [address], [facility] 03/18/2024 10:57:21 02/01/2024 NasalEndosc opy_DP completed ANDER RUSSO PA-C [address] [place] [address],[place] [address], [place], [address], [facility] 02/01/2024 12:09:04 Imaging Results None recorded. Procedure Notes None recorded. Medical Equipment None Reported. Allergies Allergen ID Allergen Name Allergen Category Reaction Reaction Severity Criticality Documentation Date Start Date Code Code System Note Provider Name and Address Organization Details Recorded Time 945716 Chantix medicatio n other Not available Not available 10/12/2023 07679 0 RxNorm React ion: Unkno wn; Not Available [facility] 4 00:23:50 Medications Name Sig Start Date Stop Date Status Note LastModified by Organization Details LastModified Time atorvasta tin 40 mg tablet active Not Available Not Available Not Available prednison e 20 mg tablet 01/31 completed Medicatio n ID: [id number] Br and Name: prednison e Send Method: E-Prescri bed Subs Allowed: subs OK Medica tionGener icName: prednison e Not Available Not Available Not Available tramadol 50 mg tablet 01/31 completed Medicatio n ID: [id number] Br and Name: tramadol Send Method: E-Prescri bed Subs Allowed: subs OK Medica tionGener icName: tramadol Not Available Not Available Not Available ketorolac 10 mg tablet 01/31 completed Medicatio n ID: [id number] Br and Name: ketorolac Send Method: E-Prescri bed Subs Allowed: subs OK Medica tionGener icName: ketorolac Not Available Not Available Not Available amitripty line 10 mg tablet Take 1 tablet every day by oral route. active Not Available Not Available No t Available meclizine 25 mg tablet 01/31 completed Medicatio n ID: [id number] Br and Name: meclizine Send Method: E-Prescri bed Subs Allowed: subs OK Medica tionGener icName: meclizine Not Available Not Available Not Available amlodipin e 10 mg tablet active Not Available Not Available Not Available lidocaine 5 % topical patch 01/31 completed Medicatio n ID: [id number] Br and Name: lidocaine Send Method: E-Prescri bed Subs Allowed: subs OK Medica tionGener icName: lidocaine Not Available Not Available Not Available valsartan 320 mg tablet active Medicatio n ID: [id number] Br and Name: valsartan Send Method: E-Prescri bed Subs Allowed: subs OK Medica tionGener icName: valsartan Not Available Not Available Not Available hydrochlo rothiazid e 25 mg tablet active Not Available Not Available Not Available hydromorp ronan 4 mg tablet 05/28 completed Not Available Not Available Not Available ondansetr on 4 mg disintegr ating tablet 01/31 completed Medicatio n ID: [id number] Br and Name: ondansetr on Send Method: E-Prescri bed Subs Allowed: subs OK Medica tionGener icName: ondansetr on Not Available Not Available Not Available diazepam 5 mg tablet 01/31 completed Medicatio n ID: [id number] Br and Name: diazepam Send Method: E-Prescri bed Subs Allowed: subs OK Medica tionGener icName: diazepam Not Available Not Available Not Available valsartan 160 mg tablet 01/31 completed Medicatio n ID: [id number] Br and Name: valsartan Send Method: E-Prescri bed Subs Allowed: subs OK Medica tionGener icName: valsartan Not Available Not Available Not Available cyclobenz aprine 5 mg tablet 01/31 completed Medicatio n ID: [id number] Br and Name: cyclobenz aprine Se nd Method: E-Prescri bed Subs Allowed: subs OK Medica tionGener icName: cyclobenz aprine Not Available Not Available Not Available magnesium active Not Available Not Leticia ilable Not Available Vitals Date Recorded Body height Body mass index (BMI) Body weight Provider Name and Address Organization Details Last Updated DateTime 05/28/2024 170.18 cm 36.8 kg/m2 770185.21 g [facility] 05/28/2024 10:20:22 Social History None recorded. Functional Status None recorded. Mental Status None recorded. Family History Nothing Reported. Medical History Condition Response Hypertension Y Past Encounters Encounter ID Performer Location Encounter Start Date Encounter Closed Date Diagnosis/Indication Diagnosis SNOMED-CT Code Diagnosis ICD10 Code Diagnosis Note [id number] SHALOM DAWKINS MD [facility] [address] [address] 05/28/2024 10:09:41 05/28/2024 10:33:17 Migraine 47325468 G43.809 Health Concerns Section Related Observation LastModified by Organization Detai ls LastModified Time None Recorded Concern Status LastModified by Organization Details LastModified Time None Recorded Payers Encounter Date Sequence Insurance Name Policy Number Policy Nolen Covered Member ID Nolen Member ID Guarantor Name 05/28/2024 1 [facility]MEDICAID H[facility]) BRYANT Ravi [id number] Florencio Ravi Notes Date Note Type Note Provider Name and Address Organization Details Recorded Time 05/28/2024 text/html sinusitisinitial ly identified incidental finding on MRI for dizzy.when gets headache feels pressure near inside left eyefrequency tension headache about twice per week lasting 1-24 hoursusing Excedrinworks with neurologist - rx ubrevely for headache onset PV 03/18/[address] sinus scattered ethmoid sinusitis rx doxy x 10 days SHALOM DAWKINS MD [address] [place] [address], [place], [address], [facility] - [facility] 05/28/2024 10:35:21
== END 2024-06-05 09:10 | disposition home or self-care (01) ==
LOC: HO.HOS 08:40
PROVIDERS: PCP Nurse Practitioner Family; Visit Provider Physician Assistant
DX: M25.312 Other instability, left shoulder (principal)
CPT/HCPCS: 99024

== ENCOUNTER → 2024-06-05 08:39 | Outpatient (BNVA) | payer OTHER, SELFPAY | PROVIDERS: PCP Nurse Practitioner Family; Visit Provider Physician Assistant | DX: M25.312 Other instability, left shoulder (principal) | CPT/HCPCS: 99212 ==

== ENCOUNTER 2024-06-23 08:20 | Outpatient (REF) | payer OTHER, SELFPAY ==
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
[2024-06-23 10:57] LABS: Appearance Urine Clear; Color Urine Yellow; Glucose Urine UA Negative (Negative); Leukocyte Esterase Urine Negative (Negative); Nitrite Urine Negative (Negative); PH 6.5 (5.0-9.0); UMIC TRIGGER UACC YES; Urine Blood Small (1+) (Negative); Urine Ketones Trace mg/dL (Negative); Urine Protein Trace mg/dL (Neg-Trace)
[2024-06-23 11:10] LABS: Bacteria Urine None Seen (None Seen); Hyaline Casts Urine 0-2 /LPF (0-2); Squamous Epithelial Cell Urine 0-2 /HPF (0-2); WBC Urine 0-5 /HPF (0-5)
[2024-06-23 11:18] LABS: Alanine Aminotransferase 39 U/L (0-40); Albumin Level 4.4 g/dL (3.5-5.0); Alkaline Phosphatase 102 U/L (39-117); Aspartate Amino Transferase 27 U/L (5-37); Bilirubin Direct 0.2 mg/dL (0.0-0.5); Bilirubin Total 0.6 mg/dL (0.0-1.0); Total Protein 7.7 g/dL (6.5-8.0)
== END 2024-06-23 08:21 | disposition home or self-care (01) ==
LOC: HO.HMGCLDS 08:20
PROVIDERS: Internal Medicine; PCP Nurse Practitioner Family; Visit Provider Nurse Practitioner Family
DX: Z01.818 Encounter for other preprocedural examination (principal); R79.89 Other specified abnormal findings of blood chemistry
CPT/HCPCS: 36415; 80076; 81001

== ENCOUNTER 2024-07-02 08:51 | Outpatient (AMB) | payer OTHER, SELFPAY ==
--- NOTE | 2024-07-02 08:53 | A.OFFVIS_ITS ---
Intake Visit Reasons: 4wk PO-Lt Shld 05/23/24 Intake Note: Florencio is a 39 year old left hand dominant male who presents today post- operatively after undergoing a left shoulder arthroscopy on 05/23/24. At their last post-operative visit, patient was referred to formal physical therapy. Patient reports that he is doing well, he continues to work with physical therapy but this activity is triggering right shoulder pain. He explains that the left shoulder is painful at night while sleeping. He denies any fevers or chills. Allergies aspirin Allergy (Severe, Verified 07/02/24 08:55) Facial Swelling oxycodone Allergy (Severe, Verified 07/02/24 08:55) severe pain/redness of testicles varenicline [From Chantix] Allergy (Severe, Verified 07/02/24 08:55) full body rash calamine Allergy (Intermediate, Verified 07/02/24 08:55) Rash barium sulfate Allergy (Mild, Verified 07/02/24 08:55) Vomiting hydromorphone Adverse Reaction (Verified 07/02/24 08:55) itchy hives Medication List - Last Reconciled 07/02/24 by Anthony Sutton MD acetaminophen-caffeine 500-65 mg (Excedrin Tension Headache) 2 tabs PO QID PRN amitriptyline 10 mg PO BEDTIME 30 days amlodipine 10 mg PO QAM atorvastatin 40 mg PO BEDTIME hydrochlorothiazide 25 mg PO QAM hydrocodone-acetaminophen 10-325 mg 0.5 tabs PO Q8H PRN hydrocodone-acetaminophen 10-325 mg 1 tab PO Q4-6H PRN 7 days magnesium oxide 400 mg PO BEDTIME 30 days riboflavin (vitamin B2) 400 mg PO QAM ubrogepant (Ubrelvy) 50 - 100 mg (0.5 - 1 x 100 mg) PO ONCE PRN 30 days valsartan 320 mg PO QAM PFSH Medical History Myocardial infarction Cervical spondylosis Low back pain Neck pain Snores Dizziness Hyperlipemia Murmur 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) History of stent insertion of renal artery (~2008) Migraines Coronary atherosclerosis Renal artery aneurysm Hypertension Surgical History Hx of neck surgery History of carpal tunnel release Stented coronary artery Family History Mother No family history of coronary artery disease Father No family history of coronary artery disease Social History Household Members Other:: minor children/lives in skilled nursing Housing: House Are you a primary family day care provider to a significant other at home: Yes (has caregiver in place for children DOS) Do you presently have visiting nurse or other home services: No 75 years or older and lives alone: No Alcohol intake: current Alcohol intake frequency: does not drink Comment: chronic dizziness Patient Tobacco Use Status: Current someday Tobacco user Tobacco use type: Cigarette Cigarettes Per Day: 2 Years Smoked: 22 e-Cigarette/Vaping Use: Never Used Second Hand Smoke Exposure: No service: No Current occupational status: unemployed Current occupation: [employer] , Left hand dominate Current occupational exposures/hazards: Yes Cognitive needs: No Hearing needs: No Vision needs: No Physical Exam Extrem Other: Left shoulder examination shows almost full range of motion when compared to his right shoulder, mild discomfort with resisted forward flexion, no instability Assessment & Plan Assessment & Plan (1) Left shoulder pain: Code(s): M25.512 - Pain in left shoulder Category: Medical Qualifiers: Chronicity: acute Qualified Code(s): M25.512 - Pain in left shoulder Plan Mr. Ravi continues to do well after undergoing left shoulder arthroscopic surgery on 05/23/2024. He will continue going to formal physical therapy for now. He will gradually transition to a home exercise program. He will contact me prior to his follow-up appointment in 2 months should any questions or concerns arise. Feel free to call me at any time should questions regarding his orthopedic management arise. Medications: Changed From hydrocodone-acetaminophen 10-325 mg Partial Fill upon patient request. 1 tab PO Q4-6H 7 days PRN 42 tabs 0RF pain To hydrocodone-acetaminophen 10-325 mg Partial Fill upon patient request. 1 tab PO Q8H PRN 30 tabs 0RF pain Coding Level of Care Code Global (39466) Diagnoses Left shoulder pain M25.512 Chronicity: acute
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
== END 2024-07-02 09:11 | disposition home or self-care (01) ==
LOC: HO.HOS 08:52
PROVIDERS: PCP Nurse Practitioner Family; Visit Provider Orthopaedic Surgery
DX: M25.512 Pain in left shoulder (principal)
CPT/HCPCS: 99024

== ENCOUNTER → 2024-07-02 08:51 | Outpatient (BNVA) | payer OTHER, SELFPAY | PROVIDERS: PCP Nurse Practitioner Family; Visit Provider Orthopaedic Surgery | DX: M25.512 Pain in left shoulder (principal) | CPT/HCPCS: 99212 ==

== ENCOUNTER 2024-07-09 08:31 | Outpatient (AMB) | payer OTHER, SELFPAY ==
[2024-07-09 08:32] VITALS: BP 120/72; PULSE 80; O2SAT 97; BMI 37.6
--- NOTE | 2024-07-09 08:32 | MHC.PC.OV ---
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 Required: No Accompanied by: Self / Same As Patient Allergies aspirin Allergy (Severe, Verified 07/09/24 08:32) Facial Swelling oxycodone Allergy (Severe, Verified 07/09/24 08:32) severe pain/redness of testicles varenicline [From Chantix] Allergy (Severe, Verified 07/09/24 08:32) full body rash calamine Allergy (Intermediate, Verified 07/09/24 08:32) Rash barium sulfate Allergy (Mild, Verified 07/09/24 08:32) Vomiting hydromorphone Adverse Reaction (Verified 07/09/24 08:32) itchy hives Tobacco use date assessed: 07/09/24 Dental Screening Dental Screen Date: 07/09/24 Did you have a dental visit in the last 12 months?: Yes Did you have a dental problem in the last 6 months where you did not have access to dental care?: No Was dental information given to patient?: Patient has dentist HPI follow up (r/s 06/24) HPI Details Chief Complaint Follow-up appointment for management of dyslipidemia History of Present Illness The patient is a 39-year-old male presenting with a follow-up appointment for dyslipidemia. His cholesterol levels are under review, necessitating repeated laboratory evaluations. Alongside, he reports intermittent episodes of chest discomfort which have been less severe than previously experienced. These symptoms were previously evaluated with a cardiac etiology ruled out. The patient's social habits include intermittent smoking, which could contribute to his cardiovascular profile. Additionally, the patient experiences dermatitis with distinctive circular patterns on the medial sides of both calves. The lesions are pruritic but do not present with systemic signs like fever, nausea, or vomiting. He denies any known tick exposure, and the dermatological condition is assessed as non-fungal. Social History - Intermittent smoker - No specific details offered on housing, employment, or family planning Health Maintenance - Plan to repeat laboratory tests to assess cholesterol levels. Review of Systems - Dermatological: Reports pruritic dermatitis on medial calves. - Cardiovascular: Reports intermittent chest discomfort. - General: Denies fever, chills, nausea, and vomiting. - Respiratory: Denies shortness of breath. Physical Exam General: Cooperative, healthy appearing, comfortable, no acute distress and well developed Orientation: Patient oriented x3 Limitations: No limitations Head: Normal to inspection Ears: Hearing grossly normal bilaterally Nose: Normal external nose present Face and sinus: Normal facial exam Eyes: Appearance normal, both eyes and all related structures Neck: Normal visual inspection and Yes full ROM Respiratory: Normal respiratory effort and able to speak in complete sentences. Clear to auscultation bilaterally Cardiovascular: Regular rate and rhythm. Normal S1 and S2 GI: Normal to inspection. Soft to palpation and nontender Skin: Dermatitis more circular on bilaterally inner or medial calves, does not appear fungal, though erythematous and macular Neuro: Patient oriented x3 Extremities: Normal to inspection Results Plan Laboratory tests will be repeated to monitor cholesterol levels for ongoing management of dyslipidemia. Intermittent chest discomfort, previously ruled out for cardiac causes and currently less severe, requires no new intervention but smoking reduction is advised. Dermatitis will be managed with topical betamethasone, with instructions to follow up for reassessment of condition and response to treatment. Discussion Notes During our discussion, I informed the patient about the plan to reassess cholesterol levels with repeat blood tests. We discussed the importance of managing dyslipidemia to reduce overall cardiovascular risk. I addressed the intermittent chest discomfort and noted its improvement, emphasizing the importance of tobacco cessation in reducing this risk further. For the dermatitis, I explained the application of betamethasone and its expected effects, with an emphasis on monitoring and reassessment. I encouraged the patient to report any new symptoms or changes immediately and to keep track of follow-up appointments. Patient Instructions - Schedule and undergo blood tests to check cholesterol levels. - Apply the prescribed topical betamethasone to the affected area on calves. - Attempt to reduce or quit smoking. - Return for a follow-up appointment as scheduled. - Report any new symptoms or changes in condition immediately. [facility] History Myocardial infarction Cervical spondylosis Low back pain Neck pain Snores Dizziness Hyperlipemia Murmur 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) History of stent insertion of renal artery (~2008) Migraines Coronary atherosclerosis Renal artery aneurysm Hypertension Surgical History Hx of neck surgery History of carpal tunnel release Stented coronary artery Family History Mother No family history of coronary artery disease Father No family history of coronary artery disease Social History Household Members Other:: minor children/lives in prison Housing: House Are you a 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 a significant other at home: Yes (has caregiver in place for children DOS) Do you presently have visiting nurse or other home services: No 75 years or older and lives alone: No Alcohol intake: current Alcohol intake frequency: does not drink Comment: chronic dizziness Patient Tobacco Use Status: Current someday Tobacco user Tobacco use type: Cigarette Cigarettes Per Day: 2 Years Smoked: 22 e-Cigarette/Vaping Use: Never Used Second Hand Smoke Exposure: No service: No Current occupational status: unemployed Current occupation: [employer] , Left hand dominate Current occupational exposures/hazards: Yes Cognitive needs: No Hearing needs: No Vision needs: No Questionnaire PHQ-9 Over the last 2 weeks, how often have you been bothered by any of the following problems? 1. Little interest or pleasure in doing things: several days 2. Feeling down, depressed, or hopeless: several days 3. Trouble falling or staying asleep, or sleeping too much: nearly every day 4. Feeling tired or having little energy: nearly every day 5. Poor appetite or overeating: not at all 6. Feeling bad about yourself - or that you are a failure or have let yourself or your family down: not at all 7. Trouble concentrating on things, such as reading the newspaper or watching television: nearly every day 8. Moving or speaking so slowly that other people could have noticed. Or the opposite - being so fidgety or restless that you have been moving around a lot more than usual: nearly every day 9. Thoughts that you would be better off or of hurting yourself in some way: not at all Total score: 14 Depression Screening Interpretation: Positive (denies any si or hi) Depression Screening Follow-up: Existing condition and In treatment Depression Screening Done: Yes 27447 - PHQ-9 Billing: Yes Source: Developed by Drs. Florencio Tsang, Loli RendonKwaku and colleagues, with an educational maria from [employer]. Thrive Questionnaire Date Thrive assessed: 07/09/24 I am a: Patient What is your living situation today?: I do not have a steady places to live I am staying at a prison Within the past 12 months, did the food you bought not last and you didn't have the money to get more?: Never true Within the past 12 months, did you worry whether your food would run out before you got money to buy more?: Never true Do you have trouble paying for medicines?: No Do you have trouble getting transportation to medical appointments?: No Do you have trouble paying your heating and electricity bill?: No Do you have trouble taking care of your child, family member or friend?: No Do you have trouble with day-to-day activities such as bathing, preparing meals, shopping, managing finances, etc.?: Yes Are you currently unemployed and looking for a job?: No Are you interested in more education?: No Please select the resources that you would like help with: None Currently or been in a relationship where the following occur: I choose not to answer THRIVE Score: 1 AUDIT C Alcohol Use Questionnaire (AUDIT-C) 1. How often do you have a drink containing alcohol?: Monthly or less 2. How many drinks containing alcohol do you have on a typical day when you are drinking?: 1 or 2 3. How often do you have six or more drinks on one occasion?: Never Total Score: 1 Score Reviewed/Action Taken: Yes LOLA-7 AMB Questionnaire LOLA-7 Date LOLA - 7 assessed: 07/09/24 Feeling nervous, anxious, or on edge: 2 = More than half the days Not being able to stop or control worryin = Not at all Worrying too much about different things: 1 = Several days Trouble relaxin = Nearly every day Being so restless that it is hard to sit still: 3 = Nearly every day Becoming easily annoyed or irritable: 1 = Several days Feeling afraid as if something awful might happen: 0 = Not at all Total LOLA-7 score (0-4 normal; 5-9 mild; 10-14 moderate; 15-21 severe): 10 Source: Developed by Drs. Florencio Tsang, Kwaku Sun and colleagues, with an educational maria from [employer]. LOLA-7 Assessment Billing LOLA-7 Assessment Tool: LOLA-7 Assessment 67642 (denies any si or hi) Physical exam (Primary Care) Vital Signs: Last Vital Signs Pulse 80 07/09/24 08:32 BP 120/72 07/09/24 08:32 Pulse Ox 97 07/09/24 08:32 Oxygen Delivery Method Room Air 07/09/24 08:32 BMI result Body Mass Index 37.6 Tobacco/Smoking Status: Tobacco use Status Tobacco use date assessed 07/09/24 07/09/24 08:34 Patient Tobacco Use Status Current someday Tobacco 07/09/24 08:33 Tobacco use type Cigarette 07/09/24 08:33 e-Cigarette/Vaping Use Never Used 07/09/24 08:33 PHQ-9: PHQ-9 Score PHQ-9: Total score 14 07/09/24 08:44 Depression Screening Interpretation: Positive (denies any si or hi) Depression Screening Follow-up: Existing condition and In treatment Thrive Assessment: Date of Thrive Assessment Date Thrive assessed 07/09/24 07/09/24 08:34 Currently or been in a relationship where the following occur: I choose not to answer Coding Level of Care Code Est Pt Level 3 (43520) Diagnoses Hyperlipemia E78.5 Additional Codes PHQ-9 - 71590 - PHQ-9 Billing: Yes ([id number]) LOLA-7 Assessment Billing - LOLA-7 Assessment Tool: LOLA-7 Assessment 10190 ([id number]) Assessment & Plan Assessment & Plan (1) Hyperlipemia: Code(s): E78.5 - Hyperlipidemia, unspecified Category: Medical Plan . Orders: Orders Comprehensive [place]. Panel Fast Today E78.5 - Hyperlipidemia, unspecified TSH reflex Free T4 Today E78.5 - Hyperlipidemia, unspecified Lipid Panel Today E78.5 - Hyperlipidemia, unspecified Complete Blood Count Auto Diff Today E78.5 - Hyperlipidemia, unspecified
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
== END 2024-07-09 09:40 | disposition home or self-care (01) ==
LOC: HO.HMCC 08:31
PROVIDERS: PCP Nurse Practitioner Family; Visit Provider Nurse Practitioner Family
DX: E78.5 Hyperlipidemia, unspecified (principal)

== ENCOUNTER → 2024-07-09 08:31 | Outpatient (BNVA) | payer OTHER, SELFPAY | PROVIDERS: PCP Nurse Practitioner Family; Visit Provider Nurse Practitioner Family | DX: E78.5 Hyperlipidemia, unspecified (principal) | CPT/HCPCS: 96127; 99212 ==

== ENCOUNTER 2024-07-10 10:19 | Outpatient (REF) | payer OTHER, SELFPAY ==
--- NOTE | ~2024-07-10 | US_ITS ---
EXAMINATION: Ultrasound renal Doppler and renal ultrasound. CLINICAL INDICATION: Renal artery aneurysm. COMPARISON: CT urogram 06/14/2023 TECHNIQUE: Routine retroperitoneal ultrasound of kidneys and Doppler imaging of kidneys and aorta were obtained. FINDINGS: ULTRASOUND: Right kidney: The right kidney measures 11.3 x 6.4 x 6.0 cm. 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 It was noted on the previous CT exam. No echogenic stones seen. Previously seen cyst is not visualized at this time. Left kidney: The left kidney measures 12.7 x 5.6 x 5.4 cm. There is diffuse cortical thickness and focal calcification. No echogenic stones or hydronephrosis seen. DOPPLER: Right kidney: The renal artery velocity proximal segment measures 94.7 cm/second, mid segment not seen, distal segment measures 85.7 cm/second. Renal aortic ratio is 0.99. Average resistive index is less than 0.80. There is no suggestion for renal artery stenosis. Left kidney: The left renal artery velocity proximal segment measures 1 10 cm/second, mid segment measures 191 cm/second, distal segment measures 1 28 cm/second. Renal aortic ratio measures 1.99. Average segmental resistive indexes less than 0.6. There is no suggestion for renal artery stenosis. Mid aortic peak systolic velocity measures 95.9 cm/second. 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 No echogenic renal calculi or hydronephrosis. Normal renal ultrasound. No evidence of renal artery stenosis. Electronically signed by: Roly Schulz MD 07/11/2024 07:26 AM EDT
--- NOTE | ~2024-07-10 | US_ITS ---
EXAMINATION: Ultrasound renal Doppler and renal ultrasound. CLINICAL INDICATION: Renal artery aneurysm. COMPARISON: CT urogram 06/14/2023 TECHNIQUE: Routine retroperitoneal ultrasound of kidneys and Doppler imaging of kidneys and aorta were obtained. FINDINGS: ULTRASOUND: Right kidney: The right kidney measures 11.3 x 6.4 x 6.0 cm. 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 It was noted on the previous CT exam. No echogenic stones seen. Previously seen cyst is not visualized at this time. Left kidney: The left kidney measures 12.7 x 5.6 x 5.4 cm. There is diffuse cortical thickness and focal calcification. No echogenic stones or hydronephrosis seen. DOPPLER: Right kidney: The renal artery velocity proximal segment measures 94.7 cm/second, mid segment not seen, distal segment measures 85.7 cm/second. Renal aortic ratio is 0.99. Average resistive index is less than 0.80. There is no suggestion for renal artery stenosis. Left kidney: The left renal artery velocity proximal segment measures 1 10 cm/second, mid segment measures 191 cm/second, distal segment measures 1 28 cm/second. Renal aortic ratio measures 1.99. Average segmental resistive indexes less than 0.6. There is no suggestion for renal artery stenosis. Mid aortic peak systolic velocity measures 95.9 cm/second. 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 No echogenic renal calculi or hydronephrosis. Normal renal ultrasound. No evidence of renal artery stenosis. Electronically signed by: Roly Schulz MD 07/11/2024 07:26 AM EDT
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
== END 2024-07-10 10:20 | disposition home or self-care (01) ==
LOC: HO.US 10:19
PROVIDERS: PCP Nurse Practitioner Family; Visit Provider Nurse Practitioner Family
DX: I72.2 Aneurysm of renal artery (principal); Z98.890 Other specified postprocedural states
CPT/HCPCS: 76775; 93975

== ENCOUNTER → 2024-07-10 10:20 | Outpatient (BNV) | payer OTHER, SELFPAY | PROVIDERS: PCP Nurse Practitioner Family; Visit Provider Radiology Diagnostic Radiology | DX: I72.2 Aneurysm of renal artery (principal) | CPT/HCPCS: 76775; 93975 ==

== ENCOUNTER 2024-07-31 08:14 | Outpatient (AMB) | payer OTHER, SELFPAY ==
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
[2024-07-31 08:29] VITALS: BP 180/130; PULSE 82; O2SAT 96; BMI 38.1
--- NOTE | 2024-07-31 08:29 | A.OFFVIS_ITS ---
Vital Signs 07/31/24 08:29 Height 5 ft 7 in Weight 243 lb BMI 38.1 BP 180/130 H Blood Pressure Location Lt brachial Position Sitting Pulse 82 Pulse Source Pulse Oximeter Pulse Oximetry (%) 96 Oxygen Delivery Method Room Air Intake Visit Reasons: Follow Up Intake Note: Patient presents follow up for migraines. 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 Interval Brain MRI was unremarkable, showed sinus inflammation. Patient had f/u ENT consult, and they were not concerned regarding the sinus inflammation. However, they noted he does not have any frontal sinuses. Pt underwent a left shoulder surgery on May 23, and a notes some increased difficulty sleeping since, though this is slowly healing. Patient notes that since his previous c-spine surgery, his headache has changed. He no longer feels the pain in the posterior left neck, but now left top of the head. He notes, once he had a headache on the right, which was rare for him. He is having less dizziness, since he stopped Plavix- as he thought this was contributing to his dizziness.. He was not started another antiplatelet- has ASA allergy- facial allergy. He does notice his residual facial weakness from his historical murrieta's palsy Having a headache about 2 times per week. He has started B2 and Mag. He is taking Amitriptyline 10mg qhs- but may skip at times. He is taking Ubrelvy but tends to need to take an excedrin about an hour later. Also uses excedrin prn for his shoulder pain, as this works better than Tylenol or Ibuprofen- denies ibuprofen intolerance. MR/MR head/brain wo/w con IMPRESSION: No vestibular schwannoma. No enhancing mass or acute brain abnormality. Polypoid paranasal sinus disease. 11/08/2023, HPI: Left handed 38-yr-old male presents for new pt evaluation of possible vestibular migraine. Pt reports he started having bouts of chest pain and dizziness last Spring. 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 This was affecting his ability to work, and by Nov 2022, he had to stop working and has not been able to return to work since. He was evaluated by ENT, who suggested pt may have vestibular migraine and suggested he be seen by neuro. He describes the dizziness episode as- starts as a left facial tingling sensation, then feels a bit disoriented, then can feel not right in space x's 15 minutes up to a full day or longer. A/w mild headache or full blown headache. The dizziness can be triggered by squatting for an extended time. Bending foreword is less triggering since the neck surgery. Elevators and stairs can also trigger motion sickness. He had been having motion sickness. Prior to the neck surgery- he had 23 attacks over 17 days w/ dizziness in the prior 22 days. During this same period he had, almost daily. He has a h/o motion sickness as a child. 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 He did undergo an anterior approached C6-7 total disc arthropathy last week. PMH : 35 yr old [place]. Kidney aneurysm at age 23. PMH and ROS are notable for:? Musculoskeletal disorders or injury: s/p neck surgery. right wrist fx- as a child. Mood d/o: Anxiety, Depression, CV disease: HTN, HLD, [place] at age 35 following stressful life event. 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 : states no h/o kidney disease GI d/o: GERD- improved on diet, Constipation- as he is on post-op analgesics. Family history of migraine or other headache disorder: migraines Pertinent denials include: Respiratory d/o, Clotting or hematology d/o, Endocrine d/o, metabolic d/o, History of seizure, syncope, or drop attacks Lifestyle considerations: Sleep routine: Usual bedtime: 8:30pm-3:3:30am and wake-up time: 6am. No usual naps. Sleep difficulties: Endorses: Snoring, Fatigue, Leg Cramps. Caffeine use: no caffeine Substance use: Tobacco- > 3 x's per day, Alcohol- social. Exercise:?walking/stairs. Employment:?filing for disability Family planning: none Headache questionnaire:? Typical headache characteristics: Prodrome symptoms: unknown Aura: blurry vision, seeing stars usually during headache. Pain intensity: severe Location, quality, characteristics: Always left eye, amish, and left postauricular to left occipital and left neck. Associated symptoms: photophobia, phonophobia, allodynia, not right in space dizziness, lightheadedness, fatigue, cognitive difficulties, activity intolerance. Postdrome: occasional lingering s/s Triggers: none Time of day: mornings or afternoons Duration and Frequency: all day to days, has lasted as long as 7 days. How does headache impact your life? not currently working, difficult to do activities. Current acute medication use/interventions: Excedrin tension. Current preventative medication use: None Non-pharmacological interventions: Rest and Ice caps. [facility] Medical History (Updated 07/31/24 @ 09:25 by ARASH Berry) Myocardial infarction Cervical spondylosis Low back pain Neck pain Snores Dizziness Hyperlipemia Murmur 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) History of stent insertion of renal artery (~2008) Migraines Coronary atherosclerosis Renal artery aneurysm Hypertension Surgical History H/O shoulder surgery Hx of neck surgery History of carpal tunnel release Stented coronary artery Family History Mother No family history of coronary artery disease Father No family history of coronary artery disease Social History Household Members Other:: minor children/lives in fdc Housing: House Are you a primary special needs child caregiver to a significant other at home: Yes (has caregiver in place for children DOS) Do you presently have visiting nurse or other home services: No 75 years or older and lives alone: No Alcohol intake: current Alcohol intake frequency: does not drink Comment: chronic dizziness Patient Tobacco Use Status: Current someday Tobacco user Tobacco use type: Cigarette Cigarettes Per Day: 2 Years Smoked: 22 e-Cigarette/Vaping Use: Never Used Second Hand Smoke Exposure: No service: No Current occupational status: unemployed Current occupation: [employer] , Left hand dominate Current occupational exposures/hazards: Yes Cognitive needs: No Hearing needs: No Vision needs: No Physical Exam Vital Signs: Last Vital Signs Pulse 82 07/31/24 08:29 BP 180/130 H 07/31/24 08:29 Pulse Ox 96 07/31/24 08:29 Oxygen Delivery Method Room Air 07/31/24 08:29 BMI result Body Mass Index 38.1 Const Orientation/consciousness: patient oriented x3 Resp Effort & Inspection: normal respiratory effort and able to speak in complete sentences Neuro General: patient oriented x3 Cranial nerves: Yes CN's II-XII intact bilaterally (w/ mild left lower facial asymmetry) Cognition (Neuro): normal cognition Gait exam (Neuro): Normal gait present Motor exam (neuro): 5/5 motor strength present throughout Pupils: Normal pupillary reactivity/response: bilateral Psych Appearance: grossly normal Mental Status: mental status grossly normal Speech and movement: Normal speech and movement present Affect: normal affect Attitude: cooperative Thought process: Normal thought process present Assessment & Plan Assessment & Plan (1) Migraine with aura: Code(s): G43.109 - Migraine with aura, not intractable, without status migrainosus Category: Medical Qualifiers: Intractability: not intractable Status migrainosus presence: without status migrainosus Qualified Code(s): G43.109 - Migraine with aura, not intractable, without status migrainosus (2) Dizziness: Code(s): R42 - Dizziness and giddiness Category: Medical Plan Reviewed Brain MRI w/ Greg IAC w/wo- unremarkable Future considerations: HST Reviewed that he may have residual left facial weakness d/t h/o murrieta's palsy, and this may be more pronounced when tired, stressed. For overall headache management: * Optimize good self-care, including but not limited to maintaining a healthy diet, adequate fluid intake, adequate sleep, and engaging in regular physical activity. * Track headaches, especially after any treatment regimen changes. Migraine [employer] is one of many headache tracking apps. * Information shared on non-pharmacological interventions which may help to alleviate headache attack burden. For light sensitivity: Patient may benefit from trying blue light filtering glasses, green glasses, green light therapy. For sound sensitivity: Patent may benefit from trying noise cancellation ear plugs. For acute headache treatment: Discussed importance of taking acute medications at the first sign of headache, however stressed importance of avoiding acute medication overuse (especially with combined headache medications). Continue Ubrogepant (Ubrelvy) 100mg tab, 1/2 - 1 tab (50-100mg) at onset of headache, may repeat in 2 hours. Max of 2 tabs (200mg) per 24 hours. May adjunct with OTC Tylenol 650-1000mg q 4-6 hours or Excedrin as needed. Try taking Ubrelvy at earliest sign of migraine, even before headache phase. Previous acute migraine medication trials: Excedrin tension- ineffective. Acute migraine medication contraindications: All triptans d/t h/o [place]. NSAIDs d/t ASA allergy For headache prevention medication: Preventative medications should be taken routinely as prescribed for best effect, it may take several weeks for full effect to take effect. Continue Riboflavin 400mg qam Continue Magnesium 400mg qhs Continue Amitriptyline 10mg daily at bedtime. Previous migraine prevention medication trials: Migraine prevention medication contraindications: None at this time Pt to follow-up in 6 months or sooner prn. Coding Level of Care Code Est Pt Level 4 (25697) Diagnoses Migraine with aura and without status migrainosus, not intractable G43.109 Intractability: not intractable Status migrainosus presence: without status migrainosus Dizziness R42
== END 2024-07-31 09:18 | disposition home or self-care (01) ==
LOC: HO.HSMS 08:15
PROVIDERS: PCP Nurse Practitioner Family; Visit Provider Nurse Practitioner Family
DX: G43.109 Migraine with aura, not intractable, without status migrainosus (principal); R42 Dizziness and giddiness
CPT/HCPCS: 99214

== ENCOUNTER → 2024-07-31 08:14 | Outpatient (BNVA) | payer OTHER, SELFPAY | PROVIDERS: PCP Nurse Practitioner Family; Visit Provider Nurse Practitioner Family | DX: G43.109 Migraine with aura, not intractable, without status migrainosus (principal); R42 Dizziness and giddiness | CPT/HCPCS: 99212 ==

== ENCOUNTER 2024-08-05 10:00 | Outpatient (RCR) | payer OTHER, SELFPAY ==
--- NOTE | 2024-06-19 13:50 | MHC.PT.EP ---
[facility] [place] Office [place] Office [place] Office [address] Shawn Hernandez [address] [phone] F: [phone] F: [phone] F: [phone] F: [phone] Physical Therapy Plan of Care Date of Evaluation: 06/19/24 Date of Surgery: 05/23/24 Diagnosis: This is a 39 yo male presenting to skilled PT with a script for s/p shoulder arthroscopy. Assessment: This is a 39 yo male presenting to skilled PT with a script for s/p shoulder arthroscopy. Patient underwent shoulder arthroscopy for a bone spur on his acromion on 05/23/[address] Sutton. He reports a little better since the surgery. He states that he also self DC'd his sling and comes in without one today. Pain is now located throughout the GHJ anterior, lateral posterior and ranges up to a 9/10 but is always present with no less than a 2/10. His pain is sharp and stiff. Pain increases with abduction (painful arc movement), shoulder extension. Functionally, he is limited in LB ADLs, sleeping on his sides, driving, cooking and cleaning. Of note, he fell on his shoulder yesterday and did not call the MD. He has a postop visit on 07/02/24. Assessment reveals pain that ranges from up to a 9/10 at the worst. Patient demos decreased L shoulder and cervical ROM (UT for the L), strength of L shoulder and scapular stabilizers, TTP at anterior GHJ, UT and impaired posture with thoracic kyphosis, forward head and rounded shoulders. Based on functional limitations, impaired QOL and pain tolerance patient is a fair/good candidate for skilled PT 2x/wk for 4wks. Frequency and Duration: The patient will be seen 2x/wk for 4wks Short Term Goals: (In 2 weeks) Demo I with HEP Improve shoulder AROM by at least 10 degs Demo proper scapular recruitment with appropriate shoulder strengthening exercises Natural Resource Manager Goals: (in 4 wks) Improve shoulder nonpainful AROM to almost near equal B Demo at least 1 grade improvement in MMT for shoulder Improve SPADI by at least 10 points Improve overall functional QOL by at least 50% Treatment Plan: Modalities to reduce pain, spasms and effusion. Manual therapy to restore motion and function. Therapeutic exercise to improve strength and flexibility. Neuromuscular re-education for posture and balance. Therapeutic activities to return to functional activities of daily living. Electronically signed by: Dary Avitia PT Please sign and return to therapist. Thank you for your referral.
--- NOTE | 2024-08-12 08:32 | MHC.PT.DC ---
[facility] [place] Office [place] [facility] [place] Office [address] Shawn Hernandez [address] [phone] F: [phone] F: [phone] F: [phone] F: [phone] Physical Therapy Discharge Report Diagnosis: This is a 39 yo male presenting to skilled PT with a script for s/p shoulder arthroscopy. Date of Surgery: 05/23/24 Date of Evaluation: 06/19/24 Date of Discharge: 08/12/24 Treatments to Date: 8 Cancellations to Date: 0 No Shows to Date: 0 Discharge Status: Patient Elected to Stop Recommend MD Follow-up Visit Non-compliance Discharge Summary: Patient came to 8 sessions of PT with multiple no shows and cancellations since June. No real changes noted since the start of our sessions in terms of pain, limited/questionable carryover with HEP and PT direction. It took some encouragement to get him to exercise in our sessions. He had one more booked appointment and then I was plan on DCing him to HEP as no skilled PT is indicated at this time however patient no showed to the appointment. Recommend following up with MD in regards to continued pain and continue HEP on own. Electronically signed by: Dary Avitia PT Please sign and return to therapist. Thank you for your referral.
== END 2024-08-12 08:32 | disposition home or self-care (01) ==
LOC: HO.PTCHIC 10:00
PROVIDERS: PCP Nurse Practitioner Family; Visit Provider Physician Assistant
DX: M25.312 Other instability, left shoulder (principal)
CPT/HCPCS: 97110; 97162

== ENCOUNTER 2024-08-05 12:58 | Outpatient (AMB) | payer OTHER, SELFPAY ==
--- NOTE | 2024-08-05 13:00 | A.OFFVIS_ITS ---
Vital Signs 08/05/24 13:03 Height 5 ft 7 in BP 144/88 H Blood Pressure Location Rt brachial Position Sitting Pulse 104 H Pulse Source Pulse Oximeter Pulse Oximetry (%) 98 Oxygen Delivery Method Room Air Intake Visit Reasons: 3-4 month follow up Intake Note: Rita presents for 3p-4 month follow up Allergies aspirin Allergy (Severe, Verified 08/05/24 13:02) Facial Swelling oxycodone Allergy (Severe, Verified 08/05/24 13:02) severe pain/redness of testicles varenicline [From Chantix] Allergy (Severe, Verified 08/05/24 13:02) full body rash calamine Allergy (Intermediate, Verified 08/05/24 13:02) Rash barium sulfate Allergy (Mild, Verified 08/05/24 13:02) Vomiting hydromorphone Adverse Reaction (Verified 08/05/24 13:02) itchy hives Medication List - Last Reconciled 08/05/24 by Eduarda Saucedo, [employer] acetaminophen-caffeine 500-65 mg (Excedrin Tension Headache) 2 tabs PO QID PRN amitriptyline 10 mg PO BEDTIME 30 days amlodipine 10 mg PO QAM atorvastatin 40 mg PO BEDTIME betamethasone dipropionate 0.05% 1 appl topical DAILY PRN hydrochlorothiazide 25 mg PO QAM hydrocodone-acetaminophen 10-325 mg 0.5 tabs PO Q8H PRN hydrocodone-acetaminophen 10-325 mg 1 tab PO Q8H PRN magnesium oxide 400 mg PO BEDTIME 30 days riboflavin (vitamin B2) 400 mg PO QAM ubrogepant (Ubrelvy) 50 - 100 mg (0.5 - 1 x 100 mg) PO ONCE PRN 30 days valsartan 320 mg PO QAM HPI HPI 3-4 month follow up: Details: Florencio is a 39 year old male with past medical history of hypertension, uncontrolled HTN, hypertensive heart disease, obesity, reported history of pericarditis in 2001, 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 Today he reports that he has been doing generally well since his last visit in April. He did have surgery on his left shoulder and is now in physical therapy. He continues to have some soreness. He will notice a sharp pressure in his mid chest that occurs periodically. This is not anything new for him as he says he has been getting pains like this for many years. He says it is unlike the chest pain that brought him to the hospital at the time of his ID. He denies having any chest discomfort brought on by physical activity. He does admit to being active through the day but no routine exercise. No shortness of breath, PND, orthopnea or edema. He reports home blood pressures ranging 120- 130 systolic. He missed his medications for a few days but did take them this morning. [facility] Medical History Myocardial infarction Cervical spondylosis Low back pain Neck pain Snores Dizziness Hyperlipemia Murmur 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) History of stent insertion of renal artery (~2008) Migraines Coronary atherosclerosis Renal artery aneurysm Hypertension Surgical History H/O shoulder surgery Hx of neck surgery History of carpal tunnel release Stented coronary artery Family History Mother No family history of coronary artery disease Father No family history of coronary artery disease Social History Household Members Other:: minor children/lives in half-way Housing: House Are 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 a significant other at home: Yes (has caregiver in place for children DOS) Do you presently have visiting nurse or other home services: No 75 years or older and lives alone: No Alcohol intake: current Alcohol intake frequency: does not drink Comment: chronic dizziness Patient Tobacco Use Status: Current someday Tobacco user Tobacco use type: Cigarette Cigarettes Per Day: 2 Years Smoked: 22 e-Cigarette/Vaping Use: Never Used Second Hand Smoke Exposure: No service: No Current occupational status: unemployed Current occupation: [employer] , Left hand dominate Current occupational exposures/hazards: Yes Cognitive needs: No Hearing needs: No Vision needs: No Review of Systems Const All systems reviewed & are unremarkable except as noted in HPI and below Card Reports chest pain, Reports chest pain at rest, Denies chest pain with activity, Denies syncope, Denies rapid heart rate, Denies pedal edema, Denies leg edema, Denies dyspnea, Denies dyspnea on exertion and Denies orthopnea Resp Denies dyspnea and Denies dyspnea on exertion GI Denies no additional complaints Skin/Breast Denies system reviewed and no additional complaints, except as documented Neuro Denies syncope Psych Reports no additional complaints Physical Exam Vital Signs: Last Vital Signs Pulse 104 H 08/05/24 13:03 BP 144/88 H 08/05/24 13:03 Pulse Ox 98 08/05/24 13:03 Oxygen Delivery Method Room Air 08/05/24 13:03 Const Other: obese General: cooperative, healthy appearing, comfortable and no acute distress Orientation/consciousness: patient oriented x3 Neck Neck: Yes normal visual inspection and Yes no JVD Resp Effort & Inspection: normal respiratory effort Auscultation: clear to auscultation bilaterally, no crackles, no rales, no rhonchi and no wheezes Cardio Rate: regular rate Rhythm: regular rhythm Heart sounds: S1 normal heart sound present, S2 normal heart sound present, no murmurs and no rubs Neuro General: patient oriented x3 Extrem General: Yes normal to inspection, No no pedal edema and No calf tenderness Psych Appearance: grossly normal Mental Status: mental status grossly normal Speech and movement: Normal speech and movement present Assessment & Plan Assessment & Plan (1) Coronary atherosclerosis: Comment: follows w/[facility] Code(s): I25.10 - Atherosclerotic heart disease of [place] coronary artery without angina pectoris Category: Medical Plan: NSTEMI 2020, Notes from [facility] previously reviewed indicating cardiac catheterization 12/07/2020 showing plaque rupture of the left circumflex artery, SUZI placed, other vessels normal, RCA dominant. Last Echocardiogram done 11/28/2022 showing EF 57%, moderate to severe concentric LVH, grade 1 diastolic dysfunction. A nuclear stress test was done for reports of chest discomfort on 12/05/2022 showing normal myocardial perfusion imaging. At this time he continues to get random chest discomfort which is unchanged in the last few years. He has no exertional symptoms. Will have him continue med management for stable CAD. Signs and symptoms of angina reviewed with him. Instructed to let us know if he has any change to his symptoms. He is not on aspirin due to allergy. He declines Plavix due to prior concerned that it dropped his blood pressure. He is on atorvastatin with LDL goal less than 70. Labs done 01/08/2024 showed LDL of 84. Previously had been well controlled. The need for strict med compliance reviewed. Cardiology follow-up in 6 months, sooner if needed. (2) Hypertension: Code(s): I10 - Essential (primary) hypertension Category: Medical Plan: Blood pressure goal less than 130/80. History of noncompliance with medications at times. He is currently on amlodipine, hydrochlorothiazide and valsartan and blood pressure mildly elevated today. He tells me he did not take his meds for a few days but did take them today. He reports home blood pressures typically run 120-130 systolic. He has a history of renal artery stent. Renal artery ultrasound 07/10/2024 shows no renal artery stenosis. Last echo does show moder ate to severe concentric LVH. Finding of LVH discussed with him in detail. The strict importance of good blood pressure control reviewed with him. Continue current meds without change. Continue with home blood pressure monitoring - call if systolic pressure is running greater than 140 (3) Palpitation: Code(s): R00.2 - Palpitations Category: Medical Plan: Prior reports of heart palpitations. A Holter monitor was done on 07/16/2023 for 3 days showing sinus rhythm with average heart rate 89, rare ectopy. His symptoms correlated with sinus tachycardia. (4) Stented coronary artery: Comment: Left circumflex 2020 Code(s): Z95.5 - Presence of coronary angioplasty implant and graft Category: Surgical Plan: As above (5) Renal artery aneurysm: Comment: with dissection-stent in place, right Code(s): I72.2 - Aneurysm of renal artery Category: Medical Plan: He reports a history of having a renal artery aneurysm that dissected and a stent was placed. He was not clear on the year this occurred. Last renal artery ultrasound as above showing no stenosis. (6) History of stent insertion of renal artery: Onset Date: ~2008 Comment: Renal artery stent Code(s): Z98.890 - Other specified postprocedural states Category: Medical Plan: As above Plan Time spent on chart review, documentation, interview and assessment I discussed the patient's current management of hypertension, emphasizing the importance of maintaining medication adherence to achieve optimal blood pressure control, as the current reading of 144/88 may be influenced by recent nonadherence. We reviewed the symptomatology of chest pain, which is episodic and less severe than prior events leading to stent placement. Given the lack of significant exacerbation in these symptoms, we opted for monitoring unless there is an escalation in frequency or intensity, at which point a stress test and possibly a repeat angiogram may be warranted. We reviewed recent renal artery ultrasound findings that supported stable vessel patency. I recommended increased hydration due to the patient's activity level and exposure to warmer conditions. Follow-up is set in six months, with instructions to report any concerning changes sooner. Patient Instructions: - Take blood pressure medication as directed every day. - Monitor blood pressure at home and record readings. - Keep track of chest pain incidents, and note any changes in frequency or severity. - Stay hydrated, particularly during physical activity and warm weather. - Schedule a follow-up appointment in six months or sooner if symptoms worsen. - Call immediately/ go to ED if experiencing severe or new chest pain or shortness of breath. Patient was informed and verbally consented to the use of an ambient scribe for clinic note documentation during this visit. Coding Level of Care Code Est Pt Level 4 (83916) Complex EM visit Add On G2211 Diagnoses Coronary atherosclerosis I25.10 Hypertension I10 Palpitation R00.2 Stented coronary artery Z95.5 Renal artery aneurysm I72.2 History of stent insertion of renal artery Z98.890 Time Spent (min) 32
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
[2024-08-05 13:03] VITALS: BP 144/88; PULSE 104; O2SAT 98
== END 2024-08-05 13:55 | disposition home or self-care (01) ==
LOC: HO.HCS 12:59
PROVIDERS: PCP Nurse Practitioner Family; Visit Provider Nurse Practitioner Family
DX: I25.10 Atherosclerotic heart disease of native coronary artery without angina pectoris (principal); I10 Essential (primary) hypertension; R00.2 Palpitations; Z95.5 Presence of coronary angioplasty implant and graft; I72.2 Aneurysm of renal artery; Z98.890 Other specified postprocedural states
CPT/HCPCS: 99214; G2211

== ENCOUNTER → 2024-08-05 12:58 | Outpatient (BNVA) | payer OTHER, SELFPAY | PROVIDERS: PCP Nurse Practitioner Family; Visit Provider Nurse Practitioner Family | DX: I25.10 Atherosclerotic heart disease of native coronary artery without angina pectoris (principal); I10 Essential (primary) hypertension; I72.2 Aneurysm of renal artery; R00.2 Palpitations; Z95.5 Presence of coronary angioplasty implant and graft; Z98.890 Other specified postprocedural states | CPT/HCPCS: 99212 ==

== ENCOUNTER 2024-08-12 09:09 | Outpatient (AMB) | payer OTHER, SELFPAY ==
--- NOTE | 2024-08-12 09:17 | MHC.OFFVIS ---
Intake Visit Reasons: 6M UA Intake Note: Patient is present for 6M/UA Urology Medication:VITAMIN B2 Antibiotic Allergy:BARIUM SULFATE Blood Thinner:NONE Sap Crm Developer Required: No Allergies aspirin Allergy (Severe, Verified 08/12/24 09:19) Facial Swelling oxycodone Allergy (Severe, Verified 08/12/24 09:19) severe pain/redness of testicles varenicline [From Chantix] Allergy (Severe, Verified 08/12/24 09:19) full body rash calamine Allergy (Intermediate, Verified 08/12/24 09:19) Rash barium sulfate Allergy (Mild, Verified 08/12/24 09:19) Vomiting hydromorphone Adverse Reaction (Verified 08/12/24 09:19) itchy hives HPI Comments Details: Florencio is a pleasant male. He is a patient of Dr. Oakes. 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) History of stent insertion of renal artery (~2008) Migraines Coronary atherosclerosis Renal artery aneurysm Hypertension Surgical History H/O shoulder surgery Hx of neck surgery History of carpal tunnel release Stented coronary artery Family History Mother No family history of coronary artery disease Father No family history of coronary artery disease Social History Household Members Other:: minor children/lives [facility] [place] [facility] Housing: House Are you a primary group care worker to a significant other at home: Yes (has caregiver in place for children DOS) Do you presently have visiting nurse or other home services: No 75 years or older and lives alone: No Alcohol intake: current Alcohol intake frequency: does not drink Comment: chronic dizziness Patient Tobacco Use Status: Current someday Tobacco user Tobacco use type: Cigarette Cigarettes Per Day: 2 Years Smoked: 22 e-Cigarette/Vaping Use: Never Used Second Hand Smoke Exposure: No service: No Current occupational status: unemployed Current occupation: [employer] , Left hand dominate Current occupational exposures/hazards: Yes Cognitive needs: No Hearing needs: No Vision needs: No Review of Systems Const Denies chills and Denies fever(s) Card Reports no additional complaints and Denies syncope Resp Denies cough GI Denies abdominal pain and Denies heartburn Reports as per HPI and Denies change in libido Neuro Denies syncope Psych Denies change in libido Endo Denies change in libido Physical Exam Const General: cooperative, healthy appearing, comfortable and no acute distress Orientation/consciousness: patient oriented x3 HEENT Face and sinus: Yes normal facial exam Mouth: moist mucous membranes Neck Neck: Yes normal visual inspection, Yes full ROM and Yes trachea midline Chest Chest palpation & inspection: normal inspection of the chest Resp Effort & Inspection: normal respiratory effort, able to speak in complete sentences and no respiratory distress GI Inspection: Yes normal to inspection Back/Spine/Pelvis Cervical Spine: normal cervical lordosis Thoracic/Lumbar Spine: thoracic and lumbar spine normal to inspection Skin General skin exam: no rashes or lesions noted Neuro General: patient oriented x3, gait normal, tone normal and moves all extremities Extrem General: Yes normal to inspection and Yes capillary refill normal Results AMB Urinalysis, Automated UA Leukoctes 0 Angus/uL Last Edit by ABDULAZIZ Cunha on 08/12/24 09:44 UA Nitrite Negative Last Edit by ABDULAZIZ Cunha on 08/12/24 09:44 UA Urobilinogen 3.5 mg/dL Last Edit by ABDULAZIZ Cunha on 08/12/24 09:44 UA Protein 0.3 mg/dL Last Edit by ABDULAZIZ Cunha on 08/12/24 09:44 UA pH 6.0 Last Edit by ABDULAZIZ Cunha on 08/12/24 09:44 UA Blood 200 Jonathan/uL Last Edit by ABDULAZIZ Cunha on 08/12/24 09:44 UA Specific Trinity 1.020 Last Edit by ABDULAZIZ Cunha on 08/12/24 09:44 UA Ketone Negative Last Edit by ABDULAZIZ Cunha on 08/12/24 09:44 UA Bilirubin 0 mg/dL Last Edit by ABDULAZIZ Cunha on 08/12/24 09:44 UA Glucose 0 mg/dL Last Edit by ABDULAZIZ Cunha on 08/12/24 09:44 Results Reviewed Results Reviewed: Laboratory Last Values Urine pH (Auto) 6.0 08/12/24 09:43 Specific Trinity (Auto) 1.020 08/12/24 09:43 Urine Protein (Auto) 0.3 mg/dL 08/12/24 09:43 Glucose (UA)(Auto) 0 mg/dL 08/12/24 09:43 Urine Ketones (Auto) Negative 08/12/24 09:43 Urine Blood (Auto) 200 Jonathan/uL 08/12/24 09:43 Urine Nitrite (Auto) Negative 08/12/24 09:43 Urine Bilirubin (Auto) 0 mg/dL 08/12/24 09:43 Urine Urobilinogen (Auto) 3.5 mg/dL 08/12/24 09:43 Leukocyte Esterase (Auto) 0 Angus/uL 08/12/24 09:43 Assessment & Plan Assessment & Plan (1) Microhematuria: Code(s): R31.29 - Other microscopic hematuria Category: Medical Plan 12 month follow-up Orders: Orders Urine Cytology Today N39.0 - Urinary tract infection, site not specified AMB Urinalysis Automated Today Z13.9 - Encounter for screening, unspecified Patient Instructions: This note is constructed using voice recognition software. While every effort has been made to ensure accuracy reference and instruction librarian errors may have been included. Imaging studies, laboratory and physical exam results were discussed and reviewed in detail. No major barriers to patient understanding were identified. An opportunity to ask questions regarding the treatment plan was provided. All questions were answered. The patient expressed understanding and agreement with the above treatment plan. The patient is aware they should contact our office by phone for worsening of their current condition or the appearance of new urologic symptoms. Compliance is encouraged with any medications and followup testing that is ordered. It is a privilege to participate in the urologic care of your patient. If you have any questions or concerns regarding treatment for the above conditions, or other urologic issues, please do not hesitate to contact me. The office telephone contact is [phone]. Sincerely, Dr Deonte Westbrook MD, [facility] - Urology Compassionate Specialist Care for the Genitourinary System Coding Level of Care Code Est Pt Level 3 (17698) Complex EM visit Add On G2211 Diagnoses Microhematuria R31.29
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
== END 2024-08-12 10:24 | disposition home or self-care (01) ==
LOC: HO.HUSH 09:09
PROVIDERS: PCP Nurse Practitioner Family; Visit Provider Urology
DX: Z13.9 Encounter for screening, unspecified (principal); R31.29 Other microscopic hematuria
CPT/HCPCS: 99213; G2211

== ENCOUNTER 2024-08-12 09:09 | Outpatient (REF) | payer OTHER, SELFPAY ==
[2024-08-12 15:55] LABS: Urine Cytology See Pathology rpt
== END 2024-08-12 09:10 | disposition home or self-care (01) ==
LOC: HO.LAB 09:09
PROVIDERS: PCP Nurse Practitioner Family; Visit Provider Urology
DX: R31.29 Other microscopic hematuria (principal); N39.0 Urinary tract infection, site not specified
CPT/HCPCS: 81003; 88112; 99212

== ENCOUNTER 2024-08-22 10:55 | Emergency (ER) | payer OTHER, SELFPAY ==
[2024-08-22] VITALS (8 sets, daily range): BP systolic 125–191; BP diastolic 80–114; PULSE 69–90; RESP 15–18; TEMP 36.1–36.9; O2SAT 97–98; BMI 37.8
--- NOTE | ~2024-08-22 | CT_ITS ---
CLINICAL HISTORY: chest pain severe HTN CT angiography chest with contrast. 3D Postprocessing. Comparison: None Findings: The heart size is normal. RV/LV ratio is normal. Unremarkable thoracic aorta and great vessels. No aneurysm. No acute pulmonary embolus. Unremarkable thyroid gland. There are a couple of mildly enlarged mediastinal lymph nodes. No consolidation, pleural effusion or pneumothorax. The visualized upper abdomen is unremarkable. No acute fractures. IMPRESSION: 1. No evidence of pulmonary artery embolism. 2. No aortic aneurysm or dissection. This document has been electronically signed by: Sonia Arevalo MD on 08/22/2024 18:05:42
--- NOTE | ~2024-08-22 | XR_ITS ---
EXAMINATION: XR CHEST CLINICAL INFORMATION: CP COMPARISON: December 14, 2022 TECHNIQUE: 2 views of the chest were obtained. FINDINGS: No significant abnormality is noted involving the heart, lungs, mediastinum, bony thorax or soft tissues. Prosthetic disc is present at C6-7. XR/XR chest 2V IMPRESSION: No acute disease. Electronically signed by: Froylan Armando MD 08/22/2024 12:34 PM EDT
--- NOTE | 2024-08-22 11:00 | ECG_ITS ---
Test Reason : chest pain Blood Pressure : */* mmHG Vent. Rate : 90 BPM Atrial Rate : 90 BPM P-R Int : 160 ms QRS Dur : 90 ms QT Int : 362 ms P-R-T Axes : 37 33 47 degrees QTcB Int : 442 ms Normal sinus rhythm Possible Left atrial enlargement Minimal voltage criteria for LVH, may be normal variant ( [place] product ) Borderline ECG When compared with ECG of 18-Oct-2023 10:47, No significant change was found Referred By: Valerie Ibarra Electronically Signed By: BRAYDEN ADDISON MD
--- NOTE | 2024-08-22 12:01 | ED_ITS ---
HPI - Chest Pain General Chief Complaint: Chest Pain Stated Complaint: Chest pain Time Seen by Provider: 08/22/24 15:58 History of Present Illness ED Provider: MARY CARMEN HPI narrative: This is a 39-year-old male with past medical history below most relevant is pericarditis, CAD with stent in the left circumflex 2020, hypertension poorly controlled active smoker with worsening exertional chest pain particularly when washing dishes or walking up steps with heavy chest pain that only resolves with rest since Sunday he is had intermittent chest pain since his stent 4 years ago this is worse week then he is had. No ripping tearing or radiating to the neck back shoulders or arms. He is pain-free in the ED. Denies coughing or difficulty breathing at this time. No leg edema. 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, coronary artery disease, NSTEMI, circumflex stent 11/2020 at [facility] [place] Related Data Home Medications ?Medication ?Instructions ?Recorded ?Confirmed acetaminophen-caffeine 500 mg-65 2 tab PO QID PRN Head ache 06/24/22 08/26/24 mg tablet (Excedrin Tension Headache) riboflavin (vitamin B2) 400 mg 400 mg PO QAM 05/09/24 08/26/24 tablet amlodipine 10 mg tablet 10 mg PO QAM 05/12/24 hydrochlorothiazide 25 mg tablet 25 mg PO QAM 05/12/24 08/26/24 valsartan 320 mg tablet 320 mg PO QAM 05/12/2408/26 Previous Rx's ?Medication ?Instructions ?Recorded amitriptyline 10 mg tablet 10 mg PO BEDTIME 30 days #3 0 tabs 11/08/23 magnesium oxide 400 mg (241.3 mg 400 mg PO BEDTIME 30 days #30 tabs 11/08/23 magnesium) tablet ubrogepant 100 mg tablet (Ubrelvy) 50 - 100 mg (0.5 - 1 x 100 mg) PO 11/08/23 ONCE PRN migraine headache 30 days #16 tabs hydrocodone 10 mg-acetaminophen 0.5 tab PO Q8H PRN sev ere pain 11/22/23 325 mg tablet (scale score 7-10) #14 tabs atorvastatin 40 mg tablet 40 mg PO BEDTIME #90 tabs hydrocodone 10 mg-acetaminophen 1 tab PO Q8H PRN pain #30 tabs 07/02/24 325 mg tablet betamethasone dipropionate 0.05 % 1 appl topical DAILY PRN skin 07/09/24 topical cream irritation #45 grams spironolactone 25 mg tablet 25 mg PO DAILY #30 tabs Allergies Allergy/AdvReac Type Severity Reaction Status Date / Time aspirin Allergy Severe Facial Verified 08/26/24 10:00 Swelling oxycodone Allergy Severe severe Verified 08/26/24 10:00 pain/redness of testicles varenicline (From Chantix) Allergy Severe full body Verified 08/26/24 10:00 rash calamine Allergy Intermediate Rash Verified 08/26/24 10:00 barium sulfate Allergy Mild Vomiting Verified 08/26/24 10:00 hydromorphone AdvReac itchy hives Verified 08/26/24 10:00 PMFSH Past Medical History Medical History Myocardial infarction Cervical spondylosis Low back pain Neck pain Snores Dizziness Hyperlipemia Murmur 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) History of stent insertion of renal artery (~2008) Migraines Coronary atherosclerosis Renal artery aneurysm Hypertension Surgical History H/O shoulder surgery Hx of neck surgery History of carpal tunnel release Stented coronary artery Family History Family History Mother No family history of coronary artery disease Father No family history of coronary artery disease Social History Social History Household Members Other:: minor children/lives in longterm Housing: House 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 at 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: Yes (has caregiver in place for children DOS) Do you presently have visiting nurse or other home services: No Alcohol intake: current Alcohol intake frequency: does not drink Comment: chronic dizziness Patient Tobacco Use Status: Current someday Tobacco user Tobacco use type: Cigarette Cigarettes Per Day: 2 Years Smoked: 22 e-Cigarette/Vaping Use: Never Used Second Hand Smoke Exposure: No service: No Current occupational status: unemployed Current occupation: [employer] , Left hand dominate Current occupational exposures/hazards: Yes Cognitive needs: No Hearing needs: No Vision needs: No Physical Exam 2 Vital Signs: Vital Signs: Last Vital Signs Temp 98.4 F 08/22/24 18:56 Pulse 86 08/22/24 18:56 Resp 16 08/22/24 18:56 BP 125/80 08/22/24 18:56 Pulse Ox 98 08/22/24 18:56 O2 Del Method Room Air 08/22/24 18:56 BMI result Body Mass Index 37.8 Const: Other: EXAM: Gen: Alert, awake, well appearing, well hydrated. Head: Atraumatic Eyes: Anicteric, Normal conjunctiva. ENT: Moist mucosa, no pallor. ? Neck: Supple. Skin: ?No observable rash or bruising on exposed or examined skin Respiratory: Breathing comfortably, No distress.Clear to auscultation bilaterally, symmetric chest expansion, No wheeze, rales, ronchi. Cardiovascular: Regular rate and rhythm. No murmurs or rub. Well perfused periphery, warm extremities. No edema. ? Abdominal: No FOCAL TENDERNESS. Soft, no objective distension. No palpable masses or obvious organomegaly. ?No guarding, no rebound tenderness or other peritoneal findings. : No flank tenderness. Neuro: Alert. Gross movement of all extremities intact. ? Psych: Calm. Cooperative. MSK: No grossly visible deformity. Vital signs: See flowsheet Course Course Course Narrative: This is an RME: Additional HPI, ROS, PE not included below will be deferred to primary provider. 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 Reports CP started on sunday, was lifting and felt pain. Sharp pain, some CP at rest. Reporting sweats and SOB with climbing stairs. Also endorsing dizziness. Plan: Labs, EKG, CXR, further ER eval needed. Medications Administered Discontinued Medications Generic Name Dose Route Start Last Admin Trade Name Albino PRN Reason Stop Dose Admin Iohexol 70 ml 08/22/24 17:32 08/22/24 17:32 Iohexol 350 Mg/Ml 100 Ml Infus..Btl IV 08/22/24 17:33 70 ml ONCE ONE Administration Labetalol HCl 20 mg 08/22/24 16:14 08/22/24 16:24 Labetalol Hcl 100 Mg/20 Ml Vial IVPUSH 08/22/24 16:15 20 mg ONCE ONE Administration Labetalol HCl 200 mg 08/22/24 16:14 08/22/24 17:37 Labetalol Hcl 200 Mg Tablet PO 08/22/24 16:15 200 mg ONCE ONE Administration Protocol Nitroglycerin 0.4 mg 08/22/24 18:07 08/22/24 18:19 Nitroglycerin 0.4 Mg Tab.Subl SUBLINGUAL 0.4 mg Q5MX3 PRN Administration Chest Pain Medical Decision Making Medical Decision Making MDM Narrative: 39-year-old male with CAD, hypertension, poorly controlled hypertension in the ED maximally 194/115. Pain-free here however severe hypertension in the setting of early coronary disease with worsening exertional angina I felt compelled to more aggressively control the pressure with IV p.o. labetalol. CT has excluded aortic dissection or other severe cardiopulmonary pathology identifiable by tomography. No acute ischemic changes on ECG. Troponin flat at 13. This is not an LA at this time. __ After discussion with the hospitalist who agreed to admit him however when he came down the patient declined to be admitted to the hospital. Hospitalist evaluated him and has advised adding carvedilol onto his regimen. Close follow up with metal filer for strongly recommended to the patient AMA verbally Differential Diagnosis Differential Diagnoses: The differential diagnosis associated with the presentation includes ACS, dissection, pericarditis, pleuritis, musculoskeletal pain Lab Data 08/22/24 14:58 08/22/24 14:58 Labs: Lab Results 08/22/24 08/22/24 08/22/24 Range/Units 14:58 16:22 16:22 WBC 10.5 (4.8-10.8) X10*3/uL RBC 5.51 (4.60-5.80) X10*6/uL Hgb 14.4 (14.0-18.0) g/dl Hct 44.5 (42.0-52.0) % MCV 80.8 (80.0-98.0) fL MCH 26.1 L (27.0-33.0) pg MCHC 32.4 (31.0-36.0) g/dl RDW 15.6 (11.0-16.0) % Plt Count 361 (160-400) X10*3/uL MPV 9.6 (9.4-12.4) fL Immature Gran % (Auto) 0.4 (0.0-0.4) % Neut % (Auto) 61.5 (45-73) % Lymph % (Auto) 27.9 (20-40) % [place] % (Auto) 8.1 (2-11) % Eos % (Auto) 1.5 (0-4) % Baso % (Auto) 0.6 (0-2) % Lymph # (Auto) 2.9 (1.2-4.9) X10*3/uL [place] # (Auto) 0.9 (0.1-1.2) X10*3/uL Eos # (Auto) 0.2 (0.0-0.4) X10*3/uL Baso # (Auto) 0.1 (0.0-0.2) X10*3/uL Abs Immat Gran (auto) 0.04 H (0.00-0.03) X10*3/uL Absolute Neuts (auto) 6.5 (2.0-8.3) x10*3/uL Absolute Nucleated RBC 0.000 (0.0-0.012) X10*3/uL Nucleated RBC % (auto) 0.0 (0.0-0.2) /100WBC Sodium 138 (135-145) mmol/L Potassium 3.6 (3.3-5.1) mmol/L Chloride 100 (96-108) mmol/L Carbon Dioxide 28 (22-29) mmol/L Anion Gap 14 (12-20) BUN 8 L (9-16) mg/dL Creatinine 0.88 (0.5-1.4) mg/dL Estim Creat Clear Calc 131.7 Estimated GFR > 60 Random Glucose 141 H (60-115) mg/dL Calcium 10.1 (8.4-10.2) mg/dL Magnesium 2.2 (1.6-2.6) mg/dL Total Bilirubin 0.6 (0.0-1.0) mg/dL Direct Bilirubin 0.1 (0.0-0.5) mg/dL AST 26 (5-37) U/L ALT 39 (0-40) U/L Alkaline Phosphatase 100 (39-117) U/L Troponin I High Sens 15.8 Cancelled 13.6 (<3.5-35.0) ng/L Total Protein 8.1 H (6.5-8.0) g/dL Albumin 4.9 (3.5-5.0) g/dL Lipase 44 (8-78) U/L Influenza Type A (PCR) NEGATIVE (Negative) Influenza Type B (PCR) NEGATIVE (Negative) RSV RNA Qual (PCR) NEGATIVE (Negative) SARS-CoV-2 RNA (RT-PCR) NEGATIVE (Negative) Discharge Plan Discharge Clinical Impression: Chest pain Patient Disposition: Left Against Medical Advice Interventions: ED Discharge Assessment Last Done: 08/22/24 18:56 Discharge Date/Time: 08/22/24 19:03
[2024-08-22 15:09] LABS: MANUAL DIFF FLAG NO
[2024-08-22 15:11] LABS: Basophils Absolute Auto 0.1 X10*3/uL (0.0-0.2); Basophils Percent Auto 0.6 % (0-2); Eosinophils Absolute Auto 0.2 X10*3/uL (0.0-0.4); Eosinophils Percent Auto 1.5 % (0-4); Hematocrit 44.5 % (42.0-52.0); Hemoglobin 14.4 g/dl (14.0-18.0); Imm Gran Abs Auto 0.04 X10*3/uL (0.00-0.03); Imm Gran Pct Auto 0.4 % (0.0-0.4); Lymphocytes Absolute Auto 2.9 X10*3/uL (1.2-4.9); Lymphocytes Percent Auto 27.9 % (20-40); Mean Corpuscular HGB Conc 32.4 g/dl (31.0-36.0); Mean Corpuscular Hemoglobin 26.1 pg (27.0-33.0); Mean Corpuscular Volume 80.8 fL (80.0-98.0); Mean Platelet Volume 9.6 fL (9.4-12.4); Monocytes Absolute Auto 0.9 X10*3/uL (0.1-1.2); Monocytes Percent Auto 8.1 % (2-11); Neutrophils Absolute Auto 6.5 x10*3/uL (2.0-8.3); Neutrophils Percent Auto 61.5 % (45-73); Platelet Count 361 X10*3/uL (160-400); Red Blood Count 5.51 X10*6/uL (4.60-5.80); Red Cell Distribution Width 15.6 % (11.0-16.0); White Blood Count 10.5 X10*3/uL (4.8-10.8)
[2024-08-22 15:25] LABS: Alanine Aminotransferase 39 U/L (0-40); Albumin Level 4.9 g/dL (3.5-5.0); Alkaline Phosphatase 100 U/L (39-117); Anion Gap 14 (12-20); Aspartate Amino Transferase 26 U/L (5-37); Bilirubin Direct 0.1 mg/dL (0.0-0.5); Bilirubin Total 0.6 mg/dL (0.0-1.0); Blood Urea Nitrogen 8 mg/dL (9-16); Calcium 10.1 mg/dL (8.4-10.2); Carbon Dioxide 28 mmol/L (22-29); Chloride 100 mmol/L (96-108); Creatinine Clr Calc Pharmacy 131.7; Estimated Glomerular Filt Rate > 60; Glucose Random 141 mg/dL (60-115); Lipase 44 U/L (8-78); Magnesium 2.2 mg/dL (1.6-2.6); Potassium 3.6 mmol/L (3.3-5.1); Sodium 138 mmol/L (135-145); Total Protein 8.1 g/dL (6.5-8.0)
[2024-08-22 15:33] LABS: Troponin-I High Sensitivity 15.8 ng/L (<3.5-35.0)
[2024-08-22 15:54] LABS: Influenza A PCR NEGATIVE (Negative); Influenza B PCR NEGATIVE (Negative); Resp Syncy Virus RNA Qual PCR NEGATIVE (Negative); SARS COV2 PCR INHOUSE NEGATIVE (Negative)
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
[2024-08-22] MEDS: Labetalol HCL 100 MG/20 ML VIAL 20 MG IVPUSH (16:24)
[2024-08-22 16:57] LABS: Troponin-I High Sensitivity 13.6 ng/L (<3.5-35.0)
[2024-08-22] MEDS: iohexoL 350 MG/ML 100 ML INFUS..BTL 70 ML IV (17:32)
[2024-08-22] MEDS: Labetalol HCL 200 MG TABLET PO (17:37)
--- NOTE | 2024-08-22 18:10 | P.HPHOSP_ITS ---
History of Present Illness Date of Service: 08/22/24 Chief Complaint: chest pain A 39 years old male with PMH of CAD s\p PCI 2020, poorly controlled HTN, smoker, HLD among others who presents to the hospital with exertional chest pain since Sunday. The patient reports the pain is central with no radiation, intermittent and recurrent for the last few days as he tends to have chronic chest pain since his PCI in 2020 put this one is different since Sunday. affecting him as it is happening with walking stairs, washing dishes and resolves with rest. No palpitations, SOB, nausea, vomiting, diarrhea or urinary symptoms. Not in pain at time of presentation. In ED noticed to have significantly elevated blood pressure reading of 190/114 even after taking his home medications earlier. received Labetalol IV and PO with fair response. Will be admitted for further work up and management. Review of Systems 2 Review of Systems: No fever, chills or weakness No chest pain now, no palpitation No shortness of breath or coughing No abdominal pain, nausea or vomiting No urinary symptoms No any rash or wounds PMFSH Medical History Myocardial infarction Cervical spondylosis Low back pain Neck pain Snores Dizziness Hyperlipemia Murmur 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) History of stent insertion of renal artery (~2008) Migraines Coronary atherosclerosis Renal artery aneurysm Hypertension Family History Mother No family history of coronary artery disease Father No family history of coronary artery disease Surgical History H/O shoulder surgery Hx of neck surgery History of carpal tunnel release Stented coronary artery Social History Household Members Other:: minor children/lives in [place] Housing: House Are you a 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 a significant other at home: Yes (has caregiver in place for children DOS) Do you presently have visiting nurse or other home services: No Alcohol intake: current Alcohol intake frequency: does not drink Comment: chronic dizziness Patient Tobacco Use Status: Current someday Tobacco user Tobacco use type: Cigarette Cigarettes Per Day: 2 Years Smoked: 22 e-Cigarette/Vaping Use: Never Used Second Hand Smoke Exposure: No Advance Directives: No Advance Directives Information Provided: Yes service: No Current occupational status: unemployed Current occupation: [employer] , Left hand dominate Current occupational exposures/hazards: Yes Cognitive needs: No Hearing needs: No Vision needs: No Meds Allergies Allergy/AdvReac Type Severity Reaction Status Date / Time aspirin Allergy Severe Facial Verified 08/22/24 12:03 Swelling oxycodone Allergy Severe severe Verified 08/22/24 12:03 pain/redness of testicles varenicline [From Chantix] Allergy Severe full body Verified 08/22/24 12:03 rash calamine Allergy Intermediate Rash Verified 08/22/24 12:03 barium sulfate Allergy Mild Vomiting Verified 08/22/24 12:03 hydromorphone AdvReac itchy hives Verified 08/22/24 12:03 Home Medications ?Medication ?Instructions ?Recorded ?Confirmed ?Last Taken ?Type acetaminophen-caffeine 500 mg-65 2 tab PO QID PRN Headache 06/24/22 08/05/24 05/20/24 History mg tablet (Excedrin Tension Headache) riboflavin (vitamin B2) 400 mg 400 mg PO QAM 05/09/24 08/05/24 Unknown History tablet amlodipine 10 mg tablet 10 mg PO QAM 05/12/24 08/05/24 05/23/24 History hydrochlorothiazide 25 mg tablet 25 mg PO QAM 05/12/24 08/05/24 Unknown History valsartan 320 mg tablet 320 mg PO QAM 05/12/24 08/05/24 Unknown History Physical Exam 2 Vital Signs and Narrative: Vital Signs: Last Vital Signs Temp 96.9 F 08/22/24 17:21 Pulse 69 08/22/24 17:37 Resp 15 08/22/24 17:21 BP 154/97 H 08/22/24 17:37 Pulse Ox 98 08/22/24 17:21 O2 Del Method Room Air 08/22/24 17:21 BMI result Body Mass Index 37.8 Const: Other: Constitutional : Awake, interactive, not in distress Neck : Normal inspection, Supple Cardiovascular : RRR, no JVP, no lower extremity edema Respiratory : good bilateral air entry, no crackles, wheezes or rhonchi Gastrointestinal: soft, lax, Normal bowel sounds, Non tender Skin : Warm, Dry Neurological : Alert & oriented x3, No focal deficit Results Labs 08/22/24 14:58 08/22/24 14:58 Labs: Laboratory Results - last 24 hr 08/22/24 08/22/24 08/22/24 14:58 16:22 16:22 MCV 80.8 MCH 26.1 L MCHC 32.4 RDW 15.6 Plt Count 361 MPV 9.6 Immature Gran % (Auto) 0.4 Neut % (Auto) 61.5 Lymph % (Auto) 27.9 [place] % (Auto) 8.1 Eos % (Auto) 1.5 Baso % (Auto) 0.6 Lymph # (Auto) 2.9 [place] # (Auto) 0.9 Eos # (Auto) 0.2 Baso # (Auto) 0.1 Abs Immat Gran (auto) 0.04 H Absolute Neuts (auto) 6.5 Absolute Nucleated RBC 0.000 Nucleated RBC % (auto) 0.0 Anion Gap 14 Estim Creat Clear Calc 131.7 Estimated GFR > 60 Random Glucose 141 H Calcium 10.1 Magnesium 2.2 Total Bilirubin 0.6 Direct Bilirubin 0.1 AST 26 ALT 39 Alkaline Phosphatase 100 Troponin I High Sens 15.8 Cancelled 13.6 Total Protein 8.1 H Albumin 4.9 Lipase 44 Influenza Type A (PCR) NEGATIVE Influenza Type B (PCR) NEGATIVE RSV RNA Qual (PCR) NEGATIVE SARS-CoV-2 RNA (RT-PCR) NEGATIVE Imaging Radiologist's Impressions: Impressions Chest X-Ray 08/22/24 11:28 IMPRESSION: No acute disease. Electronically signed by: Froylan Armando MD 08/22/2024 12:34 PM EDT RP Assessment and Plan (1) Precordial chest pain: Status: Acute (2) Hypertensive urgency: Status: Acute Plan A 39 years old male with PMH of CAD s\p PCI 2020, poorly controlled HTN, smoker, HLD among others who presents to the hospital with exertional chest pain since Sunday. Chest pain reporting stable angina , this pain could be related to hypertensive urgency EKG negative for any acute ST\T-wave changes CTA negative for AA NTG PRN Control BP Cardiology consult Hypertensive urgency Improved with IV Labetalol Continue Amlodipine, HCT and Valsartan consider adding Carvedilol Hx CAD not on ASA (allergy) continue statin and ribflavin Mood Amitriptyline DVT PPx Lovenox Quality VTE VTE Risk Level:: Medical - moderate - high VTE Device Contraindication: Treatment Not Indicated VTE Drug Contraindication: N/A - Med Ordered
[2024-08-22] MEDS: Nitroglycerin 0.4 MG TAB.SUBL SUBLINGUAL (18:19)
== END 2024-08-22 19:03 | disposition left against medical advice (07) ==
LOC: HO.ED 18:33 → HO.EDOVER 18:44
PROVIDERS: Physician Assistant Medical; Emergency Provider Emergency Medicine; PCP Nurse Practitioner Family; Visit Provider Student in an Organized Health Care Education/Training Program
DX: R07.9 Chest pain, unspecified (principal); I11.9 Hypertensive heart disease without heart failure; I25.10 Atherosclerotic heart disease of native coronary artery without angina pectoris; Z53.29 Procedure and treatment not carried out because of patient's decision for other reasons; Z72.0 Tobacco use; Z79.899 Other long term (current) drug therapy; Z03.818 Encounter for observation for suspected exposure to other biological agents ruled out; E66.9 Obesity, unspecified; Z68.37 Body mass index [BMI] 37.0-37.9, adult
CPT/HCPCS: 0241U; 71046; 71275; 80048; 80076; 83690; 83735; 84484; 85025; 93005; 96374; 99222; 99284; J1920; Q9967

== ENCOUNTER → 2024-08-22 11:00 | Outpatient (BNV) | payer OTHER, SELFPAY | PROVIDERS: PCP Nurse Practitioner Family; Visit Provider Internal Medicine Cardiovascular Disease | DX: R07.9 Chest pain, unspecified (principal) | CPT/HCPCS: 93010 ==

== ENCOUNTER → 2024-08-22 12:04 | Outpatient (BNV) | payer OTHER, SELFPAY | PROVIDERS: PCP Nurse Practitioner Family; Visit Provider Radiology Diagnostic Radiology | DX: R07.9 Chest pain, unspecified (principal) | CPT/HCPCS: 71275 ==

== ENCOUNTER 2024-08-26 09:19 | Outpatient (AMB) | payer OTHER, SELFPAY ==
[2024-08-26 09:59] VITALS: BP 152/100; PULSE 85; BMI 38.3
--- NOTE | 2024-08-26 09:59 | A.OFFVIS_ITS ---
Vital Signs 08/26/24 09:59 Height 5 ft 7 in Weight 244 lb 11.41 oz BMI 38.3 BP 152/100 H Blood Pressure Location Lt brachial Position Sitting Pulse 85 Pulse Source Pulse Oximeter Intake Visit Reasons: f/up ED Supervisor Stone Required: No Allergies aspirin Allergy (Severe, Verified 08/26/24 10:00) Facial Swelling oxycodone Allergy (Severe, Verified 08/26/24 10:00) severe pain/redness of testicles varenicline [From Chantix] Allergy (Severe, Verified 08/26/24 10:00) full body rash calamine Allergy (Intermediate, Verified 08/26/24 10:00) Rash barium sulfate Allergy (Mild, Verified 08/26/24 10:00) Vomiting hydromorphone Adverse Reaction (Verified 08/26/24 10:00) itchy hives Medication List - Last Reconciled 08/26/24 by Eduarda Saucedo, BUSINESS SEGMENT MANAGER-C acetaminophen-caffeine 500-65 mg (Excedrin Tension Headache) 2 tabs PO QID PRN amitriptyline 10 mg PO BEDTIME 30 days amlodipine 10 mg PO QAM atorvastatin 40 mg PO BEDTIME betamethasone dipropionate 0.05% 1 appl topical DAILY PRN hydrochlorothiazide 25 mg PO QAM hydrocodone-acetaminophen 10-325 mg 0.5 tabs PO Q8H PRN hydrocodone-acetaminophen 10-325 mg 1 tab PO Q8H PRN magnesium oxide 400 mg PO BEDTIME 30 days riboflavin (vitamin B2) 400 mg PO QAM ubrogepant (Ubrelvy) 50 - 100 mg (0.5 - 1 x 100 mg) PO ONCE PRN 30 days valsartan 320 mg PO QAM HPI HPI f/up ED: Details: Florencio is a 39 year old male with past medical history of hypertension, uncontrolled HTN, hypertensive heart disease, obesity, reported history of pericarditis in 2001, 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 His treated with IV labetalol. He ruled out for ACS. Admission was recommended and he signed out AMA. He now presents for follow-up. Today he reports that he has been getting chest discomfort, shortness of breath and lightheadedness with activity such as stair climbing. He recently moved in his now on the 3rd floor of an apartment. He tells me his lightheadedness did cause him to fall down the stairs, sustaining minor injury. He is not having shortness of breath at rest, PND, orthopnea or edema. No heart palpitations, presyncope, syncope. He reports compliance with his meds. He is not interested in taking carvedilol it did not work for him in the past. He also believes that labetalol only works for just a few hours at a time on him. [facility] Medical History Myocardial infarction Cervical spondylosis Low back pain Neck pain Snores Dizziness Hyperlipemia Murmur 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) History of stent insertion of renal artery (~2008) Migraines Coronary atherosclerosis Renal artery aneurysm Hypertension Surgical History H/O shoulder surgery Hx of neck surgery History of carpal tunnel release Stented coronary artery Family History Mother No family history of coronary artery disease Father No family history of coronary artery disease Social History Household Members Other:: minor children/lives in [facility] Housing: House Are you a 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 skin care technician to a significant other at home: Yes (has caregiver in place for children DOS) Do you presently have visiting nurse or other home services: No 75 years or older and lives alone: No Alcohol intake: current Alcohol intake frequency: does not drink Comment: chronic dizziness Patient Tobacco Use Status: Current someday Tobacco user Tobacco use type: Cigarette Cigarettes Per Day: 2 Years Smoked: 22 e-Cigarette/Vaping Use: Never Used Second Hand Smoke Exposure: No service: No Current occupational status: unemployed Current occupation: [employer] , Left hand dominate Current occupational exposures/hazards: Yes Cognitive needs: No Hearing needs: No Vision needs: No Review of Systems Const All systems reviewed & are unremarkable except as noted in HPI and below ENT Reports dizziness Card Reports chest pain, Reports chest pain at rest, Reports chest pain with activity, Denies rapid heart rate, Denies pedal edema, Denies edema, Denies leg edema, Reports lightheadedness, Denies palpitations, Reports dyspnea, Denies dyspnea on exertion and Denies orthopnea Resp Denies cough, Reports dyspnea and Denies dyspnea on exertion GI Denies hematochezia and Denies change in stool character Musc Denies abnormal gait, Denies limited range of motion, Denies muscle cramps, Denies muscle weakness, Denies numbness, Denies radiating pain into limb, Denies stiffness and Denies tingling Neuro Denies abnormal gait, Reports dizziness, Denies numbness and Denies tingling Endo Denies palpitations Physical Exam Vital Signs: Last Vital Signs Pulse 85 08/26/24 09:59 BP 152/100 H 08/26/24 09:59 BMI result Body Mass Index 38.3 Const Other: obese General: cooperative, healthy appearing, comfortable and no acute distress Orientation/consciousness: patient oriented x3 Neck Neck: Yes normal visual inspection and Yes no JVD Resp Effort & Inspection: normal respiratory effort Auscultation: clear to auscultation bilaterally, no crackles, no rales, no rhonchi and no wheezes Cardio Rate: regular rate Rhythm: regular rhythm Heart sounds: S1 normal heart sound present, S2 normal heart sound present, no murmurs and no rubs Neuro General: patient oriented x3 Extrem General: Yes normal to inspection, No no pedal edema and No calf tenderness Psych Appearance: grossly normal Mental Status: mental status grossly normal Speech and movement: Normal speech and movement present Assessment & Plan Assessment & Plan (1) Uncontrolled hypertension: Code(s): I10 - Essential (primary) hypertension Category: Medical Plan: Recent [facility] evaluation for chest discomfort and found to have uncontrolled hypertension that was treated with IV labetalol. Admission was recommended he has signed out AMA. His current medications include amlodipine 10 mg daily hydrochlorothiazide 25 mg daily and valsartan 320 mg daily. Reports that beta- blockers, carvedilol and labetalol do not work on him. Blood pressure elevated today 152/100. Labs from 08/22/2024 showed potassium 3.6, creatinine 0.88. Will start on spironolactone 25 mg daily. BMP in 7-10 days. His last echo in 2022 showed moderate to severe LVH. Will update echo at this time. Cardiology follow-up 4-6 weeks, sooner if needed (2) Coronary atherosclerosis: Comment: follows /[facility] Code(s): I25.10 - Atherosclerotic heart disease of [place] coronary artery without angina pectoris Category: Medical Plan: NSTEMI 2020, Notes from [facility] previously reviewed indicating cardiac catheterization 12/07/2020 showing plaque rupture of the left circumflex artery, SUZI placed, other vessels normal, RCA dominant. Last Echocardiogram done 11/28/2022 showing EF 57%, moderate to severe concentric LVH, grade 1 diastolic dysfunction. A nuclear stress test was done for reports of chest discomfort on 12/05/2022 showing normal myocardial perfusion imaging. He is reporting exertional discomfort which could be related to hypertension. Will update nuclear stress test prior to his next visit. Signs and symptoms of angina reviewed with him. He is not on aspirin due to allergy. He declines Plavix due to prior concerned that it dropped his blood pressure. He is on atorvastatin with LDL goal less than 70. Labs done 01/08/2024 showed LDL of 84. Previously had been well controlled. The need for strict med compliance reviewed. (3) Hypertension: Code(s): I10 - Essential (primary) hypertension Category: Medical Plan: Blood pressure goal less than 130/80. History of noncompliance with medications at times. Currently uncontrolled and adding spironolactone. (4) Palpitation: Code(s): R00.2 - Palpitations Category: Medical Plan: Prior reports of heart palpitations. A Holter monitor was done on 07/16/2023 for 3 days showing sinus rhythm with average heart rate 89, rare ectopy. His symptoms correlated with sinus tachycardia. (5) Stented coronary artery: Comment: Left circumflex 2020 Code(s): Z95.5 - Presence of coronary angioplasty implant and graft Category: Surgical Plan: As above (6) Renal artery aneurysm: Comment: with dissection-stent in place, right Code(s): I72.2 - Aneurysm of renal artery Category: Medical Plan: He reports a history of having a renal artery aneurysm that dissected and a stent was placed. He was not clear on the year this occurred. Last renal artery ultrasound as above showing no stenosis. (7) History of stent insertion of renal artery: Onset Date: ~2008 Comment: Renal artery stent Code(s): Z98.890 - Other specified postprocedural states Category: Medical Plan: As above (8) Hospital discharge follow-up: Code(s): Z09 - Encounter for follow-up examination after completed treatment for conditions other than malignant neoplasm Category: Medical Plan: Discharge summary reviewed (9) Chest pain: Code(s): R07.9 - Chest pain, unspecified Category: Medical Plan: As above Plan I discussed with the patient the indicative diagnosis of uncontrolled hypertension exacerbating chest pain and dizziness during exertion. We reviewed the advantages of spironolactone, including its mode of action as a potassium- sparing diuretic to help manage resistant hypertension, and discussed hydralazine as a possible alternative. We also reviewed the normal ECG and flat troponin level findings as factors eliminating acute coronary syndrome as a current concern. I explained the significance of an echocardiogram to assess changes in his left ventricular hypertrophy and the potential requirement of a stress test or angiogram for thorough cardiac assessment contingent upon better blood pressure control. The patient was informed about the diagnostic and proc edural steps, including their respective risks and benefits. I emphasized maintaining thorough blood pressure monitoring and urged adherence to proposed pharmacotherapy revisions. We also discussed the patient's preference for minimal medication dosing due to prior nonadherence due to forgetfulness and aimed for a simplified regimen enhancing compliance. Follow up is planned to evaluate echocardiographic findings and consider further cardiac evaluations if hypertension is controlled. Orders: Orders NM cardiolite stress test 3 Weeks I10 - Essential (primary) hypertension, R07.9 - Chest pain, unspecified, Z95.5 - Presence of coronary angioplasty implant and graft Basic Metabolic Panel Today I16.0 - Hypertensive urgency CA echo transthoracic complete Today I10 - Essential (primary) hypertension, R07.9 - Chest pain, unspecified, Z98.890 - Other specified postprocedural states CA stress test 3 Weeks R07.9 - Chest pain, unspecified Medications: New spironolactone New - BP lowering medication 25 mg PO DAILY 30 tabs 5RF Patient Instructions: - Take spironolactone as prescribed - Monitor your blood pressure regularly - Schedule and attend the ordered echocardiogram - Further testing once blood pressure is better controlled - stress test - Report any worsening symptoms such as increased dizziness or chest pain immediately - Stick with the prescribed medication regimen to ensure proper blood pressure management Patient was informed and verbally consented to the use of an ambient scribe for clinic note documentation during this visit. Visit time spent on chart review, interview, assessment, orders, documentation. Coding Level of Care Code Est Pt Level 4 (19438) Complex EM visit Add On G2211 Diagnoses Uncontrolled hypertension I10 Coronary atherosclerosis I25.10 Hypertension I10 Palpitation R00.2 Stented coronary artery Z95.5 Renal artery aneurysm I72.2 History of stent insertion of renal artery Z98.890 Hospital discharge follow-up Z09 Chest pain R07.9 Time Spent (min) 32
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
== END 2024-08-26 10:41 | disposition home or self-care (01) ==
LOC: HO.HCS 09:19
PROVIDERS: PCP Nurse Practitioner Family; Visit Provider Nurse Practitioner Family
DX: I10 Essential (primary) hypertension (principal); I25.10 Atherosclerotic heart disease of native coronary artery without angina pectoris; R00.2 Palpitations; Z95.5 Presence of coronary angioplasty implant and graft; I72.2 Aneurysm of renal artery; Z98.890 Other specified postprocedural states; Z09 Encounter for follow-up examination after completed treatment for conditions other than malignant neoplasm; R07.9 Chest pain, unspecified
CPT/HCPCS: 99214; G2211

== ENCOUNTER → 2024-08-26 09:19 | Outpatient (BNVA) | payer OTHER, SELFPAY | PROVIDERS: PCP Nurse Practitioner Family; Visit Provider Nurse Practitioner Family | DX: I10 Essential (primary) hypertension (principal); I25.10 Atherosclerotic heart disease of native coronary artery without angina pectoris; R00.2 Palpitations; Z95.5 Presence of coronary angioplasty implant and graft; I72.2 Aneurysm of renal artery; Z98.890 Other specified postprocedural states; R07.9 Chest pain, unspecified | CPT/HCPCS: 99212 ==

== ENCOUNTER 2024-08-28 10:46 | Outpatient (AMB) | payer OTHER, SELFPAY ==
--- NOTE | 2024-08-28 10:50 | A.OFFPC_ITS ---
Vital Signs 08/28/24 10:52 Height 5 ft 7 in Weight 243 lb BMI 38.1 BP 160/100 H Blood Pressure Location Rt brachial Position Sitting Respiration 17 Pulse 100 Pulse Source Pulse Oximeter Temp 99.0 F Temp Source Oral Pulse Oximetry (%) 99 Oxygen Delivery Method Room Air Intake Visit Reasons: HDF Intake Note: Pt is here today for his HDF [facility] f/u Allergies aspirin Allergy (Severe, Verified 08/28/24 10:54) Facial Swelling oxycodone Allergy (Severe, Verified 08/28/24 10:54) severe pain/redness of testicles varenicline (From Chantix) Allergy (Severe, Verified 08/28/24 10:54) full body rash calamine Allergy (Intermediate, Verified 08/28/24 10:54) Rash barium sulfate Allergy (Mild, Verified 08/28/24 10:54) Vomiting hydromorphone Adverse Reaction (Verified 08/28/24 10:54) itchy hives Tobacco use date assessed: 08/28/24 Dental Screening Dental Screen Date: 08/28/24 Did you have a dental visit in the last 12 months?: Yes Did you have a dental problem in the last 6 months where you did not have access to dental care?: No Was dental information given to patient?: Patient has dentist HPI HPI Comments History of Present Illness Details Patient is a 39-year-old male with a past medical history of uncontrolled hypertension, hypertensive heart disease, obesity, pericarditis in 2001, 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 In the emergency department he was found to have elevated blood pressure of 194/115 he was given IV labetalol as well as p.o. labetalol and nitro. Labs were all within normal limits, troponins were flat, CT excluded aortic dissection or other severe cardiopulmonary pathology, EKG showed no acute changes. With the elevated blood pressure and chest pain he was going to be admitted however the patient declined admission and ended up leaving the emergency department AMA. The hospitalist had recommended adding Coreg into his regimen. On 08/26/24, he saw Cardiology. At that visit, they started him on spironolactone 25 mg daily. He is to have a BMP in 7-10 days. His last echo in 2022 showed moderate to severe LVH. He is having a repeat echo on 09/08/24. Stress test is 10/09/24. Cardiology follow-up 10/02/24. Since the ED visit, he states he has been dizzy with sweating, some chest pains with exertion, and some shortness of breath. He is out of valsartan and isn't sure when he last took it, he is asking for a refill. He started taking the spirinolactone a few days ago. He denies nausea. He fell down the stairs last week due to dizziness. He thinks he missed a step and injured his right knee. It's been popping and he can feel it more, no trouble ambulating. Has not taken any NSAIDS or used ice. [facility] Medical History Myocardial infarction Cervical spondylosis Low back pain Neck pain Snores Dizziness Hyperlipemia Murmur 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) History of stent insertion of renal artery (~2008) Migraines Coronary atherosclerosis Renal artery aneurysm Hypertension Surgical History H/O shoulder surgery Hx of neck surgery History of carpal tunnel release Stented coronary artery Family History Mother No family history of coronary artery disease Father No family history of coronary artery disease Social History Household Members Other:: minor children/lives in assisted Housing: House Are you a 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 animal care veterinarian to a significant other at home: Yes (has caregiver in place for children DOS) Do you presently have visiting nurse or other home services: No 75 years or older and lives alone: No Alcohol intake: current Alcohol intake frequency: does not drink Comment: chronic dizziness Patient Tobacco Use Status: Current someday Tobacco user Tobacco use type: Cigarette Cigarettes Per Day: 2 Years Smoked: 22 e-Cigarette/Vaping Use: Never Used Second Hand Smoke Exposure: No service: No Current occupational status: unemployed Current occupation: [employer] , Left hand dominate Current occupational exposures/hazards: Yes Cognitive needs: No Hearing needs: No Vision needs: No Questionnaire Thrive Questionnaire Date Thrive assessed: 07/09/24 I am a: Patient What is your living situation today?: I do not have a steady places to live I am staying at a assisted Within the past 12 months, did the food you bought not last and you didn't have the money to get more?: Never true Within the past 12 months, did you worry whether your food would run out before you got money to buy more?: Never true Do you have trouble paying for medicines?: No Do you have trouble getting transportation to medical appointments?: No Do you have trouble paying your heating and electricity bill?: No Do you have trouble taking care of your child, family member or friend?: No Do you have trouble with day-to-day activities such as bathing, preparing meals, shopping, managing finances, etc.?: Yes Are you currently unemployed and looking for a job?: No Are you interested in more education?: No Please select the resources that you would like help with: None Currently or been in a relationship where the following occur: I choose not to answer THRIVE Score: 1 LOLA-7 AMB Questionnaire LOLA-7 Date LOLA - 7 assessed: 07/09/24 Source: Developed by Drs. Florencio Tsang, Loli Rendon, Kwaku Vo and colleagues, with an educational maria from [employer]. Review of Systems Const All systems reviewed & are unremarkable except as noted in HPI and below Physical exam (Primary Care) Vital Signs: Last Vital Signs Temp 99.0 F 08/28/24 10:52 Pulse 100 08/28/24 10:52 Resp 17 08/28/24 10:52 BP 160/100 H 08/28/24 10:52 Pulse Ox 99 08/28/24 10:52 Oxygen Delivery Method Room Air 08/28/24 10:52 BMI result Body Mass Index 38.1 Tobacco/Smoking Status: Tobacco use Status Tobacco use date assessed 08/28/24 08/28/24 10:58 Patient Tobacco Use Status Current someday Tobacco 08/28/24 10:51 Tobacco use type Cigarette 08/28/24 10:51 e-Cigarette/Vaping Use Never Used 08/28/24 10:51 Thrive Assessment: Date of Thrive Assessment Date Thrive assessed 07/09/24 08/28/24 10:51 Currently or been in a relationship where the following occur: I choose not to answer Const General: cooperative, healthy appearing, comfortable, no acute distress and well developed Orientation/consciousness: patient oriented x3 Limitations: no limitations HENMT Head: Yes normal to inspection Ears: hearing grossly normal bilaterally General nose exam: Normal external nose present Face and sinus: Yes normal facial exam Eyes General: appearance normal, both eyes and all related structures Neck Neck: Yes normal visual inspection and Yes full ROM Resp Effort & Inspection: normal respiratory effort and able to speak in complete sentences Skin General skin exam: no rashes or lesions noted Neuro General: patient oriented x3 Extrem General: Yes normal to inspection and Yes full ROM Right lower extremity: knee Details: normal to inspection, tenderness Location: of the pre-patellar area and of the infrapatellar area, normal ROM and knee lig ament exam normal; no swelling, no abrasions, no lacerations, no ecchymosis and no deformity Coding Level of Care Code Est Pt Level 4 (83290) Diagnoses Uncontrolled hypertension I10 Right anterior knee pain M25.561 Assessment & Plan Assessment & Plan (1) Uncontrolled hypertension: Code(s): I10 - Essential (primary) hypertension Category: Medical Plan: Reviewed all of the labs, imaging and notes from the emergency department as well as his recent visit with Cardiology on August 26. Encouraged patient to attend his appointments for his echocardiogram as well as his stress test and follow ups with Cardiology, as previously scheduled. Sent a 90 day refill for his valsartan with 1 refill on it. Encouraged him to take all of his medications in fall, as prescribed. As he has not been taking his valsartan and I anticipate his blood pressure to come down a little bit from where it is today. He also has a chemistry panel lab which has been ordered on 08/26/24. We did review in detail red flag indicators and when to call EMS or go to the emergency department. These include chest pain with sweating, nausea, shortness of breath and dizziness. (2) Right anterior knee pain: Code(s): M25.561 - Pain in right knee Category: Medical Plan: Recommended he rest it, use ice and see how the pain evolves. Recommended he not use NSAIDs at this time. Medications: Changed From valsartan 320 mg PO QAM To valsartan 320 mg PO QAM 90 tabs 1RF 90 days
[2024-08-28 10:52] VITALS: BP 160/100; PULSE 100; RESP 17; TEMP 37.2; O2SAT 99; BMI 38.1
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
== END 2024-08-28 11:21 | disposition home or self-care (01) ==
LOC: HO.HMCC 10:47
PROVIDERS: PCP Nurse Practitioner Family; Visit Provider Physician Assistant
DX: I10 Essential (primary) hypertension (principal); M25.561 Pain in right knee

== ENCOUNTER → 2024-08-28 10:46 | Outpatient (BNVA) | payer OTHER, SELFPAY | PROVIDERS: PCP Nurse Practitioner Family; Visit Provider Physician Assistant | DX: I10 Essential (primary) hypertension (principal); E66.9 Obesity, unspecified; I25.10 Atherosclerotic heart disease of native coronary artery without angina pectoris; I25.2 Old myocardial infarction; F17.210 Nicotine dependence, cigarettes, uncomplicated; R07.9 Chest pain, unspecified; M25.561 Pain in right knee; Z68.38 Body mass index [BMI] 38.0-38.9, adult; Z79.899 Other long term (current) drug therapy | CPT/HCPCS: 99212 ==

== ENCOUNTER 2024-09-05 14:54 | Outpatient (REF) | payer OTHER, SELFPAY ==
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
[2024-09-05 16:49] LABS: Anion Gap 14 (12-20); Blood Urea Nitrogen 9 mg/dL (9-16); Calcium 9.6 mg/dL (8.4-10.2); Carbon Dioxide 26 mmol/L (22-29); Chloride 103 mmol/L (96-108); Estimated Glomerular Filt Rate > 60; Glucose Random 130 mg/dL (60-115); Sodium 139 mmol/L (135-145)
== END 2024-09-05 14:55 | disposition home or self-care (01) ==
LOC: HO.HMGCLDS 14:54
PROVIDERS: PCP Nurse Practitioner Family; Visit Provider Nurse Practitioner Family
DX: I16.0 Hypertensive urgency (principal)
CPT/HCPCS: 36415; 80048

== ENCOUNTER → 2024-09-08 13:53 | Outpatient (REF) | payer OTHER, SELFPAY ==
--- NOTE | 2024-09-08 13:56 | CA_ITS ---
Transthoracic Echocardiogram Patient (Last, First, Middle): Florencio Ravi J Gender: Male Date of : 1985 Age: 39 Procedure Date: 09/08/2024 Procedure Type: Transthoracic Echocardiogram Location: OP Height: 170.18 cm Weight: 110.22 kg BSA: 2.20 m2 Heart Rate: 89 bpm BP: 142 / 78 mmHg Color Television Console Monitor: FRANCY Referring MD: Eduarda Saucedo NP-[employer]chandising Specialist: Arash Givens MD Symptoms: R07.9 - Chest pain, unspecified Study Quality: Fair but adequate ECG Rhythm: Sinus Conclusions: - 1. Low normal LV ejection fraction 50-55% with moderate LVH 2. Cardiac valvular Dopplers within normal limits 3. No gross pericardial effusion Findings Left Ventricle Normal left ventricular cavity size. There is moderately increased left ventricular wall thickness. The left ventricular systolic function is low normal. The visually estimated ejection fraction is between 50-55%. Spectral Doppler is indicative of a normal filling pattern. Right Ventricle Normal right ventricular cavity size and systolic function. Atria The left atrium is normal in size. Interatrial shunt cannot be excluded. The right atrium was not well visualized. Aortic Valve Normal aortic valve structure and function. There is no aortic valve stenosis. There is no aortic valve regurgitation. Mitral Valve Normal mitral valve structure and function. There is trace mitral valve regurgitation. There is no mitral valve stenosis. Pulmonic Valve The pulmonic valve was not well visualized. Tricuspid Valve The tricuspid valve was not well visualized. Tricuspid regurgitation envelope is inadequate for calculation of right ventricular systolic pressure. Normal right atrial pressure. Great Vessels All visible segments of the aorta are normal in size. The pulmonary artery was not well visualized. There is no dilatation of the ascending aorta measuring 3.40 cm. Venous The inferior vena cava is normal in size and collapses greater than 50% with inspiration. Pericardium/Pleural There is no evidence of pericardial effusion. Prior Study Comparison Changes noted compared to prior study dated: 11/28/2022. LV systolic function has marginally reduced Measurements 2D Linear Measurements IVSd: 1.60 0.6-0.9/0.6-1.0 cm LVIDd: 5.41 3.9-5.3/4.2-5.9 cm LVIDd Index: 2.46 2.4-3.2/2.2-3.1 cm/m2 LVIDs: 3.31 2.0-3.6 cm LVPWd: 1.50 0.7-1.1 cm LA Diam: 3.80 2.7-3.8/3.0-4.0 cm LAIDs Index: 1.73 1.5-2.3 cm/m2 LV Mass: 340.34 67-162/88-224 g LV Mass Index: 154.70 43-95/49-115 g/m2 LVOT Diam: 2.50 3.0+(-)1.3 cm Mitral Valve MV Pk E: 0.86 MV PK A: 0.69 MV Decel Time: 185.00 E/A: 1.30 E'Lateral: 5.98 E'Medial: 6.42 E/E' Med: 13.40 E/E' Lat: 14.40 PHT: 54.00 MVA PHT: 4.07 Decel Stephenson: 4.66 Aortic Valve AoV Pk Johnie: 1.41 AoV Pk Grad: 8.00 RAYMOND: 4.32 LVOT LVOT Pk Johnie: 1.26 LVOT Mn Johnie: 0.88 LVOT VTI: 0.20 LVOT Pk Grad: 6.00 LVOT Mn Grad: 4.00 LVOT Diam: 2.50 LVOT Area: 4.91 Diastolic Function MV Pk E: 0.86 MV Pk A: 0.69 E/A: 1.30 E'Medial: 6.42 E/E' Med: 13.40 E' Laterial: 5.98 E/E' Lat: 14.40 Right Ventricle TAPSE (mm): 21.40 TVS' Johnie: 14.60 Tricuspid Valve RA Press: 3.00 Great Vessels Aorta Sinus of Valsalva: 3.60 2.0-3.5 cm Ao Asc: 3.40 2.1-3.4 cm Pulmonary Valve PV Pk Johnie: 0.94 Peak PV Grad: 4.00 Updated in Other Vendor System with Status of Final Arash Givens MD electronically signed on 09/08/2024 3:45:26 PM with status of Final
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
== END ==
LOC: HO.CARD 13:53
PROVIDERS: PCP Nurse Practitioner Family; Visit Provider Nurse Practitioner Family
DX: R07.9 Chest pain, unspecified (principal); I10 Essential (primary) hypertension; Z98.890 Other specified postprocedural states
CPT/HCPCS: 93306

== ENCOUNTER → 2024-09-08 13:56 | Outpatient (BNV) | payer OTHER, SELFPAY | PROVIDERS: PCP Nurse Practitioner Family; Visit Provider Internal Medicine Cardiovascular Disease | DX: I51.7 Cardiomegaly (principal) | CPT/HCPCS: 93306 ==

== ENCOUNTER 2024-09-30 10:15 | Outpatient (AMB) | payer OTHER, SELFPAY ==
--- OUTSIDE RECORDS SUMMARY | 2006-03-12 08:00 | XMS_ITS | Continuity of Care Document ---
Author Organization [facility] Address [address] [place] [address] Phone Care Team Providers Care Aerosol Supervisor Name Role Phone No Information Unavailable Unavailable Advance Directives Directive Yes / No Effective Date File Name No Information Encounters Encounter Description Practice Location Reason(s) For Visit Diagnoses Date Provider Providers Copied on Encounter [facility], [address] [place], [place], [id number], [place] tel:[phone] No Information No Information Family History Family [...]
--- NOTE | 2024-09-30 10:18 | A.OFFVIS_ITS ---
Intake Visit Reasons: OV: Lt Shld 05/23/24 DR Intake Note: Florencio is a 39 year old left hand dominant male who presents with complaints of mild to moderate intermittent discomfort in his left shoulder after undergoing left shoulder arthroscopic surgery on 05/23/2024. He continues with his physical therapy exercises. Denies any fevers or chills. Allergies aspirin Allergy (Severe, Verified 09/30/24 10:21) Facial Swelling oxycodone Allergy (Severe, Verified 09/30/24 10:21) severe pain/redness of testicles varenicline (From Chantix) Allergy (Severe, Verified 09/30/24 10:21) full body rash calamine Allergy (Intermediate, Verified 09/30/24 10:21) Rash barium sulfate Allergy (Mild, Verified 09/30/24 10:21) Vomiting hydromorphone Adverse Reaction (Verified 09/30/24 10:21) itchy hives Medication List - Last Reconciled 09/30/24 by Anthony Sutton MD acetaminophen-caffeine 500-65 mg (Excedrin Tension Headache) 2 tabs PO QID PRN amitriptyline 10 mg PO BEDTIME 30 days amlodipine 10 mg PO QAM atorvastatin 40 mg PO BEDTIME hydrochlorothiazide 25 mg PO DAILY magnesium oxide 400 mg PO BEDTIME 30 days riboflavin (vitamin B2) 400 mg PO QAM spironolactone 25 mg PO DAILY ubrogepant (Ubrelvy) 50 - 100 mg (0.5 - 1 x 100 mg) PO ONCE PRN 30 days valsartan 320 mg PO QAM 90 days PFSH Medical History Myocardial infarction Cervical spondylosis Low back pain Neck pain Snores Dizziness Hyperlipemia Murmur 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) History of stent insertion of renal artery (~2008) Migraines Coronary atherosclerosis Renal artery aneurysm Hypertension Surgical History H/O shoulder surgery Hx of neck surgery History of carpal tunnel release Stented coronary artery Family History Mother No family history of coronary artery disease Father No family history of coronary artery disease Social History Household Members Other:: minor children/lives in skilled nursing Housing: House Are you a 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 home care coordinator to a significant other at home: Yes (has caregiver in place for children DOS) Do you presently have visiting nurse or other home services: No 75 years or older and lives alone: No Alcohol intake: current Alcohol intake frequency: does not drink Comment: chronic dizziness Patient Tobacco Use Status: Current someday Tobacco user Tobacco use type: Cigarette Cigarettes Per Day: 2 Years Smoked: 22 e-Cigarette/Vaping Use: Never Used Second Hand Smoke Exposure: No service: No Current occupational status: unemployed Current occupation: [employer] , Left hand dominate Current occupational exposures/hazards: Yes Cognitive needs: No Hearing needs: No Vision needs: No Physical Exam Const Other: Well-nourished well-developed very friendly male awake alert and oriented x3 in no acute distress Extrem Other: Bilateral upper extremity examination shows good capillary refill, no skin lesions noted, normal sensation light touch Left shoulder examination shows that the surgical incisions are well healed, no erythema, full range of motion when compared to his right shoulder, mild discomfort with range of motion, no instability Assessment & Plan Assessment & Plan (1) Left shoulder pain: Code(s): M25.512 - Pain in left shoulder Category: Medical Plan Mr. Ravi continues to do fairly well after undergoing left shoulder arthroscopic surgery on 05/23/2024. I had a lengthy discussion with the patient regarding the treatment options. At this point the patient's symptoms are tolerable to him. We will hold off on a cortisone injection. He will continue with his home stretching program to prevent stiffness. He will contact me prior to his follow-up appointment in 2-3 months should any questions or concerns arise. Feel free to call me at any time should questions regarding his orthopedic management arise. I spent 21 minutes in reviewing the patient's records and imaging studies, seeing the patient and documenting in the medical record. Coding Level of Care Code Est Pt Level 3 (60314) Complex EM visit Add On G2211 Diagnoses Left shoulder pain M25.512
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
== END 2024-09-30 10:36 | disposition home or self-care (01) ==
LOC: HO.HOS 10:15
PROVIDERS: PCP Nurse Practitioner Family; Visit Provider Orthopaedic Surgery
DX: M25.512 Pain in left shoulder (principal)
CPT/HCPCS: 99213

== ENCOUNTER → 2024-09-30 10:15 | Outpatient (BNVA) | payer OTHER, SELFPAY | PROVIDERS: PCP Nurse Practitioner Family; Visit Provider Orthopaedic Surgery | DX: M25.512 Pain in left shoulder (principal) | CPT/HCPCS: 99212 ==

== ENCOUNTER → 2024-10-09 08:17 | Outpatient (REF) | payer OTHER, SELFPAY ==
--- NOTE | ~2024-10-09 | NM_ITS ---
EXERCISE MYOCARDIAL PERFUSION STUDY INDICATION: Chest pain to evaluate for myocardial ischemia TECHNIQUE: The patient was brought in for an exercise perfusion study on 10/09/2024. Patient performed exercise as per Sb protocol and was injected 40 mCi of sestamibi once target heart rate was achieved. Images were obtained using the SPECT gamma camera interlaced with the gating device. Images were obtained in supine position. Resting perfusion study was performed on 10/10/2024. Patient was administered 40 mCi of sestamibi intravenously at rest. Images were then obtained in supine position. Images obtained without without CT attenuation. Total DLP 104 mGy-cm. Images were processed with the software and compared side to side in short axis, horizontal long axis and vertical long axis views. FINDINGS: Raw images were reviewed The stress perfusion study showed nonattenuated images show mildly reduced uptake in the basal and mid inferior wall of the LV myocardium. Remainder of the LV myocardium is normally perfused. Attenuated corrected images show minimal thinning of the apex of the LV myocardium.. The gated study shows normal LV systolic function with calculated LVEF of 62%. LV cavity is normal in size. The gated study shows normal systolic wall thickening and contraction of segments. Resting study shows no change in perfusion pattern compared to stress perfusion study. Gating at rest reveals normal systolic wall motion with ejection fraction at 54%. The findings are consistent with normal myocardial perfusion. NM/NM cardiolite stress test IMPRESSION: 1. Myocardial perfusion imaging study shows normal myocardial perfusion. 2. Gated LVEF is 62%. 3. Transient ischemic dilatation not present. EKG revealed negative for ischemia. Electronically signed by: Arash Givens MD 10/12/2024 11:55 AM EDT
--- NOTE | 2024-10-09 08:19 | CA_ITS ---
Acquisition Time: 2024-10-09 08:19:13 Total Exercise Time: 00:06:26 Test Indications: CP, SOB Medications: SEE H&P Protocol: LIVIA Max HR: 148 BPM 82% of Pred: 180 BPM Max BP: 212/48 mmHG Max Work Load: 7.0 METS Exercise stress test with exercise 6 mins 26 secs of Livia Protocol, held at Stage 2, achieving 82% MPHR, with reports of 4/10 dull ache to left sided chest radiating to epigastric region, with SOB and dizziness, with isolated PVCs, with hypertensive response to exercise- max BP 212/48. Without any EKG changes meeting criteria for ischemia. In early recovery, chest ache worse to 6/10 that gradually improved to baseline. SOB and dizziness also resolved. Nuclear images pending. Test reviewed with Dr. Givens. Referred By: Eduarda Saucedo Electronically Signed By: Olegario Wheeler
== END ==
LOC: HO.CARD 08:17
PROVIDERS: PCP Nurse Practitioner Family; Visit Provider Nurse Practitioner Family
DX: I10 Essential (primary) hypertension (principal); R07.9 Chest pain, unspecified; Z95.5 Presence of coronary angioplasty implant and graft
CPT/HCPCS: 78452; 93017; A9500; J0280; J2785

== ENCOUNTER → 2024-10-09 08:19 | Outpatient (BNV) | payer OTHER, SELFPAY | PROVIDERS: PCP Nurse Practitioner Family | DX: R07.9 Chest pain, unspecified (principal) | CPT/HCPCS: 78452; 93016; 93018 ==

== ENCOUNTER 2024-10-14 09:58 | Outpatient (AMB) | payer OTHER, SELFPAY ==
[2024-10-14 10:00] VITALS: BP 140/98; PULSE 112; TEMP 36.8; O2SAT 97; BMI 39.5
--- NOTE | 2024-10-14 10:00 | AM.OFFWIN_ITS ---
Intake Vital Signs 10/14/24 10:00 Height 5 ft 7 in Weight 252 lb BMI 39.5 BP 140/98 H Blood Pressure Location Lt brachial Position Sitting Pulse 112 H Pulse Source Pulse Oximeter Temp 98.3 F Temp Source Oral Pulse Oximetry (%) 97 Oxygen Delivery Method Room Air Intake Visit Reasons: EP LT leg swelling, Rt knee Intake Note: presents with left leg swelling, right knee pain and right flank pain Patient Tobacco Use Status: Current someday Tobacco user Allergies aspirin Allergy (Severe, Verified 10/14/24 10:05) Facial Swelling oxycodone Allergy (Severe, Verified 10/14/24 10:05) severe pain/redness of testicles varenicline (From Chantix) Allergy (Severe, Verified 10/14/24 10:05) full body rash calamine Allergy (Intermediate, Verified 10/14/24 10:05) Rash barium sulfate Allergy (Mild, Verified 10/14/24 10:05) Vomiting hydromorphone Adverse Reaction (Verified 10/14/24 10:05) itchy hives Do you need a note to return to daycare/school/sports/work: No HPI HPI Comments History of Present Illness Details History of Present Illness - The patient is a 39-year-old male pres enting with right knee swelling and left leg pain and swelling. - Right knee swelling for 1.5 months, pa in worsens on stairs. Right flank pain concurrent with knee swelling onset. Tells me he has had a ganglion cyst on the ACL previously. - left leg has been swelling for the pas t few weeks, getting worse. Tells me it feels itchy. - Dizziness and lightheadedness reported , with palpitations. Tells me his PCP has been working him up before many months in no and can figure out what is going on and why he is dizzy. But he has been having multiple falls down the stairs because of it - Shortness of breath with exertion note d. 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 - Denies any active cancers or long flig hts or car rides. - has been taking Excedrin without any r elief in his pain, also using ice. He tells me he has taken diclofenac before. - recently moved to an apartment on the 3rd floor so he is doing more stairs then he typically did Physical Exam General: Cooperative, healthy appearing, comfortable, no acute distress and well developed Orientation: Patient oriented x3 Limitations: No limitations Head: Normal to inspection Ears: Hearing grossly normal bilaterally Nose: Normal External nose present Face and sinus: Normal facial exam Eyes: Appearance normal, both eyes and all related structures Neck: Normal visual inspection and Yes full ROM Respiratory: Normal respiratory effort and able to speak in complete sentences. Skin: No rashes or lesions noted. Reports itchiness and tingling in the left leg. Neuro: Patient oriented x3. Reports dizziness and lightheadedness. Extremities: Light lower extremity with 2+ edema, negative Homans, TTP posterior left knee. Right knee: no laxity in the joint, negative patellar ballottement, TTP across suprapatellar area, no TTP posterior right knee. Bilateral legs have no skin or color changes. [facility] Medical History Myocardial infarction Cervical spondylosis Low back pain Neck pain Snores Dizziness Hyperlipemia Murmur 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) History of stent insertion of renal artery (~2008) Migraines Coronary atherosclerosis Renal artery aneurysm Hypertension Surgical History H/O shoulder surgery Hx of neck surgery History of carpal tunnel release Stented coronary artery Family History Mother No family history of coronary artery disease Father No family history of coronary artery disease Social History Household Members Other:: minor children/lives in residential Housing: House Are you a primary child day care provider to a significant other at home: Yes (has caregiver in place for children DOS) Do you presently have visiting nurse or other home services: No Alcohol intake: current Alcohol intake frequency: does not drink Comment: chronic dizziness Patient Tobacco Use Status: Current someday Tobacco user Tobacco use type: Cigarette Cigarettes Per Day: 2 Years Smoked: 22 e-Cigarette/Vaping Use: Never Used Second Hand Smoke Exposure: No service: No Current occupational status: unemployed Current occupation: [employer] , Left hand dominate Current occupational exposures/hazards: Yes Cognitive needs: No Hearing needs: No Vision needs: No Review of Systems Const All systems reviewed & are unremarkable except as noted in HPI and below Physical Exam Vital Signs: Last Vital Signs Temp 98.3 F 10/14/24 10:00 Pulse 112 H 10/14/24 10:00 BP 140/98 H 10/14/24 10:00 Pulse Ox 97 10/14/24 10:00 Oxygen Delivery Method Room Air 10/14/24 10:00 BMI result Body Mass Index 39.5 Assessment & Plan Assessment & Plan (1) Pain and swelling of left lower leg: Code(s): M79.662 - Pain in left lower leg; M79.89 - Other specified soft tissue disorders Plan: - DVT rule out for left leg swelling due to risk factors, smoker, tachycardic and short of breath. - ultrasound is negative for clot or a Alaniz's cyst - likely arthritis, will trial Diclofenac with Ortho referral, rest, ice (2) Right knee pain: Code(s): M25.561 - Pain in right knee Qualifiers: Chronicity: acute Qualified Code(s): M25.561 - Pain in right knee Plan: - Will trial diclofenac and rest. - Orthopedic referral for right knee assessment, ? Ganglion cyst on the ACL is irritating him again. Patient was informed and verbally consented to the use of an ambient scribe for clinic note documentation during this visit. Orders: Orders US venous duplex LE LT Today M79.662 - Pain in left lower leg, M79.89 - Other specified soft tissue disorders Referrals Orthopedics Referral M25.561 - Pain in right knee, M79.662 - Pain in left lower leg, M79.89 - Other specified soft tissue disorders Medications: New diclofenac sodium 50 mg PO Q12H PRN 20 tabs 0RF pain Coding Level of Care Code Est Pt Level 5 (39603) Diagnoses Pain and swelling of left lower leg M79.662; M79.89 Acute pain of right knee M25.561 Chronicity: acute
== END 2024-10-14 12:06 | disposition home or self-care (01) ==
PROVIDERS: PCP Nurse Practitioner Family; Visit Provider Physician Assistant
DX: M79.662 Pain in left lower leg (principal); M79.89 Other specified soft tissue disorders; M25.561 Pain in right knee

== ENCOUNTER 2024-10-14 10:38 | Outpatient (REF) | payer OTHER, SELFPAY ==
--- NOTE | ~2024-10-14 | US_ITS ---
EXAMINATION: US TRIPLEX LOWER EXTREMITY, LEFT CLINICAL INFORMATION: Left leg pain and edema COMPARISON: None available. TECHNIQUE: Color-flow triplex imaging with spectral analysis and compression Doppler were performed on the left lower extremity. FINDINGS: Respiratory variation, normal compression and augmented flow are noted throughout the left lower extremity. The visualized common femoral vein, superficial femoral vein, profunda femoral vein, popliteal vein and midcalf peroneal and posterior tibial venous segments show no evidence of deep venous thrombosis. US/US venous duplex LE LT IMPRESSION: No evidence of deep venous thrombosis involving the left lower extremity. Electronically signed by: Froylan Armando MD 10/14/2024 11:02 AM EDT
== END 2024-10-14 10:39 | disposition home or self-care (01) ==
LOC: HO.HMGCX 10:38
PROVIDERS: PCP Nurse Practitioner Family; Visit Provider Physician Assistant
DX: M79.662 Pain in left lower leg (principal); M79.89 Other specified soft tissue disorders; M25.561 Pain in right knee; R20.2 Paresthesia of skin
CPT/HCPCS: 93971; 99212

== ENCOUNTER → 2024-10-14 10:39 | Outpatient (BNV) | payer OTHER, SELFPAY | PROVIDERS: PCP Nurse Practitioner Family; Visit Provider Radiology Diagnostic Radiology | DX: R22.42 Localized swelling, mass and lump, left lower limb (principal) | CPT/HCPCS: 93971 ==

== ENCOUNTER 2024-10-17 09:32 | Outpatient (REF) | payer OTHER, SELFPAY ==
[2024-10-17 11:32] LABS: Alanine Aminotransferase 54 U/L (0-40); Albumin Level 4.5 g/dL (3.5-5.0); Alkaline Phosphatase 95 U/L (39-117); Anion Gap 12 (12-20); Aspartate Amino Transferase 37 U/L (5-37); Blood Urea Nitrogen 6 mg/dL (9-16); Calcium 9.2 mg/dL (8.4-10.2); Carbon Dioxide 28 mmol/L (22-29); Chloride 105 mmol/L (96-108); Cholesterol 164 mg/dL (<200); Estimated Glomerular Filt Rate > 60; HDL Cholesterol 35 mg/dL (>40); Potassium 3.8 mmol/L (3.3-5.1); Sodium 141 mmol/L (135-145); Total Protein 7.4 g/dL (6.5-8.0); Triglycerides 223 mg/dL (<150)
[2024-10-17 11:38] LABS: B Type Natriuretic Peptide 16 pg/mL (<100)
== END 2024-10-17 09:33 | disposition home or self-care (01) ==
LOC: HO.LAB 09:32
PROVIDERS: PCP Nurse Practitioner Family; Visit Provider Nurse Practitioner Family
DX: I25.10 Atherosclerotic heart disease of native coronary artery without angina pectoris (principal); R60.9 Edema, unspecified; I10 Essential (primary) hypertension; R00.2 Palpitations; I72.2 Aneurysm of renal artery; R07.9 Chest pain, unspecified; Z79.899 Other long term (current) drug therapy; I25.2 Old myocardial infarction; F17.210 Nicotine dependence, cigarettes, uncomplicated; M79.89 Other specified soft tissue disorders; Z98.890 Other specified postprocedural states; Z95.5 Presence of coronary angioplasty implant and graft
CPT/HCPCS: 36415; 80053; 80061; 83880; 99212

== ENCOUNTER 2024-10-17 09:32 | Outpatient (AMB) | payer OTHER, SELFPAY ==
--- NOTE | 2024-10-17 09:47 | MHC.OFFVIS ---
Vital Signs 10/17/24 09:48 Height 5 ft 7 in Weight 253 lb 1.451 oz BMI 39.6 BP 110/82 Blood Pressure Location Lt brachial Position Sitting Pulse 95 Pulse Source Pulse Oximeter Intake Visit Reasons: f/u after testing Intake Note: f/u Allergies aspirin Allergy (Severe, Verified 10/17/24 09:51) Facial Swelling oxycodone Allergy (Severe, Verified 10/17/24 09:51) severe pain/redness of testicles varenicline (From Chantix) Allergy (Severe, Verified 10/17/24 09:51) full body rash calamine Allergy (Intermediate, Verified 10/17/24 09:51) Rash barium sulfate Allergy (Mild, Verified 10/17/24 09:51) Vomiting hydromorphone Adverse Reaction (Verified 10/17/24 09:51) itchy hives Medication List - Last Reconciled 10/17/24 by Eduarda Saucedo, BUSINESS INTELLIGENCE CONSULTANT-C acetaminophen-caffeine 500-65 mg (Excedrin Tension Headache) 2 tabs PO QID PRN amlodipine 10 mg PO QAM atorvastatin 40 mg PO ONCE diclofenac sodium 50 mg PO Q12H PRN hydrochlorothiazide 25 mg PO DAILY riboflavin (vitamin B2) 400 mg PO QAM ubrogepant (Ubrelvy) 50 - 100 mg (0.5 - 1 x 100 mg) PO ONCE PRN 30 days valsartan 320 mg PO QAM 90 days HPI HPI f/u after testing: Details: Florencio is a 39 year old male with past medical history of hypertension, uncontrolled HTN, hypertensive heart disease, obesity, reported history of pericarditis in 2001, renal artery aneurysm with dissection and stent 2008, coronary artery disease, NSTEMI, circumflex stent 11/2020 at [facility] in [place] who recently underwent an echocardiogram and nuclear stress test and now presents for follow-up. On last visit his blood pressure was elevated and spironolactone was added. Today he reports that he had not been taking his valsartan at the time of last visit since he ran out. He then restarted valsartan and states his blood pressure was normal. He did not start taking the spironolactone. He has been experiencing some newer swelling in his left lower extremity. He says he did go to urgent care and had an ultrasound showing no DVT. He is still getting short of breath with stair climbing. He says since it visit here he believes he has gained 10 lb. He is not sure why he is gaining weight since his eating is unchanged. He has not been getting chest discomfort or the lightheadedness. No presyncope, syncope, falls. He climbs stairs frequently to his 3rd floor apartment. At this time taking meds as directed. [facility] Medical History Myocardial infarction Cervical spondylosis Low back pain Neck pain Snores Dizziness Hyperlipemia Murmur 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) History of stent insertion of renal artery (~2008) Migraines Coronary atherosclerosis Renal artery aneurysm Hypertension Surgical History H/O shoulder surgery Hx of neck surgery History of carpal tunnel release Stented coronary artery Family History Mother No family history of coronary artery disease Father No family history of coronary artery disease Social History Household Members Other:: minor children/lives in fpc Housing: House Are you a primary medicare contact specialist to a significant other at home: Yes (has caregiver in place for children DOS) Do you presently have visiting nurse or other home services: No 75 years or older and lives alone: No Alcohol intake: current Alcohol intake frequency: does not drink Comment: chronic dizziness Patient Tobacco Use Status: Current someday Tobacco user Tobacco use type: Cigarette Cigarettes Per Day: 3 Years Smoked: 22 e-Cigarette/Vaping Use: Never Used Second Hand Smoke Exposure: No service: No Current occupational status: unemployed Current occupation: [employer] , Left hand dominate Current occupational exposures/hazards: Yes Cognitive needs: No Hearing needs: No Vision needs: No Review of Systems Const All systems reviewed & are unremarkable except as noted in HPI and below Reports weight gain Card Denies chest pain, Denies chest pain at rest, Denies chest pain with activity, Reports leg edema, Denies palpitations and Denies dyspnea on exertion Resp Denies dyspnea on exertion Musc Denies no additional complaints Endo Denies palpitations Physical Exam Vital Signs: Last Vital Signs Pulse 95 10/17/24 09:48 BP 110/82 10/17/24 09:48 BMI result Body Mass Index 39.6 Const Other: obese General: cooperative, healthy appearing, comfortable and no acute distress Orientation/consciousness: patient oriented x3 Neck Neck: Yes normal visual inspection and Yes no JVD Resp Effort & Inspection: normal respiratory effort Auscultation: clear to auscultation bilaterally, no crackles, no rales, no rhonchi and no wheezes Cardio Rate: regular rate Rhythm: regular rhythm Heart sounds: S1 normal heart sound present, S2 normal heart sound present, no murmurs and no rubs Neuro General: patient oriented x3 Extrem Other: mildly pitting edema left lower extremity with pillow top foot General: No calf tenderness Psych Appearance: grossly normal Mental Status: mental status grossly normal Speech and movement: Normal speech and movement present Assessment & Plan Assessment & Plan (1) Uncontrolled hypertension: Code(s): I10 - Essential (primary) hypertension Category: Medical Plan: Blood pressure goal less than 130/80. Recent [facility] evaluation for chest discomfort and found to have uncontrolled hypertension that was treated with IV labetalol. Admission was recommended he has signed out AMA. Echocardiogram done 09/09/2023 showed EF 50- 55%, moderate LVH. His current medications include amlodipine 10 mg daily hydrochlorothiazide 25 mg daily and valsartan 320 mg daily and blood pressure currently 110/82. He previously reported that beta-blockers, carvedilol and labetalol do not work on him. The importance of strict blood pressure control reviewed with him. Reviewed benefits a weight loss and low-salt diet. Continue physical activity as tolerated. Cardiology office visit 6 months, sooner if needed. (2) Edema: Code(s): R60.9 - Edema, unspecified Category: Medical Plan: Swelling noted in left lower extremity, trace in right lower leg. He is on amlodipine 10 mg daily which can contribute to this. He reports recent ultrasound showing no DVT. He has gained 10 lb since his last visit in August. Will check labs today including CMP and BNP. He is currently on hydrochlorothiazide. He may need stronger diuretic. (3) Coronary atherosclerosis: Comment: follows w/[facility] Code(s): I25.10 - Atherosclerotic heart disease of [place] coronary artery without angina pectoris Category: Medical Plan: NSTEMI 2020, Notes from [facility] previously reviewed indicating cardiac catheterization 12/07/2020 showing plaque rupture of the left circumflex artery, SUZI placed, other vessels normal, RCA dominant. On last visit reported chest tightness and shortness of breath with stair climbing. Nuclear stress test done 10/09/2024 with exercise over 6 minutes, no EKG changes and normal myocardial perfusion imaging. His symptom may have been related to hypertension. Blood pressure now better controlled. Signs and symptoms of angina reviewed with him. He is not on aspirin due to allergy. He declines Plavix due to prior concerned that it dropped his blood pressure. He is on atorvastatin with LDL goal less than 70. Labs done 01/08/2024 showed LDL of 84. Will add lipids to labs today. The need for strict med compliance reviewed. (4) Hypertension: Code(s): I10 - Essential (primary) hypertension Category: Medical Plan: Blood pressure goal less than 130/80. History of noncompliance with medications at times. Currently controlled, no med changes made. (5) Palpitation: Code(s): R00.2 - Palpitations Category: Medical Plan: Prior reports of heart palpitations. A Holter monitor was done on 07/16/2023 for 3 days showing sinus rhythm with average heart rate 89, rare ectopy. His symptoms correlated with sinus tachycardia. (6) Stented coronary artery: Comment: Left circumflex 2020 Code(s): Z95.5 - Presence of coronary angioplasty implant and graft Category: Surgical Plan: As above (7) Renal artery aneurysm: Comment: with dissection-stent in place, right Code(s): I72.2 - Aneurysm of renal artery Category: Medical Plan: He reports a history of having a renal artery aneurysm that dissected and a stent was placed. He was not clear on the year this occurred. Last renal artery ultrasound 07/10/2024 showing no stenosis. (8) History of stent insertion of renal artery: Onset Date: ~2008 Comment: Renal artery stent Code(s): Z98.890 - Other specified postprocedural states Category: Medical Plan: As above (9) Chest pain: Code(s): R07.9 - Chest pain, unspecified Category: Medical Plan: As above Plan Time spent on chart review, documentation, interview and assessment Orders: Orders Lipid Panel Today I10 - Essential (primary) hypertension B Type Natriuretic Peptide Today I10 - Essential (primary) hypertension Comprehensive Met. Panel Today I10 - Essential (primary) hypertension Medications: Changed From atorvastatin 40 mg PO BEDTIME 90 tabs 3RF To atorvastatin 40 mg PO ONCE Coding Level of Care Code Est Pt Level 4 (33064) Complex EM visit Add On G2211 Diagnoses Uncontrolled hypertension I10 Edema R60.9 Coronary atherosclerosis I25.10 Hypertension I10 Palpitation R00.2 Stented coronary artery Z95.5 Renal artery aneurysm I72.2 History of stent insertion of renal artery Z98.890 Chest pain R07.9 Time Spent (min) 30
[2024-10-17 09:48] VITALS: BP 110/82; PULSE 95; BMI 39.6
== END 2024-10-17 10:18 | disposition home or self-care (01) ==
LOC: HO.HCS 09:33
PROVIDERS: PCP Nurse Practitioner Family; Visit Provider Nurse Practitioner Family
DX: I10 Essential (primary) hypertension (principal); R60.9 Edema, unspecified; I25.10 Atherosclerotic heart disease of native coronary artery without angina pectoris; R00.2 Palpitations; Z95.5 Presence of coronary angioplasty implant and graft; I72.2 Aneurysm of renal artery; Z98.890 Other specified postprocedural states; R07.9 Chest pain, unspecified
CPT/HCPCS: 99214

== ENCOUNTER 2024-10-24 08:13 | Emergency (ER) | payer OTHER, SELFPAY ==
--- NOTE | ~2024-10-24 | CT_ITS ---
EXAMINATION: CT ABDOMEN PELVIS WITH IV CONTRAST HISTORY: left lower quadrant pain COMPARISON: Comparison is made with the prior examination dated 06/14/2023. TECHNIQUE: CT scan of the abdomen and pelvis was performed following administration of 85 mL Omnipaque 350 using standard departmental protocol. Coronal and sagittal reformatted images were generated and reviewed. Oral contrast material was not administered at the request of the referring physician. This CT exam was performed with one or more of the following dose reduction techniques: automated exposure control, adjustment of the mA and/or kV according to patient size, use of iterative reconstruction technique. DLP: 869 mGy-cm FINDINGS: LOWER CHEST: The visualized lung bases are clear. There is no pleural effusion. CARDIOVASCULATURE: The heart is normal in size. There is no pericardial effusion. LIVER: The liver is normal in size and contour. No liver mass is identified. The hepatic and portal veins are patent. GALLBLADDER / BILE DUCTS: The gallbladder is unremarkable. There is no intra or extrahepatic biliary ductal dilatation. SPLEEN: The spleen is normal in size. No focal splenic lesion is identified. PANCREAS: The pancreas is unremarkable in appearance. ADRENAL GLANDS: Within normal limits. KIDNEYS/RETROPERITONEUM: Again seen is extensive right renal scarring. Embolization coils are noted in the region of the renal hilum. No renal calculi are identified. There is no hydronephrosis. No renal masses are identified. LYMPH NODES: No abdominal or pelvic lymphadenopathy. VASCULATURE: The abdominal aorta is normal in caliber. MESENTERY/PERITONEUM: No free fluid. No masses. There is no free intraperitoneal gas. STOMACH: The stomach is collapsed, limiting evaluation. SMALL BOWEL: The small bowel is normal in caliber. Again seen is small bowel lateral to the descending colon which may indicate an internal hernia. There is no abnormal small bowel wall thickening. COLON: There is mild wall thickening of the sigmoid colon which may be due to underdistention. There are no pericolonic inflammatory changes. APPENDIX: Normal. URINARY BLADDER/PELVIC ORGANS: The urinary bladder is unremarkable. The prostate is normal in size. BONES / SOFT TISSUES: No suspicious bony or soft tissue abnormalities. CT/CT abdomen pelvis w IV con IMPRESSION: 1. Mild wall thickening of the sigmoid colon which may be due to underdistention. No associated inflammatory stranding is seen. 2. There are multiple small bowel loops located lateral to the ascending colon which may indicate an internal hernia. This is unchanged from the prior study, however. Electronically signed by: Florencio Ochoa MD 10/24/2024 10:13 AM EDT
[2024-10-24 08:17] VITALS: BP 142/89; PULSE 98; RESP 18; TEMP 36.9; O2SAT 98; BMI 40.0
--- NOTE | 2024-10-24 08:28 | ED_ITS ---
HPI - General Adult General Chief complaint: General Medical Stated complaint: lower left abd pain, left leg swollen Time Seen by Provider: 10/24/24 08:28 Source: patient Mode of arrival: ambulatory Limitations: no limitations History of Present Illness ED Provider: HPI narrative: 39-year-old male presenting with with left lower quadrant abdominal pain worse when he is coughing, sitting up or moving, this started yesterday, about a month ago he started developing recurrent left lower extremity swelling as well, went to urgent care and had an ultrasound done and stated that was negative for DVT. No chest pain no shortness of breath no dysuria no hematuria no blood in the stool reported. Related Data Home Medications ?Medication ?Instructions ?Recorded ?Confirmed acetaminophen-caffeine 500 mg-65 2 tab PO QID PRN Head ache 06/24/22 10/17/24 mg tablet (Excedrin Tension Headache) riboflavin (vitamin B2) 400 mg 400 mg PO QAM 05/09/24 10/17/24 tablet Previous Rx's ?Medication ?Instructions ?Recorded ubrogepant 100 mg tablet (Ubrelvy) 50 - 100 mg (0.5 - 1 x 100 mg) PO 11/08/23 ONCE PRN migraine headache 30 days #16 tabs valsartan 320 mg tablet 320 mg PO QAM 90 days #90 ta bs 08/28/24 amlodipine 10 mg tablet 10 mg PO QAM #90 tabs hydrochlorothiazide 25 mg tablet 25 mg PO DAILY #90 ta bs 08/29/24 atorvastatin 80 mg tablet (Lipitor) 80 mg PO BEDTIME # 90 tabs 10/21/24 furosemide 20 mg tablet (Lasix) 20 mg PO BID 5 days #1 0 tabs 10/24/24 methylprednisolone 4 mg tablets in 4 mg PO DAILY #21 e a 10/24/24 a dose pack (Medrol (Ankit)) Allergies Allergy/AdvReac Type Severity Reaction Status Date / Time aspirin Allergy Severe Facial Verified 10/24/24 08:18 Swelling oxycodone Allergy Severe severe Verified 10/24/24 08:18 pain/redness of testicles varenicline (From Chantix) Allergy Severe full body Verified 10/24/24 08:18 rash calamine Allergy Intermediate Rash Verified 10/24/24 08:18 barium sulfate Allergy Mild Vomiting Verified 10/24/24 08:18 hydromorphone AdvReac itchy hives Verified 10/24/24 08:18 Review of Systems 2 Constitutional: Constitutional: Reports as per [facility] Past Medical History Medical History Myocardial infarction Cervical spondylosis Low back pain Neck pain Snores Dizziness Hyperlipemia Murmur 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) History of stent insertion of renal artery (~2008) Migraines Coronary atherosclerosis Renal artery aneurysm Hypertension Surgical History H/O shoulder surgery Hx of neck surgery History of carpal tunnel release Stented coronary artery Family History Family History Mother No family history of coronary artery disease Father No family history of coronary artery disease Social History Social History Household Members Other:: minor children/lives in [facility] Housing: House Are you a primary health care facility administrator to a significant other at home: Yes (has caregiver in place for children DOS) Do you presently have visiting nurse or other home services: No Alcohol intake: current Alcohol intake frequency: does not drink Comment: chronic dizziness Patient Tobacco Use Status: Current someday Tobacco user Tobacco use type: Cigarette Cigarettes Per Day: 3 Years Smoked: 22 Smoked in Last 30 Days: Yes e-Cigarette/Vaping Use: Never Used Second Hand Smoke Exposure: No Use of substances other than those prescribed or required for medical reasons: No Advance Directives: No Advance Directives Information Provided: Yes Do you have a plan to hurt others: No Plan service: No Current occupational status: unemployed Current occupation: [employer] , Left hand dominate Current occupational exposures/hazards: Yes Cognitive needs: No Hearing needs: No Vision needs: No Physical Exam ED Vital Signs: Vital Signs - 24 hr 10/24/24 08:17 Temperature 98.5 F Pulse Rate 98 Respiratory Rate 18 Blood Pressure 142/89 H Pulse Oximetry 98 Oxygen Delivery Method Room Air BMI result Body Mass Index 40.0 Const Other: * Gen: ?Overall well-appearing patient * CV: RRR, no obvious murmurs appreciated * Resp: ?No wheezing rales rhonchi no stridor moving air well * Abd: ?Bowel sounds are present, left lower quadrant tenderness with voluntary guarding y, no CVA tenderness, exam deferred * MSK: Nonpitting edema to left lower extremity with more of a pedal edema compared to the right side distal pulses intact * Skin: Warm, dry, intact, * Neuro: ?Alert and oriented x3, moving upper and lower extremities symmetrically, no obvious facial asymmetry noted Medications Administered Discontinued Medications Generic Name Dose Route Start Last Admin Trade Name Albino PRN Reason Stop Dose Admin Iohexol 100 ml 10/24/24 09:46 10/24/24 09:46 Iohexol 350 Mg/Ml 100 Ml Infus..Btl IV 10/24/24 09:47 85 ml ONCE ONE Administration Medical Decision Making Medical Decision Making MDM Narrative: Consideration for workup as below, see my differential, disposition to be determined 10:40 patient re-evaluated, discussed CT findings, there are multiple small bowel loops located lateral to the something calling which may indicate internal hernia patient is not have any obstipation and this is similar to prior study so I have told this with the patient and as far as his leg swelling I suspect he has lymphedema venous stasis I am going to start steroids furosemide as he is also tender over his ankle maybe there is a component of inflammation to it Differential Diagnosis Differential Diagnoses: The differential diagnosis associated with the presentation includes (Renal colic, diverticulitis, intra-abdominal mass, pyelonephritis, mesenteric adenitis, hernia) Admission/Observation Consideration of admission/observation: Escalation of care including admission/observation considered 2022 Emergency Medicine Coding Guide from [email or web address] on 10/24/2024 All calculations should be rechecked by clinician prior to use RESULT SUMMARY: 5 Estimated Level of Service Problems: Moderate (4) Risk: High (5) Data: Extensive (5) NARRATIVE MDM: This patient's problem complexity is Moderate as patient: has a new undiagnosed problem with uncertain prognosis but that could be serious. This patient's risk is High due to: overall presentation requiring evaluation for a potentially High-risk process. This patient's data complexity is Extensive due to: -multiple tests ordered -independent interpretation of imaging or EKG INPUTS: Number and Complexity ?> 5 = 4: undiagnosed new problem, uncertain outcome (e) Risk level ?> 4 = High Tests ordered ?> 2 = 2 Tests results reviewed (excluding labs) ?> 1 = 1 Prior external notes reviewed ?> 0 = 0 Assessment requiring and independent historian ?> 0 = No Independent interpretation of tests ?> 1 = Yes Discussed management/test interpretation w/external professional ?> 0 = No Lab Data MDM Lab Attestation statement: I reviewed the patient's lab results. 10/24/24 08:40 10/24/24 08:40 Labs: Lab Results 10/24/24 Range/Units 08:40 WBC 12.7 H (4.8-10.8) X10*3/uL RBC 5.01 (4.60-5.80) X10*6/uL Hgb 13.5 L (14.0-18.0) g/dl Hct 40.6 L (42.0-52.0) % MCV 81.0 (80.0-98.0) fL MCH 26.9 L (27.0-33.0) pg MCHC 33.3 (31.0-36.0) g/dl RDW 17.8 H (11.0-16.0) % Plt Count 352 (160-400) X10*3/uL MPV 9.9 (9.4-12.4) fL Immature Gran % (Auto) 0.5 H (0.0-0.4) % Neut % (Auto) 60.6 (45-73) % Lymph % (Auto) 26.8 (20-40) % [place] % (Auto) 9.5 (2-11) % Eos % (Auto) 2.2 (0-4) % Baso % (Auto) 0.4 (0-2) % Lymph # (Auto) 3.4 (1.2-4.9) X10*3/uL [place] # (Auto) 1.2 (0.1-1.2) X10*3/uL Eos # (Auto) 0.3 (0.0-0.4) X10*3/uL Baso # (Auto) 0.1 (0.0-0.2) X10*3/uL Abs Immat Gran (auto) 0.06 H (0.00-0.03) X10*3/uL Absolute Neuts (auto) 7.7 (2.0-8.3) x10*3/uL Absolute Nucleated RBC 0.000 (0.0-0.012) X10*3/uL Nucleated RBC % (auto) 0.0 (0.0-0.2) /100WBC Sodium 139 (135-145) mmol/L Potassium 3.7 (3.3-5.1) mmol/L Chloride 107 (96-108) mmol/L Carbon Dioxide 25 (22-29) mmol/L Anion Gap 11 L (12-20) BUN 9 (9-16) mg/dL Creatinine 0.76 (0.5-1.4) mg/dL Estim Creat Clear Calc 157.2 Estimated GFR > 60 Random Glucose 113 (60-115) mg/dL Calcium 9.1 (8.4-10.2) mg/dL B-Natriuretic Peptide < 10 (<100) pg/mL Influenza Type A (PCR) NEGATIVE (Negative) Influenza Type B (PCR) NEGATIVE (Negative) RSV RNA Qual (PCR) NEGATIVE (Negative) SARS-CoV-2 RNA (RT-PCR) NEGATIVE (Negative) Radiology Impression Discussion of test interpretation with radiology: I have reviewed the radiologist's reading. (Mild wall thickening of the sigmoid colon which may be due to underdistention. No associated inflammatory stranding is seen. 2. There are multiple small bowel loops located lateral to the ascending colon which may indicate an internal hernia. This is unchanged from the prior study, however.) Discharge Plan Discharge Clinical Impression: Abdominal pain, acute, left lower quadrant, Left leg swelling Patient Disposition: Home, Self-Care Additional Instructions: If you still have diclofenac stop taking it, instead I am going to place you on a steroid pack take it with food, CAT scan did not reveal any new intra- abdominal issues, you have persistent CT findings seen on prior imaging that are nonspecific, follow up with the PCP however for re-evaluation, I am starting her on steroids for inflammation, keep your leg elevated, quit smoking, and I recommend tighter compression stockings to ER both legs I suspect your developing venous insufficiency any other issues concerns come back to the ER Prescriptions: New methylprednisolone [Medrol (Ankit)] 4 mg tablets,dose pack 4 mg PO DAILY Qty: 21 0RF Rx Instructions: Day 1: 24 mg on day 1 administered as 8 mg before breakfast, 4 mg after lunch, 4 mg after supper, and 8 mg at bedtime or 24 mg as a single dose or divided into 2 or 3 doses upon initiation. Day 2: 20 mg on day 2 administered as 4 mg before breakfast, 4 mg after lunch, 4 mg after supper, and 8 mg at bedtime. Day 3: 16 mg on day 3 administered as 4 mg before breakfast, 4 mg after lunch, 4 mg after supper, and 4 mg at bedtime. Day 4: 12 mg on day 4 administered as 4 mg before breakfast, 4 mg after lunch, and 4 mg at bedtime. Day 5: 8 mg on day 5 administered as 4 mg before breakfast and 4 mg at bedtime. Day 6: 4 mg on day 6 administered as 4 mg before breakfast. furosemide [Lasix] 20 mg tablet 20 mg PO BID 5 Days Qty: 10 0RF Discontinued diclofenac sodium 50 mg tablet,delayed release (DR/EC) 50 mg PO Q12H PRN (Reason: pain) Qty: 20 0RF No Action amlodipine 10 mg tablet 10 mg PO QAM Qty: 90 0RF hydrochlorothiazide 25 mg tablet 25 mg PO DAILY Qty: 90 1RF atorvastatin [Lipitor] 80 mg tablet 80 mg PO BEDTIME Qty: 90 3RF Rx Instructions: dose increased Excedrin Tension Headache 500-65 mg Tablet 2 tab PO QID PRN (Reason: Headache) riboflavin (vitamin B2) 400 mg Tablet 400 mg PO QAM Ubrelvy 100 mg tablet 50 - 100 mg PO ONCE PRN (Reason: migraine headache) 30 Days Qty: 16 3RF Rx Instructions: take at onset of migraine, may repeat in 2hrs (may take w/ Tylenol) valsartan 320 mg tablet 320 mg PO QAM 90 Days Qty: 90 1RF Referrals: Ryan Louis, DEMOGRAPHIC ANALYST-BC [Primary Care Provider, Internal Medicine] - 2 weeks Clinical Impression: Left leg swelling; Abdominal pain, acute, left lower quadrant Print Language: Iranian
[2024-10-24 08:57] LABS: MANUAL DIFF FLAG NO
[2024-10-24 08:59] LABS: Hematocrit 40.6 % (42.0-52.0); Hemoglobin 13.5 g/dl (14.0-18.0); Imm Gran Abs Auto 0.06 X10*3/uL (0.00-0.03); Imm Gran Pct Auto 0.5 % (0.0-0.4); Lymphocytes Absolute Auto 3.4 X10*3/uL (1.2-4.9); Mean Corpuscular HGB Conc 33.3 g/dl (31.0-36.0); Mean Corpuscular Hemoglobin 26.9 pg (27.0-33.0); Mean Corpuscular Volume 81.0 fL (80.0-98.0); NRBC Abs Auto 0.000 X10*3/uL (0.0-0.012); NRBC Pct Auto 0.0 /100WBC (0.0-0.2); Platelet Count 352 X10*3/uL (160-400); Red Blood Count 5.01 X10*6/uL (4.60-5.80); White Blood Count 12.7 X10*3/uL (4.8-10.8)
[2024-10-24 09:16] LABS: Anion Gap 11 (12-20); Blood Urea Nitrogen 9 mg/dL (9-16); Calcium 9.1 mg/dL (8.4-10.2); Carbon Dioxide 25 mmol/L (22-29); Chloride 107 mmol/L (96-108); Creatinine Clr Calc Pharmacy 157.2; Estimated Glomerular Filt Rate > 60; Potassium 3.7 mmol/L (3.3-5.1); Sodium 139 mmol/L (135-145)
[2024-10-24 09:28] LABS: B Type Natriuretic Peptide < 10 pg/mL (<100)
[2024-10-24 09:44] LABS: Resp Syncy Virus RNA Qual PCR NEGATIVE (Negative); SARS COV2 PCR INHOUSE NEGATIVE (Negative)
[2024-10-24] MEDS: iohexoL 350 MG/ML 100 ML INFUS..BTL IV (09:46)
[2024-10-24 11:02] VITALS: BP 142/87; PULSE 78; RESP 18; TEMP 36.9; O2SAT 98
== END 2024-10-24 11:03 | disposition home or self-care (01) ==
PROVIDERS: Emergency Provider Emergency Medicine; PCP Nurse Practitioner Family
DX: R60.0 Localized edema (principal); R10.32 Left lower quadrant pain; R10.2 Pelvic and perineal pain; R05.9 Cough, unspecified; F17.210 Nicotine dependence, cigarettes, uncomplicated; Z79.899 Other long term (current) drug therapy; Z03.818 Encounter for observation for suspected exposure to other biological agents ruled out
CPT/HCPCS: 74177; 80048; 83880; 85025; 87637; 99284; Q9967

== ENCOUNTER → 2024-10-24 08:36 | Outpatient (BNV) | payer OTHER, SELFPAY | PROVIDERS: Emergency Provider Emergency Medicine; PCP Nurse Practitioner Family; Visit Provider Radiology Diagnostic Radiology | DX: R10.32 Left lower quadrant pain (principal) | CPT/HCPCS: 74177 ==

== ENCOUNTER 2024-11-04 09:39 | Emergency (ER) | payer OTHER, SELFPAY ==
--- NOTE | ~2024-11-04 | CT_ITS ---
EXAMINATION: CT ANGIOGRAM CHEST CLINICAL INFORMATION: Shortness of breath. COMPARISON: August 22, 2024 TECHNIQUE: Multiple axial images were obtained through the chest after the administration of 65 mL of Omnipaque 350 intravenous contrast. Extensive vascular post-processing including two-dimensional and three-dimensional reformatted images were created and reviewed on an independent workstation. SmartPrep technique. This CT examination was performed using dose optimization techniques as appropriate, variously including the following: *Automated exposure control *Adjustment of mA and/or kV according to patient size (this includes techniques or standardized protocols for targeted exams where dose is matched to indication/reason for exam; i.e. extremities or head) *Use of iterative reconstruction technique DLP: 400 mGy centimeter. FINDINGS: Limited by patient's breathing motion artifact. The main pulmonary artery or its main branches and subsegmental pulmonary branches demonstrated normal patency without gross intraluminal filling defects. No aneurysm or dissection, thoracic aorta. Pulmonary patchy groundglass, bilaterally. No pneumothorax. No pleural effusion. No gross bronchiectasis or honeycombing. Respiratory airways is grossly patent. Nonspecific prominent mediastinal lymph nodes, the largest in the subcarinal measuring 13 mm. No pericardial effusion. No pneumomediastinum. No hemopericardium. Calcified plaques in the coronary arteries questionable coronary artery stenting. Prominent left thyroid lobe. Multilevel thoracic spondylosis without acute fracture or gross listhesis. Levoconvex curvature of the thoracic spine which could be positional. No gross axillary lymphadenopathy. Gallbladder is contracted. CT/CT angio chest PE protocol IMPRESSION: No acute pulmonary emboli in the main pulmonary artery branches. Consider pneumonitis versus mild interstitial lung edema versus acute small airway inflammatory processes. Coronary artery disease. Fleischner guidelines were followed. Electronically signed by: Gerard Huitron MD 11/04/2024 12:50 PM EDT
--- NOTE | ~2024-11-04 | XR_ITS ---
EXAMINATION: XR CHEST CLINICAL INFORMATION: Intermittent cough, spitting up pink stuff COMPARISON: August 22, 2024 TECHNIQUE: 2 views of the chest were obtained. FINDINGS: No consolidation, pleural effusion or pneumothorax. No hyperinflation. Cardiomediastinal silhouette size is normal. Multilevel thoracic spondylosis. Metallic foreign body overlaps the lower neck on the AP projection no seen on the lateral projection., Unchanged. XR/XR chest 2V IMPRESSION: No acute airspace disease. Stable chest. Electronically signed by: Gerard Huitron MD 11/04/2024 10:22 AM EDT
[2024-11-04 09:50] VITALS: BP 144/86; PULSE 99; RESP 16; TEMP 37; O2SAT 95; BMI 39.6
[2024-11-04 10:14] LABS: MANUAL DIFF FLAG NO
[2024-11-04 10:15] LABS: Hematocrit 37.8 % (42.0-52.0); Hemoglobin 12.8 g/dl (14.0-18.0); Imm Gran Abs Auto 0.09 X10*3/uL (0.00-0.03); Imm Gran Pct Auto 0.8 % (0.0-0.4); Lymphocytes Absolute Auto 2.6 X10*3/uL (1.2-4.9); Mean Corpuscular HGB Conc 33.9 g/dl (31.0-36.0); Mean Corpuscular Hemoglobin 27.2 pg (27.0-33.0); Mean Corpuscular Volume 80.4 fL (80.0-98.0); NRBC Abs Auto 0.000 X10*3/uL (0.0-0.012); NRBC Pct Auto 0.0 /100WBC (0.0-0.2); Platelet Count 298 X10*3/uL (160-400); Red Blood Count 4.70 X10*6/uL (4.60-5.80); White Blood Count 11.6 X10*3/uL (4.8-10.8)
[2024-11-04 10:40] LABS: Anion Gap 12 (12-20); Blood Urea Nitrogen 7 mg/dL (9-16); Calcium 9.4 mg/dL (8.4-10.2); Carbon Dioxide 25 mmol/L (22-29); Chloride 106 mmol/L (96-108); Creatinine Clr Calc Pharmacy 146.6; Estimated Glomerular Filt Rate > 60; Potassium 3.8 mmol/L (3.3-5.1); Sodium 139 mmol/L (135-145)
[2024-11-04 10:45] LABS: B Type Natriuretic Peptide 22 pg/mL (<100)
[2024-11-04] MEDS: Butalb/Acetamin/Caff 50/325/40 TABLET 1 TAB PO (11:25)
--- NOTE | 2024-11-04 11:31 | ED.GENADULT ---
HPI - General Adult General Chief complaint: Extremity Problem Stated complaint: Leg swelling, headache Time Seen by Provider: 11/04/24 10:32 Source: patient, RN notes reviewed and old records reviewed Mode of arrival: ambulatory Limitations: no limitations History of Present Illness ED Provider: Hilary PEREZ narrative: 39-year-old male past medical history significant for hypertension, hypertrophic cardiomyopathy, history of migraines vertigo artery disease, renal artery aneurysm presents for evaluation of leg swelling. Patient was seen here on 10/24/2024 due to leg swelling. He was ultimately given a course of prednisone which she finished last Sunday. The patient reports that his swelling had resolved However 3 days ago on Sunday of the swelling returned, worse in the left lower extremity. The patient reports a history of a renal artery infarct what she believes was a blood clot. He is not currently anticoagulated. Denies any history of the repeat were. The patient reports that he drinks 1-2 gal of water daily He also reports he is coughing up pink so complains of the headache. Related Data Home Medications ?Medication ?Instructions ?Recorded ?Confirmed acetaminophen-caffeine 500 mg-65 2 tab PO QID PRN Headache 06/24/22 10/17/24 mg tablet (Excedrin Tension Headache) riboflavin (vitamin B2) 400 mg 400 mg PO QAM 05/09/24 10/17/24 tablet Previous Rx's ?Medication ?Instructions ?Recorded ubrogepant 100 mg tablet (Ubrelvy) 50 - 100 mg (0.5 - 1 x 100 mg) PO 11/08/23 ONCE PRN migraine headache 30 days #16 tabs valsartan 320 mg tablet 320 mg PO QAM 90 days #90 tabs 08/28/24 amlodipine 10 mg tablet 10 mg PO QAM #90 tabs 08/29/24 hydrochlorothiazide 25 mg tablet 25 mg PO DAILY #90 tabs 08/29/24 atorvastatin 80 mg tablet (Lipitor) 80 mg PO BEDTIME #90 tabs 10/21/24 furosemide 20 mg tablet (Lasix) 20 mg PO BID 5 days #10 tabs 10/24/24 methylprednisolone 4 mg tablets in 4 mg PO DAILY #21 ea 10/24/24 a dose pack (Medrol (Ankit)) furosemide 20 mg tablet (Lasix) 20 mg PO DAILY #5 tabs 11/04/24 Allergies Allergy/AdvReac Type Severity Reaction Status Date / Time aspirin Allergy Severe Facial Verified 11/04/24 09:54 Swelling oxycodone Allergy Severe severe Verified 11/04/24 09:54 pain/redness of testicles varenicline (From Chantix) Allergy Severe full body Verified 11/04/24 09:54 rash calamine Allergy Intermediate Rash Verified 11/04/24 09:54 barium sulfate Allergy Mild Vomiting Verified 11/04/24 09:54 hydromorphone AdvReac itchy hives Verified 11/04/24 09:54 Review of Systems Constitutional: Constitutional: Denies body ache(s), Denies chills, Denies fever(s) and Denies headache(s) Eyes: Eyes: Denies blurry vision ENT: Reports dizziness and Denies headache(s) Cardiovascular: Cardiovascular: Denies chest pain, Reports pedal edema, Reports leg edema and Denies dyspnea on exertion Respiratory: Respiratory: Reports cough and Denies dyspnea on exertion Gastrointestinal: Gastrointestinal: Denies abdominal pain, Denies nausea and Denies vomiting Musculoskeletal: Musculoskeletal: Denies back pain Integumentary/Breasts: Skin/Breast: Denies rash Neurologic: Reports dizziness and Denies headache(s) [facility]LY [facility] Past Medical History Medical History Myocardial infarction Cervical spondylosis Low back pain Neck pain Snores Dizziness Hyperlipemia Murmur 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) History of stent insertion of renal artery (~2008) Migraines Coronary atherosclerosis Renal artery aneurysm Hypertension Surgical History H/O shoulder surgery Hx of neck surgery History of carpal tunnel release Stented coronary artery Family History Family History Mother No family history of coronary artery disease Father No family history of coronary artery disease Social History Social History Household Members Other:: minor children/lives in [facility] Housing: House Are you a primary care companion to a significant other at home: Yes (has caregiver in place for children DOS) Do you presently have visiting nurse or other home services: No Alcohol intake: current Alcohol intake frequency: does not drink Comment: chronic dizziness Patient Tobacco Use Status: Current someday Tobacco user Tobacco use type: Cigarette Cigarettes Per Day: 3 Years Smoked: 22 e-Cigarette/Vaping Use: Never Used Second Hand Smoke Exposure: No Advance Directives: No Advance Directives Information Provided: Yes service: No Current occupational status: unemployed Current occupation: [employer] , Left hand dominate Current occupational exposures/hazards: Yes Cognitive needs: No Hearing needs: No Vision needs: No Physical Exam ED Vital Signs: Vital Signs - 24 hr 11/04/24 09:50 Temperature 98.6 F Pulse Rate 99 Respiratory Rate 16 Blood Pressure 144/86 H Pulse Oximetry 95 Oxygen Delivery Method Room Air BMI result Body Mass Index 39.6 Const General: healthy appearing, comfortable, no acute distress, alert and awake Nutritional Appearance: well nourished Orientation/consciousness: patient oriented x3 HENMT Head: Yes normocephalic and Yes atraumatic Eyes Eyelids: Yes eyelids normal Conjunctivae: conjunctivae normal Sclerae: sclerae normal Corneas: corneas normal Pupils: Equal, round and reactive pupils present EOM: EOMs intact bilaterally Neck Neck: Yes full ROM Resp Effort & Inspection: normal respiratory effort, able to speak in complete sentences, no audible wheezes and not labored Auscultation: clear to auscultation bilaterally Cardio Rate: regular rate Rhythm: regular rhythm GI Inspection: No distended Palpation (GI): Soft to palpation, not firm, nontender, no guarding and not rigid Skin General skin exam: elasticity normal Neuro General: patient oriented x3 Cranial nerves: Yes Equal, round and reactive pupils present and Yes Bilaterally intact EOM present Cognition (Neuro): normal cognition Extrem Other: Moving all extremities well without any obvious deformities Medications Administered Discontinued Medications Generic Name Dose Route Start Last Admin Trade Name Freq PRN Reason Stop Dose Admin Acetaminophen/Butalbital/Caffeine 1 tab 11/04/24 11:09 11/04/24 11:25 Butalb/Acetamin/Caff 50/325/40 Tablet PO 11/04/24 11:10 1 tab ONCE ONE Administration Iohexol 100 ml 11/04/24 11:49 11/04/24 11:56 Iohexol 350 Mg/Ml 100 Ml Infus..Btl IV 11/04/24 11:50 65 ml ONCE ONE Administration Medical Decision Making Medical Decision Making MDM Narrative: 39-year-old male with past medical history as above presents for evaluation of multiple complaints. His primary complaint is lower extremity edema. Given that he reports drinking 1-2 gal of water daily as feel that this does play a role in his leg swelling. I encouraged him to cut this in half. He has no history of congestive heart failure but does carry a diagnosis of cardiomyopathy. He had a recent stress test on 10/09/2024 without EKG changes. We will get an ultrasound of the left lower extremity is that leg is significantly more swollen compared to the right. However he had a recent ultrasound about 3 weeks ago which did not show a DVT. The patient is also complaining of pink tinged sputum. He has no history of PE but given his complaints of leg swelling, pink fitzpatrick sputum occasional chest pain and shortness of breath we will get a CTA of the chest. He does have a history of coronary artery disease with stenting Differential Diagnosis Differential Diagnoses: The differential diagnosis associated with the presentation includes Dependent edema Fluid overload DVT PE less likely Lab Data [facility] Lab Attestation statement: I reviewed the patient's lab results. Mild leukocytosis to 11.6 without obvious infectious source. The patient also has a mild anemia with a hemoglobin of 12.8 hematocrit of 37.8. This is a normocytic anemia. There was no evidence of active bleeding. Chemistries show no significant abnormalities warranting intervention. I will add on a TSH 11/04/24 10:05 11/04/24 10:05 Labs: Lab Results 11/04/24 Range/Units 10:05 WBC 11.6 H (4.8-10.8) X10*3/uL RBC 4.70 (4.60-5.80) X10*6/uL Hgb 12.8 L (14.0-18.0) g/dl Hct 37.8 L (42.0-52.0) % MCV 80.4 (80.0-98.0) fL MCH 27.2 (27.0-33.0) pg MCHC 33.9 (31.0-36.0) g/dl RDW 18.4 H (11.0-16.0) % Plt Count 298 (160-400) X10*3/uL MPV 9.6 (9.4-12.4) fL Immature Gran % (Auto) 0.8 H (0.0-0.4) % Neut % (Auto) 64.8 (45-73) % Lymph % (Auto) 22.2 (20-40) % Ocean % (Auto) 9.4 (2-11) % Eos % (Auto) 2.3 (0-4) % Baso % (Auto) 0.5 (0-2) % Lymph # (Auto) 2.6 (1.2-4.9) X10*3/uL Ocean # (Auto) 1.1 (0.1-1.2) X10*3/uL Eos # (Auto) 0.3 (0.0-0.4) X10*3/uL Baso # (Auto) 0.1 (0.0-0.2) X10*3/uL Abs Immat Gran (auto) 0.09 H (0.00-0.03) X10*3/uL Absolute Neuts (auto) 7.5 (2.0-8.3) x10*3/uL Absolute Nucleated RBC 0.000 (0.0-0.012) X10*3/uL Nucleated RBC % (auto) 0.0 (0.0-0.2) /100WBC Sodium 139 (135-145) mmol/L Potassium 3.8 (3.3-5.1) mmol/L Chloride 106 (96-108) mmol/L Carbon Dioxide 25 (22-29) mmol/L Anion Gap 12 (12-20) BUN 7 L (9-16) mg/dL Creatinine 0.81 (0.5-1.4) mg/dL Estim Creat Clear Calc 146.6 Estimated GFR > 60 Random Glucose 121 H (60-115) mg/dL Calcium 9.4 (8.4-10.2) mg/dL B-Natriuretic Peptide 22 (<100) pg/mL TSH 0.97 (0.32-4.0) uIU/mL Discharge Plan Discharge Clinical Impression: Left leg swelling Patient Disposition: Home, Self-Care Instructions: Leg Edema (ED) Additional Instructions: Your workup in the ER today was reassuring. There was no evidence of blood clots Amlodipine does have a side effect that causes leg swelling in his could be contributing to your symptoms. Additionally, you should cut your water intake in half Take Lasix 20 mg daily for the next 5 days to help with the leg swelling Prescriptions: New furosemide [Lasix] 20 mg tablet 20 mg PO DAILY Qty: 5 0RF No Action amlodipine 10 mg tablet 10 mg PO QAM Qty: 90 0RF hydrochlorothiazide 25 mg tablet 25 mg PO DAILY Qty: 90 1RF atorvastatin [Lipitor] 80 mg tablet 80 mg PO BEDTIME Qty: 90 3RF Rx Instructions: dose increased Excedrin Tension Headache 500-65 mg Tablet 2 tab PO QID PRN (Reason: Headache) methylprednisolone [Medrol (Ankit)] 4 mg tablets,dose pack 4 mg PO DAILY Qty: 21 0RF Rx Instructions: Day 1: 24 mg on day 1 administered as 8 mg before breakfast, 4 mg after lunch, 4 mg after supper, and 8 mg at bedtime or 24 mg as a single dose or divided into 2 or 3 doses upon initiation. Day 2: 20 mg on day 2 administered as 4 mg before breakfast, 4 mg after lunch, 4 mg after supper, and 8 mg at bedtime. Day 3: 16 mg on day 3 administered as 4 mg before breakfast, 4 mg after lunch, 4 mg after supper, and 4 mg at bedtime. Day 4: 12 mg on day 4 administered as 4 mg before breakfast, 4 mg after lunch, and 4 mg at bedtime. Day 5: 8 mg on day 5 administered as 4 mg before breakfast and 4 mg at bedtime. Day 6: 4 mg on day 6 administered as 4 mg before breakfast. furosemide [Lasix] 20 mg tablet 20 mg PO BID 5 Days Qty: 10 0RF riboflavin (vitamin B2) 400 mg Tablet 400 mg PO QAM Ubrelvy 100 mg tablet 50 - 100 mg PO ONCE PRN (Reason: migraine headache) 30 Days Qty: 16 3RF Rx Instructions: take at onset of migraine, may repeat in 2hrs (may take w/ Tylenol) valsartan 320 mg tablet 320 mg PO QAM 90 Days Qty: 90 1RF Print Language: Prydeinig
[2024-11-04] MEDS: iohexoL 350 MG/ML 100 ML INFUS..BTL IV (11:56)
[2024-11-04 13:17] VITALS: BP 144/86; PULSE 99; RESP 16; TEMP 37; O2SAT 95
== END 2024-11-04 13:19 | disposition home or self-care (01) ==
PROVIDERS: Physician Assistant; Emergency Provider Emergency Medicine; PCP Nurse Practitioner Family
DX: M79.89 Other specified soft tissue disorders (principal); I10 Essential (primary) hypertension; D64.9 Anemia, unspecified; R51.9 Headache, unspecified; I42.9 Cardiomyopathy, unspecified; Z79.899 Other long term (current) drug therapy; Z72.0 Tobacco use
CPT/HCPCS: 36415; 71046; 71275; 80048; 83880; 84443; 85025; 99283; 99285; Q9967

== ENCOUNTER → 2024-11-04 09:55 | Outpatient (BNV) | payer OTHER, SELFPAY | PROVIDERS: PCP Nurse Practitioner Family; Visit Provider Radiology Diagnostic Radiology | DX: R06.02 Shortness of breath (principal); I25.10 Atherosclerotic heart disease of native coronary artery without angina pectoris; R05.9 Cough, unspecified | CPT/HCPCS: 71046; 71275 ==

== ENCOUNTER 2024-11-05 09:01 | Outpatient (REF) | payer OTHER, SELFPAY ==
[2024-11-05 14:21] LABS: Resp Syncy Virus RNA Qual PCR NEGATIVE (Negative); SARS COV2 PCR INHOUSE NEGATIVE (Negative)
== END 2024-11-05 09:02 | disposition home or self-care (01) ==
LOC: HO.LAB 09:01
PROVIDERS: PCP Nurse Practitioner Family; Visit Provider Physician Assistant
DX: G43.909 Migraine, unspecified, not intractable, without status migrainosus (principal); R21 Rash and other nonspecific skin eruption; K13.0 Diseases of lips; B35.4 Tinea corporis; R06.02 Shortness of breath; F17.210 Nicotine dependence, cigarettes, uncomplicated; R09.89 Other specified symptoms and signs involving the circulatory and respiratory systems; Z79.899 Other long term (current) drug therapy
CPT/HCPCS: 87637

== ENCOUNTER 2024-11-05 09:01 | Outpatient (AMB) | payer OTHER, SELFPAY ==
[2024-11-05 09:26] VITALS: BP 104/80; PULSE 90; TEMP 36.7; O2SAT 95; BMI 39.9
--- NOTE | 2024-11-05 09:26 | MHC.OFFWIV ---
Intake Vital Signs 11/05/24 09:26 Height 5 ft 7 in Weight 255 lb BMI 39.9 BP 104/80 Blood Pressure Location Lt brachial Position Sitting Pulse 90 Pulse Source Pulse Oximeter Temp 98.1 F Temp Source Oral Pulse Oximetry (%) 95 Oxygen Delivery Method Room Air Intake Visit Reasons: EP still struggling with headache Intake Note: pt presents unresolved headache, went to [facility] [place] CT scan done Patient Tobacco Use Status: Current someday Tobacco user Allergies aspirin Allergy (Severe, Verified 11/05/24 09:27) Facial Swelling oxycodone Allergy (Severe, Verified 11/05/24 09:27) severe pain/redness of testicles varenicline (From Chantix) Allergy (Severe, Verified 11/05/24 09:27) full body rash calamine Allergy (Intermediate, Verified 11/05/24 09:27) Rash barium sulfate Allergy (Mild, Verified 11/05/24 09:27) Vomiting hydromorphone Adverse Reaction (Verified 11/05/24 09:27) itchy hives Medication List - Last Reconciled 11/05/24 by Dasha Maya PA-C acetaminophen-caffeine 500-65 mg (Excedrin Tension Headache) 2 tabs PO QID PRN amlodipine 10 mg PO QAM atorvastatin (Lipitor) 80 mg PO BEDTIME furosemide (Lasix) 20 mg PO BID 5 days furosemide (Lasix) 20 mg PO DAILY hydrochlorothiazide 25 mg PO DAILY riboflavin (vitamin B2) 400 mg PO QAM ubrogepant (Ubrelvy) 50 - 100 mg (0.5 - 1 x 100 mg) PO ONCE PRN 30 days valsartan 320 mg PO QAM 90 days HPI HPI Comments History of Present Illness Details Patient is a 39-year-old male with a past medical history of uncontrolled hypertension, HLD, migraines with aura, cervical radiculopathy and lumbar radiculopathy, CAD status post stenting of the left circumflex who is here for persistent headache. He went to the [facility] ED yesterday where he had multiple complaints but his chief complaint was left leg swelling. Labs showed a mild leukocytosis to 11.6 without obvious infectious source. The patient also has a mild anemia with a hemoglobin of 12.8 hematocrit of 37.8. This is a normocytic anemia. TSH was normal. He had a recent stress test on 10/09/2024 without EKG changes. However he had a recent ultrasound about 3 weeks ago which did not show a DVT. The patient is also complaining of pink tinged sputum. He has no history of PE but given his complaints of leg swelling, pink fitzpatrick sputum occasional chest pain and shortness of breath so they did a CTA of the chest which was negative for PE but did show GGO bilaterally. He was discharged and was told to cut is water intake, and extra lasix for 5 days. He has a history of migraines, managed with Excedrin, and has had a headache since Sunday. He has also taken his Ubrelvy with no improvement in his LE[place]. Reports shortness of breath and cough today, exacerbated by exertion, with a normal echocardiogram (no record on file) in ED yesterday. Also c/o rash in left armpit for months sp surgery where it was shaved with a similar rash in his groin (both sides) and rash at corners of mouth. Physical Exam General: Cooperative, healthy appearing, comfortable, no acute distress and well developed Orientation: Patient oriented x3 Limitations: No limitations Head: Normal to inspection Ears: Hearing grossly normal bilaterally Nose: Normal External nose present Face and sinus: Normal facial exam Eyes: Appearance normal, both eyes and all related structures Neck: Normal visual inspection and Yes full ROM Respiratory: Normal respiratory effort and able to speak in complete sentences. slight inspiratory wheeze in RLL and NICKY. CArdiac: regular rate and rhythem, normal s1 and s2 Skin: right axilla with oval 1cm x 3cm area of erythema with white edges. dry rash at corners of mouth. Neuro: Patient oriented x3 Extremities: Normal to inspection [facility] Medical History Myocardial infarction Cervical spondylosis Low back pain Neck pain Snores Dizziness Hyperlipemia Murmur 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) History of stent insertion of renal artery (~2008) Migraines Coronary atherosclerosis Renal artery aneurysm Hypertension Surgical History H/O shoulder surgery Hx of neck surgery History of carpal tunnel release Stented coronary artery Family History Mother No family history of coronary artery disease Father No family history of coronary artery disease Social History Household Members Other:: minor children/lives in [facility] Housing: House Are you a primary career resource specialist to a significant other at home: Yes (has caregiver in place for children DOS) Do you presently have visiting nurse or other home services: No 75 years or older and lives alone: No Alcohol intake: current Alcohol intake frequency: does not drink Comment: chronic dizziness Patient Tobacco Use Status: Current someday Tobacco user Tobacco use type: Cigarette Cigarettes Per Day: 3 Years Smoked: 22 e-Cigarette/Vaping Use: Never Used Second Hand Smoke Exposure: No service: No Current occupational status: unemployed Current occupation: [employer] , Left hand dominate Current occupational exposures/hazards: Yes Cognitive needs: No Hearing needs: No Vision needs: No Review of Systems Const All systems reviewed & are unremarkable except as noted in HPI and below Physical Exam Vital Signs: Last Vital Signs Temp 98.1 F 11/05/24 09:26 Pulse 90 11/05/24 09:26 BP 104/80 11/05/24 09:26 Pulse Ox 95 11/05/24 09:26 Oxygen Delivery Method Room Air 11/05/24 09:26 BMI result Body Mass Index 39.9 Assessment & Plan Assessment & Plan (1) Headache: Code(s): R51.9 - Headache, unspecified Plan: Plan Patient was informed and verbally consented to the use of an ambient scribe for clinic note documentation during this visit. 1. Migraine - Continue Excedrin as needed; consider alternative therapies if ineffective. The prednisone may help his migraines as well. 2. Possible Covid-19 Infection - COVID-19/flu/rsv testing done; monitor symptoms and follow up with results. Sent a 5 day burst of prednisone as well as an inhaler. Any worsening of shortness of breath, he should go to the emergency department. 3. Fungal Rash - Prescribed clotrimazole cream; monitor for improvement. 4. Angular Cheilitis - Treat with clotrimazole; advised I will send mupirocin if no improvement. Angular cheilitis is usually fungal or caused by staph so as he is already getting clotrimazole, it told him to use this to see if he has any improvement and if not, we will try the mupirocin ointment. (2) Angular cheilitis: Code(s): K13.0 - Diseases of lips Plan: see above (3) Tinea corporis: Code(s): B35.4 - Tinea corporis Plan: see above (4) Shortness of breath: Code(s): R06.02 - Shortness of breath Plan: see above Orders: Orders SARS-CoV2/FLU/RSV Today R09.89 - Other specified symptoms and signs involving the circulatory and respiratory systems Medications: New albuterol sulfate 90 mcg/actuation 2 puffs inhalation Q6H PRN 8.5 grams 0RF shortness of breath or wheezing or cough prednisone 40 mg (2 x 20 mg) PO QAM 10 tabs 0RF clotrimazole 1% 1 appl topical BID 45 grams 0RF 4 weeks Coding Level of Care Code Est Pt Level 5 (82492) Diagnoses Headache R51.9 Angular cheilitis K13.0 Tinea corporis B35.4 Shortness of breath R06.02
== END 2024-11-05 10:05 | disposition home or self-care (01) ==
PROVIDERS: PCP Nurse Practitioner Family; Visit Provider Physician Assistant
DX: R51.9 Headache, unspecified (principal); K13.0 Diseases of lips; B35.4 Tinea corporis; R06.02 Shortness of breath

== ENCOUNTER 2024-11-11 09:15 | Outpatient (AMB) | payer OTHER, SELFPAY ==
[2024-11-11 09:35] VITALS: BP 124/70; PULSE 102; TEMP 36.8; O2SAT 97; BMI 39.9
--- NOTE | 2024-11-11 09:35 | MHC.OFFWIV ---
Intake Vital Signs 11/11/24 09:35 Height 5 ft 7 in Weight 255 lb BMI 39.9 BP 124/70 Blood Pressure Location Lt brachial Position Sitting Pulse 102 H Pulse Source Pulse Oximeter Temp 98.2 F Temp Source Oral Pulse Oximetry (%) 97 Oxygen Delivery Method Room Air Intake Visit Reasons: EP leg swelling Intake Note: pt presents with bilateral leg swelling, sensations of radiating cold to body, new scaly patch right lateral ankle- all s/s s/p completing prednisone course Patient Tobacco Use Status: Current someday Tobacco user Allergies aspirin Allergy (Severe, Verified 11/11/24 09:40) Facial Swelling oxycodone Allergy (Severe, Verified 11/11/24 09:40) severe pain/redness of testicles varenicline (From Chantix) Allergy (Severe, Verified 11/11/24 09:40) full body rash calamine Allergy (Intermediate, Verified 11/11/24 09:40) Rash barium sulfate Allergy (Mild, Verified 11/11/24 09:40) Vomiting hydromorphone Adverse Reaction (Verified 11/11/24 09:40) itchy hives Do you need a note to return to daycare/school/sports/work: No HPI HPI Comments History of Present Illness Details History of Present Illness - The patient is a 39-year-old male presenting with persistent bilateral leg swelling. - Also c/o right leg lesion near ankle, described as feeling like it was going to pop, with associated cold water sensation and a red line on the foot with a residual dry patch near the ankle. - The patient has a history of right knee pain and right flank pain, with the left leg also experiencing pain and swelling for approximately one and a half months, worsening on stairs. - An ultrasound on 10/14 ruled out DVT, and a CT angiogram of the chest on 11/04 was negative for PE. - The patient was previously prescribed furosemide (Lasix) 20 mg daily for five days, which provided temporary relief of the leg swelling. - The patient has a history of an echocardiogram showing an ejection fraction of 50-55%, takes his HCTZ as prescribed. 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 Physical Exam General: Cooperative, healthy appearing, comfortable, no acute distress and well developed Orientation: Patient oriented x3 Limitations: No limitations Head: Normal to inspection Ears: Hearing grossly normal bilaterally Nose: Normal External nose present Face and sinus: Normal facial exam Eyes: Appearance normal, both eyes and all related structures Neck: Normal visual inspection and Yes full ROM Respiratory: Normal respiratory effort and able to speak in complete sentences. Skin: right lateral ankle with 1cm round dry patch Neuro: Patient oriented x3, gait normal Extremities: 1+ pitting edema in BL LE PFSH Medical History Myocardial infarction Cervical spondylosis Low back pain Neck pain Snores Dizziness Hyperlipemia Murmur 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) History of stent insertion of renal artery (~2008) Migraines Coronary atherosclerosis Renal artery aneurysm Hypertension Surgical History H/O shoulder surgery Hx of neck surgery History of carpal tunnel release Stented coronary artery Family History Mother No family history of coronary artery disease Father No family history of coronary artery disease Social History Household Members Other:: minor children/lives in assisted Housing: House Are you a primary caretaker to a significant other at home: Yes (has caregiver in place for children DOS) Do you presently have visiting nurse or other home services: No 75 years or older and lives alone: No Alcohol intake: current Alcohol intake frequency: does not drink Comment: chronic dizziness Patient Tobacco Use Status: Current someday Tobacco user Tobacco use type: Cigarette Cigarettes Per Day: 3 Years Smoked: 22 e-Cigarette/Vaping Use: Never Used Second Hand Smoke Exposure: No service: No Current occupational status: unemployed Current occupation: [employer] , Left hand dominate Current occupational exposures/hazards: Yes Cognitive needs: No Hearing needs: No Vision needs: No Review of Systems Const All systems reviewed & are unremarkable except as noted in HPI and below Physical Exam Vital Signs: Last Vital Signs Temp 98.2 F 11/11/24 09:35 Pulse 102 H 11/11/24 09:35 BP 124/70 11/11/24 09:35 Pulse Ox 97 11/11/24 09:35 Oxygen Delivery Method Room Air 11/11/24 09:35 BMI result Body Mass Index 39.9 Assessment & Plan Assessment & Plan (1) Leg edema: Code(s): R60.0 - Localized edema Plan: Patient was informed and verbally consented to the use of an ambient scribe for clinic note documentation during this visit. Bilateral Leg Swelling - The patient will be started on furosemide 20 mg daily in the morning for 7 days. - I messaged the patient's associate director regulatory affairs to discuss the chronic leg swelling and determine if continuation of furosemide is necessary, replacing the HCTZ. Advised the Cards office will follow up with further instructions. Medications: New furosemide (Lasix) 20 mg PO QAM 7 tabs 0RF Discontinued furosemide (Lasix) Discontinued Reason: Change Referral Type 20 mg PO BID 5 days 10 tabs 0RF furosemide (Lasix) Discontinued Reason: Doctor's Order 20 mg PO DAILY 5 tabs 0RF Coding Level of Care Code Est Pt Level 3 (42514) Diagnoses Leg edema R60.0
== END 2024-11-11 10:41 | disposition home or self-care (01) ==
PROVIDERS: PCP Nurse Practitioner Family; Visit Provider Physician Assistant
DX: R60.0 Localized edema (principal)

== ENCOUNTER → 2024-11-11 09:15 | Outpatient (BNVA) | payer OTHER, SELFPAY | PROVIDERS: PCP Nurse Practitioner Family; Visit Provider Physician Assistant | DX: R60.0 Localized edema (principal); M25.561 Pain in right knee; R10.9 Unspecified abdominal pain | CPT/HCPCS: 99212 ==

== ENCOUNTER 2024-11-19 09:28 | Outpatient (AMB) | payer OTHER, SELFPAY ==
--- NOTE | 2024-11-19 09:44 | A.OFFVIS_ITS ---
Vital Signs 11/19/24 09:46 Height 5 ft 7 in Weight 260 lb BMI 40.7 Intake Visit Reasons: Right knee pain and giving way Intake Note: Florencio is a 39 year old male who presents with complaints of progressively worsening right knee pain and giving way. The patient describes his pain as sharp in nature. His symptoms have gotten worse over the last year in spite of continued non operative treatments. He states that his right knee will give out several times per day. The patient states that he has fallen approximately ?20 times? over the last few months because of his right knee pain and instability. He has tried Tylenol and anti-inflammatory medicines as well as physical therapy exercises which gave him minimal relief. At this point his right knee pain and mechanical symptoms are interfering with his activities of daily living and his ability to sleep well through the night. He has failed the last 6 weeks of conservative treatment. Allergies aspirin Allergy (Severe, Verified 11/19/24 09:46) Facial Swelling oxycodone Allergy (Severe, Verified 11/19/24 09:46) severe pain/redness of testicles varenicline (From Chantix) Allergy (Severe, Verified 11/19/24 09:46) full body rash calamine Allergy (Intermediate, Verified 11/19/24 09:46) Rash barium sulfate Allergy (Mild, Verified 11/19/24 09:46) Vomiting hydromorphone Adverse Reaction (Verified 11/19/24 09:46) itchy hives Medication List - Last Reconciled 11/19/24 by Anthony Sutton MD acetaminophen-caffeine 500-65 mg (Excedrin Tension Headache) 2 tabs PO QID PRN albuterol sulfate 90 mcg/actuation 2 puffs inhalation Q6H PRN amlodipine 5 mg PO DAILY atorvastatin (Lipitor) 80 mg PO BEDTIME clotrimazole 1% 1 appl topical BID 4 weeks furosemide (Lasix) 40 mg PO DAILY riboflavin (vitamin B2) 400 mg PO QAM ubrogepant (Ubrelvy) 50 - 100 mg (0.5 - 1 x 100 mg) PO ONCE PRN 30 days valsartan 320 mg PO QAM 90 days PFSH Medical History (Updated 11/19/24 @ 10:01 by Anthony Sutton MD) Right knee pain Myocardial infarction Cervical spondylosis Low back pain Neck pain Snores Dizziness Hyperlipemia Murmur 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) History of stent insertion of renal artery (~2008) Migraines Coronary atherosclerosis Renal artery aneurysm Hypertension Surgical History H/O shoulder surgery Hx of neck surgery History of carpal tunnel release Stented coronary artery Family History Mother No family history of coronary artery disease Father No family history of coronary artery disease Social History Household Members Other:: minor children/lives in assisted Housing: House Are you 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 liaison to a significant other at home: Yes (has caregiver in place for children DOS) Do you presently have visiting nurse or other home services: No 75 years or older and lives alone: No Alcohol intake: current Alcohol intake frequency: does not drink Comment: chronic dizziness Patient Tobacco Use Status: Current someday Tobacco user Tobacco use type: Cigarette Cigarettes Per Day: 3 Years Smoked: 22 e-Cigarette/Vaping Use: Never Used Second Hand Smoke Exposure: No service: No Current occupational status: unemployed Current occupation: [employer] , Left hand dominate Current occupational exposures/hazards: Yes Cognitive needs: No Hearing needs: No Vision needs: No Physical Exam Const Other: Well-nourished well-developed very friendly male awake alert and oriented x3 in no acute distress Extrem Other: Right knee examination shows a minimal effusion, mild crepitus with range of motion, tenderness along his medial joint line, positive José Luis's test, no instability Results Reviewed Results Reviewed: Standing full weight-bearing x-rays of the patient's right knee show mild diffuse joint space narrowing, no acute bony abnormalities Assessment & Plan Assessment & Plan (1) Tear of medial meniscus of right knee: Code(s): S83.241A - Other tear of medial meniscus, current injury, right knee, initial encounter Category: Medical Plan Mr. Ravi presents with right knee pain and mechanical symptoms most likely due to a medial meniscus tear. Thus, I will send the patient for an MRI of his right knee for further evaluation. I will see him back once the MRI is completed to discuss the findings and treatment options. Feel free to call me at any time should questions regarding his orthopedic management arise. I spent 21 minutes in reviewing the patient's records and imaging studies, seeing the patient and documenting in the medical record. Orders: Orders XR knee RT 3V Today M25.561 - Pain in right knee MR knee RT wo con 11/20/24 S83.241A - Other tear of medial meniscus, current injury, right knee, initial encounter Coding Level of Care Code Est Pt Level 3 (09400) Complex EM visit Add On G2211 Diagnoses Tear of medial meniscus of right knee S83.241A
[2024-11-19 09:46] VITALS: BMI 40.7
== END 2024-11-19 09:55 | disposition home or self-care (01) ==
LOC: HO.HOS 09:32
PROVIDERS: PCP Nurse Practitioner Family; Visit Provider Orthopaedic Surgery
DX: S83.241A Other tear of medial meniscus, current injury, right knee, initial encounter (principal)
CPT/HCPCS: 99213

== ENCOUNTER 2024-11-19 09:29 | Outpatient (REF) | payer OTHER, SELFPAY ==
--- NOTE | ~2024-11-19 | XR_ITS ---
EXAMINATION: XR KNEE, RIGHT CLINICAL INFORMATION: M25.561 - Pain in right knee COMPARISON: None available. TECHNIQUE: AP, lateral and sunrise views. of the right knee. FINDINGS: No acute cortical disruption or malalignment. No lytic or blastic lesions. No suprapatellar bursa joint effusion. Mild sclerosis along the articular surface of the medial tibial plateau and medial femoral condyle. No vascular calcifications. No soft tissue calcifications.. XR/XR knee RT 3V IMPRESSION: Mild medial compartment osteoarthritis/osteoarthrosis. Electronically signed by: Gerard Huitron MD 11/19/2024 10:08 AM EDT
== END 2024-11-19 09:30 | disposition home or self-care (01) ==
LOC: HO.HOSX 09:29
PROVIDERS: Visit Provider Orthopaedic Surgery
DX: S83.241A Other tear of medial meniscus, current injury, right knee, initial encounter (principal); W18.30XA Fall on same level, unspecified, initial encounter
CPT/HCPCS: 73562; 99212

== ENCOUNTER → 2024-11-19 09:33 | Outpatient (BNV) | payer OTHER, SELFPAY | PROVIDERS: Visit Provider Radiology Diagnostic Radiology | DX: M17.11 Unilateral primary osteoarthritis, right knee (principal) | CPT/HCPCS: 73562 ==

== ENCOUNTER 2024-12-01 10:03 | Emergency (ER) | payer OTHER, SELFPAY ==
--- NOTE | ~2024-12-01 | US_ITS ---
EXAMINATION: US TRIPLEX LOWER EXTREMITY, BILATERAL CLINICAL INFORMATION: Bilateral extremity edema COMPARISON: None available. TECHNIQUE: Color-flow triplex imaging with spectral analysis and compression Doppler were performed on the bilateral lower extremities. FINDINGS: Respiratory variation, normal compression and augmented flow are noted throughout the bilateral lower extremities. The visualized common femoral vein, superficial femoral vein, profunda femoral vein, popliteal vein and midcalf peroneal and posterior tibial venous segments show no evidence of deep venous thrombosis bilaterally. US/US venous duplex LE BI IMPRESSION: No evidence of deep venous thrombosis involving the bilateral lower extremities. Electronically signed by: Froylan Armando MD 12/01/2024 12:57 PM EDT
--- NOTE | ~2024-12-01 | XR_ITS ---
EXAMINATION: XR CHEST CLINICAL INFORMATION: sternal chest pain, sob COMPARISON: November 04, 2024 TECHNIQUE: 2 views of the chest were obtained. FINDINGS: Prosthetic disc is noted at C7-T1. Lungs are clear and well aerated. Heart size is within normal limits. There is no sign of pleural effusion. XR/XR chest 2V IMPRESSION: No acute disease Electronically signed by: Froylan Armando MD 12/01/2024 10:55 AM EDT
--- NOTE | 2024-12-01 10:05 | ECG_ITS ---
Test Reason : CP Blood Pressure : */* mmHG Vent. Rate : 110 BPM Atrial Rate : 110 BPM P-R Int : 162 ms QRS Dur : 90 ms QT Int : 332 ms P-R-T Axes : 46 77 29 degrees QTcB Int : 449 ms Sinus tachycardia Otherwise normal ECG When compared with ECG of 22-Aug-2024 10:59, No significant change was found Referred By: Generic ED Physician Electronically Signed By: Hans Mckeon
[2024-12-01 10:16] VITALS: BP 147/67; PULSE 114; RESP 18; TEMP 36.4; O2SAT 97; BMI 39.2
--- NOTE | 2024-12-01 10:26 | ED.CHESTPAIN ---
HPI - Chest Pain General Chief Complaint: Chest Pain Stated Complaint: CP Time Seen by Provider: 12/01/24 11:27 Source: patient Mode of arrival: ambulatory Limitations: no limitations History of Present Illness ED Provider: DR. Belcher HPI narrative: 39-year-old male PMHx pericarditis, CAD with stent in the left circumflex in 2020, hypertension poorly controlled, active smoker, came in for evaluation of chest pain that is started at 22:00 last night while he was getting ready to sleep, patient woke up from sleep at around 11:00 for chest pain feels like somebody punched his chest, patient sleep that night with no pillows, which chronic bilateral lower leg swelling patient is taking Lasix was increased recently by his PCP, patient mentioned that a feet takes a deep breath taste like mental cigarettes in the throat, otherwise no fever, no chills, no recent prolonged immobilization, no recent travel, no history of DVT. Related Data Home Medications ?Medication ?Instructions ?Recorded ?Confirmed acetaminophen-caffeine 500 mg-65 2 tab PO QID PRN Headache 06/24/22 11/19/24 mg tablet (Excedrin Tension Headache) riboflavin (vitamin B2) 400 mg 400 mg PO QAM 05/09/24 11/19/24 tablet Previous Rx's ?Medication ?Instructions ?Recorded ubrogepant 100 mg tablet (Ubrelvy) 50 - 100 mg (0.5 - 1 x 100 mg) PO 11/08/23 ONCE PRN migraine headache 30 days #16 tabs valsartan 320 mg tablet 320 mg PO QAM 90 days #90 tabs 08/28/24 atorvastatin 80 mg tablet (Lipitor) 80 mg PO BEDTIME #90 tabs 10/21/24 albuterol sulfate 90 mcg/actuation 2 puff inhalation Q6H PRN 11/05/24 aerosol inhaler shortness of breath or wheezing or cough #8.5 grams clotrimazole 1 % topical cream 1 appl topical BID 4 weeks #45 11/05/24 grams amlodipine 5 mg tablet 5 mg PO DAILY #30 tabs 11/11/24 furosemide 40 mg tablet (Lasix) 40 mg PO DAILY #30 tabs 11/11/24 Allergies Allergy/AdvReac Type Severity Reaction Status Date / Time aspirin Allergy Severe Facial Verified 12/01/24 10:27 Swelling oxycodone Allergy Severe severe Verified 12/01/24 10:27 pain/redness of testicles varenicline (From Chantix) Allergy Severe full body Verified 12/01/24 10:27 rash calamine Allergy Intermediate Rash Verified 12/01/24 10:27 barium sulfate Allergy Mild Vomiting Verified 12/01/24 10:27 hydromorphone AdvReac itchy hives Verified 12/01/24 10:27 Review of Systems Review of Systems: All other systems are reviewed and are negative Constitutional: Reports as per HPI and Reports no additional constitutional complaints Eyes: Reports as per HPI and Reports no additional eye complaints Reports system reviewed and no additional complaints, except as documented Cardiovascular: Reports as per HPI and Reports no additional cardiovascular complaints Respiratory: Reports as per HPI and Reports no additional respiratory complaints Gastrointestinal: Reports as per HPI and Reports no additional gastrointestinal complaints Genitourinary: Reports no additional female genitourinary complaints Musculoskeletal: Reports no additional musculoskeletal complaints Skin/Breast: Reports system reviewed and no additional complaints, except as docu Psychiatric: Reports no additional psychiatric complaints Endocrine: Reports no additional endocrine complaints Hematologic/Lymphatic: Reports no additional hematologic/lymphatic complaints Allergic/Immunologic: Reports no additional allergic/immunologic complaints Reports system reviewed and no additional complaints, except as documented and Reports Abnormal speech present [facility] Past Medical History Medical History Right knee pain Myocardial infarction Cervical spondylosis Low back pain Neck pain Snores Dizziness Hyperlipemia Murmur 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) History of stent insertion of renal artery (~2008) Migraines Coronary atherosclerosis Renal artery aneurysm Hypertension Surgical History H/O shoulder surgery Hx of neck surgery History of carpal tunnel release Stented coronary artery Family History Family History Mother No family history of coronary artery disease Father No family history of coronary artery disease Social History Social History Household Members Other:: minor children/lives in nursing home Housing: House Are you a primary acute care registered nurse to a significant other at home: Yes (has caregiver in place for children DOS) Do you presently have visiting nurse or other home services: No Alcohol intake: current Alcohol intake frequency: does not drink Comment: chronic dizziness Patient Tobacco Use Status: Current someday Tobacco user Tobacco use type: Cigarette Cigarettes Per Day: 3 Years Smoked: 22 e-Cigarette/Vaping Use: Never Used Second Hand Smoke Exposure: No service: No Current occupational status: unemployed Current occupation: [employer] , Left hand dominate Current occupational exposures/hazards: Yes Cognitive needs: No Hearing needs: No Vision needs: No Physical Exam Vital Signs: Vital Signs: Last Vital Signs Temp 98 F 12/01/24 14:19 Pulse 100 12/01/24 14:19 Resp 16 12/01/24 14:19 BP 136/98 H 12/01/24 14:19 Pulse Ox 98 12/01/24 14:19 O2 Del Method Room Air 12/01/24 14:19 BMI result Body Mass Index 39.2 Vital signs have been reviewed and appear to be correct. Blood pressure elevated. Heart rate elevated, Respiratory rate normal. Temperature normal. Oxygen saturation normal. Appearance: Alert. Oriented X3. No acute distress. Head: Normal external exam. Normocephalic. Atraumatic. No Abad signs noted. No raccoon eyes noted Eyes: PERRLA. EOMI. Conjunctiva and sclera normal. Eyelids normal. ENT: TM's Normal. Pharynx normal. Uvula midline. Moist mucous membranes. No trismus noted. No drooling noted. No muffled voice noted. Neck: Normal inspection. Neck supple. FROM. No adenopathy. Thyroid Normal. No meningeal signs. No neck mass noted. CVS: Normal heart rate and rhythm. Heart sound normal. No murmurs noted. Pulses normal throughout. Respiratory: No respiratory distress. Painless inspiration. Breath sounds normal. No wheezes/rales/rhonchi noted. Chest nontender. No accessory muscle usage noted or decreased air movement noted. Abdomen: Soft and nontender. Bowel sounds normal in all 4 quadrants. No distention noted. No organomegaly noted. No visible injury noted. Back: No CVA tenderness. Full range of motion noted. Skin: Skin warm and dry. Normal skin color. Normal skin turgor. No rashes/lesions/lacerations noted. Extremities: +2 bilateral lower extremity edema. Extremities exhibit normal range of motion. Extremities nontender. Neuro: Oriented X 3. Cranial nerve exam: II-XII are grossly intact No motor deficit. No sensory deficit. Reflexes normal. Course Course Course Narrative: This is a Rapid Medical Examination (RME) performed by Stas River PA-C in triage. Full HPI, ROS, assessment and treatment plan per primary provider in the Main ED. Hx: 39 yo M sternal cp that began around 10pm last night, woke him from his sleep. assoc sob. reports b/l LE swelling x4 mo. provider recently increased his lasix. PE/vitals: 1+ pitting edema. Plan: labs, cxr, ekg Reevaluation(s) Reevaluation #1: presented with chest pain since yesterday, low risk for ACS with unremarkable EKG and negative troponin x2, pulmonary embolism is unlikely for absence of risk factors and negative D-dimer with stable vital signs with no hypoxia or tachypnea. Otherwise unremarkable workup. Patient was instructed to follow-up with his PCP. Patient was educated about quit smoking. Time: 14:53 Medical Decision Making Differential Diagnosis Differential Diagnoses: The differential diagnosis associated with the presentation includes ( ACS, pulmonary embolism, pneumonia, pneumothorax, pleural effusion, electrolyte derangement, severe anemia.) Admission/Observation Consideration of admission/observation: Escalation of care including admission/observation considered Lab Data MDM Lab Attestation statement: I reviewed the patient's lab results. 12/01/24 11:04 12/01/24 11:04 Labs: Lab Results 12/01/24 12/01/24 12/01/24 Range/Units 11:04 11:48 14:19 WBC 12.3 H (4.8-10.8) X10*3/uL RBC 4.94 (4.60-5.80) X10*6/uL Hgb 14.1 (14.0-18.0) g/dl Hct 39.8 L (42.0-52.0) % MCV 80.6 (80.0-98.0) fL MCH 28.5 (27.0-33.0) pg MCHC 35.4 (31.0-36.0) g/dl RDW 16.7 H (11.0-16.0) % Plt Count 346 (160-400) X10*3/uL MPV 9.6 (9.4-12.4) fL Immature Gran % (Auto) 0.6 H (0.0-0.4) % Neut % (Auto) 66.5 (45-73) % Lymph % (Auto) 21.2 (20-40) % [place] % (Auto) 10.7 (2-11) % Eos % (Auto) 0.6 (0-4) % Baso % (Auto) 0.4 (0-2) % Lymph # (Auto) 2.6 (1.2-4.9) X10*3/uL [place] # (Auto) 1.3 H (0.1-1.2) X10*3/uL Eos # (Auto) 0.1 (0.0-0.4) X10*3/uL Baso # (Auto) 0.1 (0.0-0.2) X10*3/uL Abs Immat Gran (auto) 0.07 H (0.00-0.03) X10*3/uL Absolute Neuts (auto) 8.2 (2.0-8.3) x10*3/uL Absolute Nucleated RBC 0.000 (0.0-0.012) X10*3/uL Nucleated RBC % (auto) 0.0 (0.0-0.2) /100WBC D-Dimer High Sensitivty < 150 NG/ML Sodium 139 (135-145) mmol/L Potassium 3.4 (3.3-5.1) mmol/L Chloride 103 (96-108) mmol/L Carbon Dioxide 24 (22-29) mmol/L Anion Gap 15 (12-20) BUN 7 L (9-16) mg/dL Creatinine 0.84 (0.5-1.4) mg/dL Estim Creat Clear Calc 140.5 Estimated GFR > 60 Random Glucose 105 (60-115) mg/dL Calcium 9.3 (8.4-10.2) mg/dL Magnesium 2.0 (1.6-2.6) mg/dL Total Bilirubin 0.4 (0.0-1.0) mg/dL AST 52 H (5-37) U/L ALT 78 H (0-40) U/L Alkaline Phosphatase 110 (39-117) U/L Troponin I High Sens 12.2 9.8 (<3.5-35.0) ng/L NT-Pro-B Natriuret Pep 144.1 137.3 (<300) pg/mL Total Protein 7.8 (6.5-8.0) g/dL Albumin 4.8 (3.5-5.0) g/dL Independent Interpretation I performed an independent interpretation of an: Plain X-Ray ( Chest: No acute intrathoracic pathology.) and Ultrasound ( Bilateral lower extremity: No DVT) Radiology Impression Discussion of test interpretation with radiology: I have reviewed the radiologist's reading. Discharge Plan Discharge Clinical Impression: Chest pain, Atypical chest pain Patient Disposition: Home, Self-Care Instructions: Chest Pain (ED) Prescriptions: No Action atorvastatin [Lipitor] 80 mg tablet 80 mg PO BEDTIME Qty: 90 3RF Rx Instructions: dose increased amlodipine 5 mg tablet 5 mg PO DAILY Qty: 30 5RF Rx Instructions: dose reduced furosemide [Lasix] 40 mg tablet 40 mg PO DAILY Qty: 30 5RF Rx Instructions: This overrides the script for 20mg daily Excedrin Tension Headache 500-65 mg Tablet 2 tab PO QID PRN (Reason: Headache) riboflavin (vitamin B2) 400 mg Tablet 400 mg PO QAM Ubrelvy 100 mg tablet 50 - 100 mg PO ONCE PRN (Reason: migraine headache) 30 Days Qty: 16 3RF Rx Instructions: take at onset of migraine, may repeat in 2hrs (may take w/ Tylenol) valsartan 320 mg tablet 320 mg PO QAM 90 Days Qty: 90 1RF albuterol sulfate 90 mcg/actuation HFA aerosol inhaler 2 puff inhalation Q6H PRN (Reason: shortness of breath or wheezing or cough) Qty: 8.5 0RF clotrimazole 1 % cream 1 appl topical BID 28 Days Qty: 45 0RF Referrals: Ryan Louis, PRODUCT SAFETY TECHNICAL ASSISTANT-BC [Primary Care Provider, Internal Medicine] Brian Lizarraga MD [Physician, Cardiology] Print Language: Serbian
[2024-12-01 11:13] LABS: MANUAL DIFF FLAG NO
[2024-12-01 11:15] LABS: Hematocrit 39.8 % (42.0-52.0); Hemoglobin 14.1 g/dl (14.0-18.0); Imm Gran Abs Auto 0.07 X10*3/uL (0.00-0.03); Imm Gran Pct Auto 0.6 % (0.0-0.4); Lymphocytes Absolute Auto 2.6 X10*3/uL (1.2-4.9); Mean Corpuscular HGB Conc 35.4 g/dl (31.0-36.0); Mean Corpuscular Hemoglobin 28.5 pg (27.0-33.0); Mean Corpuscular Volume 80.6 fL (80.0-98.0); NRBC Abs Auto 0.000 X10*3/uL (0.0-0.012); NRBC Pct Auto 0.0 /100WBC (0.0-0.2); Platelet Count 346 X10*3/uL (160-400); Red Blood Count 4.94 X10*6/uL (4.60-5.80); White Blood Count 12.3 X10*3/uL (4.8-10.8)
[2024-12-01 11:28] LABS: Alanine Aminotransferase 78 U/L (0-40); Albumin Level 4.8 g/dL (3.5-5.0); Alkaline Phosphatase 110 U/L (39-117); Anion Gap 15 (12-20); Aspartate Amino Transferase 52 U/L (5-37); Blood Urea Nitrogen 7 mg/dL (9-16); Calcium 9.3 mg/dL (8.4-10.2); Carbon Dioxide 24 mmol/L (22-29); Chloride 103 mmol/L (96-108); Creatinine Clr Calc Pharmacy 140.5; Estimated Glomerular Filt Rate > 60; Magnesium 2.0 mg/dL (1.6-2.6); Potassium 3.4 mmol/L (3.3-5.1); Sodium 139 mmol/L (135-145); Total Protein 7.8 g/dL (6.5-8.0)
[2024-12-01 11:37] LABS: NT Pro B Type Natriuretic Pept 144.1 pg/mL (<300); Troponin-I High Sensitivity 12.2 ng/L (<3.5-35.0)
[2024-12-01 12:06] LABS: D Dimer High Sensitivity < 150 NG/ML
[2024-12-01 12:21] LABS: NT Pro B Type Natriuretic Pept 137.3 pg/mL (<300)
[2024-12-01 14:19] VITALS: BP 136/98; PULSE 100; RESP 16; TEMP 36.6; O2SAT 98
[2024-12-01 14:51] LABS: Troponin-I High Sensitivity 9.8 ng/L (<3.5-35.0)
[2024-12-01 15:01] VITALS: BP 136/98; PULSE 100; RESP 16; TEMP 36.6; O2SAT 98
== END 2024-12-01 15:07 | disposition home or self-care (01) ==
PROVIDERS: Physician Assistant Medical; Emergency Provider Emergency Medicine; PCP Nurse Practitioner Family
DX: R07.89 Other chest pain (principal); I10 Essential (primary) hypertension; I25.10 Atherosclerotic heart disease of native coronary artery without angina pectoris; F17.210 Nicotine dependence, cigarettes, uncomplicated
CPT/HCPCS: 36415; 71046; 80053; 83735; 83880; 84484; 85025; 85379; 93005; 93970; 99284

== ENCOUNTER → 2024-12-01 10:05 | Outpatient (BNV) | payer OTHER, SELFPAY | PROVIDERS: Emergency Provider Emergency Medicine; PCP Nurse Practitioner Family; Visit Provider Internal Medicine Cardiovascular Disease | DX: R00.0 Tachycardia, unspecified (principal) | CPT/HCPCS: 93010 ==

== ENCOUNTER → 2024-12-01 10:28 | Outpatient (BNV) | payer OTHER, SELFPAY | PROVIDERS: PCP Nurse Practitioner Family; Visit Provider Radiology Diagnostic Radiology | DX: R22.43 Localized swelling, mass and lump, lower limb, bilateral (principal); R06.02 Shortness of breath | CPT/HCPCS: 71046; 93970 ==

== ENCOUNTER 2024-12-02 09:15 | Outpatient (AMB) | payer OTHER, SELFPAY ==
--- NOTE | 2024-12-02 09:34 | A.OFFVIS_ITS ---
Vital Signs 12/02/24 09:37 Height 5 ft 7 in Weight 255 lb BMI 39.9 Intake Visit Reasons: OV: 2-3 month follow up Lt Shld 05/23/24 Intake Note: Florencio is a 39 year old male who presents today as a 2-3 month follow up for his Left shoulder, Lt Shoulder 05/23/24 . At last visit 09/30/24 we discussed to continue with at home exercises and that we would hold off on cortisone injections. At today's visit he states that his ROM is improving slowly and his home exercises are going well. He is due to have his right knee MRI over the next few weeks. Allergies aspirin Allergy (Severe, Verified 12/02/24 09:37) Facial Swelling oxycodone Allergy (Severe, Verified 12/02/24 09:37) severe pain/redness of testicles varenicline (From Chantix) Allergy (Severe, Verified 12/02/24 09:37) full body rash calamine Allergy (Intermediate, Verified 12/02/24 09:37) Rash barium sulfate Allergy (Mild, Verified 12/02/24 09:37) Vomiting hydromorphone Adverse Reaction (Verified 12/02/24 09:37) itchy hives Medication List - Last Reconciled 12/02/24 by Anthony Sutton MD acetaminophen-caffeine 500-65 mg (Excedrin Tension Headache) 2 tabs PO QID PRN albuterol sulfate 90 mcg/actuation 2 puffs inhalation Q6H PRN amlodipine 5 mg PO DAILY atorvastatin (Lipitor) 80 mg PO BEDTIME clotrimazole 1% 1 appl topical BID 4 weeks furosemide (Lasix) 40 mg PO DAILY riboflavin (vitamin B2) 400 mg PO QAM ubrogepant (Ubrelvy) 50 - 100 mg (0.5 - 1 x 100 mg) PO ONCE PRN 30 days valsartan 320 mg PO QAM 90 days PFSH Medical History Right knee pain Myocardial infarction Cervical spondylosis Low back pain Neck pain Snores Dizziness Hyperlipemia Murmur 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) History of stent insertion of renal artery (~2008) Migraines Coronary atherosclerosis Renal artery aneurysm Hypertension Surgical History H/O shoulder surgery Hx of neck surgery History of carpal tunnel release Stented coronary artery Family History Mother No family history of coronary artery disease Father No family history of coronary artery disease Social History Household Members Other:: minor children/lives in custodial Housing: House Are you a primary personal care service provider to a significant other at home: Yes (has caregiver in place for children DOS) Do you presently have visiting nurse or other home services: No 75 years or older and lives alone: No Alcohol intake: current Alcohol intake frequency: does not drink Comment: chronic dizziness Patient Tobacco Use Status: Current someday Tobacco user Tobacco use type: Cigarette Cigarettes Per Day: 3 Years Smoked: 22 e-Cigarette/Vaping Use: Never Used Second Hand Smoke Exposure: No service: No Current occupational status: unemployed Current occupation: [employer] , Left hand dominate Current occupational exposures/hazards: Yes Cognitive needs: No Hearing needs: No Vision needs: No Physical Exam Vital Signs: BMI result Body Mass Index 39.9 Const Other: Well-nourished well-developed very friendly male awake alert and oriented x3 in no acute distress Extrem Other: Left shoulder examination shows that the surgical incisions are well healed, no erythema, slightly decreased range of motion when compared to his right shoulder, minimal discomfort with range of motion, no instability Assessment & Plan Assessment & Plan (1) Left shoulder pain: Code(s): M25.512 - Pain in left shoulder Category: Medical Plan Mr. Ravi continues to do well after undergoing left shoulder arthroscopic surgery on 05/23/2024. He will continue with his physical therapy exercises. The do's and don'ts of lifting were discussed at length with the patient. He will follow up for his right knee MRI as scheduled. I will contact him by phone once the MRI results are available. Feel free to call me at any time should questions regarding his orthopedic management arise. I spent 21 minutes in reviewing the patient's records and imaging studies, seeing the patient and documenting in the medical record. Coding Level of Care Code Est Pt Level 3 (74608) Complex EM visit Add On G2211 Diagnoses Left shoulder pain M25.512
[2024-12-02 09:37] VITALS: BMI 39.9
== END 2024-12-02 09:58 | disposition home or self-care (01) ==
LOC: HO.HOS 09:15
PROVIDERS: PCP Nurse Practitioner Family; Visit Provider Orthopaedic Surgery
DX: M25.512 Pain in left shoulder (principal)
CPT/HCPCS: 99213

== ENCOUNTER → 2024-12-02 09:15 | Outpatient (BNVA) | payer OTHER, SELFPAY | PROVIDERS: PCP Nurse Practitioner Family; Visit Provider Orthopaedic Surgery | DX: M25.512 Pain in left shoulder (principal) | CPT/HCPCS: 99212 ==

== ENCOUNTER → 2024-12-13 09:18 | Outpatient (BNV) | payer OTHER, SELFPAY | PROVIDERS: PCP Nurse Practitioner Family; Visit Provider Radiology Diagnostic Radiology | DX: M76.51 Patellar tendinitis, right knee (principal) | CPT/HCPCS: 73721 ==

== ENCOUNTER 2024-12-13 09:19 | Outpatient (REF) | payer OTHER, SELFPAY ==
--- OUTSIDE RECORDS SUMMARY | 2006-03-12 08:00 | XMS_ITS | Continuity of Care Document ---
Author Organization [facility] Address [address] [place] [address] Phone Care Team Providers Care Support Service Tech Name Role Phone No Information Unavailable Unavailable Advance Directives Directive Yes / No Effective Date File Name No Information Encounters Encounter Description Practice Location Reason(s) For Visit Diagnoses Date Provider Providers Copied on Encounter [facility], [address], [place], [id number], [place] tel:[phone] No Information No Information Family History Family Member Type Diagnosis Age At Onset No Information Payers Payer name Insurance type Covered constitution party ID Authoriza tion(s) No Information Social History Type Description Quantity Date Captured Comments Sex Male Smoking Status No Information Chief Complaint And Reason For Visit No Information Reason For Referral Reason For Referral No Information History Of Present Illness Encounter Date Complaint History Of Prese nt Illness No Information Functional Status Date Functional Assessmen t No Information Instructions Date Instruction Additional Infor mation No Information Assessments Type Assessment Date No Information Patient Care Teams Name Effective Dates (start - stop) Status Members No Information
--- NOTE | ~2024-12-13 | MR_ITS ---
CLINICAL HISTORY: S83.241A - Other tear of medial meniscus, current injury, right knee, in... MR right knee without gadolinium Comparison: DX/SR - XR KNEE 3 VIEWS RIGHT - 11/19/24 09:33 EDT Findings: No acute fracture or pathologic bone lesion. No effusion. Anterior and posterior cruciate ligaments are intact. Collateral ligaments are intact. Patellar retinacula and iliotibial band are intact. No tears of the patellar, popliteus, or flexor tendons. There may be mild quadriceps tendinitis. The menisci are intact. IMPRESSION: Possible mild quadriceps tendinitis. No meniscal tears are noted This document has been electronically signed by: Los Rodriguez MD on 12/15/2024 13:06:52
== END 2024-12-13 09:20 | disposition home or self-care (01) ==
LOC: HO.MRI 09:19
PROVIDERS: PCP Nurse Practitioner Family; Visit Provider Orthopaedic Surgery
DX: S83.241A Other tear of medial meniscus, current injury, right knee, initial encounter (principal)
CPT/HCPCS: 73721

== ENCOUNTER 2025-02-02 10:39 | Outpatient (AMB) | payer OTHER, SELFPAY ==
--- NOTE | 2025-02-02 10:34 | A.OFFVIS_ITS ---
Intake Visit Reasons: 6m Follow Up Intake Note: Patient presents follow up for migraines. 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: No Accompanied by: Self / Same As Patient Allergies aspirin Allergy (Severe, Verified 12/02/24 09:37) Facial Swelling oxycodone Allergy (Severe, Verified 12/02/24 09:37) severe pain/redness of testicles varenicline (From Chantix) Allergy (Severe, Verified 12/02/24 09:37) full body rash calamine Allergy (Intermediate, Verified 12/02/24 09:37) Rash barium sulfate Allergy (Mild, Verified 12/02/24 09:37) Vomiting hydromorphone Adverse Reaction (Verified 12/02/24 09:37) itchy hives Medication List - Last Reconciled 02/02/25 by ARASH Berry acetaminophen-caffeine 500-65 mg (Excedrin Tension Headache) 2 tabs PO QID PRN albuterol sulfate 90 mcg/actuation 2 puffs inhalation Q6H PRN amlodipine 5 mg PO DAILY atorvastatin (Lipitor) 80 mg PO BEDTIME celecoxib (Celebrex) 200 mg PO DAILY PRN clotrimazole 1% 1 appl topical BID 4 weeks furosemide (Lasix) 40 mg PO DAILY riboflavin (vitamin B2) 400 mg PO QAM ubrogepant (Ubrelvy) 50 - 100 mg (0.5 - 1 x 100 mg) PO ONCE PRN 30 days valsartan 320 mg PO QAM 90 days HPI Comments Details: Left-handed 39-year-old male presents for follow-up migraine, possible vestibular migraine. Reports he has just gotten over a 6 day migraine attack, which started after he woke up with a typical migraine. He thinks this maybe due to increased sleep difficulties, as he is noticing more snoring, fragmented sleep, and daytime sleepiness. He has never had a sleep study before, but is open to doing that now He is having 2-3 headache days per week, some occur during the day, but other times they occur upon awakening. He states the Ubrelvy even when taken with Excedrin has not been helpful. He stopped the amitriptyline, as he was having some chest pain symptoms. He is following with Cardiology, and believes that they are going to be adjusting his BP regimen again. 07/31/2024, HPI: Interval Brain MRI was unremarkable, showed sinus inflammation. Patient had f/u ENT consult, and they were not concerned regarding the sinus inflammation. However, they noted he does not have any frontal sinuses. Pt underwent a left shoulder surgery on May 23, and a notes some increased difficulty sleeping since, though this is slowly healing. Patient notes that since his previous c-spine surgery, his headache has changed. He no longer feels the pain in the posterior left neck, but now left top of the head. He notes, once he had a headache on the right, which was rare for him. He is having less dizziness, since he stopped Plavix- as he thought this was contributing to his dizziness.. He was not started another antiplatelet- has ASA allergy- facial allergy. He does notice his residual facial weakness from his historical murrieta's palsy Having a headache about 2 times per week. He has started B2 and Mag. He is taking Amitriptyline 10mg qhs- but may skip at times. He is taking Ubrelvy but tends to need to take an excedrin about an hour later. Also uses excedrin prn for his shoulder pain, as this works better than Tylenol or Ibuprofen- denies ibuprofen intolerance. MR/MR head/brain wo/w con IMPRESSION: No vestibular schwannoma. No enhancing mass or acute brain abnormality. Polypoid paranasal sinus disease. 11/08/2023, Initial HPI: Left handed 38-yr-old male presents for new pt evaluation of possible vestibular migraine. Pt reports he started having bouts of chest pain and dizziness last Spring. 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 This was affecting his ability to work, and by Nov 2022, he had to stop working and has not been able to return to work since. He was evaluated by ENT, who suggested pt may have vestibular migraine and suggested he be seen by neuro. He describes the dizziness episode as- starts as a left facial tingling sensation, then feels a bit disoriented, then can feel not right in space x's 15 minutes up to a full day or longer. A/w mild headache or full blown headache. The dizziness can be triggered by squatting for an extended time. Bending foreword is less triggering since the neck surgery. Elevators and stairs can also trigger motion sickness. He had been having motion sickness. Prior to the neck surgery- he had 23 attacks over 17 days w/ dizziness in the prior 22 days. During this same period he had, almost daily. He has a h/o motion sickness as a child. 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 He did undergo an anterior approached C6-7 total disc arthropathy last week. PMH : 35 yr old [place]. Kidney aneurysm at age 23. PMH and ROS are notable for:? Musculoskeletal disorders or injury: s/p neck surgery. right wrist fx- as a child. Mood d/o: Anxiety, Depression, CV disease: HTN, HLD, MA at age 35 following stressful life event. 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 : states no h/o kidney disease GI d/o: GERD- improved on diet, Constipation- as he is on post-op analgesics. Family history of migraine or other headache disorder: migraines Pertinent denials include: Respiratory d/o, Clotting or hematology d/o, Endocrine d/o, metabolic d/o, History of seizure, syncope, or drop attacks Lifestyle considerations: Sleep routine: Usual bedtime: 8:30pm-3:3:30am and wake-up time: 6am. No usual naps. Sleep difficulties: Endorses: Snoring, Fatigue, Leg Cramps. Caffeine use: no caffeine Substance use: Tobacco- > 3 x's per day, Alcohol- social. Exercise:?walking/stairs. Employment:?filing for disability Family planning: none Headache questionnaire:? Typical headache characteristics: Prodrome symptoms: unknown Aura: blurry vision, seeing stars usually during headache. Pain intensity: severe Location, quality, characteristics: Always left eye, buddhist, and left postauricular to left occipital and left neck. Associated symptoms: photophobia, phonophobia, allodynia, not right in space dizziness, lightheadedness, fatigue, cognitive difficulties, activity intolerance. Postdrome: occasional lingering s/s Triggers: none Time of day: mornings or afternoons Duration and Frequency: all day to days, has lasted as long as 7 days. How does headache impact your life? not currently working, difficult to do activities. Current acute medication use/interventions: Excedrin tension. Current preventative medication use: None Non-pharmacological interventions: Rest and Ice caps. [facility] Medical History (Updated 02/02/25 @ 11:23 by ARASH Berry) Right knee pain Myocardial infarction Cervical spondylosis Low back pain Neck pain Snores Dizziness Hyperlipemia Murmur 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) History of stent insertion of renal artery (~2008) Migraines Coronary atherosclerosis Renal artery aneurysm Hypertension Surgical History H/O shoulder surgery Hx of neck surgery History of carpal tunnel release Stented coronary artery Family History Mother No family history of coronary artery disease Father No family history of coronary artery disease Social History Household Members Other:: minor children/lives in detention Housing: House Are you a primary career resource specialist to a significant other at home: Yes (has caregiver in place for children DOS) Do you presently have visiting nurse or other home services: No 75 years or older and lives alone: No Alcohol intake: current Alcohol intake frequency: does not drink Comment: chronic dizziness Patient Tobacco Use Status: Current someday Tobacco user Tobacco use type: Cigarette Cigarettes Per Day: 3 Years Smoked: 22 e-Cigarette/Vaping Use: Never Used Second Hand Smoke Exposure: No service: No Current occupational status: unemployed Current occupation: [employer] , Left hand dominate Current occupational exposures/hazards: Yes Cognitive needs: No Hearing needs: No Vision needs: No Physical Exam Const Orientation/consciousness: patient oriented x3 Resp Effort & Inspection: normal respiratory effort and able to speak in complete sentences Neuro General: patient oriented x3 Cognition (Neuro): normal cognition Motor exam (neuro): 5/5 motor strength present throughout Pupils: Normal pupillary reactivity/response: bilateral Psych Appearance: grossly normal Mental Status: mental status grossly normal Affect: normal affect Attitude: cooperative Thought process: Normal thought process present Telehealth Telehealth Telehealth Platform: [employer] Location of provider rendering services: practice address Location of patient: address on file Patient Identification confirmed using: Name, : Yes Telehealth method: video Patient verbally consented to treatment: Yes Patient verbally consented to billing insurance company: Yes Patient informed of any privacy concerns related to visit: Yes Minutes spent on Phone/Video with Pt.: 18 Assessment & Plan Assessment & Plan (1) Migraine with aura: Code(s): G43.109 - Migraine with aura, not intractable, without status migrainosus Category: Medical Qualifiers: Status migrainosus presence: without status migrainosus Intractability: not intractable Qualified Code(s): G43.109 - Migraine with aura, not intractable, without status migrainosus (2) Dizziness: Code(s): R42 - Dizziness and giddiness Category: Medical (3) Sleep difficulties: Code(s): G47.9 - Sleep disorder, unspecified Category: Medical (4) Excessive daytime sleepiness: Comment: [place] sleepiness scale 10 Code(s): G47.19 - Other hypersomnia Category: Medical Plan Previous workup: Brain MRI w/ Greg IAC w/wo- unremarkable Your advised to undergo: Home sleep study to assess for sleep apnea For overall headache management: * Optimize good self-care, including but not limited to maintaining a healthy diet, adequate fluid intake, adequate sleep, and engaging in regular physical activity. * Track headaches, especially after any treatment regimen changes. Migraine [employer] is one of many headache tracking apps. * Information shared on non-pharmacological interventions which may help to alleviate headache attack burden. For light sensitivity: Patient may benefit from trying blue light filtering glasses, green glasses, green light therapy. For sound sensitivity: Patent may benefit from trying noise cancellation ear plugs. For acute headache treatment: Discussed importance of taking acute medications at the first sign of headache, however stressed importance of avoiding acute medication overuse (especially with combined headache medications). Discontinue Ubrogepant (Ubrelvy) 100mg tab, 1/2 - 1 tab (50-100mg) order, as this has not been effective Trial Rimegepant ODT (Nurtec ODT) 75mg, 1 tab at onset of headache.. Max of 1 tabs (75mg) per 24 hours. * May adjunct with OTC Tylenol 650-1000 mg every 4-6 hours or Excedrin as needed. * Potential adverse effects, include but are not limited to fatigue, nausea, dry mouth, constipation. Previous acute migraine medication trials: Excedrin tension- ineffective. Ubrelvy 100 mg: Ineffective Acute migraine medication contraindications: All triptans d/t h/o MA. NSAIDs d/t ASA allergy Future consideration: Anti CGRP nasal spray for migraine upon awakening from sleep For headache prevention medication: Preventative medications should be taken routinely as prescribed for best effect, it may take several weeks for full effect to take effect. Continue Riboflavin 400mg qam Start Co Q10 400 mg daily in the morning, take with a healthy higher fat food, such as peanut butter, avocado, egg Continue Magnesium 400mg qhs Trial Topiramate IR 25 mg daily at bedtime for 1 week then increase to 50 mg daily at bedtime. * Potential adverse effects of Topiramate, include but are not limited to fatigue, cognitive changes, paresthesias (tingling), vision changes, kidney stones. Previous migraine prevention medication trials: Amitriptyline 10 mg was not to lerated, possibly exacerbated cardiac symptoms. Metoprolol use for HTN, however was ineffective for HTN her headaches. Migraine prevention medication contraindications: None at this time Future considerations: Anti CGRP monoclonal antibody Will follow-up upon review of above and patient to follow-up in clinic in 6 months or sooner prn. Orders: Orders RT home sleep study Today G47.19 - Other hypersomnia, G47.9 - Sleep disorder, unspecified, R06.83 - Snoring Medications: New topiramate 25mg QWHS x's 1 week, then 50mg qhs orally bedtime; 60 tabs 6RF 30 days metoclopramide HCl 10 mg (2 x 5 mg) PO Q6H PRN 20 tabs 3RF nausea and vomiting and migraine 30 days coenzyme Q10 Daily in a.m.. Take with higher fat food 400 mg PO DAILY 90 caps 3RF 90 days rimegepant (Nurtec ODT) 75 mg PO ONCE PRN 16 tabs 6RF migraine headache 30 days MDD 1 tab G43.109 - Migraine with aura, not intractable, without status migrainosus Changed From magnesium oxide may hold for loose stools 400 mg PO BEDTIME 30 tabs 6RF 30 days To magnesium oxide may hold for loose stools 400 mg PO BEDTIME 90 tabs 3RF 90 days From riboflavin (vitamin B2) 400 mg PO QAM To riboflavin (vitamin B2) 400 mg PO QAM 90 tabs 3RF 90 days Discontinued ubrogepant (Ubrelvy) take at onset of migraine, may repeat in 2hrs (may take w/ Tylenol) Discontinued Reason: Doctor's Order 50 - 100 mg (0.5 - 1 x 100 mg) PO ONCE 30 days PRN 16 tabs 3RF migraine headache G43.109 - Migraine with aura, not intractable, without status migrainosus Coding Level of Care Code Tele Est Pt Level 4 (85093) Diagnoses Migraine with aura and without status migrainosus, not intractable G43.109 Status migrainosus presence: without status migrainosus Intractability: not intractable Dizziness R42 Sleep difficulties G47.9 Excessive daytime sleepiness G47.19
== END 2025-02-02 14:53 | disposition home or self-care (01) ==
LOC: HO.HSMS 10:39
PROVIDERS: PCP Nurse Practitioner Family; Visit Provider Nurse Practitioner Family
DX: G43.109 Migraine with aura, not intractable, without status migrainosus (principal); R42 Dizziness and giddiness; G47.9 Sleep disorder, unspecified; G47.19 Other hypersomnia
CPT/HCPCS: 99214